=== PATIENT | female | born 1955 | race Caucasian/White ===

== ENCOUNTER → 2017-10-31 09:55 | Outpatient (CLI) | payer OTHER, SELFPAY ==
--- NOTE | 2017-10-31 09:57 | DI.MRI.S_ITS ---
PROCEDURE: MR LOWER LEG RT WO CON INDICATIONS: PAIN IN RIGHT ARCE TECHNIQUE: Noncontrast coronal and sagittal T1 spin echo and STIR; axial T1 spin echo and T2 fast spin echo with fat saturation through the right tibia/fibula. COMPARISON: [facility], CR, TIB/FIB 2V RIGHT, 06/10/2017, 12:33. FINDINGS: Image quality: Excellent. Bones: The visualized bone marrow demonstrates normal signal on all sequences. There is mild T2 hyperintensity involving the anteromedial tibial periosteum, for example image 18 series 6 . The cortex appears intact. No fractures lines or intra-osseous lesions. Soft tissues: The scanned muscles demonstrate normal overall bulk and internal signal. Subcutaneous tissues appear normal as well. No soft tissue masses are present. IMPRESSION: Mild anteromedial tibial periosteal edema/T2 hyperintensity suggesting anteromedial stress syndrome (arce splints). Please correlate clinically. No abnormal marrow signal change. Mild distal insertional Achilles tendinopathy Dictated by: Isaac Philip M.D. on 10/31/2017 at 12:45 Approved by: Isaac Philip M.D. on 10/31/2017 at 12:59
== END ==
PROVIDERS: Family Provider Family Medicine; PCP Family Medicine; Visit Provider Family Medicine
DX: M79.661 Pain in right lower leg (principal)
CPT/HCPCS: 73718

== ENCOUNTER → 2017-11-08 10:30 | Outpatient (CLI) | payer OTHER, SELFPAY ==
[2017-11-08 11:30] LABS: Add Manual Diff / Slide Review NO; Basophils Percent Auto 0.5 % (0-2); Eosinophils Percent Auto 1.3 % (2-4); Hematocrit 44.6 % (36-46); Hemoglobin 15.2 g/dL (12.0-16.0); Lymphocytes Percent Auto 28.1 % (25-40); Mean Corpuscular HGB Conc 34.1 % (30-36); Mean Corpuscular Hemoglobin 31.6 PG (26-34); Mean Corpuscular Volume 92.6 fL (80-100); Monocytes Percent Auto 6.4 % (3-14); Neutrophils Absolute Auto 4300 /uL (3000-5900); Neutrophils Percent Auto 63.7 % (50-75); Platelet Count 284 X10^3/uL (150-400); Red Blood Cell Count 4.82 X10^6/uL (4.0-5.2); Red Cell Distribution Width 13.2 % (11.6-14.8); White Blood Cell Count 6.8 X10^3/uL (4.5-11.0)
[2017-11-08 11:50] LABS: BUN Creatinine Ratio 22.5 (6-22); Blood Urea Nitrogen 18 mg/dL (7-17); Calcium 9.8 mg/dL (8.4-10.2); Carbon Dioxide 39 mmol/L (22-32); Chloride 102 mmol/L (98-107); Cholesterol 167 mg/dL (140-199); Estimated Glomerular Filt Rate > 60.0 mL/min (>60); Glucose 114 mg/dL (80-110); HDL Cholesterol 50 mg/dL (40-60); HEMOLYSIS < 15 (0-50); LDL Cholesterol Calculated 104 mg/dL (<100); Potassium 4.8 mmol/L (3.4-5.1); Sodium 147 mmol/L (137-145); Triglycerides 65 mg/dL (35-150)
[2017-11-08 12:32] LABS: Thyroid Stimulating Hormone 2.19 uIU/mL (0.47-4.68)
== END ==
PROVIDERS: PCP Family Medicine; Visit Provider Family Medicine
DX: Z00.00 Encounter for general adult medical examination without abnormal findings (principal); Z78.0 Asymptomatic menopausal state
CPT/HCPCS: 36415; 80048; 80061; 84443; 85025

== ENCOUNTER 2017-12-08 11:41 | Day surgery (SDC) | payer OTHER, SELFPAY ==
[2017-12-08 12:09] VITALS: BP 131/68; PULSE 67; RESP 16; TEMP 36.1; O2SAT 96; BMI 25.6
[2017-12-08] MEDS: SODIUM CHLORIDE 0.9% 1,000 ML 200 ML IV (12:16)
--- NOTE | 2017-12-08 12:45 | PM.HP.1 ---
History of Present Illness Date Patient Seen: 12/08/17 Time Patient Seen: 12:45 Chief complaint: [id number] Narrative: 61-year-old female who last underwent colonoscopy 5 years ago. She presents now for a follow-up surveillance with a personal history of colon polyps in the past. She has no new gastrointestinal symptoms on further history today. Denies any nausea, vomiting, loss of appetite, abdominal pain, unexplained weight loss, change in bowel habits, diarrhea, constipation, melena, hematochezia, or bright red blood per rectum. Patient History Medical History Personal history of colonic polyps (Acute) Asthma (Chronic 1994) Cataract (Chronic 2012) Chronic back pain (Chronic 1984) Hayfever (Chronic 1964) Hearing loss (Chronic) Herpes (Chronic 1981) Hypertension (Chronic 1999) Liver disease (Chronic 2013) Shoulder pain (Chronic 2013) BCC (basal cell carcinoma of skin) (Resolved 1994) Chicken pox (Resolved) Pneumonia (Resolved) Skin cancer (Resolved 1995) Surgical History History of colonoscopy (Acute) Status post laparoscopic appendectomy (Acute) Anesthesia (Resolved) Status post delivery (Resolved 11/29/91) Status post rotator cuff repair (Resolved 05/29/12) Family & Social History Family History: Reviewed 12/08/17 by Lex Maria MD Social History: household members spouse Tobacco & Substance use: Smoking Status Never smoker Meds Home Medications Medication Instructions Recorded Confirmed Type [BIOTIN] #0 02/02/17 11/15/17 History [CHOLINE] #0 02/02/17 11/15/17 History [VITAMIN C] #0 02/02/17 11/15/17 History albuterol sulfate [Ventolin HFA] 2 puff INH SEE INSTRUCTIONS PRN #1 02/02/17 11/15/17 Rx inh cholecalciferol (vitamin D3) 1,000 unit PO QDAY #0 02/02/17 11/15/17 History [Vitamin D3] hydrochlorothiazide 25 mg PO QDAY #90 tab 03/08/17 11/15/17 Rx estradiol 0.5 mg tablet 0.5 mg PO DAILY #90 tab 11/01/17 11/15/17 Rx medroxyprogesterone 2.5 mg tablet 2.5 mg PO DAILY #90 tab 11/01/17 11/15/17 Rx acyclovir 400 mg tablet 400 mg PO 5XD #30 tab 11/15/17 Rx clonazepam 1 mg tablet 1 mg PO HS #60 tab 11/15/17 Rx hydrocodone 5 mg-acetaminophen 325 1 tab PO Q6H PRN #20 tab 11/15/17 Rx mg tablet Allergies Allergy/AdvReac Type Severity Reaction Status Date / Time ciprofloxacin [CIPROFLOXACIN] Allergy Unknown RASH Unverified 11/15/17 10:26 oxycodone [OXYCODONE] Allergy Unknown RASH Unverified 11/15/17 10:26 sulfamethazine Allergy Unknown STOMACH Unverified 11/15/17 10:26 [SULFAMETHAZINE] ACHE; ITCHY MUCOUS MEMBRANES Review of Systems Review of Systems All systems reviewed & are unremarkable except as noted in HPI and below Exam Vital Signs (past 8 hours): - 12/08/17 12:09 Temperature 96.9 F L Pulse Rate 67 Respiratory Rate 16 Blood Pressure 131/68 Pulse Oximetry 96 Oxygen Delivery Method Room Air Narrative Exam Narrative: Thin female lying comfortably on the gurney in no acute distress. Alert oriented x3 Sclera nonicteric Chest clear to auscultation bilaterally with regular rate rhythm. No murmurs, gallops, rubs. No crackles or wheezes Abdomen soft, nondistended, nontender, no masses Extremities show no clubbing, cyanosis, or edema Objective Labs Labs: No recent laboratory or radiographic studies for review Assessment & Plan Plan: Assessment/Plan Narrative: 61-year-old female with personal history of colon polyps. Her last colonoscopy was 5 years ago. She now requires colorectal surveillance. Colonoscopy is once again recommended. Technical details of the procedure were discussed. Risks, benefits, and alternatives were explained. Risks including but not limited to sedation, aspiration, bleeding, pain, missed lesion, incomplete examination, need for further radiographic studies, colonic perforation, need for major abdominal surgery, and all attendant risks of major surgery were discussed in detail. All questions were answered to her satisfaction, and she voiced understanding. Consent was placed on the chart. We will proceed as above.
--- NOTE | 2017-12-08 12:49 | P.HP_ITS ---
History of Present Illness Date Patient Seen: 12/08/17 Time Patient Seen: 12:45 Chief complaint: [id number] Narrative: 61-year-old female who last underwent colonoscopy 5 years ago. She presents now for a follow-up surveillance with a personal history of colon polyps in the past. She has no new gastrointestinal symptoms on further history today. Denies any nausea, vomiting, loss of appetite, abdominal pain, unexplained weight loss, change in bowel habits, diarrhea, constipation, melena , hematochezia, or bright red blood per rectum. Patient History Medical History Personal history of colonic polyps (Acute) Asthma (Chronic 1994) Cataract (Chronic 2012) Chronic back pain (Chronic 1984) Hayfever (Chronic 1964) Hearing loss (Chronic) Herpes (Chronic 1981) Hypertension (Chronic 1999) Liver disease (Chronic 2013) Shoulder pain (Chronic 2013) BCC (basal cell carcinoma of skin) (Resolved 1994) Chicken pox (Resolved) Pneumonia (Resolved) Skin cancer (Resolved 1995) Surgical History History of colonoscopy (Acute) Status post laparoscopic appendectomy (Acute) Anesthesia (Resolved) Status post delivery (Resolved 11/29/91) Status post rotator cuff repair (Resolved 05/29/12) Family & Social History Family History: Reviewed 12/08/17 by Lex Maria MD Social History: household members spouse Tobacco & Substance use: Smoking Status Never smoker Meds Home Medications Medication Instructions Recorded Confirmed Type [BIOTIN] #0 02/02/17 11/15/17 History [CHOLINE] #0 02/02/17 11/15/17 History [VITAMIN C] #0 02/02/17 11/15/17 History albuterol sulfate [Ventolin HFA] 2 puff INH SEE INSTRUCTIONS PRN #1 02/02/1701/22 Rx inh cholecalciferol (vitamin D3) 1,000 unit PO QDAY #0 02/02/17 11/15/17 History [Vitamin D3] hydrochlorothiazide 25 mg PO QDAY #90 tab 03/08/17 11/15/17 Rx estradiol 0.5 mg tablet 0.5 mg PO DAILY #90 tab 11/01/17 11/15/17 Rx medroxyprogesterone 2.5 mg tablet 2.5 mg PO DAILY #90 tab 11/01/17 11/15/17 Rx acyclovir 400 mg tablet 400 mg PO 5XD #30 tab 11/15/17 Rx clonazepam 1 mg tablet 1 mg PO HS #60 tab 11/15/17 Rx hydrocodone 5 mg-acetaminophen 325 1 tab PO Q6H PRN #20 tab 11/15/17 Rx mg tablet Allergies Allergy/AdvReac Type Severity Reaction Status Date / Time ciprofloxacin [CIPROFLOXACIN] Allergy Unknown RASH Unverified 11/15/17 10:26 oxycodone [OXYCODONE] Allergy Unknown RASH Unverified 11/15/17 10:26 sulfamethazine Allergy Unknown STOMACH Unverified 11/15/17 10:26 [SULFAMETHAZINE] ACHE; ITCHY MUCOUS MEMBRANES Review of Systems Review of Systems All systems reviewed & are unremarkable except as noted in HPI and below Exam Vital Signs (past 8 hours): - 12/08/17 12:09 Temperature 96.9 F L Pulse Rate 67 Respiratory Rate 16 Blood Pressure 131/68 Pulse Oximetry 96 Oxygen Delivery Method Room Air Narrative Exam Narrative: Thin female lying comfortably on the gurney in no acute distress. Alert oriented x3 Sclera nonicteric Chest clear to auscultation bilaterally with regular rate rhythm. No murmurs, gallops, rubs. No crackles or wheezes Abdomen soft, nondistended, nontender, no masses Extremities show no clubbing, cyanosis, or edema Objective Labs Labs: No recent laboratory or radiographic studies for review Assessment & Plan Plan: Assessment/Plan Narrative: 61-year-old female with personal history of colon polyps. Her last colonoscopy was 5 years ago. She now requires colorectal surveillance. Colonoscopy is once again recommended. Technical details of the procedure were discussed. Risks, benefits, and alternatives were explained. Risks including but not limited to sedation, aspiration, bleeding, pain, missed lesion, incomplete examination, need for further radiographic studies, colonic perforation, need for major abdominal surgery, and all attendant risks of major surgery were discussed in detail. All questions were answered to her satisfaction, and she voiced understanding. Consent was placed on the chart. We will proceed as above.
--- NOTE | 2017-12-08 12:49 | PM.PREOP ---
Pre-operative Note Interval Note Pre-op Check: Yes History & Physical Reviewed by Physician, Yes Exam Performed and Yes History & Physical exam performed today by Physician Changes: No H&P completed within 30 days and has changed as indicated here:: Patient seen and examined today. History and physical examination documented and placed on the chart today. Proceed with colonoscopy as planned. ASA Class (for procedural sedation): II
[2017-12-08] MEDS: MIDAZOLAM 5 MG/5 ML VIAL IV (13:13)
[2017-12-08] MEDS: fentaNYL 250 MCG/5 ML INJ IV (13:14)
--- NOTE | 2017-12-08 13:19 | PM.OP.ENDO ---
Operative Date/Time/Diagnoses Date of procedure: 12/08/17 Time of procedure: 13:19 Pre-op diagnosis: Personal history of colon polyps Post-op diagnosis: other (Diverticulosis but otherwise normal colon and rectum) Procedure & Clinicians Study performed: 1. Sedation per surgeon 2. Colonoscopy Same procedure as scheduled: Yes Indications: 61-year-old female with personal history of colon polyps. Last colonoscopy was 5 years ago. She was recommended to undergo repeat colonoscopy for surveillance currently. Surgeon: Lex Maria Procedure Notes SCOAP/Timeout: Yes Procedure in detail: After obtaining informed consent, the patient was brought to the GI suite and placed in the left lateral decubitus position on the examination table. After placement of appropriate monitors, the patient was given incremental doses of Versed and Fentanyl until an appropriate level of sedation was achieved. A time out was held per SCOAP protocol. A digital rectal examination was performed and did not reveal any masses or obstructing lesions. The colonoscope was gently passed into the patient's anus and the entire colon navigated to the level of the cecum with minimal difficulty. Once in the cecum, the scope was withdrawn being sure to go before and beyond all mucosal folds and prominences and get an excellent examination. The findings are noted above. At the level of the rectal vault, the scope was retroflexed and the internal anal canal was examined. The scope was straightened and air aspirated from the colon. The instrument was removed from the patient's body and the procedure was concluded. The patient was allowed to awaken from sedation without difficulty and taken to the post-anesthesia care unit in good condition. Scope withdrawal time: 8:26 min Sedation minutes: 24 Findings: diverticulosis and other findings (Otherwise normal colon and rectum) Specimen(s): none sent Complications: none Recommendations: Colonscopy in 5 years and High fiber diet Plan for aftercare: 1. Discharged home Follow up: as needed Disposition: PACU
[2017-12-08 13:23] VITALS: BP 138/73; PULSE 58; RESP 13; TEMP 36.8; O2SAT 100
[2017-12-08 13:27] VITALS: BP 149/74; PULSE 57; RESP 14; O2SAT 99
[2017-12-08 13:33] VITALS: BP 159/71; PULSE 58; RESP 15; O2SAT 98
[2017-12-08 13:45] VITALS: BP 150/71; PULSE 61; RESP 15; TEMP 36.3; O2SAT 98
[2017-12-08 14:40] VITALS: BP 147/74; PULSE 67; RESP 16; TEMP 36.3; O2SAT 97
--- NOTE | 2017-12-08 14:52 | SUR.PHASEII ---
printed and discussed pt's discharge information with the patient and the spouse. spouse signed discharge information sheet but then I promptly misplaced it. pt was given the opportunity to ask questions, she denied having any. pt discharge home with spouse via wheelchair. vss, pt still slightly drowsy but steady on her feet.
== END 2017-12-08 14:42 | disposition home or self-care (01) ==
PROVIDERS: PCP Family Medicine; Visit Provider Surgery
PROC: 0DJD8ZZ Inspection of Lower Intestinal Tract, Via Natural or Artificial Opening Endoscopic (ICD-10-PCS; CPT 45378; principal; 2017-12-08 13:00)
DX: Z86.010 Personal history of colon polyps (principal); K57.30 Diverticulosis of large intestine without perforation or abscess without bleeding; I10 Essential (primary) hypertension
CPT/HCPCS: 45378; 99152; 99153; J2250; J3010

== ENCOUNTER 2017-12-27 09:09 | Outpatient (CLI) | payer OTHER, SELFPAY ==
[2017-12-27] VITALS (8 sets, daily range): BP systolic 108–136; BP diastolic 62–80; PULSE 68–72; RESP 16–18; TEMP 36.1; O2SAT 97–99
--- NOTE | 2017-12-27 09:10 | DI.RAD.S_ITS ---
PROCEDURE: PAIN L/S TRANSFORAMINAL INJECT INDICATIONS: Spinal stenosis, lumbar region without neurogenic FINDINGS: Fluoroscopic spot filming was performed to verify placement of spinal needles at the right L4-5 level(s), as labeled on the films. Appropriate location(s) of the needle tip(s) was confirmed by injection of iodinated contrast. IMPRESSION: Successful needle tip localization for right L4-5 neural foraminal region epidural steroid injection. Dictated by: Kerwin Astorga M.D. on 12/27/2017 at 12:55 Approved by: Kerwin Astorga M.D. on 12/27/2017 at 12:55
[2017-12-27] MEDS: BUPIVACAINE 0.25% (PF) VIAL 2 ML INJ (09:45)
[2017-12-27] MEDS: methylPREDNISolone acetate 80 MG/ML VIAL INJ ×2 (09:45→09:46)
[2017-12-27] MEDS: IOPAMIDOL 15 ML VIAL 3 ML INJ (09:45)
[2017-12-27] MEDS: DEXAMETHASONE 10 MG/ML VIAL 20 MG INJ (09:46)
--- NOTE | 2017-12-27 09:57 | PC.NURSE ---
pt tolerated without sedation. will transport pt in wheelchair to pre procedure room. pt stable. no apparent distress.
--- NOTE | 2017-12-27 10:06 | P.PCN_ITS ---
Procedures Date/Time Date of procedure: 12/27/17 Time of procedure: 10:05 General Procedure description: PREOP DIAGNOSIS 1. FORMAINAL STENOSIS WITH LE SYMPTOMS POST OP DIAGNOSIS 1. FORMAINAL STENOSIS WITH LE SYMPTOMS PROCEDURES 1. FLUOROSCOPICALLY GUIDED CONTRAST CONTROLLED TRANSFORAMINAL EPIDURAL STEROID INJECTION - RIGHT L4/5 TFESI PHYSICIAN: Rufino Padilla DO INDICATIONS: Amaya is referred by for treatment of Foraminal Stenosis with Right LE Symptoms FINDINGS Foraminal Nerve Root Compression secondary to disc disease and facet hypertrophy DESCRIPTION OF PROCEDURE: Following denial of allergy and review of potential side effects and complications, including, but not necessarily limited to, infection, allergic reaction, local tissue breakdown, stroke, temporary or permanent nerve injury, paralysis, and possible , the patient indicated that the patient understood and agreed to proceed. An informed consent document was signed by the patient, witnessed by a nurse, and placed in the patient's chart. Additionally, other treatment options including medications, modalities, and physical therapy were reviewed with the patient. After review of previous anaesthesic history and IV conscious sedation the patient was deemed safe to proceed with todays procedure with IV conscious sedation as ASA class II designation. Safety time-out was performed to confirm patient ID, procedure to be performed and site of procedure. IV sedation was deemed not necessary was administered by the RN after DO order, titrated to patient comfort during the course of the procedure while the patient remained responsive to all verbal commands In the prone position following sterile prep and drape of the lumbar region, the right L4/5 posterior neuroforamen was identified fluoroscopically. The skin was anesthetized via a 25-gauge 1.5-inch needle with 1% lidocaine solution. At this point, a 25-gauge 3.5-inch spinal needle was atraumatically introduced and advanced under fluoroscopic guidance through the posterior Right L4/5 neuroforamen to approximately the anterior aspect of the canal. Depth was confirmed on lateral view. Following negative aspiration, injection of approximately 1.5 cc of Isovue 200 under live fluoroscopy in the AP view confirmed excellent flow along the nerve root, into the epidural space without vascular or intrathecal uptake observed Radiological data, including multiple fluoroscopic views of the lumbosacral spine, reveal a spinal needle at the right L4/5 posterior neuroforamen. Subsequent views show flow of contrast material flowing superiorly and inferiorly along the nerve root confirming epidural flow. Subsequently, a test dose of 1.5 cc of 1% lidocaine solution was administered and patient was observed for two minutes for signs or symptoms of complications , including abdominal pain, shortness of breath, bilateral upper or lower extremity weakness, nausea and vomiting, prior to steroid injection. At this point, a total of 3 cc or 20 mg of dexamethasone and 80mg Depo Medrol was injected without incident. The procedure tolerated the procedure well without signs or symptoms of complications prior to transfer to the recovery area continued monitoring without incident.The patient was then transferred to the recovery area where they were observed for an appropriate time after the injection. The patient reported a VAS score of 7 prior to the procedure and a post- procedure VAS of 0. Total Fluoroscopy Time: 20.9 seconds Total Conscious Sedation Time: 24min POST OP INSTRUCTIONS The patient was provided a Pain Log to continue to record their response to the target-specific procedure prior to follow-up visit with their referring physician. Additionally, specific post-injection care instructions and a contact number to our office were provided if concerns arise regarding possible complications associated with the procedure are suspected. Rufino Padilla DO Complications: none
== END 2017-12-27 10:16 | disposition home or self-care (01) ==
LOC: RAD 09:09
PROVIDERS: PCP Family Medicine; Visit Provider Physical Medicine & Rehabilitation
DX: M48.061 Spinal stenosis, lumbar region without neurogenic claudication (principal); M51.16 Intervertebral disc disorders with radiculopathy, lumbar region
CPT/HCPCS: 64483; J1040; J1100; J2250

== ENCOUNTER → 2018-05-12 12:43 | Outpatient (CLI) | payer OTHER, SELFPAY ==
--- NOTE | 2018-05-12 12:45 | DI.RAD.S_ITS ---
PROCEDURE: XR HIP W PEL IF DONE RT 2V INDICATIONS: right hip pain, s/p fall TECHNIQUE: AP pelvis with lateral view(s) of the right hip(s). COMPARISON: None. FINDINGS: Bones: No fractures or dislocations. Pelvic ring appears intact. No suspicious bony lesions. Soft tissues: The visualized bowel gas pattern is normal. No suspicious soft tissue calcifications. IMPRESSION: No trauma found, symmetric minimal hip joint osteoarthritis incidentally noted. Dictated by: Kerwin Astorga M.D. on 05/12/2018 at 13:20 Approved by: Kerwin Astorga M.D. on 05/12/2018 at 13:20
--- NOTE | 2018-05-12 12:45 | DI.RAD.S_ITS ---
PROCEDURE: XR LUMBAR SPINE MIN 4V INDICATIONS: right hip pain, s/p fall TECHNIQUE: 5 views of the lumbar spine were acquired. COMPARISON: [facility], , L-SPINE 2-3 VIEWS, 10/11/2013, 10:18. [facility], , L-SPINE 2-3 VIEWS, 06/16/2010, 8:32. FINDINGS: Bones: Is nonrib-bearing vertebrae are present. There is normal bony alignment. No vertebral body compression fractures. No suspicious bony lesions. Degenerative disc height reduction and facet osteoarthritis is present to a slightly greater degree than was previously the case on the comparison study from 06/16/10 at L3-4, L4-5, and L5-S1. Subluxation is not associated. Soft tissues: Overlying bowel gas pattern is normal. No suspicious soft tissue calcifications. Oblique images: No pars defects. IMPRESSION: Mild interval worsening of degenerative disc disease and facet osteoarthritis over the lower half of the LS-spine, but without definite spinal and foraminal stenosis seen. No intervening compression fracture has developed. No acute or chronic trauma found. Dictated by: Kerwin Astorga M.D. on 05/12/2018 at 13:21 Approved by: Kerwin Astorga M.D. on 05/12/2018 at 13:23
== END ==
PROVIDERS: PCP Family Medicine; Visit Provider Nurse Practitioner
DX: M25.551 Pain in right hip (principal); M54.5 Low back pain; M51.36 Other intervertebral disc degeneration, lumbar region; M51.37 Other intervertebral disc degeneration, lumbosacral region; M47.816 Spondylosis without myelopathy or radiculopathy, lumbar region; M47.817 Spondylosis without myelopathy or radiculopathy, lumbosacral region
CPT/HCPCS: 72110; 73502

== ENCOUNTER 2018-05-23 13:31 | Emergency (ER) | payer OTHER, SELFPAY ==
--- NOTE | 2018-05-23 13:33 | DI.CT.S_ITS ---
PROCEDURE: CT HEAD/BRAIN WO CON INDICATIONS: stroke syptoms, TPA candidate TECHNIQUE: Noncontrast 4.5 mm thick angled axial sections acquired from the foramen magnum to the vertex, with coronal and sagittal reformats. For radiation dose reduction, the following was used: automated exposure control, adjustment of mA and/or kV according to patient size. COMPARISON: [facility], CT, HEAD WITHOUT CONTRAST, 11/08/2014, 10:02. FINDINGS: Image quality: Excellent. CSF spaces: Basal cisterns are patent. No extra-axial fluid collections. Ventricles are normal in size and shape. Brain: No midline shift. No intracranial masses or hemorrhage. Jay-white matter interface is normal. Skull and face: Calvarium and visualized facial bones are intact, without suspicious lesions. Sinuses: Visualized sinuses and mastoids are clear. IMPRESSION: No contraindication to TPA identified. Normal for age. Note: This information was immediately called to the emergency room physician caring for the patient at 13:48 [place] time. The report was called from [place], and [place] time is referenced in the dictated by section below. Dictated by: Kerwin Astorga M.D. on 05/23/2018 at 12:46 Approved by: Kerwin Astorga M.D. on 05/23/2018 at 12:50
--- NOTE | 2018-05-23 13:42 | ED.NEUROSD ---
HPI - Neuro Symptoms/Deficit General Chief Complaint: Neuro Symptoms/Deficit Stated Complaint: Confusion Time Seen by Provider: 05/23/18 13:33 Source: patient and EMS Mode of arrival: EMS Limitations: no limitations History of Present Illness HPI Narrative: 62-year-old female nonsmoker with history of asthma and hypertension presents by EMS for evaluation of stroke-like symptoms that started at noon today, perhaps earlier according to the patient. Her symptoms include some trouble with speech and perhaps left-sided facial weakness that has resolved. Additionally she was walking with an unsteady gait. She has never had any these symptoms before. She feels much better now. EMS noted a blood sugar of 109. Time: 12:00 Location: speech, left face and ataxia History of same: No Severity: mild Quality: weak, tingling and improving Relieving factors: none Exacerbating factors: none Context: sudden onset On Anticoagulants: No Associated symptoms: denies other symptoms Treatments Prior to Arrival: none Related Data Home Medications Medication Instructions Recorded Confirmed vitamin G-jlipufzjzcms-hojawhg 1 tab PO PRN PRN #0 02/02/17 05/23/18 [Emergen-C] acyclovir 400 mg tablet See Rx Instructions PO 5XD PRN 02/23/18 05/23/18 B Vitamins 1 dose PO DAILY 05/23/18 05/23/18 Vitamin D3 1 cap PO DAILY 05/23/18 05/23/18 albuterol sulfate [Ventolin HFA] 2 puff INH PRN PRN 05/23/18 05/23/18 citalopram 10 mg PO DAILY 05/23/18 05/23/18 clonazepam [Klonopin] 1 mg PO BEDTIME 05/23/18 05/23/18 estradiol 0.5 mg PO Q OTHER DAY 05/23/18 05/23/18 gabapentin 100 mg PO BEDTIME 05/23/18 05/23/18 hydrochlorothiazide 25 mg PO DAILY 05/23/18 05/23/18 medroxyprogesterone 2.5 mg PO Q OTHER DAY 05/23/18 05/23/18 Previous Rx's Medication Instructions Recorded hydrocodone 5 mg-acetaminophen 325 1 tab PO Q6H PRN #20 tab 05/01/18 mg tablet lidocaine 5 % topical patch 1 patch TOP DAILY #30 each 05/11/18 Allergies Allergy/AdvReac Type Severity Reaction Status Date / Time ciprofloxacin [CIPROFLOXACIN] Allergy Unknown RASH Verified 05/23/18 13:47 oxycodone [OXYCODONE] Allergy Unknown RASH Verified 05/23/18 13:47 sulfamethazine Allergy Unknown STOMACH Verified 05/23/18 13:47 [SULFAMETHAZINE] ACHE; ITCHY MUCOUS MEMBRANES Review of Systems Constitutional Denies chills, Denies fever(s), Denies lethargy and Reports weakness Eyes Denies change in vision, Denies eye discharge, Denies irritation and Denies loss of vision ENT Ears, Nose, Mouth, and Throat: Denies change in voice, Denies neck pain and Denies sore throat Cardiovascular Denies chest pain, Denies irregular heart rhythm, Denies lightheadedness, Denies palpitations, Denies dyspnea, Denies dyspnea on exertion and Denies orthopnea Respiratory Denies cough, Denies dyspnea, Denies dyspnea on exertion and Denies wheezing Gastrointestinal Gastrointestinal: Denies abdominal pain, Denies change in bowel habits, Denies diarrhea, Denies nausea and Denies vomiting Genitourinary Denies hematuria, Denies flank pain, Denies urinary incontinence and Denies urinary urgency Musculoskeletal Denies neck pain Integumentary/Breasts Denies pruritus, Denies erythema, Denies rash and Denies wounds Neurologic Reports abnormal speech, Denies confusion, Denies loss of vision, Reports sensory deficit and Reports weakness Psychiatric Denies anxiety, Denies confusion, Denies depression, Denies homicidal ideation and Denies suicidal ideation Endocrine Denies palpitations Hematologic/Lymphatic Denies easy bruising Allergic/Immunologic Denies wheezing [facility] Medical History Personal history of colonic polyps (Acute) Asthma (Chronic 1994) Cataract (Chronic 2012) Chronic back pain (Chronic 1984) Hayfever (Chronic 1964) Hearing loss (Chronic) Herpes (Chronic 1981) Hypertension (Chronic 1999) Liver disease (Chronic 2013) Shoulder pain (Chronic 2013) BCC (basal cell carcinoma of skin) (Resolved 1994) Chicken pox (Resolved) Pneumonia (Resolved) Skin cancer (Resolved 1995) Surgical History History of colonoscopy (Acute) Status post laparoscopic appendectomy (Acute) Anesthesia (Resolved) Status post delivery (Resolved 11/29/91) Status post rotator cuff repair (Resolved 05/29/12) Family History Child Age: 28 Club foot Child Age: 26 Hearing loss in right ear Father Heart disease Hypertension Parkinson's disease Skin cancer Mother Heart disease Hypertension Dementia Stroke Skin cancer Social History household members: spouse Smoking Status: Never smoker Family History Child Age: 28 Club foot Child Age: 26 Hearing loss in right ear Father Heart disease Hypertension Parkinson's disease Skin cancer Mother Heart disease Hypertension Dementia Stroke Skin cancer Social History household members: spouse Smoking Status: Never smoker Exam Narrative Exam Narrative: GENERAL: 62-year-old female appears younger than stated age This is a well-nourished, well-developed patient, in mild distress. HEAD: Atraumatic. Normocephalic. No temporal or scalp tenderness. EYES: Pupils equal round and reactive. Extraocular motions intact. No scleral icterus. No injection or drainage. ENT: Nose without bleeding, purulent drainage or septal hematoma. Throat without erythema, tonsillar hypertrophy or exudate. Uvula midline. Airway patent. NECK: Trachea midline. No JVD or lymphadenopathy. Supple, nontender, no meningeal signs. CARDIOVASCULAR: Regular rate and rhythm without murmurs, gallops, or rubs. RESPIRATORY: Clear to auscultation. Breath sounds equal bilaterally. No wheezes, rales, or rhonchi. GASTROINTESTINAL: Abdomen soft, non-tender, nondistended. No hepato-splenomegaly, or palpable masses. No guarding. EXTREMITIES: No clubbing, cyanosis, or edema. No joint tenderness, effusion, or edema noted. BACK: Nontender without deformity or crepitance. No flank tenderness. NEURO: AOx3. SKIN: No rash or erythema. Initial Vital Signs Initial Vital Signs: Vital Signs Pulse Rate 84 05/23/18 13:47 Respiratory Rate 16 05/23/18 13:47 Blood Pressure 153/83 H 05/23/18 13:47 Pulse Oximetry 100 05/23/18 13:47 Course Orders Ordered: ED Orders 05/23/18 13:33 CT head/brain wo con Stat EKG-12 Lead Stat 05/23/18 13:43 Basic Metabolic Panel Stat Complete Blood Count AUTO DIFF Stat Partial Thromboplastin Time Stat Prothrombin Time INR Stat 05/23/18 14:00 Urine Drug Screen, Rapid Stat 05/23/18 15:10 MR head/brain wo con Stat Discontinued Medications Sodium Chloride (Normal Saline 0.9%) 1,000 mls @ 150 mls/hr IV CONT YURY Last Infusion: 05/23/18 17:01 Dose: 900 mls/hr Admin: 05/23/18 14:37 Dose: 150 mls/hr Reevaluation(s) Reevaluation #1: patient continues to improve in the emergency department. has now arrived and suggest a slightly different timeline the patient. He states that she has had slowly developing and worsening symptoms over the past weeks to months that have made him wonder if she isn't developing early onset dementia like other family members of hers Consultations Consultation #1: Upon completion of this patient's evaluation I reached out to the primary care provider, Dr. Voss. We discussed the patient's history, physical, labs and imaging. We sure the opinion that given the above-stated evaluation that the likelihood of stroke or other diagnosis requiring immediate intervention is exceedingly unlikely. He will see the patient in close follow-up Vital Signs - 8 hr 05/23/18 13:47 Pulse Rate 84 Respiratory Rate 16 Blood Pressure 153/83 H Pulse Oximetry 100 MDM - Neuro Symptoms/Deficit Medical Records Attestation: I reviewed the patient's medical records. Lab Data Attestation: I reviewed the patient's lab results. Result diagrams: 05/23/18 13:43 05/23/18 13:43 Lab Results 05/23/18 05/23/18 05/23/18 Range/Units 13:43 13:43 13:43 WBC 6.9 (4.5-11.0) X10^3/uL RBC 4.73 (4.0-5.2) X10^6/uL Hgb 14.8 (12.0-16.0) g/dL Hct 44.1 (36-46) % MCV 93.3 (80-100) fL MCH 31.3 (26-34) PG MCHC 33.6 (30-36) % RDW 12.5 (11.6-14.8) % Plt Count 275 (150-400) X10^3/uL Neut % (Auto) 57.5 (50-75) % Lymph % (Auto) 33.6 (25-40) % Andrew % (Auto) 6.6 (3-14) % Eos % (Auto) 1.4 L (2-4) % Baso % (Auto) 0.9 (0-2) % Neut # (Auto) 4000 (9382-3355) /uL Lymph # (Auto) 2300 (7376-6599) /uL Andrew # (Auto) 500 (0-900) /uL Eos # (Auto) 100 (0-450) /uL Baso # (Auto) 100 (0-100) /uL PT 10.3 (10.1-12.7) SECONDS INR 0.9 (0.9-1.3) APTT 32 (26.4-36.2) SECONDS Sodium 139 (137-145) mmol/L Potassium 3.6 (3.4-5.1) mmol/L Chloride 101 (98-107) mmol/L Carbon Dioxide 30 (22-32) mmol/L BUN 18 H (7-17) mg/dL Creatinine 0.70 (0.52-1.04) mg/dL Estimated GFR > 60.0 (>60) mL/min BUN/Creatinine Ratio 25.7 H (6-22) Glucose 108 (80-110) mg/dL Calcium 9.1 (8.4-10.2) mg/dL Urine Opiates Screen (Negative) Ur Oxycodone Screen (Negative) Urine Methadone Screen (Negative) Ur Barbiturates Screen (Negative) U Tricyclic Antidepress (Negative) Ur Phencyclidine Scrn (Negative) Ur Amphetamines Screen (Negative) U Methamphetamines Scrn (Negative) Ur MDMA Scrn (Ecstasy) (Negative) U Benzodiazepines Scrn (Negative) Urine Cocaine Screen (Negative) U Marijuana (THC) Screen (Negative) 05/23/18 Range/Units 14:00 WBC (4.5-11.0) X10^3/uL RBC (4.0-5.2) X10^6/uL Hgb (12.0-16.0) g/dL Hct (36-46) % MCV (80-100) fL MCH (26-34) PG MCHC (30-36) % RDW (11.6-14.8) % Plt Count (150-400) X10^3/uL Neut % (Auto) (50-75) % Lymph % (Auto) (25-40) % Andrew % (Auto) (3-14) % Eos % (Auto) (2-4) % Baso % (Auto) (0-2) % Neut # (Auto) (0089-1892) /uL Lymph # (Auto) (1003-7021) /uL Andrew # (Auto) (0-900) /uL Eos # (Auto) (0-450) /uL Baso # (Auto) (0-100) /uL PT (10.1-12.7) SECONDS INR (0.9-1.3) APTT (26.4-36.2) SECONDS Sodium (137-145) mmol/L Potassium (3.4-5.1) mmol/L Chloride (98-107) mmol/L Carbon Dioxide (22-32) mmol/L BUN (7-17) mg/dL Creatinine (0.52-1.04) mg/dL Estimated GFR (>60) mL/min BUN/Creatinine Ratio (6-22) Glucose (80-110) mg/dL Calcium (8.4-10.2) mg/dL Urine Opiates Screen Positive H (Negative) Ur Oxycodone Screen Negative (Negative) Urine Methadone Screen Negative (Negative) Ur Barbiturates Screen Negative (Negative) U Tricyclic Antidepress Negative (Negative) Ur Phencyclidine Scrn Negative (Negative) Ur Amphetamines Screen Negative (Negative) U Methamphetamines Scrn Negative (Negative) Ur MDMA Scrn (Ecstasy) Negative (Negative) U Benzodiazepines Scrn Negative (Negative) Urine Cocaine Screen Negative (Negative) U Marijuana (THC) Screen Positive H (Negative) Point of Care Testing Glucose POC 109 Urine Dip Bedside Urine Glucose Negative Bedside Urine Bilirubin - Negative Bedside Urine Ketone - Negative Urine Specific [place] 1.015 Bedside Urine Occult Blood - Negative Bedside Urine pH 7.5 Bedside Urine Protein - Negative Bedside Urine Urobilinogen - Negative Bedside Urine Nitrite - Negative Bedside Urine Leukocytes - Negative Esterase Imaging Data CT scan - head: Radiologist's impression: Amaya Chambers J 62 F 1955 [address] [address] [address] Scan Report Signed Patient: Amaya Chambers JMR#: [id number] : [id number]:[id number] Age/Sex: 62 / FDate of Service: 05/23/18 Loc: ED Accession Number: [id number] Procedure: CT head/brain wo con Ordering Provider: Huber Rios D.O. PROCEDURE: CT HEAD/BRAIN WO CON INDICATIONS: stroke syptoms, TPA candidate TECHNIQUE: Noncontrast 4.5 mm thick angled axial sections acquired from the foramen magnum to the vertex, with coronal and sagittal reformats. For radiation dose reduction, the following was used: automated exposure control, adjustment of mA and/or kV according to patient size. COMPARISON: [facility], CT, HEAD WITHOUT CONTRAST, 11/08/2014, 10:02. FINDINGS: Image quality: Excellent. CSF spaces: Basal cisterns are patent. No extra-axial fluid collections. Ventricles are normal in size and shape. Brain: No midline shift. No intracranial masses or hemorrhage. Jay-white matter interface is normal. Skull and face: Calvarium and visualized facial bones are intact, without suspicious lesions. Sinuses: Visualized sinuses and mastoids are clear. IMPRESSION: No contraindication to TPA identified. Normal for age. Note: This information was immediately called to the emergency room physician caring for the patient at 13:48 [place] time. The report was called from [place], and [place] time is referenced in the dictated by section below. Dictated by: Kerwin Astorga M.D. on 05/23/2018 at 12:46 Approved by: Kerwin Astorga M.D. on 05/23/2018 at 12:50 MRI - head: Radiologist's impression: Amaya Chambers 62 F 1955 [place] [address] Magnetic Resonance Report Signed Patient: Reyes,Amaya R#: [id number] : [id number] Age/Sex: 62 / FDate of Service: 05/23/18 Loc: ED Accession Number: [id number] Procedure: MR head/brain wo con Ordering Provider: Huber Rios D.O. PROCEDURE: MR HEAD/BRAIN WO CON INDICATIONS: mental status change, head ache, speech trouble TECHNIQUE: Non-contrast axial T1 spin echo, axial T2 fast spin echo, sagittal and axial FLAIR, coronal T2 fast spin echo, axial gradient echo, axial diffusion and ADC through the brain. COMPARISON: [facility], MR, BRAIN WITHOUT CONTRAST, 02/06/2015, 10:04. FINDINGS: Image quality: Excellent. CSF spaces: Ventricles appear symmetric in size and shape. Basal cisterns are patent. No extra-axial fluid collections. Brain: No intracranial bleeds or mass effects. There is cerebral volume loss for age. There are periventricular and deep white matter chronic small vessel ischemic changes. Brainstem appears normal. Diffusion-weighted images show no acute ischemic insults. No chronic ischemic insults. Normal intravascular flow voids are present. Skull and face: Calvarial bone marrow is normal in signal. Orbits are normal. Sinuses: Mild right maxillary sinus disease. Mild right mastoid air cell fluid, unknown age. IMPRESSION: Mild right maxillary sinus disease. Mild right mastoid air cell fluid, technically age-indeterminate. No evidence of acute ischemia. No acute signal abnormality. Diffuse small white matter signal changes, probably represent chronic microvascular ischemic disease, versus statistically less likely demyelination or other infectious, inflammatory, neurodegenerative etiology, technically nonspecific. Dictated by: Isaac Philip M.D. on 05/23/2018 at 15:52 Approved by: Isaac Philip M.D. on 05/23/2018 at 15:59 [facility] Narrative Medical decision making narrative: patient presents with vague encephalopathic symptoms presenting over days to weeks. She has no focal neurologic findings, stroke scale is 0, head CT is unremarkable and MRI demonstrates no acute stroke. She demonstrates no significant lab abnormalities that would suggest a reversible etiology. For the entirety of her stay, her description of symptoms as well as exam are much more consistent with a global abnormality as opposed to a focal neurologic finding consistent with stroke. Patient and have been given extensive return precautions and can demonstrate their understanding of these precautions as evidence by their ability to recite them back to pr. Her primary care provider will closely follow her as an outpatient. Discharge Plan Departure Patient Disposition: Home Clinical Impression: Weakness Fatigue Qualifiers: Fatigue type: unspecified Qualified Code(s): R53.83 - Other fatigue Discharge Date/Time: 05/23/18 17:03 Interventions: ED Discharge Assessment Last Done: 05/23/18 17:02 Instructions: DI for Fatigue Activity Restrictions/Additional Instructions: *You have been diagnosed with [ acute weakness and fatigue. Stroke, dehydration, and electrolyte abnormalities all considered. ] *What to do: *Take medications as directed *Follow up with your primary care provider in 2-3 days, call for an appointment. Let them know you were seen in the Emergency Department and that we ask that you be seen in follow up *Return to ER if you should have any new, worsening or concerning symptoms Prescriptions: No Action Emergen-C 500 mg Tablet,Chewable 1 tab PO PRN PRN (Reason: onset of cold symptoms) Qty: 0 RF: 0 hydrocodone-acetaminophen 5-325 mg tablet 1 tab PO Q6H PRN (Reason: pain) Qty: 20 RF: 0 lidocaine 5 % adhesive patch,medicated 1 patch TOP DAILY Qty: 30 RF: 2 citalopram 10 mg Tablet 10 mg PO DAILY RF: 0 clonazepam [Klonopin] 1 mg tablet 1 mg PO BEDTIME RF: 0 hydrochlorothiazide 25 mg tablet 25 mg PO DAILY RF: 0 B Vitamins 1 dose PO DAILY RF: 0 Vitamin D3 1 cap PO DAILY RF: 0 medroxyprogesterone 2.5 mg tablet 2.5 mg PO Q OTHER DAY RF: 0 gabapentin 100 mg capsule 100 mg PO BEDTIME RF: 0 estradiol 0.5 mg tablet 0.5 mg PO Q OTHER DAY RF: 0 albuterol sulfate [Ventolin HFA] 90 MCG/PUFF HFA aerosol inhaler 2 puff INH PRN PRN (Reason: Shortness Of Breath) RF: 0 acyclovir 400 mg tablet See Patient Comments PO 5XD PRN (Reason: as directed) RF: 0 Referrals: Darryl Voss MD [Primary Care Provider] -
[2018-05-23 13:47] VITALS: BP 153/83; PULSE 84; RESP 16; O2SAT 100
--- NOTE | 2018-05-23 13:47 | ED_ITS ---
HPI - Neuro Symptoms/Deficit General Chief Complaint: Neuro Symptoms/Deficit Stated Complaint: Confusion Time Seen by Provider: 05/23/18 13:33 Source: patient and EMS Mode of arrival: EMS Limitations: no limitations History of Present Illness HPI Narrative: 62-year-old female nonsmoker with history of asthma and hyp ertension presents by EMS for evaluation of stroke-like symptoms that started at noon today, perhaps earlier according to the patient. Her symptoms include some trouble with speech and perhaps left-sided facial weakness that has resolved. Additionally she was walking with an unsteady gait. She has never had any these symptoms before. She feels much better now. EMS noted a blood sugar of 109. Time: 12:00 Location: speech, left face and ataxia History of same: No Severity: mild Quality: weak, tingling and improving Relieving factors: none Exacerbating factors: none Context: sudden onset On Anticoagulants: No Associated symptoms: denies other symptoms Treatments Prior to Arrival: none Related Data Home Medications Medication Instructions Recorded Confirmed vitamin P-[id number] 1 tab PO PRN PRN #0 02/02/17 05/23/18 [Emergen-C] acyclovir 400 mg tablet See Rx Instructions PO 5XD PRN 02/23/18 05/23/18 B Vitamins 1 dose PO DAILY 05/23/18 05/23/18 Vitamin D3 1 cap PO DAILY 05/23/18 05/23/18 albuterol sulfate [Ventolin HFA] 2 puff INH PRN PRN 05/23/18 05/23/18 citalopram 10 mg PO DAILY 05/23/18 05/23/18 clonazepam [Klonopin] 1 mg PO BEDTIME 05/23/18 05/23/18 estradiol 0.5 mg PO Q OTHER DAY 05/23/18 05/23/18 gabapentin 100 mg PO BEDTIME 05/23/18 05/23/18 hydrochlorothiazide 25 mg PO DAILY 05/23/18 05/23/18 medroxyprogesterone 2.5 mg PO Q OTHER DAY 05/23/18 05/23/18 Previous Rx's Medication Instructions Recorded hydrocodone 5 mg-acetaminophen 325 1 tab PO Q6H PRN #20 tab 05/01/18 mg tablet lidocaine 5 % topical patch 1 patch TOP DAILY #30 each 05/11/18 Allergies Allergy/AdvReac Type Severity Reaction Status Date / Time ciprofloxacin [CIPROFLOXACIN] Allergy Unknown RASH Verified 05/23/18 13:47 oxycodone [OXYCODONE] Allergy Unknown RASH Verified 05/23/18 13:47 sulfamethazine Allergy Unknown STOMACH Verified 05/23/18 13:47 [SULFAMETHAZINE] ACHE; ITCHY MUCOUS MEMBRANES Review of Systems Constitutional Denies chills, Denies fever(s), Denies lethargy and Reports weakness Eyes Denies change in vision, Denies eye discharge, Denies irritation and Denies loss of vision ENT Ears, Nose, Mouth, and Throat: Denies change in voice, Denies neck pain and Denies sore throat Cardiovascular Denies chest pain, Denies irregular heart rhythm, Denies lightheadedness, Denies palpitations, Denies dyspnea, Denies dyspnea on exertion and Denies orthopnea Respiratory Denies cough, Denies dyspnea, Denies dyspnea on exertion and Denies wheezing Gastrointestinal Gastrointestinal: Denies abdominal pain, Denies change in bowel habits, Denies diarrhea, Denies nausea and Denies vomiting Genitourinary Denies hematuria, Denies flank pain, Denies urinary incontinence and Denies urinary urgency Musculoskeletal Denies neck pain Integumentary/Breasts Denies pruritus, Denies erythema, Denies rash and Denies wounds Neurologic Reports abnormal speech, Denies confusion, Denies loss of vision, Reports sensory deficit and Reports weakness Psychiatric Denies anxiety, Denies confusion, Denies depression, Denies homicidal ideation and Denies suicidal ideation Endocrine Denies palpitations Hematologic/Lymphatic Denies easy bruising Allergic/Immunologic Denies wheezing [facility], [facility] Medical History Personal history of colonic polyps (Acute) Asthma (Chronic 1994) Cataract (Chronic 2012) Chronic back pain (Chronic 1984) Hayfever (Chronic 1964) Hearing loss (Chronic) Herpes (Chronic 1981) Hypertension (Chronic 1999) Liver disease (Chronic 2013) Shoulder pain (Chronic 2013) BCC (basal cell carcinoma of skin) (Resolved 1994) Chicken pox (Resolved) Pneumonia (Resolved) Skin cancer (Resolved 1995) Surgical History History of colonoscopy (Acute) Status post laparoscopic appendectomy (Acute) Anesthesia (Resolved) Status post delivery (Resolved 11/29/91) Status post rotator cuff repair (Resolved 05/29/12) Family History Child Age: 28 Club foot Child Age: 26 Hearing loss in right ear Father Heart disease Hypertension Parkinson's disease Skin cancer Mother Heart disease Hypertension Dementia Stroke Skin cancer Social History household members: spouse Smoking Status: Never smoker Family History Child Age: 28 Club foot Child Age: 26 Hearing loss in right ear Father Heart disease Hypertension Parkinson's disease Skin cancer Mother Heart disease Hypertension Dementia Stroke Skin cancer Social History household members: spouse Smoking Status: Never smoker Exam Narrative Exam Narrative: GENERAL: 62-year-old female appears younger than stated age This is a well-nourished, well-developed patient, in mild distress. HEAD: Atraumatic. Normocephalic. No temporal or scalp tenderness. EYES: Pupils equal round and reactive. Extraocular motions intact. No scleral icterus. No injection or drainage. ENT: Nose without bleeding, purulent drainage or septal hematoma. Throat without erythema, tonsillar hypertrophy or exudate. Uvula midline. Airway patent. NECK: Trachea midline. No JVD or lymphadenopathy. Supple, nontender, no meningeal signs. CARDIOVASCULAR: Regular rate and rhythm without murmurs, gallops, or rubs. RESPIRATORY: Clear to auscultation. Breath sounds equal bilaterally. No wheezes, rales, or rhonchi. GASTROINTESTINAL: Abdomen soft, non-tender, nondistended. No hepato- splenomegaly, or palpable masses. No guarding. EXTREMITIES: No clubbing, cyanosis, or edema. No joint tenderness, effusion, or edema noted. BACK: Nontender without deformity or crepitance. No flank tenderness. NEURO: AOx3. SKIN: No rash or erythema. Initial Vital Signs Initial Vital Signs: Vital Signs Pulse Rate 84 05/23/18 13:47 Respiratory Rate 16 05/23/18 13:47 Blood Pressure 153/83 H 05/23/18 13:47 Pulse Oximetry 100 05/23/18 13:47 Course Orders Ordered: ED Orders 05/23/18 13:33 CT head/brain wo con Stat EKG-12 Lead Stat 05/23/18 13:43 Basic Metabolic Panel Stat Complete Blood Count AUTO DIFF Stat Partial Thromboplastin Time Stat Prothrombin Time INR Stat 05/23/18 14:00 Urine Drug Screen, Rapid Stat 05/23/18 15:10 MR head/brain wo con Stat Discontinued Medications Sodium Chloride (Normal Saline 0.9%) 1,000 mls @ 150 mls/hr IV CONT YURY Last Infusion: 05/23/18 17:01 Dose: 900 mls/hr Admin: 05/23/18 14:37 Dose: 150 mls/hr Reevaluation(s) Reevaluation #1: patient continues to improve in the emergency department. has now arrived and suggest a slightly different timeline the patient. He states that she has had slowly developing and worsening symptoms over the past weeks to months that have made him wonder if she isn't developing early onset dementia like other family members of hers Consultations Consultation #1: Upon completion of this patient's evaluation I reached out to the primary care provider, Dr. Voss. We discussed the patient's history, physical, labs and imaging. We sure the opinion that given the above-stated evaluation that the likelihood of stroke or other diagnosis requiring immediate intervention is exceedingly unlikely. He will see the patient in close follow- up Vital Signs - 8 hr 05/23/18 13:47 Pulse Rate 84 Respiratory Rate 16 Blood Pressure 153/83 H Pulse Oximetry 100 MDM - Neuro Symptoms/Deficit Medical Records Attestation: I reviewed the patient's medical records. Lab Data Attestation: I reviewed the patient's lab results. Result diagrams: 05/23/18 13:43 05/23/18 13:43 Lab Results 05/23/18 05/23/18 05/23/18 Range/Units 13:43 13:43 13:43 WBC 6.9 (4.5-11.0) X10^3/uL RBC 4.73 (4.0-5.2) X10^6/uL Hgb 14.8 (12.0-16.0) g/dL Hct 44.1 (36-46) % MCV 93.3 (80-100) fL MCH 31.3 (26-34) PG MCHC 33.6 (30-36) % RDW 12.5 (11.6-14.8) % Plt Count 275 (150-400) X10^3/uL Neut % (Auto) 57.5 (50-75) % Lymph % (Auto) 33.6 (25-40) % [place] % (Auto) 6.6 (3-14) % Eos % (Auto) 1.4 L (2-4) % Baso % (Auto) 0.9 (0-2) % Neut # (Auto) 4000 (0865-6119) /uL Lymph # (Auto) 2300 (6392-1557) /uL [place] # (Auto) 500 (0-900) /uL Eos # (Auto) 100 (0-450) /uL Baso # (Auto) 100 (0-100) /uL PT 10.3 (10.1-12.7) SECONDS INR 0.9 (0.9-1.3) APTT 32 (26.4-36.2) SECONDS Sodium 139 (137-145) mmol/L Potassium 3.6 (3.4-5.1) mmol/L Chloride 101 (98-107) mmol/L Carbon Dioxide 30 (22-32) mmol/L BUN 18 H (7-17) mg/dL Creatinine 0.70 (0.52-1.04) mg/dL Estimated GFR > 60.0 (>60) mL/min BUN/Creatinine Ratio 25.7 H (6-22) Glucose 108 (80-110) mg/dL Calcium 9.1 (8.4-10.2) mg/dL Urine Opiates Screen (Negative) Ur Oxycodone Screen (Negative) Urine Methadone Screen (Negative) Ur Barbiturates Screen (Negative) U Tricyclic Antidepress (Negative) Ur Phencyclidine Scrn (Negative) Ur Amphetamines Screen (Negative) U Methamphetamines Scrn (Negative) Ur MDMA Scrn (Ecstasy) (Negative) U Benzodiazepines Scrn (Negative) Urine Cocaine Screen (Negative) U Marijuana (THC) Screen (Negative) 05/23/18 Range/Units 14:00 WBC (4.5-11.0) X10^3/uL RBC (4.0-5.2) X10^6/uL Hgb (12.0-16.0) g/dL Hct (36-46) % MCV (80-100) fL MCH (26-34) PG MCHC (30-36) % RDW (11.6-14.8) % Plt Count (150-400) X10^3/uL Neut % (Auto) (50-75) % Lymph % (Auto) (25-40) % [place] % (Auto) (3-14) % Eos % (Auto) (2-4) % Baso % (Auto) (0-2) % Neut # (Auto) (3554-4903) /uL Lymph # (Auto) (3748-0475) /uL [place] # (Auto) (0-900) /uL Eos # (Auto) (0-450) /uL Baso # (Auto) (0-100) /uL PT (10.1-12.7) SECONDS INR (0.9-1.3) APTT (26.4-36.2) SECONDS Sodium (137-145) mmol/L Potassium (3.4-5.1) mmol/L Chloride (98-107) mmol/L Carbon Dioxide (22-32) mmol/L BUN (7-17) mg/dL Creatinine (0.52-1.04) mg/dL Estimated GFR (>60) mL/min BUN/Creatinine Ratio (6-22) Glucose (80-110) mg/dL Calcium (8.4-10.2) mg/dL Urine Opiates Screen Positive H (Negative) Ur Oxycodone Screen Negative (Negative) Urine Methadone Screen Negative (Negative) Ur Barbiturates Screen Negative (Negative) U Tricyclic Antidepress Negative (Negative) Ur Phencyclidine Scrn Negative (Negative) Ur Amphetamines Screen Negative (Negative) U Methamphetamines Scrn Negative (Negative) Ur MDMA Scrn (Ecstasy) Negative (Negative) U Benzodiazepines Scrn Negative (Negative) Urine Cocaine Screen Negative (Negative) U Marijuana (THC) Screen Positive H (Negative) Point of Care Testing Glucose POC 109 Urine Dip Bedside Urine Glucose Negative Bedside Urine Bilirubin - Negative Bedside Urine Ketone - Negative Urine Specific [place] 1.015 Bedside Urine Occult Blood - Negative Bedside Urine pH 7.5 Bedside Urine Protein - Negative Bedside Urine Urobilinogen - Negative Bedside Urine Nitrite - Negative Bedside Urine Leukocytes - Negative Esterase Imaging Data CT scan - head: Radiologist's impression: Amaya Chambers J 62 F [address] [address] [address] Scan Report Signed Patient: Amaya Chambers JMR#: [id number] : 1955ct:[id number] Age/Sex: 62 / FDate of Service: 05/23/18 Loc: ED Accession Number: [id number] Procedure: CT head/brain wo con Ordering Provider: Huber Rios D.O. PROCEDURE: CT HEAD/BRAIN WO CON INDICATIONS: stroke syptoms, TPA candidate TECHNIQUE: Noncontrast 4.5 mm thick angled axial sections acquired from the foramen magnum to the vertex, with coronal and sagittal reformats. For radiation dose reduction, the following was used: automated exposure control, adjustment of mA and/or kV according to patient size. COMPARISON: [facility], CT, HEAD WITHOUT CONTRAST, 11/08/2014, 10:02. FINDINGS: Image quality: Excellent. CSF spaces: Basal cisterns are patent. No extra-axial fluid collections. Ventricles are normal in size and shape. Brain: No midline shift. No intracranial masses or hemorrhage. Jay-white matter interface is normal. Skull and face: Calvarium and visualized facial bones are intact, without suspicious lesions. Sinuses: Visualized sinuses and mastoids are clear. IMPRESSION: No contraindication to TPA identified. Normal for age. Note: This information was immediately called to the emergency room physician caring for the patient at 13:48 [place] time. The report was called from [place], and [place] time is referenced in the dictated by section below. Dictated by: Kerwin Astorga M.D. on 05/23/2018 at 12:46 Approved by: Kerwin Astorga M.D. on 05/23/2018 at 12:50 MRI - head: Radiologist's impression: Amaya Chambers 62 F 1955 [place] [address] Magnetic Resonance Report Signed Patient: Reyes,Amaya JMR#: [id number] : 1955ct:[id number] Age/Sex: 62 / FDate of Service: 05/23/18 Loc: ED Accession Number: [id number] Procedure: MR head/brain wo con Ordering Provider: Huber Rios D.O. PROCEDURE: MR HEAD/BRAIN WO CON INDICATIONS: mental status change, head ache, speech trouble TECHNIQUE: Non-contrast axial T1 spin echo, axial T2 fast spin echo, sagittal and axial F LAIR, coronal T2 fast spin echo, axial gradient echo, axial diffusion and ADC through the brain. COMPARISON: [facility], MR, BRAIN WITHOUT CONTRAST, 02/06/2015, 10:04. FINDINGS: Image quality: Excellent. CSF spaces: Ventricles appear symmetric in size and shape. Basal cisterns are patent. No extra-axial fluid collections. Brain: No intracranial bleeds or mass effects. There is cerebral volume loss for age. There are periventricular and deep white matter chronic small vessel ischemic changes. Brainstem appears normal. Diffusion-weighted images show no acute ischemic insults. No chronic ischemic insults. Normal intravascular flow voids are present. Skull and face: Calvarial bone marrow is normal in signal. Orbits are normal. Sinuses: Mild right maxillary sinus disease. Mild right mastoid air cell fluid, unknown age. IMPRESSION: Mild right maxillary sinus disease. Mild right mastoid air cell fluid, technically age-indeterminate. No evidence of acute ischemia. No acute signal abnormality. Diffuse small white matter signal changes, probably represent chronic microvascular ischemic disease, versus statistically less likely demyelination or other infectious, inflammatory, neurodegenerative etiology, technically nonspecific. Dictated by: Isaac Philip M.D. on 05/23/2018 at 15:52 Approved by: Isaac Philip M.D. on 05/23/2018 at 15:59 [facility] Narrative Medical decision making narrative: patient presents with vague encephalopathic symptoms presenting over days to weeks. She has no focal neurologic findings, stroke scale is 0, head CT is unremarkable and MRI demonstrates no acute stroke. She demonstrates no significant lab abnormalities that would suggest a reversible etiology. For the entirety of her stay, her description of symptoms as well as exam are much more consistent with a global abnormality as opposed to a focal neurologic finding consistent with stroke. Patient and have been given extensive return precautions and can demonstrate their understanding of these precautions as evidence by their ability to recite them back to la. Her primary care provider will closely follow her as an outpatient. Discharge Plan Departure Patient Disposition: Home Clinical Impression: Weakness Fatigue Qualifiers: Fatigue type: unspecified Qualified Code(s): R53.83 - Other fatigue Discharge Date/Time: 05/23/18 17:03 Interventions: ED Discharge Assessment Last Done: 05/23/18 17:02 Instructions: DI for Fatigue Activity Restrictions/Additional Instructions: *You have been diagnosed with [ acute weakness and fatigue. Stroke, dehydration, and electrolyte abnormalities all considered. ] *What to do: *Take medications as directed *Follow up with your primary care provider in 2-3 days, call for an appointment. Let them know you were seen in the Emergency Department and that we ask that you be seen in follow up *Return to ER if you should have any new, worsening or concerning symptoms Prescriptions: No Action Emergen-C 500 mg Tablet,Chewable 1 tab PO PRN PRN (Reason: onset of cold symptoms) Qty: 0 RF: 0 hydrocodone-acetaminophen 5-325 mg tablet 1 tab PO Q6H PRN (Reason: pain) Qty: 20 RF: 0 lidocaine 5 % adhesive patch,medicated 1 patch TOP DAILY Qty: 30 RF: 2 citalopram 10 mg Tablet 10 mg PO DAILY RF: 0 clonazepam [Klonopin] 1 mg tablet 1 mg PO BEDTIME RF: 0 hydrochlorothiazide 25 mg tablet 25 mg PO DAILY RF: 0 B Vitamins 1 dose PO DAILY RF: 0 Vitamin D3 1 cap PO DAILY RF: 0 medroxyprogesterone 2.5 mg tablet 2.5 mg PO Q OTHER DAY RF: 0 gabapentin 100 mg capsule 100 mg PO BEDTIME RF: 0 estradiol 0.5 mg tablet 0.5 mg PO Q OTHER DAY RF: 0 albuterol sulfate [Ventolin HFA] 90 MCG/PUFF HFA aerosol inhaler 2 puff INH PRN PRN (Reason: Shortness Of Breath) RF: 0 acyclovir 400 mg tablet See Patient Comments PO 5XD PRN (Reason: as directed) RF: 0 Referrals: Darryl Voss MD [Primary Care Provider] -
[2018-05-23 13:52] LABS: Add Manual Diff / Slide Review NO; Basophils Absolute Auto 100 /uL (0-100); Basophils Percent Auto 0.9 % (0-2); Eosinophils Absolute Auto 100 /uL (0-450); Eosinophils Percent Auto 1.4 % (2-4); Hematocrit 44.1 % (36-46); Hemoglobin 14.8 g/dL (12.0-16.0); Lymphocytes Absolute Auto 2300 /uL (1100-4500); Lymphocytes Percent Auto 33.6 % (25-40); Mean Corpuscular HGB Conc 33.6 % (30-36); Mean Corpuscular Hemoglobin 31.3 PG (26-34); Mean Corpuscular Volume 93.3 fL (80-100); Monocytes Absolute Auto 500 /uL (0-900); Monocytes Percent Auto 6.6 % (3-14); Neutrophils Absolute Auto 4000 /uL (1500-7000); Neutrophils Percent Auto 57.5 % (50-75); Platelet Count 275 X10^3/uL (150-400); Red Blood Cell Count 4.73 X10^6/uL (4.0-5.2); Red Cell Distribution Width 12.5 % (11.6-14.8); White Blood Cell Count 6.9 X10^3/uL (4.5-11.0)
[2018-05-23 13:59] LABS: INR 0.9 (0.9-1.3); Prothrombin Time 10.3 SECONDS (10.1-12.7)
[2018-05-23 14:01] LABS: PTT Partial Thromboplastin Tim 32 SECONDS (26.4-36.2)
[2018-05-23 14:03] LABS: BUN Creatinine Ratio 25.7 (6-22); Blood Urea Nitrogen 18 mg/dL (7-17); Calcium 9.1 mg/dL (8.4-10.2); Carbon Dioxide 30 mmol/L (22-32); Chloride 101 mmol/L (98-107); Estimated Glomerular Filt Rate > 60.0 mL/min (>60); Glucose 108 mg/dL (80-110); HEMOLYSIS 22 (0-50); Potassium 3.6 mmol/L (3.4-5.1); Sodium 139 mmol/L (137-145)
[2018-05-23 14:21] LABS: Urine Cocaine Negative (Negative); Urine THC Positive (Negative)
[2018-05-23 14:22] LABS: Urine Amphetamines Negative (Negative); Urine Barbiturates Negative (Negative); Urine Benzodiazepines Negative (Negative); Urine MDMA Negative (Negative); Urine Methadone Negative (Negative); Urine Methamphetamines Negative (Negative); Urine Morphine/Opi cutoff 2000 Positive (Negative); Urine Oxycodone Negative (Negative); Urine Phencyclidine Negative (Negative); Urine Tricyclic Antidepressant Negative (Negative)
[2018-05-23] MEDS: SODIUM CHLORIDE 0.9% 1,000 ML 150 ML IV (14:37)
--- NOTE | 2018-05-23 15:10 | DI.MRI.S_ITS ---
PROCEDURE: MR HEAD/BRAIN WO CON INDICATIONS: mental status change, head ache, speech trouble TECHNIQUE: Non-contrast axial T1 spin echo, axial T2 fast spin echo, sagittal and axial FLAIR, coronal T2 fast spin echo, axial gradient echo, axial diffusion and ADC through the brain. COMPARISON: [facility], MR, BRAIN WITHOUT CONTRAST, 02/06/2015, 10:04. FINDINGS: Image quality: Excellent. CSF spaces: Ventricles appear symmetric in size and shape. Basal cisterns are patent. No extra-axial fluid collections. Brain: No intracranial bleeds or mass effects. There is cerebral volume loss for age. There are periventricular and deep white matter chronic small vessel ischemic changes. Brainstem appears normal. Diffusion-weighted images show no acute ischemic insults. No chronic ischemic insults. Normal intravascular flow voids are present. Skull and face: Calvarial bone marrow is normal in signal. Orbits are normal. Sinuses: Mild right maxillary sinus disease. Mild right mastoid air cell fluid, unknown age. IMPRESSION: Mild right maxillary sinus disease. Mild right mastoid air cell fluid, technically age-indeterminate. No evidence of acute ischemia. No acute signal abnormality. Diffuse small white matter signal changes, probably represent chronic microvascular ischemic disease, versus statistically less likely demyelination or other infectious, inflammatory, neurodegenerative etiology, technically nonspecific. Dictated by: Isaac Philip M.D. on 05/23/2018 at 15:52 Approved by: Isaac Philip M.D. on 05/23/2018 at 15:59
== END 2018-05-23 17:03 | disposition home or self-care (01) ==
PROVIDERS: Emergency Provider Emergency Medicine; PCP Family Medicine
DX: R53.1 Weakness (principal); R53.83 Other fatigue; R27.0 Ataxia, unspecified
CPT/HCPCS: 36591; 70450; 70551; 80048; 80305; 81003; 82962; 85025; 85610; 85730; 93005; 99283; 99285

== ENCOUNTER → 2018-06-10 12:17 | Outpatient (CLI) | payer OTHER, SELFPAY ==
--- NOTE | 2018-06-10 12:21 | DI.RAD.S_ITS ---
PROCEDURE: XR THORACIC SPINE 3V INDICATIONS: pain TECHNIQUE: 3 views of the thoracic spine were acquired. COMPARISON: None. FINDINGS: Bones: No fractures or dislocations. No suspicious bony lesions. Cervical spondylosis noted. Multilevel degenerative endplate spurring and sclerosis. Diffuse facet arthropathy. Soft tissues: No paravertebral stripe thickening. IMPRESSION: No fracture. Dictated by: Isaac Philip M.D. on 06/10/2018 at 13:04 Approved by: Isaac Philip M.D. on 06/10/2018 at 13:05
--- NOTE | 2018-06-10 12:21 | DI.RAD.S_ITS ---
PROCEDURE: XR KNEE LT 3V INDICATIONS: pain TECHNIQUE: 3 views of the knee were acquired. COMPARISON: None. FINDINGS: Bones: No fractures or dislocations. No suspicious bony lesions. Subchondral sclerosis and degenerative spurring. Soft tissues: No joint effusion. No suspicious soft tissue calcifications. IMPRESSION: No fracture. Degenerative changes as above Dictated by: Isaac Philip M.D. on 06/10/2018 at 13:01 Approved by: Isaac Philip M.D. on 06/10/2018 at 13:04
== END ==
PROVIDERS: PCP Family Medicine; Visit Provider Family Medicine
DX: M25.562 Pain in left knee (principal); M54.6 Pain in thoracic spine; M47.812 Spondylosis without myelopathy or radiculopathy, cervical region; M47.814 Spondylosis without myelopathy or radiculopathy, thoracic region
CPT/HCPCS: 72072; 73562

== ENCOUNTER → 2018-06-22 07:01 | Outpatient (CLI) | payer OTHER, SELFPAY ==
--- NOTE | 2018-06-22 07:02 | DI.US.S_ITS ---
PROCEDURE: US CAROTID DOPPLER BI INDICATIONS: tia TECHNIQUE: Color and pulse Doppler interrogation was performed of both carotid systems, with image documentation and velocity measurements. COMPARISON: [facility], CT, CT HEAD/BRAIN WO CON, 05/23/2018, 13:35. FINDINGS: Stenosis calculations are based on SRU (Society of Radiologists in Ultrasound) criteria. Right side: Brachial blood pressure: 133/59 mm Hg. Common carotid artery peak systolic velocity: 61 cm/sec. Internal carotid artery peak systolic velocity: 101 cm/sec. Internal carotid artery end diastolic velocity: 28 cm/sec. External carotid artery peak systolic velocity: 59 cm/sec. ICA/CCA peak systolic ratio: 1.61 Jay scale imaging description: Unremarkable. Percent internal carotid artery stenosis: Less than 50% by velocity criteria Vertebral artery: Flow direction is antegrade. Left side: Brachial blood pressure: 139/73 mm Hg. Common carotid artery peak systolic velocity: 69 cm/sec. Internal carotid artery peak systolic velocity: 129 cm/sec. Internal carotid artery end diastolic velocity: 27 cm/sec. External carotid artery peak systolic velocity: 60 cm/sec. ICA/CCA peak systolic ratio: 1.7 Jay scale imaging description: Unremarkable. Percent internal carotid artery stenosis: 50-69% by velocity criteria. Vertebral artery: Flow direction is antegrade. IMPRESSION: By strict velocity criteria, there is a moderate stenosis (between 50 and 69% stenosis) within the left proximal internal carotid artery. The true degree of stenosis is felt most likely to be at the lower end of this range. Dictated by: Sebas Galan M.D. on 06/22/2018 at 7:47 Approved by: Sebas Galan M.D. on 06/22/2018 at 7:49
--- NOTE | 2018-06-22 07:02 | DI.ECHO.S_ITS ---
[facility] +---------+ : : [address] : : : : [id number] : : : : Phone: [phone]+ Echocardiogram Report + + :Name: LAURA MIRAMONTES Study Date: 06/22/2018 Height: 62 in : :[facility] Exam Location: [facility] Weight: 145 lb : : Gender: Female BSA: 1.7 m2 : :: 1955 Age: 62 yrs BP: 112/80 mmHg: :Reason For Study: TIA : : Performed By: Ivan Ochoa : :Referring: AIYANA GALLO : + + Interpretation Summary 1) Normal left ventricular thickness, size, wall motion, and systolic function (EF 60-65%). 2) Normal right ventricular size and function. 3) No significant valvular abnormalities. 4) No prior Echo available for comparison. Procedure: A two-dimensional transthoracic echocardiogram with color flow and Doppler was performed. The study quality was technically adequate. There is no prior echocardiogram noted for this patient. The patient was in normal sinus rhythm during the exam. Left Ventricle: The left ventricle is normal in size. There is normal left ventricular wall thickness. The ejection fraction is estimated to be 60-65%. There are no focal wall motion abnormalities. Right Ventricle: The right ventricle is normal in size and function. Atria: Both atria are normal in size. The interatrial septum is intact with no evidence for an atrial septal defect. Mitral Valve: The mitral valve is normal in structure and function. There is trace mitral regurgitation. Aortic Valve: The aortic valve is trileaflet. The aortic valve opens well. There is no aortic valve stenosis. No aortic regurgitation is present. Tricuspid Valve: The tricuspid valve is normal in structure and function. There is mild tricuspid regurgitation. The right ventricular systolic pressure is estimated to be at least 18 mmHg based on an estimated right atrial pressure of 3 mm Hg. Pulmonic Valve: The pulmonic valve is normal in structure and function. There is no pulmonic valvular regurgitation. Great Vessels: The aortic root is normal size. The dimensions of the ascending aorta are normal. The pulmonary artery is normal size. Pericardium/ Pleura There is no pericardial effusion. There is no pleural effusion. MMode/2D Measurements & Calculations LVIDd: 3.9 cm LVOT diam: 1.9 cm LVIDs: 2.5 cm Ao root diam: 2.5 cm FS: 35.8 % Aortic Jxn: 2.0 cm EPSS: 0.33 cm asc Aorta Diam: 2.9 cm IVSd: 0.77 cm Ao Arch Diam (Prox Trans): 2.2 cm LVPWd: 0.70 cm LV celeste. diameter/BSA (cm/m^2): 2.3 LV sys. diameter/BSA (cm/m^2): 1.5 LA dimension: 3.3 cm RA long axis: 4.5 cm LA A2 area: 15.6 cm2 RA area: 14.3 cm2 LA A4 area: 18.4 cm2 RA vol: 38.6 ml LA length (vol): 4.9 cm RA : 23.2 ml/m2 LA vol: 49.6 ml IVC diam: 1.5 cm LA vol index: 29.7 ml/m2 Doppler Measurements & Calculations Ao V2 max: 121.5 cm/sec LVOT Max Dipesh: 93.1 cm/sec Ao V2 mean: 88.7 cm/sec LV V1 max P.5 mmHg Ao max P.9 mmHg LV V1 VTI: 21.9 cm Ao mean P.4 mmHg LIZETH(I,D): 2.3 cm2 Ao V2 VTI: 28.0 cm LIZETH(V,D): 2.2 cm2 sev ratio: 0.78 LIZETH indexed to BSA (cm^2/m^2): 1.4 MV E max dipesh: 83.5 cm/sec TR max dipesh: 193.5 cm/sec MV A max dipesh: 47.8 cm/sec TR max P.0 mmHg MV E/A: 1.7 PA V2 max: 98.2 cm/sec Med Peak E' Dipesh: 7.2 cm/sec PA V2 mean: 71.5 cm/sec E/E' med: 11.6 PA mean P.2 mmHg Lat Peak E' Dipesh: 9.6 cm/sec PA pr(Accel): 9.1 mmHg E/E' lat: 8.7 PA Accel Time: 0.15 sec E/e' average: 10.1 MV dec time: 0.13 sec SV(LVOT): 63.3 ml Reading Physician:06:06 PM
== END ==
PROVIDERS: PCP Family Medicine; Visit Provider Family Medicine
DX: I07.1 Rheumatic tricuspid insufficiency (principal); I65.23 Occlusion and stenosis of bilateral carotid arteries
CPT/HCPCS: 93306; 93880

== ENCOUNTER → 2018-06-23 16:41 | Outpatient (CLI) | payer OTHER, SELFPAY ==
--- NOTE | 2018-06-23 16:43 | DI.MRI.S_ITS ---
PROCEDURE: MR LUMBAR SPINE WO CON INDICATIONS: Back pain, foraminal stenosis of lumbosacral region TECHNIQUE: Noncontrast sagittal T1 spin echo and T2 fast echo, sagittal STIR, axial T1 and T2 fast spin echo through the lumbar spine. In cases with scoliosis, additional coronal T2 fast spin echo may be performed. COMPARISON: [facility], MR, MR LUMBAR SPINE WO CON, 05/06/2015, 11:06. [facility], CR, XR LUMBAR SPINE MIN 4V, 05/12/2018, 12:52. FINDINGS: Image quality: Excellent. Alignment and Curvature: 5 lumbar type vertebral arteries are present by plain film. There is mild, grade 1 retrolisthesis of L3 on L5. Bone Marrow: Marrow is of normal overall signal. No acute vertebral body compression fractures. There is increased, moderate reactive signal within the endplates adjacent to the T11-T12 intervertebral disc. There is no change in mild reactive signal within the endplates adjacent to the L3-L4 and L5-S1 intervertebral discs. No change in moderate reactive signal within the endplates adjacent to the L4-L5 intervertebral disc. Spinal Cord: Conus medullaris terminates at the upper L2 level. Visualized cord demonstrates normal signal and size. Paraspinous Soft Tissues: No paravertebral masses. L1-L2: Normal appearance. L2-L3: Mild disc desiccation. Mild diffuse disc bulge. No significant canal, nor foraminal stenosis. No significant change. L3-L4: Mild disc height loss. Moderate disc desiccation. Mild diffuse disc bulge. Mild facet and ligamentum flavum hypertrophy. Epidural lipomatosis. Mild canal stenosis is unchanged. There is no change in mild to moderate right and mild left foraminal stenosis. L4-L5: Moderate disc height loss and desiccation. Moderate diffuse disc bulge with superimposed broad-based right far lateral protrusion. Mild facet and ligamentum flavum hypertrophy. Mild epidural lipomatosis. There is increased, mild canal stenosis. There is no change in moderate right and mild left subarticular foraminal stenosis. L5-S1: Mild disc height loss and desiccation. Mild diffuse disc bulge with small superimposed broad-based left posterolateral and far lateral protrusion. Mild facet and ligamentum hypertrophy. Mild canal stenosis. Increased, moderate left and no change in mild right subarticular foraminal stenosis. IMPRESSION: 1.Multilevel degenerative disc and facet disease, as well as ligamentum flavum hypertrophy and epidural lipomatosis. 2. Mild multilevel canal stenoses. 3. Multilevel foraminal stenoses, worst at L4-L5 on the right, and L5-S1 on the left, where there are moderate foraminal stenoses present. Dictated by: Michoacano Ruiz M.D. on 06/26/2018 at 9:57 Approved by: Michoacano Ruiz M.D. on 06/26/2018 at 10:04
== END ==
PROVIDERS: PCP Family Medicine; Visit Provider Physical Medicine & Rehabilitation
DX: M54.9 Dorsalgia, unspecified (principal); M51.36 Other intervertebral disc degeneration, lumbar region; M51.37 Other intervertebral disc degeneration, lumbosacral region; M48.061 Spinal stenosis, lumbar region without neurogenic claudication; M48.07 Spinal stenosis, lumbosacral region; M99.83 Other biomechanical lesions of lumbar region; E88.2 Lipomatosis, not elsewhere classified
CPT/HCPCS: 72148

== ENCOUNTER → 2018-07-05 18:42 | Outpatient (CLI) | payer OTHER, SELFPAY ==
--- NOTE | 2018-07-05 18:45 | DI.MRI.S_ITS ---
PROCEDURE: MR KNEE LT WO CON INDICATIONS: LEFT KNEE PAIN TECHNIQUE: Noncontrast sagittal PD fast spin echo and T2 fast spin echo with fat saturation, sagittal 3-D FLASH with fat saturation; coronal T1 spin echo and PD fast spin echo with fat saturation, and axial PD fast spin echo with fat saturation through the knee. COMPARISON: [facility], CR, XR KNEE LT 3V, 06/10/2018, 12:24. FINDINGS: Image quality: Excellent. Menisci: The medial and lateral menisci demonstrate normal morphology and internal signal. The meniscal root ligaments appear intact. Cruciate ligaments: Thickening and internal signal changes involving the proximal anterior cruciate ligament suggests mucoid degeneration for example image 17 series 8. Periodically, low-grade sprain of indeterminate age in the differential. The PCL appears intact. Medial structures: The medial collateral ligament appears intact. The posterior oblique ligament, semimembranosus tendon insertions, oblique popliteal ligament, and meniscocapsular junction appear intact. Visualized portions of the pes anserinus tendons appear normal. No abnormal bursal fluid. Lateral structures: The lateral collateral ligament, long and short heads of the biceps femoris tendon appear intact. The popliteus tendon appears normal; the popliteofibular ligament appears intact. The posterosuperior and anteroinferior popliteomeniscal fascicles appear intact. The arcuate and fabellofibular ligaments appear intact, on either side of the lateral inferior geniculate artery. Iliotibial band appears normal. Anterior structures: Prepatellar and superficial infrapatellar subcutaneous edema/fluid. The quadriceps and patellar tendons appear intact. Patellar alignment is normal. No femoral trochlear dysplasia or ventral trochlear prominence. No edema in the infrapatellar fat pad. Bones and cartilage: No focal marrow contusion or discrete low signal fracture line. Within the medial compartment, femoral and tibial articular cartilage preserved. Within the lateral compartment mild central signal change within the weightbearing tibial cartilage. Femoral cartilage appears grossly intact. Within the patellofemoral compartment: Mild surface fraying of the cartilage overlying the median patellar ridge and central femoral trochlea Joint space: Heard's cyst measuring 3 cm. No pathologic joint effusion. No MR evidence of loose body identified. IMPRESSION: Thickening and internal signal changes of the ACL suggestive of mucoid degeneration versus age-indeterminate partial rupture. Prepatellar and superficial infrapatellar subcutaneous edema/fluid. Small Heard's cyst Mild degenerative joint disease as above. Dictated by: Isaac Philip M.D. on 07/06/2018 at 8:46 Approved by: Isaac Philip M.D. on 07/06/2018 at 8:55
== END ==
PROVIDERS: Family Provider Family Medicine; PCP Family Medicine; Visit Provider Family Medicine
DX: M25.562 Pain in left knee (principal); M17.12 Unilateral primary osteoarthritis, left knee; M25.462 Effusion, left knee; M71.22 Synovial cyst of popliteal space [Baker], left knee
CPT/HCPCS: 73721

== ENCOUNTER 2018-08-08 11:21 | Outpatient (CLI) | payer OTHER, SELFPAY ==
[2018-08-08] VITALS (8 sets, daily range): BP systolic 123–150; BP diastolic 53–95; PULSE 59–73; RESP 16; TEMP 36.1; O2SAT 96–99
--- NOTE | 2018-08-08 11:23 | DI.RAD.S_ITS ---
PROCEDURE: PAIN L/S FACET INJ/BLK 1ST QUETA COMPARISON: None. INDICATIONS: SPONDYLOSIS FINDINGS: 6 intraoperative fluoroscopy images demonstrate injection of L4-L5 and L5-S1 facet joints bilaterally. IMPRESSION: Fluoroscopy for pain management. Dictated by: Jeannine Flaherty M.D. on 08/08/2018 at 13:32 Approved by: Jeannine Flaherty M.D. on 08/08/2018 at 13:33
[2018-08-08] MEDS: fentaNYL 100 MCG/2 ML INJ 50 MCG IV (11:45)
[2018-08-08] MEDS: MIDAZOLAM 5 MG/5 ML VIAL IV (11:45)
--- NOTE | 2018-08-08 12:07 | PC.NURSE ---
Pt tolerated procedure well. Able to get off table with 2 person standby assist. Transferred pt via wheelchair awake and alert to pre procedure room for continued monitoring with Kelsie VELAZCO.
--- NOTE | 2018-08-08 12:16 | P.PCN_ITS ---
Procedures Date/Time Date of procedure: 08/08/18 Time of procedure: 12:15 General Procedure description: PREOP DIAGNOSIS 1. FACET ARTHROPATHY 2. AXIAL LBP 3. MULTILEVEL DDD POST OP DIAGNOSIS 1. FACET ARTHROPATHY 2. AXIAL LBP 3. MULTILEVEL DDD PROCEDURES 1. FLUORSCOPICALLY GUIDED CONTRAST CONTROLLED FACET JOINT INJECTIONS BILATERAL L4/5, L5/S1 PHYSICIAN: Rufino Padilla, DO INDICATIONS Amaya is referred by Dr. Voss for treatment of Axial LBP FINDINGS Multilevel Facet Arthropathy with Clinically significant axial LBP DESCRIPTION OF PROCEDURE Fluoroscopically guided, contrast-controlled bilateral L4/5, L5/S1 facet joint injections. Following denial of allergy and review of potential side effects and complications, including, but not necessarily limited to, infection, allergic reaction, local tissue breakdown, stroke, temporary or permanent nerve injury, paralysis, and possible , the patient indicated that the patient understood and agreed to proceed. An informed consent document was signed by the patient, witnessed by a nurse, and placed in the patient's chart. Additionally, other treatment options including medications, modalities, and physical therapy were reviewed with the patient. After review of previous anaesthesic history and IV conscious sedation the patient was deemed safe to proceed with todays procedure with IV conscious sedation as ASA class II designation. Safety time-out was performed to confirm patient ID, procedure to be performed and site of procedure. IV sedation was accomplished with a combination of 1mg of Versed and 50mcg of Fentanyl was administered by the RN after DO order, titrated to patient comfort during the course of the procedure while the patient remained responsive to all verbal commands In the prone position, following sterile prep and drape of the lumbar region, the posterior aspect of the L4/5, L5/S1 facet joints were identified fluoroscopically. The skin was anesthetized via a 25-gauge 1.5-inch needle with 1% lidocaine solution into the corresponding facet joints. At this point, a 22- gauge 3.5-inch spinal needle was atraumatically introduced and advanced under fluoroscopic guidance into the corresponding facet joints. Following negative aspiration, injections of approximately 0.2-cc of Isovue 200 confirmed interarticular placement without vascular uptake. The identical procedure was then performed at the L4/5, L5/S1 facet joints on the left. Radiological data, including multiple fluoroscopic views of the lumbosacral spine, reveal a spinal needle at the L4/5, L5/S1 facet joints bilaterally. Subsequent views show flow of contrast material both superiorly and inferiorly within the joint space without vascular or intrathecal uptake. At this point, a total of 0.5 cc including a mixture of 0.25cc Marcaine and 0.25cc betamethasone was injected without complication into each of the corresponding facet joints. The patient tolerated the procedure well without signs or symptoms of complications prior to transfer to the recovery area continued monitoring without incident. The patient was then transferred to the recovery area where they were observed for an appropriate period of time after the injection. The patient reported a VAS score of 7 prior to the procedure and a post- procedure VAS of 0. Total Fluoroscopy Time: 20.3 seconds Total Conscious Sedation Time: 24min POST OP INSTRUCTIONS The patient was provided a Pain Log to continue to record their response to the target-specific procedure prior to follow-up visit with their referring physician. Additionally, specific post-injection care instructions and a contact number to our office were provided if concerns arise regarding possible complications associated with the procedure are suspected. Rufino Padilla DO Complications: none
--- NOTE | 2018-08-08 12:16 | PC.NURSE ---
ACCEPTED CARE OF PT IN POST PROC AREA IN STABLE CONDITION
[2018-08-08] MEDS: IOPAMIDOL 15 ML VIAL 3 ML INJ (12:17)
[2018-08-08] MEDS: BUPIVACAINE 0.5% (PF) VIAL 2 ML INJ (12:17)
[2018-08-08] MEDS: LIDOCAINE 1% 20 ML INJ 10 ML INJ (12:18)
[2018-08-08] MEDS: BETAMETHASONE 30 MG/5 ML MDV 12 MG INJ (12:19)
== END 2018-08-08 12:58 | disposition home or self-care (01) ==
LOC: RAD 11:22
PROVIDERS: Family Provider Family Medicine; PCP Family Medicine; Visit Provider Physical Medicine & Rehabilitation
DX: M47.816 Spondylosis without myelopathy or radiculopathy, lumbar region (principal); M47.817 Spondylosis without myelopathy or radiculopathy, lumbosacral region; M51.36 Other intervertebral disc degeneration, lumbar region; M51.37 Other intervertebral disc degeneration, lumbosacral region; M54.5 Low back pain
CPT/HCPCS: 64493; 64494; 99152; J0702; J2250; J3010

== ENCOUNTER → 2018-12-19 14:45 | Outpatient (CLI) | payer OTHER, SELFPAY ==
--- NOTE | 2018-12-19 14:47 | DI.US.S_ITS ---
PROCEDURE: US PELVIC COMPLETE INDICATIONS: PAIN; GRADE UTERINE AND BLADDER PROLAPSE TECHNIQUE: Real-time scanning was performed of the pelvic organs, with image documentation. Additional endovaginal scanning was necessary due to incomplete visualization of the adnexal and endometrial structures by transabdominal scanning. COMPARISON: None. FINDINGS: Transabdominal scanning: Limited scanning through the kidneys shows no hydronephrosis. No pathologic free abdominal or pelvic fluid. Endovaginal scanning: Uterus: Uterus is normal in size at 6.5 x 2.6 x 4.1 cm. The endometrium measures 2.6 mm in combined thickness. Non-shadowing echogenic punctate foci associated with the endometrial complex. Ovaries: Ovaries not identified. No adnexal masses. IMPRESSION: Punctate echogenic non-shadowing foci associated with the endometrial complex of unclear etiology. Recommend short-term followup pelvic ultrasound to assess for interval changes. Dictated by: Werner AUSTIN Interpreted: Debra Martinez MD on 12/19/2018 at 15:31 Approved by: Debra Martinez M.D. on 12/19/2018 at 18:20
== END ==
PROVIDERS: Family Provider Family Medicine; PCP Family Medicine; Visit Provider Nurse Practitioner
DX: R10.2 Pelvic and perineal pain (principal); N81.4 Uterovaginal prolapse, unspecified
CPT/HCPCS: 76830; 76856

== ENCOUNTER 2019-01-23 09:41 | Outpatient (CLI) | payer OTHER, SELFPAY ==
[2019-01-23] VITALS (9 sets, daily range): BP systolic 113–143; BP diastolic 61–95; PULSE 60–70; RESP 16; TEMP 36.2; O2SAT 95–99
--- NOTE | 2019-01-23 09:43 | DI.RAD.S_ITS ---
PROCEDURE: PAIN L/S FACET INJ/BLK 1ST QUETA COMPARISON: [facility], XA, PAIN L/S FACET INJ/BLK 1ST QUETA, 08/08/2018, 12:00. INDICATIONS: SPONDYLOSIS FINDINGS: Needle tip localization bilaterally for L4, L5, S1 medial branch block procedures IMPRESSION: Successful bilateral needle tip localization as discussed. Dictated by: Kerwin Astorga M.D. on 01/23/2019 at 12:19 Approved by: Kerwin Astorga M.D. on 01/23/2019 at 12:20
[2019-01-23] MEDS: MIDAZOLAM 5 MG/5 ML VIAL IV (10:44)
[2019-01-23] MEDS: fentaNYL 100 MCG/2 ML INJ 50 MCG IV (10:45)
[2019-01-23] MEDS: IOPAMIDOL 15 ML VIAL 3 ML INJ (10:52)
[2019-01-23] MEDS: BUPIVACAINE 0.5% (PF) VIAL 2 ML INJ (10:52)
[2019-01-23] MEDS: BETAMETHASONE 30 MG/5 ML MDV 12 MG INJ (10:53)
[2019-01-23] MEDS: LIDOCAINE 1% 20 ML 10 ML INJ (10:53)
--- NOTE | 2019-01-23 10:58 | PC.NURSE ---
ASSISTING PT OFF TABLE AND TRANSPORTING TO POST PROC AREA IN STABLE CONDITION.
--- NOTE | 2019-01-23 10:59 | P.PCN_ITS ---
Procedures Date/Time Date of procedure: 01/23/19 Time of procedure: 10:59 General Procedure description: Procedure description: 1. FACET ARTHROPATHY PROCEDURES: 1. BILATERAL- L4, L5 and S1 MB BLOCKS PHYSICIAN: DO ADELITA Cavazos Amaya is referred by Dr. Voss for treatment of Bilateral Axial LBP. DESCRIPTION OF PROCEDURE Fluoroscopically guided, contrast-controlled bilateral L4, L5 and S1 medial branch blocks with 0.5cc of 0.5% Marcaine. Following review of allergy and review of potential side effects and complications, including, but not necessarily limited to, infection, allergic reaction, local tissue breakdown, nerve injury, paralysis, stroke and possible , the patient indicated that the patient understood and agreed to proceed. An informed consent document was signed by the patient, witnessed by a nurse, and placed in the patient's chart. After review of previous anaesthesic history and IV conscious sedation the patient was deemed safe to proceed with todays procedure with IV conscious sed ation as ASA class II designation. Safety time-out was performed to confirm patient ID, procedure to be performed and site of procedure. IV sedation was accomplished with a combination of 2mg of Versed and 50mcg of Fentanyl was administered by the RN after DO order, titrated to patient comfort during the course of the procedure while the patient remained responsive to all verbal commands In the prone position, following sterile prep and drape of the lumbar region, the right L4, L5 and S1 anatomical location of the medial branch of the dorsal ramus was identified fluoroscopically. Subsequently an anesthetic skin wheal using 1% lidocaine solution was initiated at each of the anatomical spots. Subsequently then a 22-gauge 3.5-inch spinal needle was atraumatically introduced and advanced under fluoroscopic guidance at each of the corresponding sites at the right L4, L5 and S1 MB. After negative aspiration, 0.2 cc of Isovue 200 was injected, confirming placement without vascular or intrathecal uptake. Subsequently then 0.5 cc of 0.5% Marcaine solution was injected at each of the corresponding sites at the right L4, L5 and S1 medial branch locations. The identical procedure was replicated on the left. The patient tolerated the procedure well without signs or symptoms of complications prior to transfer to the recovery area continued monitoring without incident. Post-procedure, the patient was monitored initiating provocative activities to measure the amount of relief from block of the facetogenic pain. The patient reported a VAS of 7 prior to the procedure and a post-procedure VAS of 1. It has been a pleasure to assist in the diagnostic and therapeutic care of your patient. Total Fluoroscopy Time: 24.8 seconds Total Conscious Sedation Time: 24min POST OP INSTRUCTIONS The patient was provided with a Pain Log to complete over the next several hours and subsequent days prior to the patient's follow up with the ordering physician. 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 The patient is aware, was provided, once again, with a Pain Log and will follow up with the referring physician for review and clinical correlation Rufino Padilla DO Complications: none
--- NOTE | 2019-01-23 17:08 | PC.NURSE ---
Late entry--post procedure: arrived for post procedure monitoring at 1106. Hand off report received from Jose Angel Guerrier. VSS, O2 sat WNL. Pain level 0/10. No numbness or tingling to lower extremities. Stable for discharge to home w/c o car at 1135.
== END 2019-01-23 11:35 | disposition home or self-care (01) ==
LOC: RAD 09:42
PROVIDERS: PCP Family Medicine; Visit Provider Physical Medicine & Rehabilitation
DX: M47.817 Spondylosis without myelopathy or radiculopathy, lumbosacral region (principal); M47.816 Spondylosis without myelopathy or radiculopathy, lumbar region
CPT/HCPCS: 64493; 64494; 99152; J0702; J2250; J3010

== ENCOUNTER → 2019-02-04 11:07 | Outpatient (CLI) | payer OTHER, SELFPAY ==
[2019-02-04 11:30] LABS: Add Manual Diff / Slide Review NO; Basophils Absolute Auto 0 /uL (0-100); Basophils Percent Auto 0.4 % (0-2); Eosinophils Absolute Auto 200 /uL (0-450); Eosinophils Percent Auto 1.5 % (2-4); Hematocrit 43.3 % (36-46); Hemoglobin 14.6 g/dL (12.0-16.0); Lymphocytes Absolute Auto 1800 /uL (1100-4500); Lymphocytes Percent Auto 13.6 % (25-40); Mean Corpuscular HGB Conc 33.7 % (30-36); Mean Corpuscular Hemoglobin 31.5 PG (26-34); Mean Corpuscular Volume 93.5 fL (80-100); Monocytes Absolute Auto 700 /uL (0-900); Monocytes Percent Auto 5.5 % (3-14); Neutrophils Absolute Auto 10500 /uL (1500-7000); Platelet Count 274 X10^3/uL (150-400); Red Blood Cell Count 4.64 X10^6/uL (4.0-5.2); Red Cell Distribution Width 13.1 % (11.6-14.8); White Blood Cell Count 13.3 X10^3/uL (4.5-11.0)
[2019-02-04 11:45] LABS: Alanine Aminotransferase 17 IU/L (<35); Albumin 4.4 g/dL (3.5-5.0); Albumin Globulin Ratio 1.3 (1.0-2.8); Alkaline Phosphatase 92 U/L (38-126); Aspartate Aminotransferase 22 IU/L (14-36); BUN Creatinine Ratio 21.3 (6-22); Bilirubin Total 0.6 mg/dL (0.2-1.3); Blood Urea Nitrogen 17 mg/dL (7-17); Calcium 9.8 mg/dL (8.4-10.2); Carbon Dioxide 35 mmol/L (22-32); Chloride 102 mmol/L (98-107); Cholesterol 185 mg/dL (140-199); Estimated Glomerular Filt Rate > 60.0 mL/min (>60); Globulin 3.4 g/dL (1.7-4.1); Glucose 115 mg/dL (80-110); HDL Cholesterol 48 mg/dL (40-60); HEMOLYSIS < 15 (0-50); LDL Cholesterol Calculated 122 mg/dL (<100); Potassium 4.6 mmol/L (3.4-5.1); Sodium 145 mmol/L (137-145); Total Protein 7.8 g/dL (6.3-8.2); Triglycerides 75 mg/dL (35-150)
== END ==
PROVIDERS: PCP Family Medicine; Visit Provider Family Medicine
DX: Z00.00 Encounter for general adult medical examination without abnormal findings (principal); Z78.0 Asymptomatic menopausal state
CPT/HCPCS: 36415; 80053; 80061; 84443; 85025

== ENCOUNTER → 2019-02-05 16:24 | Outpatient (CLI) | payer OTHER, SELFPAY ==
--- NOTE | 2019-02-05 16:26 | DI.RAD.S_ITS ---
PROCEDURE: XR CHEST 2V INDICATIONS: r/o Pneumonia TECHNIQUE: 2 views of the chest were acquired. COMPARISON: [facility], , CHEST 2 VIEW, 05/08/2015, 16:18. FINDINGS: Surgical changes and devices: None. Lungs and pleura: Lungs are clear, aside from increase opacification within the left lung base adjacent to the left cardiac margin.. No pleural effusions or pneumothorax. Mediastinum: Mediastinal contours are normal. Heart size is normal. Bones and chest wall: No suspicious bony abnormalities. Soft tissues appear unremarkable. IMPRESSION: Increased opacification adjacent to the left cardiac margin suggestive of atelectasis or possibly developing pneumonia. Recommend clinical correlation and followup chest radiograph in 30 days is recommended to assure complete resolution. The density persists, recommend CT scan. Dictated by: Werner ONEILL Interpreted: Daniella Garcia MD on 02/05/2019 at 16:41 Approved by: Daniella Garcia MD, PhD on 02/05/2019 at 17:07
== END ==
PROVIDERS: PCP Family Medicine; Visit Provider Nurse Practitioner
DX: R05 Cough (principal)
CPT/HCPCS: 71046

== ENCOUNTER → 2019-02-10 12:03 | Outpatient (CLI) | payer OTHER, SELFPAY ==
[2019-02-10 12:52] LABS: Add Manual Diff / Slide Review NO; Basophils Absolute Auto 100 /uL (0-100); Basophils Percent Auto 0.9 % (0-2); Eosinophils Absolute Auto 200 /uL (0-450); Eosinophils Percent Auto 2.2 % (2-4); Hematocrit 43.4 % (36-46); Hemoglobin 14.7 g/dL (12.0-16.0); Lymphocytes Absolute Auto 2000 /uL (1100-4500); Lymphocytes Percent Auto 28.2 % (25-40); Mean Corpuscular HGB Conc 33.9 % (30-36); Mean Corpuscular Hemoglobin 31.5 PG (26-34); Monocytes Absolute Auto 400 /uL (0-900); Monocytes Percent Auto 5.4 % (3-14); Neutrophils Absolute Auto 4500 /uL (1500-7000); Neutrophils Percent Auto 63.3 % (50-75); Platelet Count 364 X10^3/uL (150-400); Red Blood Cell Count 4.67 X10^6/uL (4.0-5.2); Red Cell Distribution Width 13.1 % (11.6-14.8); White Blood Cell Count 7.1 X10^3/uL (4.5-11.0)
== END ==
PROVIDERS: PCP Family Medicine; Visit Provider Family Medicine
DX: J18.9 Pneumonia, unspecified organism (principal)
CPT/HCPCS: 36415; 85025

== ENCOUNTER 2019-02-16 10:30 | Outpatient (RCR) | payer OTHER, SELFPAY ==
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
--- NOTE | 2019-01-19 15:27 | PT.OPPOC ---
Current Diagnoses Other female genital prolapse (01/19/19) Pelvic and perineal pain (01/19/19) Right lower quadrant pain (01/19/19) Unspecified urinary incontinence (01/19/19) Visit Care Team Role Provider Type Darryl Voss MD Primary Care Provider Physician Specialty: Family Practice Address: [address] [place] [address], [id number] Email: [email or web address] Attending Provider Advanced Lugger Specialty: [facility] Practice Address: [address] [place] [address], [id number] Email: [email or web address] Plan Of Care PT-OP-T Assessment and Plan Start: 01/19/19 07:22 Freq: Status: Active Protocol: Document 01/19/19 11:15 AMB (Rec: 01/19/19 15:26 AMB [email or web address]) Physical Therapy Assessment Rehab Potential Rehabilitation Potential Excellent Evaluation Complexity Number of Personal Factors/Comorbidities 1-2 Number of Body Systems Impaired 1-2 Clinical Presentation at Evaluation Stable Impairments Impairments Functional Activities,Strength Goals Two Impairment pelvic floor Short Term Goal (STG) Amaya will improve her pelvic floor strength to 4/5. STG Duration 4 weeks Weigher Bulker Goal (LTG) Amaya will contract her pelvic floor while performing a full squat. LTG Duration 8 weeks One Impairment HEP Short Term Goal (STG) Amaya will be independent and consistent with a program to strengthen her pelvic floor. STG Duration 4 weeks [facility] Goal (LTG) Amaya will be able to incorporate pelvic floor exercises into her core exercise program. LTG Duration 8 weeks Assessment Summary Assessment Amaya attends PT with prolapse , chronic back pain and chronic lower abdominal pain. She will benefit from pelvic floor physical therapy for pelvic floor strengthening and encouragement in strengthening along with functional activities and her current exercises. She will benefit from PT to address her abdominal pain. She has previously had PT for her back pain, so that will not be a main focus of this bout of PT. Physical Therapy Plan Frequency and Duration Frequency of Treatment 1x/Week Duration of Treatment 8 weeks Plan of Care Start Date 01/19/19 Plan of Care End Date 03/16/19 Therapeutic Interventions Therapeutic Interventions Home Exercise Program,Manual Therapy,Neuromuscular Re- education,Self-Care/Home Management,Therapeutic Activities,Therapeutic Exercises Modalities Biofeedback,Electric Stimulation Next Visit Focus/Plan Next Note Type Treatment Note Next Visit Plan start with sEMG and progress to functional strengthening, strengthening with movement. Plan of Care Dates Plan of Care Start Date 01/19/19 Plan of Care End Date 03/16/19
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
== END 2019-05-11 08:23 ==
LOC: PHYS 10:30
PROVIDERS: PCP Family Medicine; Visit Provider Nurse Practitioner
DX: N81.89 Other female genital prolapse (principal); R32 Unspecified urinary incontinence; R10.2 Pelvic and perineal pain; R10.31 Right lower quadrant pain
CPT/HCPCS: 97110; 97112; 97161

== ENCOUNTER 2019-04-03 11:11 | Outpatient (CLI) | payer OTHER, SELFPAY ==
[2019-04-03] VITALS (10 sets, daily range): BP systolic 115–137; BP diastolic 52–63; PULSE 61–72; RESP 14–16; TEMP 36.4; O2SAT 97–100
--- NOTE | 2019-04-03 11:12 | DI.RAD.S_ITS ---
PROCEDURE: PAIN L/S MED/LAT N RFA BILAT INDICATIONS: SPONDYLOSIS FINDINGS: Fluoroscopic spot filming was performed to verify placement of spinal needles at the L3, L4, L5 level(s), as labeled on the films. Appropriate location(s) of the needle tip(s) was confirmed by injection of iodinated contrast. Dictated by: Isaac Philip M.D. on 04/03/2019 at 13:41 Approved by: Isaac Philip M.D. on 04/03/2019 at 13:41
[2019-04-03] MEDS: fentaNYL 100 MCG/2 ML INJ 50 MCG IV (12:12)
[2019-04-03] MEDS: MIDAZOLAM 5 MG/5 ML VIAL IV (12:12)
[2019-04-03] MEDS: LIDOCAINE 1% 20 ML 10 ML INJ (12:24)
[2019-04-03] MEDS: BUPIVACAINE 0.5% (PF) VIAL 5 ML INJ (12:25)
--- NOTE | 2019-04-03 12:48 | PC.NURSE ---
ASSISTING PT OFF TABLE AND TRANSPORTING TO POST PROC AREA IN STABLE CONDITION. PASSING RN CARE OF PT TO ZURI Oshea RN.
--- NOTE | 2019-04-03 13:19 | P.PCN_ITS ---
Procedures Date/Time Date of procedure: 04/03/19 Time of procedure: 13:19 General Procedure description: PREOP DIAGNOSIS 1. RECALCITRANT FACET ARTHROPATHY, POST OP DIAGNOSIS 1. RECALCITRANT FACET ARTHROPATHY PROCEDURES 1. BILATERAL L4 AND L5 MEDIAL BRANCH RADIOFREQUENCY NEUROTOMY AND S1 DORSAL RAMUS BRANCH RADIOFREQUENCY NEUROTOMY, PHYSICIAN: Rufino Padilla DO INDICATIONS: Amaya is referred by Dr. Voss for treatment of facet arthropathy. DESCRIPTION OF PROCEDURE Bilateral L4 and L5 medial branch radiofrequency neurotomy and right S1 dorsal ramus radiofrequency neurotomy under fluoroscopy with conscious sedation. The patient is well known to this clinic having undergone previous facet injections with good but temporary relief. The patient has experienced appropriate, concordant relief with previous facet and median branch blocks but the patient's pain has been recalcitrant to further conservative measures. Therefore, based upon the patient's relief and persistent symptoms, the patient is considered an appropriate candidate for facet rhizotomy. All of the patient's questions regarding the risks versus benefits of the procedure, including, but not limited to, bleeding, infection, temporary as well as lasting nerve injury, paralysis, stroke, and , as well treatment alternatives were answered to satisfaction. After obtaining informed consent, denial of pertinent drug allergies, as well as being made aware of the potential risks of bleeding, infection, spinal cord trauma, paralysis, temporary and permanent nerve damage, seizure, stroke, and possible , the patient was brought to the fluoroscopy suite and positioned prone on the fluoroscopy table. The lumbar region was prepped with Betadine and covered with a fenestrated drape in the usual sterile fashion. Appropriate monitors applied including pulse oximeter, pulse, and blood pressure for regular monitoring throughout the procedure. After review of previous anaesthesic history and IV conscious sedation the patient was deemed safe to proceed with todays procedure with IV conscious sedation as ASA class II designation. Safety time-out was performed to confirm patient ID, procedure to be performed and site of procedure. IV sedation was accomplished with a combination of 3mg of Versed and 50mcg of Fentanyl administered by the RN after DO order, titrated to patient comfort during the course of the procedure while the patient remained responsive to all verbal commands. After local infiltration using 1% lidocaine, under fluoroscopic guidance, a 10- cm RF insulated needle with a 10-mm active tip was positioned parallel to the junction of the right sacral ala and the superior articulating process where the S1 dorsal ramus resides. Needle placement was confirmed with motor stimulation of .5v on the right which produced local stimulation without radicular component. The stimulation was then increased to 1.5v with, once again, only local multifidus stimulation without radicular component. The needle was then removed and the identical procedure was performed along the length of the right L5 medial branch with motor stimulation at .7v on the right. The identical procedure was once again performed along the length of the right L4 medial branch with motor stimulation of .5v on the right. The medial branches were then anesthetised with 0.5% Marcaine. This was then followed by two discreet lesions performed at 80 degrees Celsius for 90 seconds each. The identical procedure was repeated on the left. The patient tolerated the procedure well without signs or symptoms of complications prior to transfer to the recovery area continued monitoring without incident. The patient was then transferred to the recovery area where they were observed for an appropriate period of time after the injection. The patient reported a VAS score of 9 prior to the procedure and a post-procedure VAS of 0. Total Fluoroscopy Time: 15 seconds Total Conscious Sedation Time: 34min POST OP INSTRUCTIONS The patient was provided a Pain Log to continue to record the patient's response to the target-specific procedure prior to the patient's follow-up visit with the referring physician. Additionally, specific post-injection care instructions and a contact number to our office were provided if concerns arise regarding possible complications associated with the procedure are suspected. Rufino Padilla DO Complications: none
== END 2019-04-03 13:10 | disposition home or self-care (01) ==
LOC: RAD 11:12
PROVIDERS: PCP Family Medicine; Visit Provider Physical Medicine & Rehabilitation
DX: M47.817 Spondylosis without myelopathy or radiculopathy, lumbosacral region (principal); M47.816 Spondylosis without myelopathy or radiculopathy, lumbar region
CPT/HCPCS: 64635; 64636; 99152; J2250; J3010

== ENCOUNTER → 2019-04-06 09:18 | Outpatient (CLI) | payer OTHER, SELFPAY ==
--- NOTE | 2019-04-06 09:20 | DI.RAD.S_ITS ---
PROCEDURE: XR CHEST 2V INDICATIONS: cough, unable to breathe deeply, recurrent pneumonia TECHNIQUE: 2 views of the chest were acquired. COMPARISON: [facility], CR, XR CHEST 2V, 02/05/2019, 16:29. FINDINGS: Surgical changes and devices: Postoperative changes of the right shoulder are incidentally noted suggesting prior rotator cuff repair. Lungs and pleura: Patchy left basilar airspace disease has increased in the interim. No large effusion or pneumothorax is evident. Mediastinum: Mediastinal contours are normal. Heart size is normal. Bones and chest wall: No suspicious bony abnormalities. Degenerative changes of the spine and shoulders are not well characterized. Soft tissues appear unremarkable. IMPRESSION: Increasing left basilar consolidation is suggestive of pneumonia. A CT of the chest with contrast is recommended to exclude an underlying lesion. Dictated by: Brandan Guajardo M.D. on 04/06/2019 at 8:54 Approved by: Brandan Guajardo M.D. on 04/06/2019 at 8:55
== END ==
PROVIDERS: PCP Family Medicine; Visit Provider Family Medicine
DX: J18.9 Pneumonia, unspecified organism (principal); R05 Cough; R50.9 Fever, unspecified; R06.89 Other abnormalities of breathing
CPT/HCPCS: 71046

== ENCOUNTER → 2019-04-30 11:10 | Outpatient (CLI) | payer OTHER, SELFPAY ==
--- NOTE | 2019-04-30 11:14 | DI.CT.S_ITS ---
PROCEDURE: CT CHEST W CON INDICATIONS: recurrent pnuemonia r/o post obstructive TECHNIQUE: After the administration of intravenous contrast, 5 mm thick sections acquired from the pulmonary apices to the posterior costophrenic angles. 1 mm axial lung, 5 mm thick coronal and sagittal reformats and 7 mm axial MIP were acquired. For radiation dose reduction, the following was used: automated exposure control, adjustment of mA and/or kV according to patient size. COMPARISON: [facility], CR, XR CHEST 2V, 02/05/2019, 16:29. [facility], CR, XR CHEST 2V, 04/06/2019, 9:23. FINDINGS: Image quality: Excellent. Lungs and pleura: No definite acute air space opacities but there is some mild patchy lung base distribution of alveolar airspace opacification, best seen at the lateral left lower lobe and lingular segment left upper lobe inferiorly, in this patient with prior chest plain film documentation of pneumonia in those areas. This is present to a mild degree on the right at the lung base also.. No pleural effusions or pneumothorax. Central and peripheral airways are patent and normal in caliber. Mediastinum: Heart size is normal. No pericardial effusion. No mediastinal or hilar adenopathy by size criteria. Thoracic aorta and central pulmonary arteries are normal in size. Esophagus is normal in caliber. No hiatal hernia. Bones and chest wall: No suspicious bony lesions. No vertebral body compression fractures. No axillary or supraclavicular adenopathy by size criteria. Thyroid gland appears normal where well seen. Abdomen: Visualized upper abdominal solid organs appear normal. Upper abdominal bowel loops are normal in caliber. IMPRESSION: Patchy airspace disease in each lung base, but chronic in appearance with reference to prior chest plain film imaging 04/06/19. Residual resolving pneumonia as the likely cause. No central mass lesion or bronchial obstruction is present. No bronchiectasis or evidence of definite chronic bronchitis is seen. No mediastinal or hilar adenopathy. Dictated by: Kerwin Astorga M.D. on 04/30/2019 at 13:15 Approved by: Kerwin Astorga M.D. on 04/30/2019 at 13:18
[2019-04-30 11:43] LABS: Blood Urea Nitrogen 18 mg/dL (7-17); Estimated Glomerular Filt Rate > 60.0 mL/min (>60)
== END ==
PROVIDERS: PCP Family Medicine; Referring Provider Nurse Practitioner; Visit Provider Nurse Practitioner
DX: J18.9 Pneumonia, unspecified organism (principal); R05 Cough; Z78.9 Other specified health status
CPT/HCPCS: 36415; 71260; 82565; 84520; Q9967

== ENCOUNTER → 2019-07-24 10:13 | Outpatient (CLI) | payer OTHER, SELFPAY ==
--- NOTE | 2019-07-24 10:14 | DI.US.S_ITS ---
PROCEDURE: US CAROTID DOPPLER BI INDICATIONS: F/U LEFT CARTID NARROWING TECHNIQUE: Color and pulse Doppler interrogation was performed of both carotid systems, with image documentation and velocity measurements. COMPARISON: [facility], , US PELVIC COMPLETE, 07/24/2019, 10:49. [facility], , US CAROTID DOPPLER BI, 06/22/2018, 8:12. FINDINGS: Stenosis calculations are based on SRU (Society of Radiologists in Ultrasound) criteria. The flow velocities and the arterial waveforms are normal within both carotid arterial systems. The estimated degree of internal carotid artery stenosis is less than 50%. Antegrade flow is confirmed within both vertebral arteries. IMPRESSION: No hemodynamically significant stenosis is seen. The previously seen mild left-sided carotid stenosis is no longer seen by velocity criteria. Dictated by: Sebas Galan M.D. on 07/24/2019 at 11:45 Approved by: Sebas Galan M.D. on 07/24/2019 at 11:46
--- NOTE | 2019-07-24 10:14 | DI.US.S_ITS ---
PROCEDURE: US PELVIC COMPLETE INDICATIONS: ASSESS FOR CHANGES FROM US DONE ON 12/19/18 TECHNIQUE: Real-time scanning was performed of the pelvic organs, with image documentation. Additional endovaginal scanning was necessary due to incomplete visualization of the adnexal and endometrial structures by transabdominal scanning. COMPARISON: [facility], [place], PELVIC COMPLETE, 12/12/2012, 11:19. [facility], [place], US CAROTID DOPPLER BI, 07/24/2019, 10:25. [facility], [place], US PELVIC COMPLETE, 12/19/2018, 14:54. FINDINGS: Transabdominal scanning: Limited scanning through the kidneys shows no hydronephrosis. No pathologic free abdominal or pelvic fluid. Endovaginal scanning: Uterus: Uterus is normal in size at 6.8 x 2.4 x 3 cm. The endometrium measures 3 mm in combined thickness. There are again seen echogenic foci along the endometrial stripe. Ovaries: Neither ovary can be seen. No adnexal masses are seen. IMPRESSION: Stable examination demonstrating mild echogenic foci along the endometrial stripe, without significant change compared to 12/19/18. The endometrial stripe is not thickened in this postmenopausal patient. Dictated by: Sebas Galan M.D. on 07/24/2019 at 11:46 Approved by: Sebas Galan M.D. on 07/24/2019 at 11:48
[2019-07-25 11:21] LABS: SARS CoV19 IgG Negative (Negative)
== END ==
PROVIDERS: PCP Family Medicine; Referring Provider Nurse Practitioner; Visit Provider Nurse Practitioner
DX: I65.22 Occlusion and stenosis of left carotid artery (principal); R10.2 Pelvic and perineal pain; N81.10 Cystocele, unspecified; E78.2 Mixed hyperlipidemia; Z87.01 Personal history of pneumonia (recurrent); Z87.898 Personal history of other specified conditions
CPT/HCPCS: 36415; 76830; 76856; 86769; 93880

== ENCOUNTER → 2019-08-13 10:53 | Outpatient (CLI) | payer OTHER, SELFPAY ==
[2019-08-14 16:00] LABS: COVID19 Sendout NOT DETECTED (Not Detect)
== END ==
PROVIDERS: PCP Family Medicine; Visit Provider Registered Nurse
DX: Z01.812 Encounter for preprocedural laboratory examination (principal)
CPT/HCPCS: 87635

== ENCOUNTER → 2019-08-16 16:33 | Outpatient (CLI) | payer OTHER, SELFPAY ==
--- NOTE | 2019-08-22 10:20 | PM.PFT.1 ---
Pulmonary Function Test Referral & Results Date Patient Seen: 08/16/19 Requesting provider: Pedro Tripp Indication: Shortness of breath Results: The spirometry demonstrates an FVC of 1.88 L which is 63% of predicted. The FEV1 was measured at 1.39 L which is 61% of predicted. The FEV1/FVC ratio was 74 which is 95% of predicted. Following the administration of bronchodilator there was a 21% improvement in FEF 25-75%. Lung volumes show an SVC of 1.98 L which is 71% of predicted. The diffusing capacity was measured at 16.84 which is 70% of predicted. No hemoglobin value was provided, so no correction for potential anemia could be made, if appropriate. The maximum voluntary ventilation was reduced Interpretation: This study demonstrates mild to moderate obstructive lung disease based on reduction FEV1. There is limited evidence of benefit following bronchodilator within only 21% improvement in FEF 25-75% which suggest some small airway flow was improved There is a mild reduction in lung volumes suggesting mild restrictive lung disease There is a minimal reduction in diffusing capacity
== END ==
PROVIDERS: PCP Family Medicine; Referring Provider Internal Medicine; Visit Provider Internal Medicine
DX: R06.02 Shortness of breath (principal); J40 Bronchitis, not specified as acute or chronic; J98.8 Other specified respiratory disorders
CPT/HCPCS: 94060; 94726; 94729

== ENCOUNTER 2019-08-21 15:30 | Outpatient (RCR) | payer OTHER, SELFPAY ==
--- NOTE | 2019-05-25 13:50 | ST.OPIE ---
Visit Care Team Role Provider Type Darryl Voss MD Primary Care Provider Physician Specialty: Family Practice Address: [address] [place] [address], [id number] Email: [email or web address] Pedro Tripp Attending Provider Non-Staff Referring Provider Specialty: Internal Medicine Address: [address] [place] [address], [id number] Email: Speech-Language Pathology Initial Evaluation DIGITAL ASSET SPECIALIST Clinical Swallow Evaluation Start: 05/24/19 18:22 Freq: Status: Active Protocol: Document 05/23/19 14:30 LNK (Rec: 05/24/19 18:39 LNK [email or web address]) Clinical Swallow Evaluation Session Time Visit Start Time 14:30 Visit Stop Time 15:30 Total Visit Minutes 60 Visit Information Visit Number 1 Plan of Care Dates 05/23/19 Insurance Information 08/23/19 Referral Referring Physician Pedro Bishop MD Reason for Referral dysphagia Setting Assessment Location Outpatient Care Visit Type Note Type Initial Evaluation Next Note Type Next Note Type Re-Evaluation Patient Information Identification Type Name,Picture History Amaya reports she has had pneumonia 4 times over the past 5-6 months. She also reported that she has had pneumonia 9x over the past 7-8 years. She also reported that she is choking and coughing on liquids more than solids on a daily basis. Amaya also reported that her physician has referred to the [facility] for assessment re: possible Parkinson's disease. Evaluation Liquids Trialed Thin Solids Trialed Regular Administration Type Tea Spoon,Cup Single Sip,Cup Consecutive Sips,Self-Feeding Oral Impairment WFL Oral Phase Comments Natural dentition in good hygiene. OM observed to be WNL Pharyngeal Phase Comments Hyolaryngeal elevation appeared to be adequate upon palpation. Her swallow is audible indicating a potentially inadequate seal of the laryngeal vestibule. Given her report of frequent choking as well as a long history recurrent pneumonia, further assessment of Amaya's pharyngeal swallow via Modified Barium Swallow Study (MBSS) is indicated to determine her risk of aspiration. Additionally if Amaya is diagnosed with Parkinsons disease, a current MBSS would serve as a baseline of her swallowing function. Diet Recommendations Liquids Order Thin Diet Order Regular Medication Recommendations As Tolerated Aspiration Precautions Recommended Precautions Upright at 90 Degrees,Small Bites/Sips,Effortful Swallow Treatment Plan Appropriate for Therapy Yes Therapy Recommendations Modified Barium Swallow Study with ST Dysphagia therapy Dysphagia Goals Goals to be determined based on the findings of the MBSS DIGITAL ASSET SPECIALIST Follow Up 1x/week Referrals/Other Recommended Referrals Primary Care Physician, Neurology
--- NOTE | 2019-08-21 17:01 | ST.OPTN ---
Visit Care Team Role Provider Type Darryl Voss MD Primary Care Provider Physician Address: [address] [place] [address], [id number] Pedro Tripp Attending Provider Non-Staff Referring Provider Address: [address] [place] [address], [id number] SUPERVISOR HEAT TREATING Treatment Note SUPERVISOR HEAT TREATING Treatment Note Start: 05/24/19 18:22 Freq: Status: Active Protocol: Document 08/21/19 16:44 LNK (Rec: 08/21/19 17:00 LNK [email or web address]) Speech Pathology Treatment Note Session Time Visit Start Time 15:30 Visit Stop Time 16:15 Total Visit Minutes 45 Visit Information Visit Number 2 Plan of Care Dates 08/21/19-12/21/19 Insurance Information [facility] Treatment Setting Outpatient Care Visit Type Note Type Treatment Note Next Note Type Next Note Type Re-Evaluation General Information General Information Amaya reports she has had pneumonia 4 times over the past 5-6 months. She also reported that she has had pneumonia 9x over the past 7-8 years. She also reported that she is choking and coughing on liquids more than solids on a daily basis. Amaya also reported that she has been diagnoses with Parkinson's disease and is under the care of her physician. Evelina reports that she still chokes on liquids and solids. Recently her used the Heimlich manuver to dislodge a piece of meat. Subjective Identification Type Name Identification Reconciled With Intake Sheet Chief Complaint(s) Swallowing Rehab Expectation/Goals: Patient Goals Reduce the frequency of choking via exercise, strengthening and awareness Patient Knowledge/Awareness of SUPERVISOR HEAT TREATING Role Excellent in Treatment Objective Short Term Goals Obtain a referral for Modified Barium Swallow to determine oropharyngeal safety for swallowing Review MBS results with patient and determine an appropriate intervention program Life Skills Worker Goals Safely tolerate the least restrictive diet without aspiration. Reduce/eliminate the pt's frequency of pneumonia diagnoses. Treatment Activities Because of the COVID-19 crisis , Evelina has not been seen for follow-up to her initial evaluation until now. Reviewed the findings of her neurologist with Evelina. She reported that she is still choking frequently. Discussed the procedure and recommendation for an MBS with Evelina. She agreed and will get a referral from her MD at next visit. Also discussed Evelina's participation in the [facility] programs provided at the clinic. Assessment Patient Response to Treatment Excellent Impairments Identified Dysphagia,Parkinson's Disease Reviewed with Patient Goals Patient/Caregiver Understanding Excellent Plan Amount of Therapy Recommended 2-3 Months Frequency of Treatment Once a Week Length of Session 45 Minutes Therapeutic Contents Swallowing/Feeding Suggested Referral Primary Care Physician
== END 2020-03-26 08:43 ==
LOC: SP 15:30
PROVIDERS: PCP Family Medicine; Referring Provider Internal Medicine; Visit Provider Internal Medicine
DX: R13.10 Dysphagia, unspecified (principal)
CPT/HCPCS: 92526; 92610

== ENCOUNTER → 2019-08-25 10:34 | Outpatient (CLI) | payer OTHER, SELFPAY ==
[2019-08-26 01:22] LABS: COVID19 Sendout Not Detected (Not Detect)
== END ==
PROVIDERS: PCP Family Medicine; Visit Provider Physician Assistant
DX: Z01.812 Encounter for preprocedural laboratory examination (principal)
CPT/HCPCS: 87635

== ENCOUNTER 2019-08-28 10:28 | Outpatient (CLI) | payer OTHER, SELFPAY ==
[2019-08-28] VITALS (8 sets, daily range): BP systolic 114–141; BP diastolic 55–75; PULSE 59–68; RESP 16; TEMP 36.7; O2SAT 95–100
--- NOTE | 2019-08-28 10:29 | DI.RAD.S_ITS ---
PROCEDURE: PAIN L INTERLAMINAR/CAUDAL INJ INDICATIONS: SPONDYLOSIS FINDINGS: Fluoroscopic spot filming was performed to verify placement of spinal needles at the L4-L5 level(s), as labeled on the films. Appropriate location(s) of the needle tip(s) was confirmed by injection of iodinated contrast. Dictated by: Isaac Philip M.D. on 08/28/2019 at 13:46 Approved by: Isaac Philip M.D. on 08/28/2019 at 13:46
[2019-08-28] MEDS: IOPAMIDOL 15 ML VIAL 3 ML INJ (11:29)
[2019-08-28] MEDS: BUPIVACAINE 0.25% (PF) VIAL 2 ML INJ (11:29)
[2019-08-28] MEDS: DEXAMETHASONE 10 MG/ML VIAL 20 MG INJ (11:30)
[2019-08-28] MEDS: BETAMETHASONE 30 MG/5 ML MDV 6 MG INJ (11:30)
--- NOTE | 2019-08-28 11:50 | PC.NURSE ---
NO SEDATION MEDS GIVEN DURING PROCEDURE. ASSISITNG PT OFF TABLE AND TRANSPORTING TO POST PROC AREA IN STABLE CONDITION.
--- NOTE | 2019-09-03 13:35 | P.PCN_ITS ---
Procedures Date/Time Date of procedure: 08/28/19 Time of procedure: 10:36 General Procedure description: PROVIDER: Rufino Padilla DO Operative Note PREOP DIAGNOSIS 1. HNP WITH RADICULAR FEATURES, 2. MULTILEVEL CENTRAL STENOSIS, POST OP DIAGNOSIS 1. HNP WITH RADICULAR FEATURES, 2. MULTILEVEL CENTRAL STENOSIS PROCEDURES 1. FLUORSCOPICALLY GUIDED CONTRAST CONTROLLED INTERLAMINAR EPIDURAL STEROID INJECTION -L4/5 PHYSICIAN: Rufino Padilla DO INDICATIONs: Amaya is referred by Dr. Voss for treatment of Bilateral Foraminal Stenosis R>L LE symptoms. FINDINGS Multilevel Central Spinal Stenosis with Nerve Root Compression DESCRIPTION OF PROCEDURE Fluoroscopically guided, contrast-controlled L4/5 translaminar epidural steroid injection. Following review of allergy and review of potential side effects and complications, including, but not necessarily limited to, infection, allergic reaction, local tissue breakdown, temporary as well as permanent nerve injury, paralysis, stroke and possible , the patient indicated that the patient understood and agreed to proceed. An informed consent document was signed by the patient, witnessed by a nurse, and placed in the patient's chart. Additionally, other treatment options including modalities, medications, and physical therapy were reviewed with the patient. After review of previous anaesthesic history and IV conscious sedation the patient was deemed safe to proceed with todays procedure with IV conscious sedation as ASA class II designation. Safety time-out was performed to confirm patient ID, procedure to be performed and site of procedure. IV sedation was accomplished with a combination of 2mg of Versed and 50mcg of Fentanyl was administered by the RN after DO order, titrated to patient comfort during the course of the procedure while the patient remained responsive to all verbal commands In the prone position, following sterile prep and drape of the lumbar region, the L4/5 translaminar space was identified fluoroscopically. The skin was anesthetized via a 25-gauge, 1.5-inch needle with 1% lidocaine solution. At this point, a 22-gauge short bevel spinal needle was atraumatically introduced and advanced under fluoroscopic guidance into the region of the L4/5 translaminar space. Depth was confirmed on lateral view. Radiological data, including multiple fluoroscopic views of the lumbar spine, reveal a spinal needle at the L4/5 translaminar space. Lateral views then show placement of the needle in the epidural space. Subsequent views show contrast material flowing superiorly and inferiorly in the epidural space. No vascular or intrathecal uptake is observed. At this point, using loss of resistance technique with saline and air, the epidural space was entered. This was confirmed following negative aspiration with injection of approximately 1.5 cc of Isovue 200, showing excellent epidural flow without vascular or intrathecal uptake. At this point, 1 cc of 1% lidocaine solution combined with 3cc or 20mg of dexamethasone and 6mg betamethasone was injected without incident. The patient tolerated the procedure well without signs or symptoms of complications prior to transfer to the recovery area continued monitoring without incident. The patient was then transferred to the recovery area where they were observed for an appropriate period of time after the injection. The patient reported a VAS score of 6 prior to the procedure and a post- procedure VAS of 0. Total Fluoroscopy Time: 11.8 seconds, 8.99 mGy Total Conscious Sedation Time: 24min POST OP INSTRUCTIONS The patient was provided a Pain Log to continue to record their response to the target-specific procedure prior to follow-up visit with their referring physician. Additionally, specific post-injection care instructions and a contact number to our office were provided if concerns arise regarding possible complications associated with the procedure are suspected. Rufino Padilla, Complications: none
== END 2019-08-28 12:14 | disposition home or self-care (01) ==
LOC: RAD 10:29
PROVIDERS: PCP Family Medicine; Referring Provider Physical Medicine & Rehabilitation; Visit Provider Physical Medicine & Rehabilitation
DX: M51.16 Intervertebral disc disorders with radiculopathy, lumbar region (principal); M48.061 Spinal stenosis, lumbar region without neurogenic claudication
CPT/HCPCS: 62323; J0702; J1100; J2250; J3010

== ENCOUNTER → 2019-12-27 10:36 | Outpatient (CLI) | payer MEDICARE, OTHER, SELFPAY ==
[2019-12-27 12:15] LABS: Add Manual Diff / Slide Review NO; Basophils Absolute Auto 0 /uL (0-100); Basophils Percent Auto 0.7 % (0-2); Eosinophils Absolute Auto 100 /uL (0-450); Eosinophils Percent Auto 1.7 % (2-4); Hematocrit 43.3 % (36-46); Hemoglobin 14.8 g/dL (12.0-16.0); Lymphocytes Absolute Auto 1600 /uL (1100-4500); Lymphocytes Percent Auto 33.8 % (25-40); Mean Corpuscular HGB Conc 34.3 % (30-36); Mean Corpuscular Hemoglobin 32.1 PG (26-34); Mean Corpuscular Volume 93.8 fL (80-100); Monocytes Absolute Auto 400 /uL (0-900); Monocytes Percent Auto 8.4 % (3-14); Neutrophils Absolute Auto 2700 /uL (1500-7000); Neutrophils Percent Auto 55.4 % (50-75); Platelet Count 238 X10^3/uL (150-400); Red Blood Cell Count 4.62 X10^6/uL (4.0-5.2); Red Cell Distribution Width 12.4 % (11.6-14.8); White Blood Cell Count 4.8 X10^3/uL (4.5-11.0)
[2019-12-27 12:31] LABS: Alanine Aminotransferase 4 IU/L (<35); Albumin 4.3 g/dL (3.5-5.0); Albumin Globulin Ratio 1.4 (1.0-2.8); Alkaline Phosphatase 76 U/L (38-126); Aspartate Aminotransferase 30 IU/L (14-36); Bilirubin Total 0.5 mg/dL (0.2-1.3); Blood Urea Nitrogen 20 mg/dL (7-17); Calcium 9.3 mg/dL (8.4-10.2); Carbon Dioxide 37 mmol/L (22-32); Chloride 100 mmol/L (98-107); Cholesterol 160 mg/dL (140-199); Estimated Glomerular Filt Rate > 60.0 mL/min (>60); Glucose 104 mg/dL (80-110); HDL Cholesterol 44 mg/dL (40-60); HEMOLYSIS < 15 (0-50); LDL Cholesterol Calculated 97 mg/dL (<100); Potassium 3.6 mmol/L (3.4-5.1); Sodium 140 mmol/L (137-145); Total Protein 7.3 g/dL (6.3-8.2); Triglycerides 96 mg/dL (35-150)
== END ==
PROVIDERS: PCP Family Medicine; Referring Provider Family Medicine; Visit Provider Family Medicine
DX: G20 Parkinson's disease (principal)
CPT/HCPCS: 36415; 80053; 80061; 85025

== ENCOUNTER → 2020-01-12 09:43 | Outpatient (CLI) | payer MEDICARE, OTHER, SELFPAY ==
[2020-01-14 07:57] LABS: COVID19 Sendout Not Detected (Not Detect)
== END ==
PROVIDERS: PCP Family Medicine; Visit Provider Physician Assistant
DX: Z11.59 Encounter for screening for other viral diseases (principal)
CPT/HCPCS: 87635

== ENCOUNTER → 2020-01-14 09:22 | Outpatient (CLI) | payer MEDICARE, OTHER, SELFPAY ==
--- NOTE | 2020-01-14 | DI.RAD.S_ITS ---
PROCEDURE: FL BARIUM SWALLOW W SPEECH INDICATIONS: Dysphagia, unspecified Additional history: Parkinson's disease. COMPARISON: TECHNIQUE: Examination was conducted in conjunction with speech pathology per standard protocol. In the lateral projection, filming was performed of the patient swallowing. AP projection filming may also be performed with patient swallowing. COMPARISON: [facility], CT, CT CHEST W CON, 04/30/2019, 11:49. FINDINGS: Function: The oral preparatory phase appears normal, with proper containment. The subsequent oral propulsive phase, pharyngeal phase, and esophageal phase of swallowing also appear normal with all proffered substances. No laryngotracheal penetration or aspiration. No pathologic vallecular pooling. Morphology: No cricopharyngeal bar is identified. No cervical esophageal webs. No Zenker's diverticulum. No strictures. IMPRESSION: No laryngeal penetration or aspiration. Please see separately dictated speech pathology report. Dictated by: Rancho Braxton M.D. on 01/14/2020 at 10:09 Approved by: Rancho Braxton M.D. on 01/14/2020 at 10:11
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
== END ==
PROVIDERS: PCP Family Medicine; Referring Provider Family Medicine; Visit Provider Internal Medicine
DX: R13.10 Dysphagia, unspecified (principal); G20 Parkinson's disease
CPT/HCPCS: 74230; 92611

== ENCOUNTER → 2020-02-02 10:02 | Outpatient (CLI) | payer MEDICARE, OTHER, SELFPAY ==
--- NOTE | 2020-02-02 | DI.MG.S_ITS ---
BILATERAL DIGITAL SCREENING MAMMOGRAM 3D/2D WITH CAD: 02/02/2020 CLINICAL: Routine screening. Comparison is made to exams dated: 07/20/2017 mammogram, 06/11/2016 mammogram, and 03/05/2015 mammogram - [facility]. There are scattered fibroglandular elements in both breasts. Current study was also evaluated with a Computer Aided Detection (CAD) system. No significant masses, calcifications, or other findings are seen in either breast. There has been no significant interval change. IMPRESSION: NEGATIVE There is no mammographic evidence of malignancy. A 1 year screening mammogram is recommended. This exam was interpreted at Station ID: [id number]. NOTE: For mammograms, a report in lay terms will be sent to the patient. Approximately 15% of breast malignancies will not be visualized mammographically. In the management of a palpable breast mass, a negative mammogram must not discourage biopsy of a clinically suspicious lesion. Electronically Signed By: Alberta doll/junior:02/04/2020 16:25:39 copy to: OTTO VALENZUELA letter sent: Normal Exam ACR BI-RADS Category 1: Negative [id number]
== END ==
PROVIDERS: PCP Family Medicine; Referring Provider Family Medicine; Visit Provider Family Medicine
DX: Z12.31 Encounter for screening mammogram for malignant neoplasm of breast (principal)
CPT/HCPCS: 77063; 77067

== ENCOUNTER 2020-02-06 09:00 | Outpatient (RCR) | payer MEDICARE, OTHER, SELFPAY ==
--- NOTE | 2019-12-13 15:11 | PT.OIE ---
Current Diagnoses Parkinson's disease (12/13/19) History of falling (12/13/19) Past Medical History (Last Updated 10/31/19 @ 16:22 by Rufino Padilla DO) Asthma (Chronic 1994) BCC (basal cell carcinoma of skin) (Resolved 1994) Cataract (Chronic 2012) Chicken pox (Resolved) Chronic back pain (Chronic 1984) Facet arthropathy, lumbosacral (Chronic) Hayfever (Chronic 1964) Hearing loss (Chronic) Herpes (Chronic 1981) Hypertension (Chronic 1999) Liver disease (Chronic 2013) Personal history of colonic polyps (Acute) Pleuritic pain (Acute) Pneumonia (Resolved) Sacral back pain (Acute) Shoulder pain (Chronic 2013) Skin cancer (Resolved 1995) Past Surgical History (Last Reviewed 10/31/19 @ 16:19 by Rufino Padilla DO) Anesthesia (Resolved) History of colonoscopy (Acute) Status post delivery (Resolved 11/29/91) Status post laparoscopic appendectomy (Acute) Status post rotator cuff repair (Resolved 05/29/12) Visit Care Team Role Provider Type Darryl Voss MD Primary Care Provider Physician Specialty: Family Practice Address: [address] [place] [address], [id number] Email: [email or web address] Radha Franklin MD Attending Provider Non-Staff Referring Provider Specialty: Neurology Address: [address] [place] [address], [id number] Email: Physical Therapy Initial Evaluation PT-OP-A Visit Information Start: 12/13/19 11:18 Freq: Status: Active Protocol: Document 12/13/19 13:30 AMB (Rec: 12/14/19 15:45 AMB [email or web address]) Out-Patient Physical Therapy Visit Information Visit Information Visit Type Initial Evaluation Visit Start Time 13:30 Visit Stop Time 14:20 Total Visit Minutes 50 Visit Number 1 PT-OP-B Current Condition Start: 12/13/19 11:18 Freq: Status: Active Protocol: Document 12/13/19 13:30 AMB (Rec: 12/13/19 13:51 AMB [id number]) Current Condition History of Current Condition Onset Date May 2019 Current Complaints Parkinsons History of Current Condition A couple years ago Amaya started noticing symptoms of Parkinson's but just got the diagnosis in May. She has noticed that the levodopa/ carbidopa is helping her movement. She does have a chronic pain history, especially SI joint. Denies tremor, positive for stiffness . Has noticed fine motor changes especially with writing and typing. Significant fall history with 2 in the last month, both when she wasn't really attending to what she was doing: she was leaning over some flower pots and couldn't stand back up and then fell on her deck when getting into a deck chair . Lives in a two story home with her with 3 stairs to enter without a railing. Treatment Goals Patient/Caregiver Goals Typing is challenging, walking on uneven terrain. Prior Functional Status Baseline Function- ADL's Independent Baseline Function- Mobility Independent Baseline Function- Recreation/Hobbies Previously ran and skiied Current Functional Impairments (Reported) Functional Limitations- ADL's Stiffness with overall movement including bed mobility and floor transfers, Personal Factors Other Personal Factors That May Effect Hx rotator cuff surgery in Therapy/Recovery 2014 PT-OP-C Subjective Start: 12/13/19 11:18 Freq: Status: Active Protocol: Document 12/13/19 13:30 AMB (Rec: 12/14/19 15:45 AMB [email or web address]) OP-PT Pain Assessment Location Back Intensity 8 Scale Used Numeric (0 - 10) Radiating Location legs and back PT-OP-D Balance Start: 12/13/19 11:18 Freq: Status: Active Protocol: Document 12/13/19 13:30 AMB (Rec: 12/14/19 15:58 AMB [email or web address]) Balance Tests mCTSIB mCTSIB Position 1 30 seconds mCTSIB Position 2 30 seconds with increased ankle sway PT-OP-E Functional Tests Start: 12/13/19 11:18 Freq: Status: Active Protocol: Document 12/13/19 13:30 AMB (Rec: 12/14/19 15:45 AMB [email or web address]) Functional Tests 6 Minute Walk Test Distance 1350 Device Used none Comments 4 missteps, one almost required physical assitance Five Times Sit to Stand Test Score 9 PT-OP-G Mobility & Gait Start: 12/13/19 11:18 Freq: Status: Active Protocol: Document 12/13/19 13:30 AMB (Rec: 12/14/19 15:45 AMB [email or web address]) OP Mobility Evaluation Bed Mobility Rolling I Supine to and from Sit Independent with increased time OP Gait Assessment Comments Gait Comments decreased arm swing, especially on the right after a while of walking, 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 strip 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, and catches midfoot during swing through, reduced trunk rotation PT-OP-J Posture/Palpation/Skin Start: 12/13/19 11:18 Freq: Status: Active Protocol: Document 12/13/19 13:30 AMB (Rec: 12/14/19 15:45 AMB [email or web address]) Posture Evaluation Comments Posture Comments Increased lumbar lordosis PT-OP-K Range of Motion Start: 12/13/19 11:18 Freq: Status: Active Protocol: Document 12/13/19 13:30 AMB (Rec: 12/14/19 15:45 AMB [email or web address]) Shoulder Goniometric Range of Motion Shoulder Right Active Flexion 165 Left Active Flexion 165 PT-OP-M Strength Start: 12/13/19 11:18 Freq: Status: Active Protocol: Document 12/13/19 13:30 AMB (Rec: 12/14/19 15:58 AMB [email or web address]) Hip Strength Hip Manual Muscle Testing Right Flexion (L2) 4+ Good+ Extension (S1) 4+ Good+ Abduction 4+ Good+ Adduction 4+ Good+ Left Flexion (L2) 4+ Good+ Extension (S1) 4+ Good+ Abduction 4+ Good+ Adduction 4+ Good+ Knee Strength Knee Manual Muscle Testing Right Flexion (S2) 5 Normal Extension (L3) 5 Normal Left Flexion (S2) 5 Normal Extension (L3) 5 Normal PT-OP-T Assessment and Plan Start: 12/13/19 11:18 Freq: Status: Active Protocol: Document 12/13/19 13:30 AMB (Rec: 12/14/19 15:45 AMB [email or web address]) Physical Therapy Assessment Rehab Potential Rehabilitation Potential Good Evaluation Complexity Number of Personal Factors/Comorbidities 3 or More Number of Body Systems Impaired 4 or More Clinical Presentation at Evaluation Evolving Impairments Impairments Functional Activities, Functional Mobility,Gait,Pain, Posture Other Concerns Fall Risk yes Goals Four Impairment Fine motor activity [employer]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 LTG Duration 4 weeks Three Impairment Fall risk Short Term Goal (STG) Amaya will show improved balance by balancing in NBOS with eyes closed without excessive body sway. STG Duration 2 weeks [employer] Equipment Operator Goal (LTG) Amaya will show reduced risk of falling, but avoiding falls over the month that she is in therapy. LTG Duration 4 weeks Two Impairment lacks HEP Short Term Goal (STG) Amaya will be consistent with her LSVT BIG HEP and able to perform it without increasing her baseline pain. STG Duration 4 weeks One Impairment Gait Short Term Goal (STG) Amaya will improve her 6MWT to gender/age norm of 1,765 feet . STG Duration 2 weeks Intermediate Goal (LTG) Amaya will ambulate in the community with distractions without catching her feet and with good trunk rotation and arm swing. LTG Duration 4 weeks Assessment Summary Assessment mAaya attends PT for LSVT BIG therapy with a recent Parkinson's diagnosis. While she has maintained her independence with community mobility, she does report increasing falls and stiffness . Her course of PT may be slowed by her chronic back pain. She will benefit from the LSVT BIG program to improve her overall mobility, balance, gait, and fine motor abilities. Physical Therapy Plan Frequency and Duration Frequency of Treatment 4x/Week Duration of Treatment 17 visits Plan of Care Start Date 12/13/19 Plan of Care End Date 01/17/20 Therapeutic Interventions Therapeutic Interventions Balance Training,Gait Training ,Home Exercise Program, Neuromuscular Re-education, Therapeutic Activities, Therapeutic Exercises Next Visit Focus/Plan Next Note Type Treatment Note Next Visit Plan Begin BIG program, discuss functional tasks
--- NOTE | 2019-12-13 15:12 | PT.OPPOC ---
Physical, Occupational & Speech Therapy At [facility] Current Diagnoses Parkinson's disease (12/13/19) History of falling (12/13/19) Visit Care Team Role Provider Type Darryl Voss MD Primary Care Provider Physician Specialty: Family Practice Address: [address] [place] [address], [id number] Email: [email or web address] Radha Franklin MD Attending Provider Non-Staff Referring Provider Specialty: Neurology Address: [address] [place] [address], [phone] Email: Plan Of Care PT-OP-T Assessment and Plan Start: 12/13/19 11:18 Freq: Status: Active Protocol: Document 12/13/19 13:30 AMB (Rec: 12/14/19 15:45 AMB [email or web address]) Physical Therapy Assessment Rehab Potential Rehabilitation Potential Good Evaluation Complexity Number of Personal Factors/Comorbidities 3 or More Number of Body Systems Impaired 4 or More Clinical Presentation at Evaluation Evolving Impairments Impairments Functional Activities, Functional Mobility,Gait,Pain, Posture Other Concerns Fall Risk yes Goals Four Impairment Fine motor activity [facility] Goal (LTG) Amaya will show improved legibility and speed with handwriting. LTG Duration 4 weeks Three Impairment Fall risk Short Term Goal (STG) Amaya will show improved balance by balancing in NBOS with eyes closed without excessive body sway. STG Duration 2 weeks [facility] Goal (LTG) Amaya will show reduced risk of falling, but avoiding falls over the month that she is in therapy. LTG Duration 4 weeks Two Impairment lacks HEP Short Term Goal (STG) Amaya will be consistent with her LSVT BIG HEP and able to perform it without increasing her baseline pain. STG Duration 4 weeks One Impairment Gait Short Term Goal (STG) Amaya will improve her 6MWT to gender/age norm of 1,765 feet . STG Duration 2 weeks [facility] Goal (LTG) Amaya will ambulate in the community with distractions without catching her feet and with good trunk rotation and arm swing. LTG Duration 4 weeks Assessment Summary Assessment Amaya attends PT for LSVT BIG therapy with a recent Parkinson's diagnosis. While she has maintained her independence with community mobility, she does report increasing falls and stiffness . Her course of PT may be slowed by her chronic back pain. She will benefit from the LSVT BIG program to improve her overall mobility, balance, gait, and fine motor abilities. Physical Therapy Plan Frequency and Duration Frequency of Treatment 4x/Week Duration of Treatment 17 visits Plan of Care Start Date 12/13/19 Plan of Care End Date 01/17/20 Therapeutic Interventions Therapeutic Interventions Balance Training,Gait Training ,Home Exercise Program, Neuromuscular Re-education, Therapeutic Activities, Therapeutic Exercises Next Visit Focus/Plan Next Note Type Treatment Note Next Visit Plan Begin BIG program, discuss functional tasks Plan of Care Dates Plan of Care Start Date 12/13/19 Plan of Care End Date 01/17/20 Electronically Signed by: Kely Coughlin, PT 12/15/19 [id number] Please Sign and Return: I have reviewed this Plan of Care and certify that the skilled therapy services above are required to meet the patient?s needs. Physician Signature Date Printed Name and Credentials Clinical Instructor Signature Printed Name and Credentials
--- NOTE | 2019-12-17 12:47 | PT.OTN ---
Current Diagnoses Parkinson's disease (12/17/19) History of falling (12/17/19) Physical Therapy Treatment Note PT-OP-A Visit Information Start: 12/13/19 11:18 Freq: Status: Active Protocol: Document 12/17/19 11:00 AMB (Rec: 12/17/19 11:50 AMB [id number]) Out-Patient Physical Therapy Visit Information Visit Information Visit Type Treatment Note Visit Start Time 11:00 Visit Stop Time 11:55 Total Visit Minutes 55 Visit Number 2 PT-OP-B Current Condition Start: 12/13/19 11:18 Freq: Status: Active Protocol: Document 12/13/19 13:30 AMB (Rec: 12/13/19 13:51 AMB [id number]) Current Condition History of Current Condition Onset Date May 2019 Current Complaints Parkinsons History of Current Condition A couple years ago Amaya started noticing symptoms of Parkinson's but just got the diagnosis in May. She has noticed that the levodopa/ carbidopa is helping her movement. She does have a chronic pain history, especially SI joint. Denies tremor, positive for stiffness . Has noticed fine motor changes especially with writing and typing. Significant fall history with 2 in the last month, both when she wasn't really attending to what she was doing: she was leaning over some flower pots and couldn't stand back up and then fell on her deck when getting into a deck chair . Lives in a two story home with her with 3 stairs to enter without a railing. Treatment Goals Patient/Caregiver Goals Typing is challenging, walking on uneven terrain. Prior Functional Status Baseline Function- ADL's Independent Baseline Function- Mobility Independent Baseline Function- Recreation/Hobbies Previously ran and skiied Current Functional Impairments (Reported) Functional Limitations- ADL's Stiffness with overall movement including bed mobility and floor transfers, Personal Factors Other Personal Factors That May Effect Hx rotator cuff surgery in Therapy/Recovery 2014 PT-OP-C Subjective Start: 12/13/19 11:18 Freq: Status: Active Protocol: Document 12/17/19 11:00 AMB (Rec: 12/17/19 11:50 AMB [id number]) OP-PT Subjective Patient Comments Patient Comments Amaya notes increased sacral pain yesterday. PT-OP-D Balance Start: 12/13/19 11:18 Freq: Status: Active Protocol: Document 12/13/19 13:30 AMB (Rec: 12/14/19 15:58 AMB [email or web address]) Balance Tests mCTSIB mCTSIB Position 1 30 seconds mCTSIB Position 2 30 seconds with increased ankle sway PT-OP-E Functional Tests Start: 12/13/19 11:18 Freq: Status: Active Protocol: Document 12/13/19 13:30 AMB (Rec: 12/14/19 15:45 AMB [email or web address]) Functional Tests 6 Minute Walk Test Distance 1350 Device Used none Comments 4 missteps, one almost required physical assitance Five Times Sit to Stand Test Score 9 PT-OP-G Mobility & Gait Start: 12/13/19 11:18 Freq: Status: Active Protocol: Document 12/13/19 13:30 AMB (Rec: 12/14/19 15:45 AMB [email or web address]) OP Mobility Evaluation Bed Mobility Rolling I Supine to and from Sit Independent with increased time OP Gait Assessment Comments Gait Comments decreased arm swing, especially on the right after a while of walking, 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 lease 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, and catches midfoot during swing through, reduced trunk rotation PT-OP-J Posture/Palpation/Skin Start: 12/13/19 11:18 Freq: Status: Active Protocol: Document 12/13/19 13:30 AMB (Rec: 12/14/19 15:45 AMB [email or web address]) Posture Evaluation Comments Posture Comments Increased lumbar lordosis PT-OP-K Range of Motion Start: 12/13/19 11:18 Freq: Status: Active Protocol: Document 12/13/19 13:30 AMB (Rec: 12/14/19 15:45 AMB [email or web address]) Shoulder Goniometric Range of Motion Shoulder Right Active Flexion 165 Left Active Flexion 165 PT-OP-M Strength Start: 12/13/19 11:18 Freq: Status: Active Protocol: Document 12/13/19 13:30 AMB (Rec: 12/14/19 15:58 AMB [email or web address]) Hip Strength Hip Manual Muscle Testing Right Flexion (L2) 4+ Good+ Extension (S1) 4+ Good+ Abduction 4+ Good+ Adduction 4+ Good+ Left Flexion (L2) 4+ Good+ Extension (S1) 4+ Good+ Abduction 4+ Good+ Adduction 4+ Good+ Knee Strength Knee Manual Muscle Testing Right Flexion (S2) 5 Normal Extension (L3) 5 Normal Left Flexion (S2) 5 Normal Extension (L3) 5 Normal PT-OP-Q Treatments Start: 12/13/19 11:18 Freq: Status: Active Protocol: Document 12/17/19 11:00 AMB (Rec: 12/17/19 11:50 AMB [id number]) Neuro Re-Education Treatment Other Activities 7 Details sideways rock and reach Reps/Duration 7 Comments 1 loss of balance able to self correct 6 Details forward rock and reach Reps/Duration 7 5 Details Backward stepping Reps/Duration 7 4 Details Lateral stepping Reps/Duration 7 3 Details Forward stepping Reps/Duration 7 Comments Pain on the right with forward and backward stepping 2 Details side to side Reps/Duration 7 1 Details Floor to ceiling Reps/Duration 7 PT-OP-T Assessment and Plan Start: 12/13/19 11:18 Freq: Status: Active Protocol: Document 12/17/19 11:00 AMB (Rec: 12/17/19 12:47 AMB [email or web address]) Physical Therapy Assessment Assessment Summary Assessment Amaya did well with her exercises considering it was her first day. Coordination of UE and LE movement is challenging, and she does need to work towards better posture with exercises to reduce her back pain. Physical Therapy Plan Next Visit Focus/Plan Next Note Type Treatment Note Next Visit Plan Review daily functional activities.
--- NOTE | 2019-12-18 15:19 | PT.OTN ---
Current Diagnoses Parkinson's disease (12/18/19) History of falling (12/18/19) Physical Therapy Treatment Note PT-OP-A Visit Information Start: 12/13/19 11:18 Freq: Status: Active Protocol: Document 12/18/19 11:00 AMB (Rec: 12/18/19 12:00 AMB [id number]) Out-Patient Physical Therapy Visit Information Visit Information Visit Type Treatment Note Visit Start Time 11:00 Visit Stop Time 11:55 Total Visit Minutes 55 Visit Number 3 PT-OP-B Current Condition Start: 12/13/19 11:18 Freq: Status: Active Protocol: Document 12/13/19 13:30 AMB (Rec: 12/13/19 13:51 AMB [id number]) Current Condition History of Current Condition Onset Date May 2019 Current Complaints Parkinsons History of Current Condition A couple years ago Amaya started noticing symptoms of Parkinson's but just got the diagnosis in May. She has noticed that the levodopa/ carbidopa is helping her movement. She does have a chronic pain history, especially SI joint. Denies tremor, positive for stiffness . Has noticed fine motor changes especially with writing and typing. Significant fall history with 2 in the last month, both when she wasn't really attending to what she was doing: she was leaning over some flower pots and couldn't stand back up and then fell on her deck when getting into a deck chair . Lives in a two story home with her with 3 stairs to enter without a railing. Treatment Goals Patient/Caregiver Goals Typing is challenging, walking on uneven terrain. Prior Functional Status Baseline Function- ADL's Independent Baseline Function- Mobility Independent Baseline Function- Recreation/Hobbies Previously ran and skiied Current Functional Impairments (Reported) Functional Limitations- ADL's Stiffness with overall movement including bed mobility and floor transfers, Personal Factors Other Personal Factors That May Effect Hx rotator cuff surgery in Therapy/Recovery 2014 PT-OP-C Subjective Start: 12/13/19 11:18 Freq: Status: Active Protocol: Document 12/18/19 11:00 AMB (Rec: 12/18/19 12:00 AMB [id number]) OP-PT Subjective Patient Comments Patient Comments Amaya is interested in working on typing, writing, picking things up from the floor, uneven terrain (steep to get to the chicken coop), getting up from the floor. PT-OP-D Balance Start: 12/13/19 11:18 Freq: Status: Active Protocol: Document 12/13/19 13:30 AMB (Rec: 12/14/19 15:58 AMB [email or web address]) Balance Tests mCTSIB mCTSIB Position 1 30 seconds mCTSIB Position 2 30 seconds with increased ankle sway PT-OP-E Functional Tests Start: 12/13/19 11:18 Freq: Status: Active Protocol: Document 12/13/19 13:30 AMB (Rec: 12/14/19 15:45 AMB [email or web address]) Functional Tests 6 Minute Walk Test Distance 1350 Device Used none Comments 4 missteps, one almost required physical assitance Five Times Sit to Stand Test Score 9 PT-OP-G Mobility & Gait Start: 12/13/19 11:18 Freq: Status: Active Protocol: Document 12/13/19 13:30 AMB (Rec: 12/14/19 15:45 AMB [email or web address]) OP Mobility Evaluation Bed Mobility Rolling I Supine to and from Sit Independent with increased time OP Gait Assessment Comments Gait Comments decreased arm swing, especially on the right after a while of walking, 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 pickling solution maker her feet, and catches midfoot during swing through, reduced trunk rotation PT-OP-J Posture/Palpation/Skin Start: 12/13/19 11:18 Freq: Status: Active Protocol: Document 12/13/19 13:30 AMB (Rec: 12/14/19 15:45 AMB [email or web address]) Posture Evaluation Comments Posture Comments Increased lumbar lordosis PT-OP-K Range of Motion Start: 12/13/19 11:18 Freq: Status: Active Protocol: Document 12/13/19 13:30 AMB (Rec: 12/14/19 15:45 AMB [email or web address]) Shoulder Goniometric Range of Motion Shoulder Right Active Flexion 165 Left Active Flexion 165 PT-OP-M Strength Start: 12/13/19 11:18 Freq: Status: Active Protocol: Document 12/13/19 13:30 AMB (Rec: 12/14/19 15:58 AMB [email or web address]) Hip Strength Hip Manual Muscle Testing Right Flexion (L2) 4+ Good+ Extension (S1) 4+ Good+ Abduction 4+ Good+ Adduction 4+ Good+ Left Flexion (L2) 4+ Good+ Extension (S1) 4+ Good+ Abduction 4+ Good+ Adduction 4+ Good+ Knee Strength Knee Manual Muscle Testing Right Flexion (S2) 5 Normal Extension (L3) 5 Normal Left Flexion (S2) 5 Normal Extension (L3) 5 Normal PT-OP-Q Treatments Start: 12/13/19 11:18 Freq: Status: Active Protocol: Document 12/18/19 11:00 AMB (Rec: 12/18/19 12:00 AMB [id number]) Therapeutic Activity Therapeutic Activity 2 Name floor transfers Reps/Minutes 5 Comments I without environmental assist - pt tends to walk up her legs , but can move up from lunge position but is a bit wobbly 1 Name writing Reps/Minutes 10 Comments discussed using a pen with a larger diameter, keeping forearm supported, taking breaks to do the finger flicks Neuro Re-Education Treatment Other Activities 8 Details sit to stand Reps/Duration 5 Comments firm surface 7 Details sideways rock and reach Reps/Duration 7 Comments 1 loss of balance able to self correct 6 Details forward rock and reach Reps/Duration 7 Comments more difficulty with right arm extension 5 Details Backward stepping Reps/Duration 10 4 Details Lateral stepping Reps/Duration 10 Comments pt tends to have knee flexion during stance when it should be straight. 3 Details Forward stepping Reps/Duration 10 Comments Pain on the right with forward and backward stepping 2 Details side to side Reps/Duration 7 Comments vc reach forward instead of up to reduce lumbar lordosis 1 Details Floor to ceiling Reps/Duration 7 Comments cues to avoid excessive anterior pelvic tilt, added finger flicks PT-OP-T Assessment and Plan Start: 12/13/19 11:18 Freq: Status: Active Protocol: Document 12/18/19 11:00 AMB (Rec: 12/18/19 14:59 AMB [email or web address]) Physical Therapy Assessment Assessment Summary Assessment Amaya did well with her exercises today. She continues to need cueing and modification to reduce pain. She did have a small loss of balance with rocking side to side, but was able to Physical Therapy Plan Frequency and Duration Frequency of Treatment 4x/Week Duration of Treatment 17 visits Plan of Care Start Date 12/13/19 Plan of Care End Date 01/17/20 Next Visit Focus/Plan Next Note Type Treatment Note Next Visit Plan Progress exercises working towards independence, continue work on writing floor transfers.
--- NOTE | 2019-12-19 12:00 | PT.OTN ---
Current Diagnoses Parkinson's disease (12/19/19) History of falling (12/19/19) Physical Therapy Treatment Note PT-OP-A Visit Information Start: 12/13/19 11:18 Freq: Status: Active Protocol: Document 12/19/19 13:04 MA (Rec: 12/19/19 13:25 MA [email or web address]) Out-Patient Physical Therapy Visit Information Visit Information Visit Type Treatment Note Visit Start Time 11:00 Visit Stop Time 11:50 Total Visit Minutes 50 Visit Number 4 Number of JUNIOR SYSTEMS ADMINISTRATOR Visits 1 PT-OP-B Current Condition Start: 12/13/19 11:18 Freq: Status: Active Protocol: Document 12/13/19 13:30 AMB (Rec: 12/13/19 13:51 AMB [id number]) Current Condition History of Current Condition Onset Date May 2019 Current Complaints Parkinsons History of Current Condition A couple years ago Amaya started noticing symptoms of Parkinson's but just got the diagnosis in May. She has noticed that the levodopa/ carbidopa is helping her movement. She does have a chronic pain history, especially SI joint. Denies tremor, positive for stiffness . Has noticed fine motor changes especially with writing and typing. Significant fall history with 2 in the last month, both when she wasn't really attending to what she was doing: she was leaning over some flower pots and couldn't stand back up and then fell on her deck when getting into a deck chair . Lives in a two story home with her with 3 stairs to enter without a railing. Treatment Goals Patient/Caregiver Goals Typing is challenging, walking on uneven terrain. Prior Functional Status Baseline Function- ADL's Independent Baseline Function- Mobility Independent Baseline Function- Recreation/Hobbies Previously ran and skiied Current Functional Impairments (Reported) Functional Limitations- ADL's Stiffness with overall movement including bed mobility and floor transfers, Personal Factors Other Personal Factors That May Effect Hx rotator cuff surgery in Therapy/Recovery 2014 PT-OP-C Subjective Start: 12/13/19 11:18 Freq: Status: Active Protocol: Document 12/19/19 13:04 MA (Rec: 12/19/19 13:25 MA [email or web address]) OP-PT Subjective Patient Comments Patient Comments Pt states she has to leave 10 mins early for another appt. She remembered other daily functional activities she would like to work on stating she has trouble stepping reciprocally on stairs (tends to lead with LLE) and trouble getting up from the floor PT-OP-D Balance Start: 12/13/19 11:18 Freq: Status: Active Protocol: Document 12/13/19 13:30 AMB (Rec: 12/14/19 15:58 AMB [email or web address]) Balance Tests mCTSIB mCTSIB Position 1 30 seconds mCTSIB Position 2 30 seconds with increased ankle sway PT-OP-E Functional Tests Start: 12/13/19 11:18 Freq: Status: Active Protocol: Document 12/13/19 13:30 AMB (Rec: 12/14/19 15:45 AMB [email or web address]) Functional Tests 6 Minute Walk Test Distance 1350 Device Used none Comments 4 missteps, one almost required physical assitance Five Times Sit to Stand Test Score 9 PT-OP-G Mobility & Gait Start: 12/13/19 11:18 Freq: Status: Active Protocol: Document 12/13/19 13:30 AMB (Rec: 12/14/19 15:45 AMB [email or web address]) OP Mobility Evaluation Bed Mobility Rolling I Supine to and from Sit Independent with increased time OP Gait Assessment Comments Gait Comments decreased arm swing, especially on the right after a while of walking, 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, and catches midfoot during swing through, reduced trunk rotation PT-OP-J Posture/Palpation/Skin Start: 12/13/19 11:18 Freq: Status: Active Protocol: Document 12/13/19 13:30 AMB (Rec: 12/14/19 15:45 AMB [email or web address]) Posture Evaluation Comments Posture Comments Increased lumbar lordosis PT-OP-K Range of Motion Start: 12/13/19 11:18 Freq: Status: Active Protocol: Document 12/13/19 13:30 AMB (Rec: 12/14/19 15:45 AMB [email or web address]) Shoulder Goniometric Range of Motion Shoulder Right Active Flexion 165 Left Active Flexion 165 PT-OP-M Strength Start: 12/13/19 11:18 Freq: Status: Active Protocol: Document 12/13/19 13:30 AMB (Rec: 12/14/19 15:58 AMB [email or web address]) Hip Strength Hip Manual Muscle Testing Right Flexion (L2) 4+ Good+ Extension (S1) 4+ Good+ Abduction 4+ Good+ Adduction 4+ Good+ Left Flexion (L2) 4+ Good+ Extension (S1) 4+ Good+ Abduction 4+ Good+ Adduction 4+ Good+ Knee Strength Knee Manual Muscle Testing Right Flexion (S2) 5 Normal Extension (L3) 5 Normal Left Flexion (S2) 5 Normal Extension (L3) 5 Normal PT-OP-Q Treatments Start: 12/13/19 11:18 Freq: Status: Active Protocol: Document 12/19/19 13:04 MA (Rec: 12/19/19 13:25 MA [email or web address]) Neuro Re-Education Treatment Balance Activities Obstacle Course Equipment dynodiscs, low solis, foam Reps/Duration 4x Comments VCs for lifting legs and stepping big. Stimulating uneven terrain Dynodiscs Details dyno disc under each LE Equipment dyno disc Reps/Duration 3x60 Comments woking on lateral weight shifting to stimulate walking on uneven surfaces. verbal cues to avoid excessive trunk lean R Coordination Activities Getting up from Floor Reps/Duration 5x Comments pt moves from seated to four- pt kneeling into down dog and walks her hands back to stand up. Pt tends to use small movements when walking hands back, verbal cues for big pushes Other Activities Stairs Details Reciprocal Stepping Reps/Duration 6x Comments No handrail 8 Details sit to stand Reps/Duration 10 Comments firm surface 7 Details sideways rock and reach Reps/Duration 10 Comments 1 loss of balance able to self correct 6 Details forward rock and reach Reps/Duration 10 Comments more difficulty with right arm extension 5 Details Backward stepping Reps/Duration 10 4 Details Lateral stepping Reps/Duration 10 Comments pt tends to have knee flexion during stance when it should be straight. 3 Details Forward stepping Reps/Duration 10 Comments Pain on the right with forward and backward stepping 2 Details side to side Reps/Duration 7 Comments vc reach forward instead of up to reduce lumbar lordosis 1 Details Floor to ceiling Reps/Duration 7 Comments cues to avoid excessive anterior pelvic tilt and bringing R arm back as far as L PT-OP-T Assessment and Plan Start: 12/13/19 11:18 Freq: Status: Active Protocol: Document 12/19/19 13:04 MA (Rec: 12/19/19 13:25 MA [email or web address]) Physical Therapy Assessment Assessment Summary Assessment Amaya did well with the daily exercises but needs cues to avoid feeling LBP during any twisting movements. She required minimum assistance when balancing on dynodiscs and verbal cues to step big to avoid tripping during obstacle course Physical Therapy Plan Frequency and Duration Frequency of Treatment 4x/Week Duration of Treatment 17 visits Plan of Care Start Date 12/13/19 Plan of Care End Date 01/17/20 Next Visit Focus/Plan Next Note Type Treatment Note Next Visit Plan Check carryover of pts ability to get off floor using big hand movements to push herself back. Continue working on daily functional activities.
--- NOTE | 2019-12-20 12:19 | PT.OTN ---
Current Diagnoses Parkinson's disease (12/20/19) History of falling (12/20/19) Physical Therapy Treatment Note PT-OP-A Visit Information Start: 12/13/19 11:18 Freq: Status: Active Protocol: Document 12/20/19 11:00 AMB (Rec: 12/20/19 11:47 AMB [id number]) Out-Patient Physical Therapy Visit Information Visit Information Visit Type Treatment Note Visit Start Time 11:00 Visit Stop Time 11:55 Total Visit Minutes 55 Visit Number 5 PT-OP-B Current Condition Start: 12/13/19 11:18 Freq: Status: Active Protocol: Document 12/13/19 13:30 AMB (Rec: 12/13/19 13:51 AMB [id number]) Current Condition History of Current Condition Onset Date May 2019 Current Complaints Parkinsons History of Current Condition A couple years ago Amaya started noticing symptoms of Parkinson's but just got the diagnosis in May. She has noticed that the levodopa/ carbidopa is helping her movement. She does have a chronic pain history, especially SI joint. Denies tremor, positive for stiffness . Has noticed fine motor changes especially with writing and typing. Significant fall history with 2 in the last month, both when she wasn't really attending to what she was doing: she was leaning over some flower pots and couldn't stand back up and then fell on her deck when getting into a deck chair . Lives in a two story home with her with 3 stairs to enter without a railing. Treatment Goals Patient/Caregiver Goals Typing is challenging, walking on uneven terrain. Prior Functional Status Baseline Function- ADL's Independent Baseline Function- Mobility Independent Baseline Function- Recreation/Hobbies Previously ran and skiied Current Functional Impairments (Reported) Functional Limitations- ADL's Stiffness with overall movement including bed mobility and floor transfers, Personal Factors Other Personal Factors That May Effect Hx rotator cuff surgery in Therapy/Recovery 2014 PT-OP-C Subjective Start: 12/13/19 11:18 Freq: Status: Active Protocol: Document 12/20/19 11:00 AMB (Rec: 12/20/19 11:47 AMB [id number]) OP-PT Subjective Patient Comments Patient Comments Amaya feels energized when she leaves. [place] like exercises were pretty fast last time and hard to keep back in alignment with that speed. PT-OP-D Balance Start: 12/13/19 11:18 Freq: Status: Active Protocol: Document 12/13/19 13:30 AMB (Rec: 12/14/19 15:58 AMB [email or web address]) Balance Tests mCTSIB mCTSIB Position 1 30 seconds mCTSIB Position 2 30 seconds with increased ankle sway PT-OP-E Functional Tests Start: 12/13/19 11:18 Freq: Status: Active Protocol: Document 12/13/19 13:30 AMB (Rec: 12/14/19 15:45 AMB [email or web address]) Functional Tests 6 Minute Walk Test Distance 1350 Device Used none Comments 4 missteps, one almost required physical assitance Five Times Sit to Stand Test Score 9 PT-OP-G Mobility & Gait Start: 12/13/19 11:18 Freq: Status: Active Protocol: Document 12/13/19 13:30 AMB (Rec: 12/14/19 15:45 AMB [email or web address]) OP Mobility Evaluation Bed Mobility Rolling I Supine to and from Sit Independent with increased time OP Gait Assessment Comments Gait Comments decreased arm swing, especially on the right after a while of walking, 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, and catches midfoot during swing through, reduced trunk rotation PT-OP-J Posture/Palpation/Skin Start: 12/13/19 11:18 Freq: Status: Active Protocol: Document 12/13/19 13:30 AMB (Rec: 12/14/19 15:45 AMB [email or web address]) Posture Evaluation Comments Posture Comments Increased lumbar lordosis PT-OP-K Range of Motion Start: 12/13/19 11:18 Freq: Status: Active Protocol: Document 12/13/19 13:30 AMB (Rec: 12/14/19 15:45 AMB [email or web address]) Shoulder Goniometric Range of Motion Shoulder Right Active Flexion 165 Left Active Flexion 165 PT-OP-M Strength Start: 12/13/19 11:18 Freq: Status: Active Protocol: Document 12/13/19 13:30 AMB (Rec: 12/14/19 15:58 AMB [email or web address]) Hip Strength Hip Manual Muscle Testing Right Flexion (L2) 4+ Good+ Extension (S1) 4+ Good+ Abduction 4+ Good+ Adduction 4+ Good+ Left Flexion (L2) 4+ Good+ Extension (S1) 4+ Good+ Abduction 4+ Good+ Adduction 4+ Good+ Knee Strength Knee Manual Muscle Testing Right Flexion (S2) 5 Normal Extension (L3) 5 Normal Left Flexion (S2) 5 Normal Extension (L3) 5 Normal PT-OP-Q Treatments Start: 12/13/19 11:18 Freq: Status: Active Protocol: Document 12/20/19 11:00 AMB (Rec: 12/20/19 12:19 AMB [id number]) Therapeutic Activity Therapeutic Activity 1 Name writing Reps/Minutes 10 Comments Practiced writing name- priting vs cursive discussed using a pen with a larger diameter, keeping forearm supported, taking breaks to do the finger flicks Gait Training Gait Activity 1 Description ambulation with trekking poles Distance/Duration 10 min Comments BIG walking over smooth surfaces Neuro Re-Education Treatment Other Activities Stairs Details Reciprocal Stepping Reps/Duration 6x Comments No handrail 8 Details sit to stand Reps/Duration 10 Comments firm surface 7 Details sideways rock and reach Reps/Duration 10 6 Details forward rock and reach Reps/Duration 10 Comments more difficulty with right arm extension 5 Details Backward stepping Reps/Duration 10 Comments Difficulty with coordination today 4 Details Lateral stepping Reps/Duration 10 3 Details Forward stepping Reps/Duration 10 2 Details side to side Reps/Duration 7 1 Details Floor to ceiling Reps/Duration 7 Comments cues to avoid excessive anterior pelvic tilt and bringing R arm back as far as L PT-OP-T Assessment and Plan Start: 12/13/19 11:18 Freq: Status: Active Protocol: Document 12/20/19 11:00 AMB (Rec: 12/20/19 12:19 AMB [id number]) Physical Therapy Assessment Assessment Summary Assessment Amaya needs a bit of time to double check her posture to make sure she isn't flaring her SI joint during exercises. Worked on writing today and Amaya responded well to the cue to use her whole hand to write rather than just her fingers. Physical Therapy Plan Frequency and Duration Frequency of Treatment 4x/Week Duration of Treatment 17 visits Plan of Care Start Date 12/13/19 Plan of Care End Date 01/17/20 Therapeutic Interventions Therapeutic Interventions Balance Training,Gait Training ,Home Exercise Program, Neuromuscular Re-education, Therapeutic Activities, Therapeutic Exercises Next Visit Focus/Plan Next Note Type Treatment Note Next Visit Plan Continue to work on carryover of floor transfer and writing functional tasks.
--- NOTE | 2019-12-24 12:00 | PT.OTN ---
Current Diagnoses Parkinson's disease (12/24/19) History of falling (12/24/19) Physical Therapy Treatment Note PT-OP-A Visit Information Start: 12/13/19 11:18 Freq: Status: Active Protocol: Document 12/24/19 13:12 MA (Rec: 12/24/19 13:23 MA [email or web address]) Out-Patient Physical Therapy Visit Information Visit Information Visit Type Treatment Note Visit Start Time 11:05 Visit Stop Time 12:00 Total Visit Minutes 55 Visit Number 6 Number of WATER SUPERVISOR Visits 1 PT-OP-B Current Condition Start: 12/13/19 11:18 Freq: Status: Active Protocol: Document 12/13/19 13:30 AMB (Rec: 12/13/19 13:51 AMB [id number]) Current Condition History of Current Condition Onset Date May 2019 Current Complaints Parkinsons History of Current Condition A couple years ago Amaya started noticing symptoms of Parkinson's but just got the diagnosis in May. She has noticed that the levodopa/ carbidopa is helping her movement. She does have a chronic pain history, especially SI joint. Denies tremor, positive for stiffness . Has noticed fine motor changes especially with writing and typing. Significant fall history with 2 in the last month, both when she wasn't really attending to what she was doing: she was leaning over some flower pots and couldn't stand back up and then fell on her deck when getting into a deck chair . Lives in a two story home with her with 3 stairs to enter without a railing. Treatment Goals Patient/Caregiver Goals Typing is challenging, walking on uneven terrain. Prior Functional Status Baseline Function- ADL's Independent Baseline Function- Mobility Independent Baseline Function- Recreation/Hobbies Previously ran and skiied Current Functional Impairments (Reported) Functional Limitations- ADL's Stiffness with overall movement including bed mobility and floor transfers, Personal Factors Other Personal Factors That May Effect Hx rotator cuff surgery in Therapy/Recovery 2014 PT-OP-C Subjective Start: 12/13/19 11:18 Freq: Status: Active Protocol: Document 12/24/19 13:12 MA (Rec: 12/24/19 13:23 MA [email or web address]) OP-PT Subjective Patient Comments Patient Comments Amaya was running late today and says she forgot her PT folder. Says she is having trouble with one of the exercises and would like to spend some time reviewing it. PT-OP-D Balance Start: 12/13/19 11:18 Freq: Status: Active Protocol: Document 12/13/19 13:30 AMB (Rec: 12/14/19 15:58 AMB [email or web address]) Balance Tests mCTSIB mCTSIB Position 1 30 seconds mCTSIB Position 2 30 seconds with increased ankle sway PT-OP-E Functional Tests Start: 12/13/19 11:18 Freq: Status: Active Protocol: Document 12/13/19 13:30 AMB (Rec: 12/14/19 15:45 AMB [email or web address]) Functional Tests 6 Minute Walk Test Distance 1350 Device Used none Comments 4 missteps, one almost required physical assitance Five Times Sit to Stand Test Score 9 PT-OP-G Mobility & Gait Start: 12/13/19 11:18 Freq: Status: Active Protocol: Document 12/13/19 13:30 AMB (Rec: 12/14/19 15:45 AMB [email or web address]) OP Mobility Evaluation Bed Mobility Rolling I Supine to and from Sit Independent with increased time OP Gait Assessment Comments Gait Comments decreased arm swing, especially on the right after a while of walking, 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 chart 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, and catches midfoot during swing through, reduced trunk rotation PT-OP-J Posture/Palpation/Skin Start: 12/13/19 11:18 Freq: Status: Active Protocol: Document 12/13/19 13:30 AMB (Rec: 12/14/19 15:45 AMB [email or web address]) Posture Evaluation Comments Posture Comments Increased lumbar lordosis PT-OP-K Range of Motion Start: 12/13/19 11:18 Freq: Status: Active Protocol: Document 12/13/19 13:30 AMB (Rec: 12/14/19 15:45 AMB [email or web address]) Shoulder Goniometric Range of Motion Shoulder Right Active Flexion 165 Left Active Flexion 165 PT-OP-M Strength Start: 12/13/19 11:18 Freq: Status: Active Protocol: Document 12/13/19 13:30 AMB (Rec: 12/14/19 15:58 AMB [email or web address]) Hip Strength Hip Manual Muscle Testing Right Flexion (L2) 4+ Good+ Extension (S1) 4+ Good+ Abduction 4+ Good+ Adduction 4+ Good+ Left Flexion (L2) 4+ Good+ Extension (S1) 4+ Good+ Abduction 4+ Good+ Adduction 4+ Good+ Knee Strength Knee Manual Muscle Testing Right Flexion (S2) 5 Normal Extension (L3) 5 Normal Left Flexion (S2) 5 Normal Extension (L3) 5 Normal PT-OP-Q Treatments Start: 12/13/19 11:18 Freq: Status: Active Protocol: Document 12/24/19 13:12 MA (Rec: 12/24/19 13:23 MA [email or web address]) Therapeutic Activity Therapeutic Activity 1 Name writing Reps/Minutes 10 Comments Practiced writing name- priting vs cursive discussed using a pen with a larger diameter, keeping forearm supported, taking breaks to do the finger flicks Gait Training Gait Activity 1 Description ambulation with trekking poles Distance/Duration 10 min Comments BIG walking outside on gravel and grass. Cues for increasing RUE extension Neuro Re-Education Treatment Other Activities 8 Details sit to stand Reps/Duration 10 Comments firm surface 7 Details sideways rock and reach Reps/Duration 10 6 Details forward rock and reach Reps/Duration 10 Comments more difficulty with right arm extension 5 Details Backward stepping Reps/Duration 10 Comments Difficulty with coordination today 4 Details Lateral stepping Reps/Duration 10 3 Details Forward stepping Reps/Duration 10 2 Details side to side Reps/Duration 7 1 Details Floor to ceiling Reps/Duration 10 Comments cues to avoid excessive anterior pelvic tilt and bringing R arm back as far as L PT-OP-T Assessment and Plan Start: 12/13/19 11:18 Freq: Status: Active Protocol: Document 12/24/19 13:12 MA (Rec: 12/24/19 13:23 MA [email or web address]) Physical Therapy Assessment Assessment Summary Assessment Taking breaks for finger flicks during writing today helped keep font size consistently large. Needed multiple verbal cues for RUE extension while ambulating during session. Pt tends to have decreased step on RLE and needs verbal cues to step bigger. Physical Therapy Plan Frequency and Duration Frequency of Treatment 4x/Week Duration of Treatment 17 visits Plan of Care Start Date 12/13/19 Plan of Care End Date 01/17/20 Next Visit Focus/Plan Next Note Type Treatment Note Next Visit Plan Continue working on RUE extension when ambulating and R foot clearance. Check if opening arms wide and flicking fingers helped at home with her not feel like her forearm is stuck while writing.
--- NOTE | 2019-12-25 11:13 | PT-OP ANOTE ---
Amaya arambula showed her appointment today. Called her and she stated she completely spaced it and was very apologetic. It takes her about 20 minutes to get into town from her house, so we decided we would just see her tomorrow.
--- NOTE | 2019-12-26 11:59 | PT.OTN ---
Current Diagnoses Parkinson's disease (12/26/19) History of falling (12/26/19) Physical Therapy Treatment Note PT-OP-A Visit Information Start: 12/13/19 11:18 Freq: Status: Active Protocol: Document 12/26/19 12:59 MA (Rec: 12/26/19 13:08 MA [email or web address]) Out-Patient Physical Therapy Visit Information Visit Information Visit Type Treatment Note Visit Start Time 11:00 Visit Stop Time 12:58 Total Visit Minutes 58 Visit Number 7 Number of TOUCH UP EDGER Visits 2 PT-OP-B Current Condition Start: 12/13/19 11:18 Freq: Status: Active Protocol: Document 12/13/19 13:30 AMB (Rec: 12/13/19 13:51 AMB [id number]) Current Condition History of Current Condition Onset Date May 2019 Current Complaints Parkinsons History of Current Condition A couple years ago Amaya started noticing symptoms of Parkinson's but just got the diagnosis in May. She has noticed that the levodopa/ carbidopa is helping her movement. She does have a chronic pain history, especially SI joint. Denies tremor, positive for stiffness . Has noticed fine motor changes especially with writing and typing. Significant fall history with 2 in the last month, both when she wasn't really attending to what she was doing: she was leaning over some flower pots and couldn't stand back up and then fell on her deck when getting into a deck chair . Lives in a two story home with her with 3 stairs to enter without a railing. Treatment Goals Patient/Caregiver Goals Typing is challenging, walking on uneven terrain. Prior Functional Status Baseline Function- ADL's Independent Baseline Function- Mobility Independent Baseline Function- Recreation/Hobbies Previously ran and skiied Current Functional Impairments (Reported) Functional Limitations- ADL's Stiffness with overall movement including bed mobility and floor transfers, Personal Factors Other Personal Factors That May Effect Hx rotator cuff surgery in Therapy/Recovery 2014 PT-OP-C Subjective Start: 12/13/19 11:18 Freq: Status: Active Protocol: Document 12/26/19 12:59 MA (Rec: 12/26/19 13:08 MA [email or web address]) OP-PT Subjective Patient Comments Patient Comments Pt apologized for missing appt yesterday stating she got distracted. Pt reports that she did not like walking sticks and decided not to purchase them. Pt took meds today at 8 instead of 9 am due to drs appts PT-OP-D Balance Start: 12/13/19 11:18 Freq: Status: Active Protocol: Document 12/13/19 13:30 AMB (Rec: 12/14/19 15:58 AMB [email or web address]) Balance Tests mCTSIB mCTSIB Position 1 30 seconds mCTSIB Position 2 30 seconds with increased ankle sway PT-OP-E Functional Tests Start: 12/13/19 11:18 Freq: Status: Active Protocol: Document 12/13/19 13:30 AMB (Rec: 12/14/19 15:45 AMB [email or web address]) Functional Tests 6 Minute Walk Test Distance 1350 Device Used none Comments 4 missteps, one almost required physical assitance Five Times Sit to Stand Test Score 9 PT-OP-G Mobility & Gait Start: 12/13/19 11:18 Freq: Status: Active Protocol: Document 12/13/19 13:30 AMB (Rec: 12/14/19 15:45 AMB [email or web address]) OP Mobility Evaluation Bed Mobility Rolling I Supine to and from Sit Independent with increased time OP Gait Assessment Comments Gait Comments decreased arm swing, especially on the right after a while of walking, 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 hand 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, and catches midfoot during swing through, reduced trunk rotation PT-OP-J Posture/Palpation/Skin Start: 12/13/19 11:18 Freq: Status: Active Protocol: Document 12/13/19 13:30 AMB (Rec: 12/14/19 15:45 AMB [email or web address]) Posture Evaluation Comments Posture Comments Increased lumbar lordosis PT-OP-K Range of Motion Start: 12/13/19 11:18 Freq: Status: Active Protocol: Document 12/13/19 13:30 AMB (Rec: 12/14/19 15:45 AMB [email or web address]) Shoulder Goniometric Range of Motion Shoulder Right Active Flexion 165 Left Active Flexion 165 PT-OP-M Strength Start: 12/13/19 11:18 Freq: Status: Active Protocol: Document 12/13/19 13:30 AMB (Rec: 12/14/19 15:58 AMB [email or web address]) Hip Strength Hip Manual Muscle Testing Right Flexion (L2) 4+ Good+ Extension (S1) 4+ Good+ Abduction 4+ Good+ Adduction 4+ Good+ Left Flexion (L2) 4+ Good+ Extension (S1) 4+ Good+ Abduction 4+ Good+ Adduction 4+ Good+ Knee Strength Knee Manual Muscle Testing Right Flexion (S2) 5 Normal Extension (L3) 5 Normal Left Flexion (S2) 5 Normal Extension (L3) 5 Normal PT-OP-Q Treatments Start: 12/13/19 11:18 Freq: Status: Active Protocol: Document 12/26/19 12:59 MA (Rec: 12/26/19 13:08 MA [email or web address]) Gait Training Gait Activity 1 Description ambulation no poles Distance/Duration 10 min Comments BIG walking outside on grass. pt shuffles when coming upon an obstacle and when going downhill. Cues needed to step big and increase right arm extension when walking. Neuro Re-Education Treatment Coordination Activities Getting up from Floor Reps/Duration 5x Comments pt moves from seated to four- pt kneeling into down dog and walks her hands back to stand up. Pt tends to use small movements when walking hands back, verbal cues for big pushes Other Activities 8 Details sit to stand Reps/Duration 10 Comments firm surface 7 Details sideways rock and reach Reps/Duration 10 6 Details forward rock and reach Reps/Duration 10 Comments more difficulty with right arm extension 5 Details Backward stepping Reps/Duration 10 Comments Difficulty with coordination today 4 Details Lateral stepping Reps/Duration 10 3 Details Forward stepping Reps/Duration 10 2 Details side to side Reps/Duration 7 1 Details Floor to ceiling Reps/Duration 10 Comments cues to avoid excessive anterior pelvic tilt and bringing R arm back as far as L PT-OP-T Assessment and Plan Start: 12/13/19 11:18 Freq: Status: Active Protocol: Document 12/26/19 12:59 MA (Rec: 12/26/19 13:08 MA [email or web address]) Physical Therapy Assessment Assessment Summary Assessment Pt strugged more with left hand movements, especially extending the thumb. Pt was off balance today during some exercises- might be due to medication time change this AM . Pt is improving in self correcting movements when they feel too small Physical Therapy Plan Frequency and Duration Frequency of Treatment 4x/Week Duration of Treatment 17 visits Plan of Care Start Date 12/13/19 Plan of Care End Date 01/17/20 Next Visit Focus/Plan Next Note Type Treatment Note Next Visit Plan Check that left fingers are extended during finger flicking exercises. Work on gait training on [place] if possible or set up obstacle course in gym to work on freezing/festinating issues when coming upon obstacle.
--- NOTE | 2019-12-27 14:01 | PT.OTN ---
Current Diagnoses Parkinson's disease (12/27/19) History of falling (12/27/19) Physical Therapy Treatment Note PT-OP-A Visit Information Start: 12/13/19 11:18 Freq: Status: Active Protocol: Document 12/27/19 11:00 AMB (Rec: 12/27/19 11:57 AMB [id number]) Out-Patient Physical Therapy Visit Information Visit Information Visit Type Treatment Note Visit Start Time 11:15 Visit Stop Time 12:58 Total Visit Minutes 43 Visit Number 8 Number of CUSTOMER SUPPORT ENGINEER Visits 0 PT-OP-B Current Condition Start: 12/13/19 11:18 Freq: Status: Active Protocol: Document 12/13/19 13:30 AMB (Rec: 12/13/19 13:51 AMB [id number]) Current Condition History of Current Condition Onset Date May 2019 Current Complaints Parkinsons History of Current Condition A couple years ago Amaya started noticing symptoms of Parkinson's but just got the diagnosis in May. She has noticed that the levodopa/ carbidopa is helping her movement. She does have a chronic pain history, especially SI joint. Denies tremor, positive for stiffness . Has noticed fine motor changes especially with writing and typing. Significant fall history with 2 in the last month, both when she wasn't really attending to what she was doing: she was leaning over some flower pots and couldn't stand back up and then fell on her deck when getting into a deck chair . Lives in a two story home with her with 3 stairs to enter without a railing. Treatment Goals Patient/Caregiver Goals Typing is challenging, walking on uneven terrain. Prior Functional Status Baseline Function- ADL's Independent Baseline Function- Mobility Independent Baseline Function- Recreation/Hobbies Previously ran and skiied Current Functional Impairments (Reported) Functional Limitations- ADL's Stiffness with overall movement including bed mobility and floor transfers, Personal Factors Other Personal Factors That May Effect Hx rotator cuff surgery in Therapy/Recovery 2014 PT-OP-C Subjective Start: 12/13/19 11:18 Freq: Status: Active Protocol: Document 12/27/19 11:00 AMB (Rec: 12/27/19 11:57 AMB [id number]) OP-PT Subjective Patient Comments Patient Comments Pt apologized for being late PT-OP-D Balance Start: 12/13/19 11:18 Freq: Status: Active Protocol: Document 12/13/19 13:30 AMB (Rec: 12/14/19 15:58 AMB [email or web address]) Balance Tests mCTSIB mCTSIB Position 1 30 seconds mCTSIB Position 2 30 seconds with increased ankle sway PT-OP-E Functional Tests Start: 12/13/19 11:18 Freq: Status: Active Protocol: Document 12/13/19 13:30 AMB (Rec: 12/14/19 15:45 AMB [email or web address]) Functional Tests 6 Minute Walk Test Distance 1350 Device Used none Comments 4 missteps, one almost required physical assitance Five Times Sit to Stand Test Score 9 PT-OP-G Mobility & Gait Start: 12/13/19 11:18 Freq: Status: Active Protocol: Document 12/13/19 13:30 AMB (Rec: 12/14/19 15:45 AMB [email or web address]) OP Mobility Evaluation Bed Mobility Rolling I Supine to and from Sit Independent with increased time OP Gait Assessment Comments Gait Comments decreased arm swing, especially on the right after a while of walking, 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, and catches midfoot during swing through, reduced trunk rotation PT-OP-J Posture/Palpation/Skin Start: 12/13/19 11:18 Freq: Status: Active Protocol: Document 12/13/19 13:30 AMB (Rec: 12/14/19 15:45 AMB [email or web address]) Posture Evaluation Comments Posture Comments Increased lumbar lordosis PT-OP-K Range of Motion Start: 12/13/19 11:18 Freq: Status: Active Protocol: Document 12/13/19 13:30 AMB (Rec: 12/14/19 15:45 AMB [email or web address]) Shoulder Goniometric Range of Motion Shoulder Right Active Flexion 165 Left Active Flexion 165 PT-OP-M Strength Start: 12/13/19 11:18 Freq: Status: Active Protocol: Document 12/13/19 13:30 AMB (Rec: 12/14/19 15:58 AMB [email or web address]) Hip Strength Hip Manual Muscle Testing Right Flexion (L2) 4+ Good+ Extension (S1) 4+ Good+ Abduction 4+ Good+ Adduction 4+ Good+ Left Flexion (L2) 4+ Good+ Extension (S1) 4+ Good+ Abduction 4+ Good+ Adduction 4+ Good+ Knee Strength Knee Manual Muscle Testing Right Flexion (S2) 5 Normal Extension (L3) 5 Normal Left Flexion (S2) 5 Normal Extension (L3) 5 Normal PT-OP-Q Treatments Start: 12/13/19 11:18 Freq: Status: Active Protocol: Document 12/27/19 11:00 AMB (Rec: 12/27/19 14:01 AMB [email or web address]) Therapeutic Activity Therapeutic Activity 2 Name floor transfers Reps/Minutes 5 Comments I without environmental assist - practiced walking up legs with bigger arm movements and coming up from a lunge position Gait Training Gait Activity 2 Description stairs Level of Assistance Independent Comments ascend and descend 2 flights of stairs alternating gait pattern no railings 1 Description ambulation no poles Distance/Duration 10 min Comments BIG walking outside on grass. Very stiff gait when concentrating, Neuro Re-Education Treatment Other Activities 7 Details sideways rock and reach Reps/Duration 10 6 Details forward rock and reach Reps/Duration 10 5 Details Backward stepping Reps/Duration 10 4 Details Lateral stepping Reps/Duration 10 Comments vc stepping back big 3 Details Forward stepping Reps/Duration 10 2 Details side to side Reps/Duration 7 1 Details Floor to ceiling Reps/Duration 7 PT-OP-T Assessment and Plan Start: 12/13/19 11:18 Freq: Status: Active Protocol: Document 12/27/19 11:00 AMB (Rec: 12/27/19 13:57 AMB [email or web address]) Physical Therapy Assessment Assessment Summary Assessment Amaya appears quite stiff when walking downhill, but did do better with larger armswing and longer step length. Better with floor transfer today. Given carryover exercise big movement with yardwork. Physical Therapy Plan Next Visit Focus/Plan Next Note Type Treatment Note Next Visit Plan Progress note on 12/31
--- NOTE | 2019-12-31 12:00 | PT.OTN ---
Current Diagnoses Parkinson's disease (12/31/19) History of falling (12/31/19) Physical Therapy Treatment Note PT-OP-A Visit Information Start: 12/13/19 11:18 Freq: Status: Active Protocol: Document 12/31/19 12:49 MA (Rec: 12/31/19 12:59 MA [email or web address]) Out-Patient Physical Therapy Visit Information Visit Information Visit Type Treatment Note Visit Start Time 11:00 Visit Stop Time 12:55 Total Visit Minutes 55 Visit Number 9 Number of OFFICE MACHINE REPAIR SHOP SUPERVISOR Visits 1 PT-OP-B Current Condition Start: 12/13/19 11:18 Freq: Status: Active Protocol: Document 12/13/19 13:30 AMB (Rec: 12/13/19 13:51 AMB [id number]) Current Condition History of Current Condition Onset Date May 2019 Current Complaints Parkinsons History of Current Condition A couple years ago Amaya started noticing symptoms of Parkinson's but just got the diagnosis in May. She has noticed that the levodopa/ carbidopa is helping her movement. She does have a chronic pain history, especially SI joint. Denies tremor, positive for stiffness . Has noticed fine motor changes especially with writing and typing. Significant fall history with 2 in the last month, both when she wasn't really attending to what she was doing: she was leaning over some flower pots and couldn't stand back up and then fell on her deck when getting into a deck chair . Lives in a two story home with her with 3 stairs to enter without a railing. Treatment Goals Patient/Caregiver Goals Typing is challenging, walking on uneven terrain. Prior Functional Status Baseline Function- ADL's Independent Baseline Function- Mobility Independent Baseline Function- Recreation/Hobbies Previously ran and skiied Current Functional Impairments (Reported) Functional Limitations- ADL's Stiffness with overall movement including bed mobility and floor transfers, Personal Factors Other Personal Factors That May Effect Hx rotator cuff surgery in Therapy/Recovery 2014 PT-OP-C Subjective Start: 12/13/19 11:18 Freq: Status: Active Protocol: Document 12/31/19 12:49 MA (Rec: 12/31/19 12:59 MA [email or web address]) OP-PT Subjective Patient Comments Patient Comments Pt said she fell over when goat head butted her this weekend and now her right hip is bothering her this morning. She has also noticed that she shuffles when in tight spaces PT-OP-D Balance Start: 12/13/19 11:18 Freq: Status: Active Protocol: Document 12/13/19 13:30 AMB (Rec: 12/14/19 15:58 AMB [email or web address]) Balance Tests mCTSIB mCTSIB Position 1 30 seconds mCTSIB Position 2 30 seconds with increased ankle sway PT-OP-E Functional Tests Start: 12/13/19 11:18 Freq: Status: Active Protocol: Document 12/13/19 13:30 AMB (Rec: 12/14/19 15:45 AMB [email or web address]) Functional Tests 6 Minute Walk Test Distance 1350 Device Used none Comments 4 missteps, one almost required physical assitance Five Times Sit to Stand Test Score 9 PT-OP-G Mobility & Gait Start: 12/13/19 11:18 Freq: Status: Active Protocol: Document 12/13/19 13:30 AMB (Rec: 12/14/19 15:45 AMB [email or web address]) OP Mobility Evaluation Bed Mobility Rolling I Supine to and from Sit Independent with increased time OP Gait Assessment Comments Gait Comments decreased arm swing, especially on the right after a while of walking, 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, and catches midfoot during swing through, reduced trunk rotation PT-OP-J Posture/Palpation/Skin Start: 12/13/19 11:18 Freq: Status: Active Protocol: Document 12/13/19 13:30 AMB (Rec: 12/14/19 15:45 AMB [email or web address]) Posture Evaluation Comments Posture Comments Increased lumbar lordosis PT-OP-K Range of Motion Start: 12/13/19 11:18 Freq: Status: Active Protocol: Document 12/13/19 13:30 AMB (Rec: 12/14/19 15:45 AMB [email or web address]) Shoulder Goniometric Range of Motion Shoulder Right Active Flexion 165 Left Active Flexion 165 PT-OP-M Strength Start: 12/13/19 11:18 Freq: Status: Active Protocol: Document 12/13/19 13:30 AMB (Rec: 12/14/19 15:58 AMB [email or web address]) Hip Strength Hip Manual Muscle Testing Right Flexion (L2) 4+ Good+ Extension (S1) 4+ Good+ Abduction 4+ Good+ Adduction 4+ Good+ Left Flexion (L2) 4+ Good+ Extension (S1) 4+ Good+ Abduction 4+ Good+ Adduction 4+ Good+ Knee Strength Knee Manual Muscle Testing Right Flexion (S2) 5 Normal Extension (L3) 5 Normal Left Flexion (S2) 5 Normal Extension (L3) 5 Normal PT-OP-Q Treatments Start: 12/13/19 11:18 Freq: Status: Active Protocol: Document 12/31/19 12:49 MA (Rec: 12/31/19 12:59 MA [email or web address]) Neuro Re-Education Treatment Balance Activities Obstacle Course Details 6 gaits, noah discs, and foam Reps/Duration 15 minutes Comments walking throughout hallway, over obstacle course today instead of outside due to weather Coordination Activities Handwriting Reps/Duration 10 min Comments pt's personal handwriting book used Other Activities 8 Details sit to stand Reps/Duration 10 Comments firm surface 7 Details sideways rock and reach Reps/Duration 10 6 Details forward rock and reach Reps/Duration 10 5 Details Backward stepping Reps/Duration 10 4 Details Lateral stepping Reps/Duration 10 Comments vc stepping back big 3 Details Forward stepping Reps/Duration 10 2 Details side to side Reps/Duration 10 1 Details Floor to ceiling Reps/Duration 10 PT-OP-T Assessment and Plan Start: 12/13/19 11:18 Freq: Status: Active Protocol: Document 12/31/19 12:49 MA (Rec: 12/31/19 12:59 MA [email or web address]) Physical Therapy Assessment Assessment Summary Assessment Pt had more difficulty with finger flicks on both hands today and had minor pain in lower right lumbar region due to fall over the weekend. Pt festinated when changing from tile to carpet and when coming upon black stripe in hallway. Pt requested to bike for twenty minutes after session. Physical Therapy Plan Frequency and Duration Frequency of Treatment 4x/Week Duration of Treatment 17 visits Plan of Care Start Date 12/13/19 Plan of Care End Date 01/17/20 Next Visit Focus/Plan Next Note Type Treatment Note Next Visit Plan Continue working on uneven surfaces and in small spaces when gait training or balancing.
--- NOTE | 2020-01-01 15:31 | PT.OTN ---
Current Diagnoses Parkinson's disease (01/01/20) History of falling (01/01/20) Physical Therapy Treatment Note PT-OP-A Visit Information Start: 12/13/19 11:18 Freq: Status: Active Protocol: Document 01/01/20 11:00 AMB (Rec: 01/01/20 15:31 AMB [email or web address]) Out-Patient Physical Therapy Visit Information Visit Information Visit Type Progress Note Visit Start Time 11:00 Visit Stop Time 12:00 Total Visit Minutes 60 Visit Number 10 Number of LABORER COOK HOUSE Visits 0 PT-OP-B Current Condition Start: 12/13/19 11:18 Freq: Status: Active Protocol: Document 12/13/19 13:30 AMB (Rec: 12/13/19 13:51 AMB [id number]) Current Condition History of Current Condition Onset Date May 2019 Current Complaints Parkinsons History of Current Condition A couple years ago Amaya started noticing symptoms of Parkinson's but just got the diagnosis in May. She has noticed that the levodopa/ carbidopa is helping her movement. She does have a chronic pain history, especially SI joint. Denies tremor, positive for stiffness . Has noticed fine motor changes especially with writing and typing. Significant fall history with 2 in the last month, both when she wasn't really attending to what she was doing: she was leaning over some flower pots and couldn't stand back up and then fell on her deck when getting into a deck chair . Lives in a two story home with her with 3 stairs to enter without a railing. Treatment Goals Patient/Caregiver Goals Typing is challenging, walking on uneven terrain. Prior Functional Status Baseline Function- ADL's Independent Baseline Function- Mobility Independent Baseline Function- Recreation/Hobbies Previously ran and skiied Current Functional Impairments (Reported) Functional Limitations- ADL's Stiffness with overall movement including bed mobility and floor transfers, Personal Factors Other Personal Factors That May Effect Hx rotator cuff surgery in Therapy/Recovery 2014 PT-OP-C Subjective Start: 12/13/19 11:18 Freq: Status: Active Protocol: Document 01/01/20 11:00 AMB (Rec: 01/01/20 15:31 AMB [email or web address]) OP-PT Subjective Patient Comments Patient Comments Pt continues to be sore from previously documented fall PT-OP-D Balance Start: 12/13/19 11:18 Freq: Status: Active Protocol: Document 12/13/19 13:30 AMB (Rec: 12/14/19 15:58 AMB [email or web address]) Balance Tests mCTSIB mCTSIB Position 1 30 seconds mCTSIB Position 2 30 seconds with increased ankle sway PT-OP-E Functional Tests Start: 12/13/19 11:18 Freq: Status: Active Protocol: Document 01/01/20 11:00 AMB (Rec: 01/01/20 11:52 AMB [id number]) Functional Tests 6 Minute Walk Test Distance 1475 Comments no missteps PT-OP-G Mobility & Gait Start: 12/13/19 11:18 Freq: Status: Active Protocol: Document 12/13/19 13:30 AMB (Rec: 12/14/19 15:45 AMB [email or web address]) OP Mobility Evaluation Bed Mobility Rolling I Supine to and from Sit Independent with increased time OP Gait Assessment Comments Gait Comments decreased arm swing, especially on the right after a while of walking, 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 picking belt operator her feet, and catches midfoot during swing through, reduced trunk rotation PT-OP-J Posture/Palpation/Skin Start: 12/13/19 11:18 Freq: Status: Active Protocol: Document 12/13/19 13:30 AMB (Rec: 12/14/19 15:45 AMB [email or web address]) Posture Evaluation Comments Posture Comments Increased lumbar lordosis PT-OP-K Range of Motion Start: 12/13/19 11:18 Freq: Status: Active Protocol: Document 12/13/19 13:30 AMB (Rec: 12/14/19 15:45 AMB [email or web address]) Shoulder Goniometric Range of Motion Shoulder Right Active Flexion 165 Left Active Flexion 165 PT-OP-M Strength Start: 12/13/19 11:18 Freq: Status: Active Protocol: Document 12/13/19 13:30 AMB (Rec: 12/14/19 15:58 AMB [email or web address]) Hip Strength Hip Manual Muscle Testing Right Flexion (L2) 4+ Good+ Extension (S1) 4+ Good+ Abduction 4+ Good+ Adduction 4+ Good+ Left Flexion (L2) 4+ Good+ Extension (S1) 4+ Good+ Abduction 4+ Good+ Adduction 4+ Good+ Knee Strength Knee Manual Muscle Testing Right Flexion (S2) 5 Normal Extension (L3) 5 Normal Left Flexion (S2) 5 Normal Extension (L3) 5 Normal PT-OP-Q Treatments Start: 12/13/19 11:18 Freq: Status: Active Protocol: Document 01/01/20 11:00 AMB (Rec: 01/01/20 15:31 AMB [email or web address]) Gait Training Gait Activity 3 Description walking through small areas Comments avoiding festination with audible cues or thinking about big stepping through small areas, practiced with moveable tables 1 Description ambulation no poles Distance/Duration 10 min Comments BIG walking outside on grass. Very stiff gait when concentrating, Neuro Re-Education Treatment Other Activities 8 Details sit to stand Reps/Duration 10 Comments firm surface 7 Details sideways rock and reach Reps/Duration 10 6 Details forward rock and reach Reps/Duration 10 5 Details Backward stepping Reps/Duration 10 Comments alternating stepping 4 Details Lateral stepping Reps/Duration 10 Comments alternating 3 Details Forward stepping Reps/Duration 10 Comments alternating 2 Details side to side Reps/Duration 10 Comments alternating 1 Details Floor to ceiling Reps/Duration 10 PT-OP-T Assessment and Plan Start: 12/13/19 11:18 Freq: Status: Active Protocol: Document 01/01/20 11:52 AMB (Rec: 01/01/20 11:54 AMB [id number]) Physical Therapy Assessment Goals Four Impairment Fine motor activity Mail Handlers Supervisor Goal (LTG) Amaya will show improved legibility and speed with handwriting. LTG Duration 4 weeks Three Impairment Fall risk Short Term Goal (STG) Amaya will show improved balance by balancing in NBOS with eyes closed without excessive body sway. STG Duration MET [facility] Goal (LTG) Amaya will show reduced risk of falling, but avoiding falls over the month that she is in therapy. LTG Duration 4 weeks Two Impairment lacks HEP Short Term Goal (STG) Amaya will be consistent with her LSVT BIG HEP and able to perform it without increasing her baseline pain. 12/31- progress made STG Duration 4 weeks One Impairment Gait Short Term Goal (STG) Amaya will improve her 6MWT to gender/age norm of 1,765 feet . 12/31: progress made STG Duration 2 weeks Mail Handlers Supervisor Goal (LTG) Amaya will ambulate in the community with distractions without catching her feet and with good trunk rotation and arm swing. LTG Duration 4 weeks Assessment Summary Assessment Amaya showed good improvement in her balance and gait today, despite increased leg/back pain s/p fall. Encouraged her to avoid future falls with her goats as this tends to increase her pain, and her goats have caused multiple falls. Physical Therapy Plan Next Visit Focus/Plan Next Note Type Treatment Note Next Visit Plan Continue LSVT BIG program with focus on fine motor: handwriting, and gross motor: floor transfer, gait with modifications for back pain as necessary
--- NOTE | 2020-01-02 12:00 | PT.OTN ---
Current Diagnoses Parkinson's disease (01/02/20) History of falling (01/02/20) Physical Therapy Treatment Note PT-OP-A Visit Information Start: 12/13/19 11:18 Freq: Status: Active Protocol: Document 01/02/20 11:35 MA (Rec: 01/02/20 11:46 MA [id number]) Out-Patient Physical Therapy Visit Information Visit Information Visit Type Treatment Note Visit Start Time 11:02 Visit Stop Time 11:57 Total Visit Minutes 55 Visit Number 11 Number of CRUSHING FOREMAN Visits 1 PT-OP-B Current Condition Start: 12/13/19 11:18 Freq: Status: Active Protocol: Document 12/13/19 13:30 AMB (Rec: 12/13/19 13:51 AMB [id number]) Current Condition History of Current Condition Onset Date May 2019 Current Complaints Parkinsons History of Current Condition A couple years ago Amaya started noticing symptoms of Parkinson's but just got the diagnosis in May. She has noticed that the levodopa/ carbidopa is helping her movement. She does have a chronic pain history, especially SI joint. Denies tremor, positive for stiffness . Has noticed fine motor changes especially with writing and typing. Significant fall history with 2 in the last month, both when she wasn't really attending to what she was doing: she was leaning over some flower pots and couldn't stand back up and then fell on her deck when getting into a deck chair . Lives in a two story home with her with 3 stairs to enter without a railing. Treatment Goals Patient/Caregiver Goals Typing is challenging, walking on uneven terrain. Prior Functional Status Baseline Function- ADL's Independent Baseline Function- Mobility Independent Baseline Function- Recreation/Hobbies Previously ran and skiied Current Functional Impairments (Reported) Functional Limitations- ADL's Stiffness with overall movement including bed mobility and floor transfers, Personal Factors Other Personal Factors That May Effect Hx rotator cuff surgery in Therapy/Recovery 2014 PT-OP-C Subjective Start: 12/13/19 11:18 Freq: Status: Active Protocol: Document 01/02/20 11:35 MA (Rec: 01/02/20 11:46 MA [id number]) OP-PT Subjective Patient Comments Patient Comments Pt right hip is hurting with shooting pain down the right leg PT-OP-D Balance Start: 10/08/20 11:18 Freq: Status: Active Protocol: Document 12/13/19 13:30 AMB (Rec: 12/14/19 15:58 AMB [email or web address]) Balance Tests mCTSIB mCTSIB Position 1 30 seconds mCTSIB Position 2 30 seconds with increased ankle sway PT-OP-E Functional Tests Start: 12/13/19 11:18 Freq: Status: Active Protocol: Document 01/01/20 11:00 AMB (Rec: 01/01/20 11:52 AMB [id number]) Functional Tests 6 Minute Walk Test Distance 1475 Comments no missteps PT-OP-G Mobility & Gait Start: 12/13/19 11:18 Freq: Status: Active Protocol: Document 12/13/19 13:30 AMB (Rec: 12/14/19 15:45 AMB [email or web address]) OP Mobility Evaluation Bed Mobility Rolling I Supine to and from Sit Independent with increased time OP Gait Assessment Comments Gait Comments decreased arm swing, especially on the right after a while of walking, 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 pharmacy picking technician 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, and catches midfoot during swing through, reduced trunk rotation PT-OP-J Posture/Palpation/Skin Start: 12/13/19 11:18 Freq: Status: Active Protocol: Document 12/13/19 13:30 AMB (Rec: 12/14/19 15:45 AMB [email or web address]) Posture Evaluation Comments Posture Comments Increased lumbar lordosis PT-OP-K Range of Motion Start: 12/13/19 11:18 Freq: Status: Active Protocol: Document 12/13/19 13:30 AMB (Rec: 12/14/19 15:45 AMB [email or web address]) Shoulder Goniometric Range of Motion Shoulder Right Active Flexion 165 Left Active Flexion 165 PT-OP-M Strength Start: 12/13/19 11:18 Freq: Status: Active Protocol: Document 12/13/19 13:30 AMB (Rec: 12/14/19 15:58 AMB [email or web address]) Hip Strength Hip Manual Muscle Testing Right Flexion (L2) 4+ Good+ Extension (S1) 4+ Good+ Abduction 4+ Good+ Adduction 4+ Good+ Left Flexion (L2) 4+ Good+ Extension (S1) 4+ Good+ Abduction 4+ Good+ Adduction 4+ Good+ Knee Strength Knee Manual Muscle Testing Right Flexion (S2) 5 Normal Extension (L3) 5 Normal Left Flexion (S2) 5 Normal Extension (L3) 5 Normal PT-OP-Q Treatments Start: 12/13/19 11:18 Freq: Status: Active Protocol: Document 01/02/20 11:35 MA (Rec: 01/02/20 11:46 MA [id number]) Gait Training Gait Activity 1 Description ambulation no poles Distance/Duration 10 min Comments BIG walking outside on grass. Cues for increasing RUE extension Neuro Re-Education Treatment Coordination Activities Handwriting Details handwriting book Reps/Duration 10 minutes Comments Breaks for finger flicks and elbow extension Getting up from Floor Reps/Duration 8x Other Activities 8 Details sit to stand Reps/Duration 10 Comments firm surface 7 Details sideways rock and reach Reps/Duration 10 6 Details forward rock and reach Reps/Duration 10 5 Details Backward stepping Reps/Duration 10 Comments alternating stepping 4 Details Lateral stepping Reps/Duration 10 Comments alternating 3 Details Forward stepping Reps/Duration 10 Comments alternating 2 Details side to side Reps/Duration 10 Comments alternating 1 Details Floor to ceiling Reps/Duration 10 Self-Care/Home Management Treatment Education Other Education Sciatic nerve glide exercise added to HEP PT-OP-T Assessment and Plan Start: 12/13/19 11:18 Freq: Status: Active Protocol: Document 01/02/20 11:35 MA (Rec: 01/02/20 11:46 MA [id number]) Physical Therapy Assessment Goals Four Impairment Fine motor activity M[facility] Goal (LTG) Amaya will show improved legibility and speed with handwriting. LTG Duration 4 weeks Three Impairment Fall risk Short Term Goal (STG) Amaya will show improved balance by balancing in NBOS with eyes closed without excessive body sway. STG Duration MET M[facility] Goal (LTG) Amaya will show reduced risk of falling, but avoiding falls over the month that she is in therapy. LTG Duration 4 weeks Two Impairment lacks HEP Short Term Goal (STG) Amaya will be consistent with her LSVT BIG HEP and able to perform it without increasing her baseline pain. 12/31- progress made STG Duration 4 weeks One Impairment Gait Short Term Goal (STG) Amaya will improve her 6MWT to gender/age norm of 1,765 feet . 12/31: progress made STG Duration 2 weeks Mcc Goal (LTG) Amaya will ambulate in the community with distractions without catching her feet and with good trunk rotation and arm swing. LTG Duration 4 weeks Assessment Summary Assessment Pt arrived with nerve pain down RLE, after perfomring seated sciatic nerve glide, pt said pain decreased significantly. Pt is still having more trouble with her left hand than right hand during finger flicking exercises. Physical Therapy Plan Frequency and Duration Frequency of Treatment 4x/Week Duration of Treatment 17 visits Plan of Care Start Date 12/13/19 Plan of Care End Date 01/17/20 Next Visit Focus/Plan Next Note Type Treatment Note Next Visit Plan Continue LSVT BIG program with focus on fine motor: handwriting, and gross motor: floor transfer, gait with modifications for back pain as necessary
--- NOTE | 2020-01-03 13:52 | PT.OTN ---
Current Diagnoses Parkinson's disease (01/03/20) History of falling (01/03/20) Physical Therapy Treatment Note PT-OP-A Visit Information Start: 12/13/19 11:18 Freq: Status: Active Protocol: Document 01/03/20 11:02 AMB (Rec: 01/03/20 11:58 AMB [id number]) Out-Patient Physical Therapy Visit Information Visit Information Visit Type Treatment Note Visit Start Time 11:02 Visit Stop Time 12:00 Total Visit Minutes 58 Visit Number 12 Number of ROTARY MACHINE OPERATOR Visits 0 PT-OP-B Current Condition Start: 12/13/19 11:18 Freq: Status: Active Protocol: Document 12/13/19 13:30 AMB (Rec: 12/13/19 13:51 AMB [id number]) Current Condition History of Current Condition Onset Date May 2019 Current Complaints Parkinsons History of Current Condition A couple years ago Amaya started noticing symptoms of Parkinson's but just got the diagnosis in May. She has noticed that the levodopa/ carbidopa is helping her movement. She does have a chronic pain history, especially SI joint. Denies tremor, positive for stiffness . Has noticed fine motor changes especially with writing and typing. Significant fall history with 2 in the last month, both when she wasn't really attending to what she was doing: she was leaning over some flower pots and couldn't stand back up and then fell on her deck when getting into a deck chair . Lives in a two story home with her with 3 stairs to enter without a railing. Treatment Goals Patient/Caregiver Goals Typing is challenging, walking on uneven terrain. Prior Functional Status Baseline Function- ADL's Independent Baseline Function- Mobility Independent Baseline Function- Recreation/Hobbies Previously ran and skiied Current Functional Impairments (Reported) Functional Limitations- ADL's Stiffness with overall movement including bed mobility and floor transfers, Personal Factors Other Personal Factors That May Effect Hx rotator cuff surgery in Therapy/Recovery 2014 PT-OP-C Subjective Start: 12/13/19 11:18 Freq: Status: Active Protocol: Document 01/03/20 11:02 AMB (Rec: 01/03/20 11:58 AMB [id number]) OP-PT Subjective Patient Comments Patient Comments Pt's back and right leg continue to be p PT-OP-D Balance Start: 12/13/19 11:18 Freq: Status: Active Protocol: Document 12/13/19 13:30 AMB (Rec: 12/14/19 15:58 AMB [email or web address]) Balance Tests mCTSIB mCTSIB Position 1 30 seconds mCTSIB Position 2 30 seconds with increased ankle sway PT-OP-E Functional Tests Start: 12/13/19 11:18 Freq: Status: Active Protocol: Document 01/01/20 11:00 AMB (Rec: 01/01/20 11:52 AMB [id number]) Functional Tests 6 Minute Walk Test Distance 1475 Comments no missteps PT-OP-G Mobility & Gait Start: 12/13/19 11:18 Freq: Status: Active Protocol: Document 12/13/19 13:30 AMB (Rec: 12/14/19 15:45 AMB [email or web address]) OP Mobility Evaluation Bed Mobility Rolling I Supine to and from Sit Independent with increased time OP Gait Assessment Comments Gait Comments decreased arm swing, especially on the right after a while of walking, 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 pick pack worker her feet, and catches midfoot during swing through, reduced trunk rotation PT-OP-J Posture/Palpation/Skin Start: 12/13/19 11:18 Freq: Status: Active Protocol: Document 12/13/19 13:30 AMB (Rec: 12/14/19 15:45 AMB [email or web address]) Posture Evaluation Comments Posture Comments Increased lumbar lordosis PT-OP-K Range of Motion Start: 12/13/19 11:18 Freq: Status: Active Protocol: Document 12/13/19 13:30 AMB (Rec: 12/14/19 15:45 AMB [email or web address]) Shoulder Goniometric Range of Motion Shoulder Right Active Flexion 165 Left Active Flexion 165 PT-OP-M Strength Start: 12/13/19 11:18 Freq: Status: Active Protocol: Document 12/13/19 13:30 AMB (Rec: 12/14/19 15:58 AMB [email or web address]) Hip Strength Hip Manual Muscle Testing Right Flexion (L2) 4+ Good+ Extension (S1) 4+ Good+ Abduction 4+ Good+ Adduction 4+ Good+ Left Flexion (L2) 4+ Good+ Extension (S1) 4+ Good+ Abduction 4+ Good+ Adduction 4+ Good+ Knee Strength Knee Manual Muscle Testing Right Flexion (S2) 5 Normal Extension (L3) 5 Normal Left Flexion (S2) 5 Normal Extension (L3) 5 Normal PT-OP-Q Treatments Start: 12/13/19 11:18 Freq: Status: Active Protocol: Document 01/03/20 11:00 AMB (Rec: 01/03/20 13:51 AMB [email or web address]) Gait Training Gait Activity 4 Description gait with dual task Surface hurdles, foam Comments couting backwards and naming foods by alphabet Neuro Re-Education Treatment Other Activities 8 Details sit to stand Reps/Duration 10 Comments 55cm therapy ball 7 Details sideways rock and reach Reps/Duration 10 6 Details forward rock and reach Reps/Duration 15 5 Details Backward stepping Reps/Duration 10 Comments alternating stepping 4 Details Lateral stepping Reps/Duration 10 Comments alternating 3 Details Forward stepping Reps/Duration 10 Comments alternating 2 Details side to side Reps/Duration 10 Comments alternating 1 Details Floor to ceiling Reps/Duration 10 PT-OP-T Assessment and Plan Start: 12/13/19 11:18 Freq: Status: Active Protocol: Document 01/03/20 11:00 AMB (Rec: 01/03/20 13:51 AMB [email or web address]) Physical Therapy Assessment Assessment Summary Assessment Amaya continues to have a pain flare in R LE, reviewed HEP options. Dual tasking makes gait more challenging, but did not increase LOB or festination. Physical Therapy Plan Next Visit Focus/Plan Next Note Type Treatment Note Next Visit Plan Progress gait/balance challenges with dual tasking, continue working on gait through narrow spaces
--- NOTE | 2020-01-07 13:05 | PT.OTN ---
Current Diagnoses Parkinson's disease (01/07/20) History of falling (01/07/20) Physical Therapy Treatment Note PT-OP-A Visit Information Start: 12/13/19 11:18 Freq: Status: Active Protocol: Document 01/07/20 11:00 MA (Rec: 01/07/20 11:24 MA [id number]) Out-Patient Physical Therapy Visit Information Visit Information Visit Type Treatment Note Visit Start Time 11:02 Visit Stop Time 11:55 Total Visit Minutes 53 Visit Number 13 Number of PHOTOGRAPHIC AIDE Visits 1 PT-OP-B Current Condition Start: 12/13/19 11:18 Freq: Status: Active Protocol: Document 12/13/19 13:30 AMB (Rec: 12/13/19 13:51 AMB [id number]) Current Condition History of Current Condition Onset Date May 2019 Current Complaints Parkinsons History of Current Condition A couple years ago Amaya started noticing symptoms of Parkinson's but just got the diagnosis in May. She has noticed that the levodopa/ carbidopa is helping her movement. She does have a chronic pain history, especially SI joint. Denies tremor, positive for stiffness . Has noticed fine motor changes especially with writing and typing. Significant fall history with 2 in the last month, both when she wasn't really attending to what she was doing: she was leaning over some flower pots and couldn't stand back up and then fell on her deck when getting into a deck chair . Lives in a two story home with her with 3 stairs to enter without a railing. Treatment Goals Patient/Caregiver Goals Typing is challenging, walking on uneven terrain. Prior Functional Status Baseline Function- ADL's Independent Baseline Function- Mobility Independent Baseline Function- Recreation/Hobbies Previously ran and skiied Current Functional Impairments (Reported) Functional Limitations- ADL's Stiffness with overall movement including bed mobility and floor transfers, Personal Factors Other Personal Factors That May Effect Hx rotator cuff surgery in Therapy/Recovery 2014 PT-OP-C Subjective Start: 12/13/19 11:18 Freq: Status: Active Protocol: Document 01/07/20 12:56 MA (Rec: 01/07/20 12:57 MA [id number]) OP-PT Subjective Patient Comments Patient Comments Pt states she started a core exercise program with her usual therapy clinic which she will be continuing after d/c from [facility] to help decrease her LBP PT-OP-D Balance Start: 12/13/19 11:18 Freq: Status: Active Protocol: Document 12/13/19 13:30 AMB (Rec: 12/14/19 15:58 AMB [email or web address]) Balance Tests mCTSIB mCTSIB Position 1 30 seconds mCTSIB Position 2 30 seconds with increased ankle sway PT-OP-E Functional Tests Start: 12/13/19 11:18 Freq: Status: Active Protocol: Document 01/01/20 11:00 AMB (Rec: 01/01/20 11:52 AMB [id number]) Functional Tests 6 Minute Walk Test Distance 1475 Comments no missteps PT-OP-G Mobility & Gait Start: 12/13/19 11:18 Freq: Status: Active Protocol: Document 12/13/19 13:30 AMB (Rec: 12/14/19 15:45 AMB [email or web address]) OP Mobility Evaluation Bed Mobility Rolling I Supine to and from Sit Independent with increased time OP Gait Assessment Comments Gait Comments decreased arm swing, especially on the right after a while of walking, 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 nut 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, and catches midfoot during swing through, reduced trunk rotation PT-OP-J Posture/Palpation/Skin Start: 12/13/19 11:18 Freq: Status: Active Protocol: Document 12/13/19 13:30 AMB (Rec: 12/14/19 15:45 AMB [email or web address]) Posture Evaluation Comments Posture Comments Increased lumbar lordosis PT-OP-K Range of Motion Start: 12/13/19 11:18 Freq: Status: Active Protocol: Document 12/13/19 13:30 AMB (Rec: 12/14/19 15:45 AMB [email or web address]) Shoulder Goniometric Range of Motion Shoulder Right Active Flexion 165 Left Active Flexion 165 PT-OP-M Strength Start: 12/13/19 11:18 Freq: Status: Active Protocol: Document 12/13/19 13:30 AMB (Rec: 12/14/19 15:58 AMB [email or web address]) Hip Strength Hip Manual Muscle Testing Right Flexion (L2) 4+ Good+ Extension (S1) 4+ Good+ Abduction 4+ Good+ Adduction 4+ Good+ Left Flexion (L2) 4+ Good+ Extension (S1) 4+ Good+ Abduction 4+ Good+ Adduction 4+ Good+ Knee Strength Knee Manual Muscle Testing Right Flexion (S2) 5 Normal Extension (L3) 5 Normal Left Flexion (S2) 5 Normal Extension (L3) 5 Normal PT-OP-Q Treatments Start: 12/13/19 11:18 Freq: Status: Active Protocol: Document 01/07/20 11:00 MA (Rec: 01/07/20 11:24 MA [id number]) Gait Training Gait Activity 4 Description gait with dual task Comments Outdoor walking/talking over grass, curbs, and other obstacles Neuro Re-Education Treatment Coordination Activities Handwriting Details handwriting Reps/Duration 5 minutes Comments Breaks for finger flicks and elbow extension Getting up from Floor Details Getting up from floor and picking things up from standing Equipment 5# ball Reps/Duration 8x Comments Pt requested practicing reaching for objects off floor to make sure she is using her core and legs, not her back to stand/lift Other Activities 8 Details sit to stand Reps/Duration 10 Comments 55cm therapy ball 7 Details sideways rock and reach Reps/Duration 10 6 Details forward rock and reach Reps/Duration 15 5 Details Backward stepping Reps/Duration 10 Comments alternating stepping 4 Details Lateral stepping Reps/Duration 10 Comments alternating 3 Details Forward stepping Reps/Duration 10 Comments alternating 2 Details side to side Reps/Duration 10 Comments alternating 1 Details Floor to ceiling Reps/Duration 10 PT-OP-T Assessment and Plan Start: 12/13/19 11:18 Freq: Status: Active Protocol: Document 01/07/20 11:00 MA (Rec: 01/07/20 11:24 MA [id number]) Physical Therapy Assessment Goals Four Impairment Fine motor activity Mcfp Goal (LTG) Amaya will show improved legibility and speed with handwriting. LTG Duration 4 weeks Three Impairment Fall risk Short Term Goal (STG) Amaya will show improved balance by balancing in NBOS with eyes closed without excessive body sway. STG Duration MET Mcfp Goal (LTG) Amaya will show reduced risk of falling, but avoiding falls over the month that she is in therapy. LTG Duration 4 weeks Two Impairment lacks HEP Short Term Goal (STG) Amaya will be consistent with her LSVT BIG HEP and able to perform it without increasing her baseline pain. 12/31- progress made STG Duration 4 weeks One Impairment Gait Short Term Goal (STG) Amaya will improve her 6MWT to gender/age norm of 1,765 feet . 12/31: progress made STG Duration 2 weeks Mcfp Goal (LTG) Amaya will ambulate in the community with distractions without catching her feet and with good trunk rotation and arm swing. LTG Duration 4 weeks Assessment Summary Assessment Amaya's R LBP was minimal during today's session with pt stating she is thinking more about her core which has been helping. Pt continues needing cues for incresaed extension of RUE during dual task gait training Physical Therapy Plan Frequency and Duration Frequency of Treatment 4x/Week Duration of Treatment 17 visits Plan of Care Start Date 12/13/19 Plan of Care End Date 01/17/20 Next Visit Focus/Plan Next Note Type Treatment Note Next Visit Plan Continue LSVT BIG program with focus on fine motor: handwriting, and gross motor: floor transfer, gait with modifications for back pain as necessary.
--- NOTE | 2020-01-08 15:50 | PT.OTN ---
Current Diagnoses Parkinson's disease (01/08/20) History of falling (01/08/20) Physical Therapy Treatment Note PT-OP-A Visit Information Start: 12/13/19 11:18 Freq: Status: Active Protocol: Document 01/08/20 11:00 AMB (Rec: 01/08/20 12:02 AMB [id number]) Out-Patient Physical Therapy Visit Information Visit Information Visit Type Treatment Note Visit Start Time 11:05 Visit Stop Time 12:00 Total Visit Minutes 55 Visit Number 14 Number of AML ANALYST Visits 0 PT-OP-B Current Condition Start: 12/13/19 11:18 Freq: Status: Active Protocol: Document 12/13/19 13:30 AMB (Rec: 12/13/19 13:51 AMB [id number]) Current Condition History of Current Condition Onset Date May 2019 Current Complaints Parkinsons History of Current Condition A couple years ago Amaya started noticing symptoms of Parkinson's but just got the diagnosis in May. She has noticed that the levodopa/ carbidopa is helping her movement. She does have a chronic pain history, especially SI joint. Denies tremor, positive for stiffness . Has noticed fine motor changes especially with writing and typing. Significant fall history with 2 in the last month, both when she wasn't really attending to what she was doing: she was leaning over some flower pots and couldn't stand back up and then fell on her deck when getting into a deck chair . Lives in a two story home with her with 3 stairs to enter without a railing. Treatment Goals Patient/Caregiver Goals Typing is challenging, walking on uneven terrain. Prior Functional Status Baseline Function- ADL's Independent Baseline Function- Mobility Independent Baseline Function- Recreation/Hobbies Previously ran and skiied Current Functional Impairments (Reported) Functional Limitations- ADL's Stiffness with overall movement including bed mobility and floor transfers, Personal Factors Other Personal Factors That May Effect Hx rotator cuff surgery in Therapy/Recovery 2014 PT-OP-C Subjective Start: 12/13/19 11:18 Freq: Status: Active Protocol: Document 01/08/20 11:00 AMB (Rec: 01/08/20 15:50 AMB [email or web address]) OP-PT Subjective Patient Comments Patient Comments Amaya is planning on having prolapse surgery in February. PT-OP-D Balance Start: 12/13/19 11:18 Freq: Status: Active Protocol: Document 12/13/19 13:30 AMB (Rec: 12/14/19 15:58 AMB [email or web address]) Balance Tests mCTSIB mCTSIB Position 1 30 seconds mCTSIB Position 2 30 seconds with increased ankle sway PT-OP-E Functional Tests Start: 12/13/19 11:18 Freq: Status: Active Protocol: Document 01/01/20 11:00 AMB (Rec: 01/01/20 11:52 AMB [id number]) Functional Tests 6 Minute Walk Test Distance 1475 Comments no missteps PT-OP-G Mobility & Gait Start: 12/13/19 11:18 Freq: Status: Active Protocol: Document 12/13/19 13:30 AMB (Rec: 12/14/19 15:45 AMB [email or web address]) OP Mobility Evaluation Bed Mobility Rolling I Supine to and from Sit Independent with increased time OP Gait Assessment Comments Gait Comments decreased arm swing, especially on the right after a while of walking, 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 knot picker cloth her feet, and catches midfoot during swing through, reduced trunk rotation PT-OP-J Posture/Palpation/Skin Start: 12/13/19 11:18 Freq: Status: Active Protocol: Document 12/13/19 13:30 AMB (Rec: 12/14/19 15:45 AMB [email or web address]) Posture Evaluation Comments Posture Comments Increased lumbar lordosis PT-OP-K Range of Motion Start: 12/13/19 11:18 Freq: Status: Active Protocol: Document 12/13/19 13:30 AMB (Rec: 12/14/19 15:45 AMB [email or web address]) Shoulder Goniometric Range of Motion Shoulder Right Active Flexion 165 Left Active Flexion 165 PT-OP-M Strength Start: 12/13/19 11:18 Freq: Status: Active Protocol: Document 12/13/19 13:30 AMB (Rec: 12/14/19 15:58 AMB [email or web address]) Hip Strength Hip Manual Muscle Testing Right Flexion (L2) 4+ Good+ Extension (S1) 4+ Good+ Abduction 4+ Good+ Adduction 4+ Good+ Left Flexion (L2) 4+ Good+ Extension (S1) 4+ Good+ Abduction 4+ Good+ Adduction 4+ Good+ Knee Strength Knee Manual Muscle Testing Right Flexion (S2) 5 Normal Extension (L3) 5 Normal Left Flexion (S2) 5 Normal Extension (L3) 5 Normal PT-OP-Q Treatments Start: 12/13/19 11:18 Freq: Status: Active Protocol: Document 01/08/20 11:00 AMB (Rec: 01/08/20 15:50 AMB [email or web address]) Gait Training Gait Activity 4 Description gait with dual task Comments Indoor walking/talking over hurdles, soft foam, focus on trunk rotation and natural arm swing Neuro Re-Education Treatment Other Activities 8 Details sit to stand Reps/Duration 10 Comments low wooden block 7 Details sideways rock and reach Reps/Duration 10 6 Details forward rock and reach Reps/Duration 15 5 Details Backward stepping Reps/Duration 10 Comments alternating stepping 4 Details Lateral stepping Reps/Duration 10 Comments alternating 3 Details Forward stepping Reps/Duration 10 Comments alternating 2 Details side to side Reps/Duration 10 Comments alternating 1 Details Floor to ceiling Reps/Duration 10 PT-OP-T Assessment and Plan Start: 12/13/19 11:18 Freq: Status: Active Protocol: Document 01/08/20 11:00 AMB (Rec: 01/08/20 15:50 AMB [email or web address]) Physical Therapy Assessment Assessment Summary Assessment Worked on arm swing coming from trunk rotation today, and gait with cognitive distraction. Physical Therapy Plan Next Visit Focus/Plan Next Note Type Treatment Note Next Visit Plan Finalize BIG program, will start d/c planning 6MWT, etc.
--- NOTE | 2020-02-07 15:12 | PT.OTN ---
Current Diagnoses Parkinson's disease (02/06/20) History of falling (02/06/20) Physical Therapy Treatment Note PT-OP-A Visit Information Start: 12/13/19 11:18 Freq: Status: Active Protocol: Document 02/06/20 09:06 AMB (Rec: 02/06/20 09:43 AMB [id number]) Out-Patient Physical Therapy Visit Information Visit Information Visit Type Discharge Summary Visit Start Time 09:05 Visit Stop Time 09:45 Total Visit Minutes 40 Visit Number 15 PT-OP-B Current Condition Start: 12/13/19 11:18 Freq: Status: Active Protocol: Document 12/13/19 13:30 AMB (Rec: 12/13/19 13:51 AMB [id number]) Current Condition History of Current Condition Onset Date May 2019 Current Complaints Parkinsons History of Current Condition A couple years ago Amaya started noticing symptoms of Parkinson's but just got the diagnosis in May. She has noticed that the levodopa/ carbidopa is helping her movement. She does have a chronic pain history, especially SI joint. Denies tremor, positive for stiffness . Has noticed fine motor changes especially with writing and typing. Significant fall history with 2 in the last month, both when she wasn't really attending to what she was doing: she was leaning over some flower pots and couldn't stand back up and then fell on her deck when getting into a deck chair . Lives in a two story home with her with 3 stairs to enter without a railing. Treatment Goals Patient/Caregiver Goals Typing is challenging, walking on uneven terrain. Prior Functional Status Baseline Function- ADL's Independent Baseline Function- Mobility Independent Baseline Function- Recreation/Hobbies Previously ran and skiied Current Functional Impairments (Reported) Functional Limitations- ADL's Stiffness with overall movement including bed mobility and floor transfers, Personal Factors Other Personal Factors That May Effect Hx rotator cuff surgery in Therapy/Recovery 2014 PT-OP-C Subjective Start: 12/13/19 11:18 Freq: Status: Active Protocol: Document 02/06/20 09:06 AMB (Rec: 02/06/20 09:43 AMB [id number]) OP-PT Subjective Patient Comments Patient Comments Pt states she has not had any falls in the last month. Back pain is still an issue. PT-OP-D Balance Start: 12/13/19 11:18 Freq: Status: Active Protocol: Document 12/13/19 13:30 AMB (Rec: 12/14/19 15:58 AMB [email or web address]) Balance Tests mCTSIB mCTSIB Position 1 30 seconds mCTSIB Position 2 30 seconds with increased ankle sway PT-OP-E Functional Tests Start: 12/13/19 11:18 Freq: Status: Active Protocol: Document 01/01/20 11:00 AMB (Rec: 01/01/20 11:52 AMB [id number]) Functional Tests 6 Minute Walk Test Distance 1475 Comments no missteps PT-OP-G Mobility & Gait Start: 12/13/19 11:18 Freq: Status: Active Protocol: Document 12/13/19 13:30 AMB (Rec: 12/14/19 15:45 AMB [email or web address]) OP Mobility Evaluation Bed Mobility Rolling I Supine to and from Sit Independent with increased time OP Gait Assessment Comments Gait Comments decreased arm swing, especially on the right after a while of walking, 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 pickup driver her feet, and catches midfoot during swing through, reduced trunk rotation PT-OP-J Posture/Palpation/Skin Start: 12/13/19 11:18 Freq: Status: Active Protocol: Document 12/13/19 13:30 AMB (Rec: 12/14/19 15:45 AMB [email or web address]) Posture Evaluation Comments Posture Comments Increased lumbar lordosis PT-OP-K Range of Motion Start: 12/13/19 11:18 Freq: Status: Active Protocol: Document 12/13/19 13:30 AMB (Rec: 12/14/19 15:45 AMB [email or web address]) Shoulder Goniometric Range of Motion Shoulder Right Active Flexion 165 Left Active Flexion 165 PT-OP-M Strength Start: 12/13/19 11:18 Freq: Status: Active Protocol: Document 12/13/19 13:30 AMB (Rec: 12/14/19 15:58 AMB [email or web address]) Hip Strength Hip Manual Muscle Testing Right Flexion (L2) 4+ Good+ Extension (S1) 4+ Good+ Abduction 4+ Good+ Adduction 4+ Good+ Left Flexion (L2) 4+ Good+ Extension (S1) 4+ Good+ Abduction 4+ Good+ Adduction 4+ Good+ Knee Strength Knee Manual Muscle Testing Right Flexion (S2) 5 Normal Extension (L3) 5 Normal Left Flexion (S2) 5 Normal Extension (L3) 5 Normal PT-OP-Q Treatments Start: 12/13/19 11:18 Freq: Status: Active Protocol: Document 01/08/20 11:00 AMB (Rec: 01/08/20 15:50 AMB [email or web address]) Gait Training Gait Activity 4 Description gait with dual task Comments Indoor walking/talking over hurdles, soft foam, focus on trunk rotation and natural arm swing Neuro Re-Education Treatment Other Activities 8 Details sit to stand Reps/Duration 10 Comments low wooden block 7 Details sideways rock and reach Reps/Duration 10 6 Details forward rock and reach Reps/Duration 15 5 Details Backward stepping Reps/Duration 10 Comments alternating stepping 4 Details Lateral stepping Reps/Duration 10 Comments alternating 3 Details Forward stepping Reps/Duration 10 Comments alternating 2 Details side to side Reps/Duration 10 Comments alternating 1 Details Floor to ceiling Reps/Duration 10 PT-OP-T Assessment and Plan Start: 12/13/19 11:18 Freq: Status: Active Protocol: Document 02/06/20 09:06 AMB (Rec: 02/06/20 09:43 AMB [id number]) Physical Therapy Assessment Goals Four Impairment Fine motor activity Custodial Goal (LTG) Amaya will show improved legibility and speed with handwriting. LTG Duration 4 weeks Three Impairment Fall risk Short Term Goal (STG) Amaya will show improved balance by balancing in NBOS with eyes closed without excessive body sway. STG Duration MET Proj Engineer Goal (LTG) Amaya will show reduced risk of falling, but avoiding falls over the month that she is in therapy. LTG Duration PARTIALLY MET Two Impairment lacks HEP Short Term Goal (STG) Amaya will be consistent with her LSVT BIG HEP and able to perform it without increasing her baseline pain. STG Duration MET One Impairment Gait Short Term Goal (STG) Amaya will improve her 6MWT to gender/age norm of 1,765 feet . 12/31: progress made STG Duration NOT MET Custodial Goal (LTG) Amaya will ambulate in the community with distractions without catching her feet and with good trunk rotation and arm swing. LTG Duration MET Assessment Summary Assessment 1,380 feet 6MWT, slight improvement. Amaya has overall improved the quality of her gait, but not especially the speed. She has improved her fall risk, by not having any recent falls. She does note continued pain, but has improved her posture and that is helping. Overall she feels the BIG therapy was helpful and will continue the exercises independently. Physical Therapy Plan Discharge Physical Therapy Discharge Reasons Goals Met
== END 2020-02-15 10:07 | disposition home or self-care (01) ==
LOC: PHYS 09:00
PROVIDERS: PCP Family Medicine; Referring Provider Psychiatry & Neurology Neurology; Visit Provider Psychiatry & Neurology Neurology
DX: G20 Parkinson's disease (principal); Z91.81 History of falling
CPT/HCPCS: 97110; 97112; 97116; 97162; 97530

== ENCOUNTER → 2020-02-07 11:17 | Outpatient (CLI) | payer MEDICARE, OTHER, SELFPAY ==
[2020-02-07 11:51] LABS: COVID19 -Nasal RAPID Negative (Negative)
== END ==
PROVIDERS: PCP Family Medicine; Visit Provider Family Medicine
DX: Z03.818 Encounter for observation for suspected exposure to other biological agents ruled out (principal)
CPT/HCPCS: 87635

== ENCOUNTER 2020-02-08 06:20 | Day surgery (SDC) | payer MEDICARE, OTHER, SELFPAY ==
[2020-02-07 15:18] VITALS: BMI 27.6
[2020-02-08] VITALS (16 sets, daily range): BP systolic 132–173; BP diastolic 64–82; PULSE 65–86; RESP 12–19; TEMP 35.9–37.2; O2SAT 93–99; BMI 27.1
--- NOTE | 2020-02-08 07:09 | PM.PREOP ---
Pre-operative Note COVID-19 COVID-19 status: Negative Result date/Date tested (Pos, Neg/Pending): 02/07/20 Interval Note History & Physical reviewed/Exam performed by Physician: Yes Changes to H&P: No
[2020-02-08] MEDS: LACTATED RINGERS 1,000 ML 100 ML IV ×4 (07:12→22:04)
[2020-02-08] MEDS: CEFAZOLIN 2 GM/100 ML FROZ.PIGGY IV (07:45)
[2020-02-08] MEDS: ACETAMINOPHEN IV 1,000 MG/100 ML VIAL 400 MG IV (08:00)
--- NOTE | 2020-02-08 08:00 | SUR.OPER ---
Lithotomy on padded OR bed, head on pillow, arms secured on padded arm boards at <90 degrees abduction. Legs secured in padded yellow fins stirrups.
[2020-02-08] MEDS: BUPIVACAINE 0.5% W/ EPI (PF) 30 ML VIAL 10 ML INJ (08:06)
[2020-02-08] MEDS: SODIUM CHLORIDE 0.9% FLUSH 10 ML IV (08:07)
--- NOTE | 2020-02-08 09:02 | PM.OP.1 ---
Operative Date/Time/Diagnoses Date of procedure: 02/08/20 Time of procedure: 09:02 Pre-op diagnosis: Symptomatic uterovaginal prolapse Post-op diagnosis: same Procedure & Clinicians Procedure: Anterior and posterior repair with bilateral sacrospinous ligament fixation Same procedure as scheduled: Yes Indications: Symptomatic prolapse with cystocele and rectocele that prolapse out of the hymen. Surgeon: Maria Guadalupe Caceres Click Yes if Unassisted: Yes Anesthesia Type: General Operative Notes Findings: Cystocele and rectocele with minimal uterine prolapse Closure Type: primary Specimen(s): none sent Applied: catheter (Rader) and other (Vaginal packing) Estimated Blood Loss (mL): 20 Blood products transfused: none Procedure in detail: Patient was brought to the operating room where she underwent general anesthesia. She was placed in low Yellofin stirrups and prepped and draped in the usual sterile fashion. Warming was in place. 2 g of Ancef were in prior to beginning of the case. Pulsatile stockings were in place and functional. A check system was reviewed with the staff in the room prior to beginning the case. A Rader catheter was placed. The area of the cystocele and the rectocele was injected with a dilute solution of Marcaine with epinephrine. Incision was made over the cystocele with a scalpel. Dissection was undertaken laterally with sharp and blunt dissection. Plicating sutures of 0 Vicryl suture were placed. The vaginal incision was repaired with running 2 0 Vicryl suture. An incision was made over the rectocele with a scalpel. Dissection was undertaken laterally. 0 Prolene suture with the Capio passer was placed through the uterosacral ligament on the right side and sutured to the underside of the vaginal wall. Same procedure was performed on the opposite side. A finger was placed in the rectum to be sure there were no sutures placed through the rectal mucosa. The uterosacral sutures were tightened down. Plication sutures of 0 Vicryl suture were placed over the rectocele and the vaginal incision was closed with 2-0 Vicryl suture. Vaginal packing was placed in the vagina and the Rader left in place. The patient went to recovery room in stable condition. Counts of instruments and sponges were correct. Complications: none
--- NOTE | 2020-02-08 10:41 | PC.NURSE ---
Day shift note: Received patient from PACU, awake, alert, and cooperative. VSS and afebrile. O2 sat 96-99% on RA. SCDs placed upon arrival. Oriented to room, environment, and plan of care. Call light within reach.
[2020-02-08] MEDS: CARBIDOPA-LEVODOPA 25/100 TABLET 1 EACH PO ×2 (12:56→21:04)
[2020-02-08] MEDS: HYDROCODONE/ACET 5/325 TABLET 1 TAB PO ×2 (14:51→20:30)
[2020-02-08] MEDS: DOCUSATE 250 MG CAPSULE PO (21:03)
[2020-02-08] MEDS: clonazePAM 0.5 MG TABLET PO (21:03)
[2020-02-09] MEDS: HYDROMORPHONE 0.5 MG INJ IV (00:31)
[2020-02-09] MEDS: KETOROLAC 30 MG/ML VIAL IV ×2 (00:32→09:21)
[2020-02-09] MEDS: ZOLPIDEM 5 MG TABLET PO (01:11)
[2020-02-09 05:24] VITALS: BP 138/56; PULSE 64; RESP 16; TEMP 36.4; O2SAT 95
[2020-02-09 05:41] LABS: Add Manual Diff / Slide Review NO; Basophils Absolute Auto 0 /uL (0-100); Basophils Percent Auto 0.2 % (0-2); Eosinophils Absolute Auto 0 /uL (0-450); Hematocrit 38.8 % (36-46); Lymphocytes Absolute Auto 1700 /uL (1100-4500); Lymphocytes Percent Auto 11.3 % (25-40); Mean Corpuscular HGB Conc 33.6 % (30-36); Mean Corpuscular Hemoglobin 31.3 PG (26-34); Monocytes Absolute Auto 800 /uL (0-900); Monocytes Percent Auto 5.7 % (3-14); Neutrophils Absolute Auto 12100 /uL (1500-7000); Neutrophils Percent Auto 82.8 % (50-75); Platelet Count 218 X10^3/uL (150-400); Red Blood Cell Count 4.17 X10^6/uL (4.0-5.2); White Blood Cell Count 14.6 X10^3/uL (4.5-11.0)
[2020-02-09 07:35] VITALS: BP 140/58; PULSE 62; RESP 16; TEMP 36.4; O2SAT 96
[2020-02-09] MEDS: LACTATED RINGERS 1,000 ML 100 ML IV (07:49)
[2020-02-09] MEDS: hydroCHLOROthiazide 25 MG TABLET PO (08:15)
[2020-02-09] MEDS: DOCUSATE 250 MG CAPSULE PO (08:15)
[2020-02-09] MEDS: CARBIDOPA-LEVODOPA 25/100 TABLET 1 EACH PO (08:15)
[2020-02-09] MEDS: SODIUM CHLORIDE 0.9% FLUSH 10 ML IV (08:16)
[2020-02-09] MEDS: CITALOPRAM 10 MG TABLET PO (08:16)
--- NOTE | 2020-02-09 08:24 | P.DS_ITS ---
History of Present Illness History of Present Illness Date Patient Seen: 02/09/20 Time Patient Seen: 08:24 Chief complaint: *OPB* Narrative: Patient underwent a anterior and posterior repair with sacrospinous ligament fixation on 02/08/2020. Discharge Providers Provider Discharge Date: 02/09/20 Primary care physician: Darryl Voss MD Discharge provider: Maria Guadalupe Caceres MD Summary Hospital Course Discharge Diagnosis: Symptomatic uterovaginal prolapse with cystocele and rectocele Hospital Course: Patient underwent an anterior and posterior repair with sacrospinous ligament fixation on 02/08/2020. She is not having nausea. Pain is under control. She passed her bladder trial. Status at Discharge Cognitive/behavioral status at discharge: oriented Functional status at discharge: independent ambulation Overall status at discharge: patient is progressing back to baseline Exam Vital Signs (past 8 hours): - 02/09/20 05:24 Temperature 97.5 F L Pulse Rate 64 Respiratory Rate 16 Blood Pressure 138/56 L Pulse Oximetry 95 Oxygen Delivery Method Room Air Oxygen Flow Rate 0 Narrative Exam Narrative: Patient's abdomen is soft, nontender. Vaginal packing was remov ed and she has minimal bleeding. Extremities without edema and nontender. Objective Labs Result Diagrams: 02/09/20 05:25 Labs: Laboratory Results - last 24 hr 02/09/20 05:25 WBC 14.6 H RBC 4.17 Hgb 13.0 Hct 38.8 MCV 93.0 MCH 31.3 MCHC 33.6 RDW 13.0 Plt Count 218 Neut % (Auto) 82.8 H Lymph % (Auto) 11.3 L [place] % (Auto) 5.7 Eos % (Auto) 0.0 L Baso % (Auto) 0.2 Neut # (Auto) 27170 H Lymph # (Auto) 1700 [place] # (Auto) 800 Eos # (Auto) 0 Baso # (Auto) 0 PFSH Medical History (Updated 02/07/20 @ 15:25 by Payton Tay RN) Asthma (1994) BCC (basal cell carcinoma of skin) (1994) Cataract (2012) Chicken pox Chronic back pain (1984) Facet arthropathy, lumbosacral Hayfever (1964) Hearing loss Herpes (1981) Hypertension (1999) Liver disease (2013) Parkinsonism Personal history of colonic polyps Pleuritic pain Pneumonia Sacral back pain Shoulder pain (2013) Skin cancer (1995) Surgical History Anesthesia History of colonoscopy Status post delivery (11/29/91) Status post laparoscopic appendectomy Status post rotator cuff repair (05/29/12) Family History Child Age: 30 Club foot Child Age: 28 Hearing loss in right ear Father Heart disease Hypertension Parkinson's disease Skin cancer Mother Heart disease Hypertension Dementia Stroke Skin cancer Social History household members: spouse Smoking Status: Never smoker alcohol intake: never substance use type: does not use Discharge Assessment & Plan Assessment and Plan Assessment: Symptomatic uterovaginal prolapse with cystocele and rectocele status post repair Plan of Treatment: Patient will be discharged home to be followed up in 2 weeks. Routine precautions reviewed with the patient. Discharge Plan Discharge Plan Patient Disposition: Home Provider Discharge Comment: After bladder trial Discharge orders & Medications Discharge Orders: Discharge (Order); Ordered 02/09/20 Ordered By: Maria Guadalupe Caceres Prescriptions: Continued Emergen-C 500 mg Tablet,Chewable 1 tab PO PRN PRN (Reason: onset of cold symptoms) Qty: 0 RF: 0 albuterol sulfate [Ventolin HFA] 90 mcg/actuation HFA aerosol inhaler 2 puff inhalation Q4-6H PRN (Reason: Shortness Of Breath, cough) Qty: 108 RF: 3 hydrochlorothiazide 25 mg tablet 25 mg PO DAILY Qty: 90 RF: 3 clonazepam 0.5 mg tablet See Rx Instructions .ROUTE .COMPLEX Qty: 30 RF: 0 omega-3 fatty acids [Fish Oil Concentrate] 1,000 mg capsule 1,000 mg PO DAILY RF: 0 acyclovir 400 mg tablet See Rx Instructions PO 5XD PRN (Reason: as directed) Qty: 30 RF: 0 citalopram 10 mg tablet See Rx Instructions .ROUTE .COMPLEX Qty: 90 RF: 3 estradiol 0.5 mg tablet 0.5 mg PO .qod Qty: 90 RF: 1 medroxyprogesterone 2.5 mg tablet See Rx Instructions .ROUTE .qod Qty: 90 RF: 1 B Vitamins 1 dose PO DAILY RF: 0 Vitamin D3 1 cap PO DAILY RF: 0 hydrocodone-acetaminophen 5-325 mg tablet 1 tab PO Q6H PRN (Reason: pain) Qty: 20 RF: 0 carbidopa-levodopa 25-100 mg tablet 1 tab PO TID RF: 0 Follow up/Referrals: Darryl Voss MD [Primary Care Provider] - Maria Guadalupe Caceres MD [Physician] - Diet/Activity/Treatments Diet: Regular Activity: Nothing in vagina or lifting over 20 lb for 6 weeks Skin/Wound/Dressing Care Report to your healthcare provider any signs of infection, such as:: chills, fever and night sweats Visit Report/Discharge Packet Instructions: DI for Prescription Opioid Use Stand Alone Forms: Surgery Discharge Discharge Data Primary Care Provider: Darryl Voss Attending Provider: Maria Guadalupe Caceres
[2020-02-09] MEDS: HYDROCODONE/ACET 5/325 TABLET 1 TAB PO (09:21)
--- NOTE | 2020-02-09 10:18 | CM.DANOTE ---
DCP: Case received, EMR reviewed and met with patient. Introduced self and role. Was able to obtain information from patient regarding her baseline activity status and living situation prior to hospitalization. DCP assessment completed with information currently available. Patient is a 64 year old female who admitted yesterday morning to the care of the surgical/OBGYN team. PCP: Dr. Voss. Payer: confirmed: Medicare/[facility]. Patient came to the hospital for a surgical procedure. She had cystocele/rectocele. This had been a planned surgery. Met with patient in her room. She is alert and oriented, independent at baseline. She resides here in [place] with her spouse, Yaniv. P: Patient is to be discharged home today, with no needs. Taina Zhang RN/Administration Specialist
== END 2020-02-09 10:50 | disposition home or self-care (01) ==
LOC: OR 06:22 → AC 06:24
PROVIDERS: PCP Family Medicine; Referring Provider Family Medicine; Visit Provider Specialist
PROC: (CPT 57282; principal; 2020-02-08 07:45)
DX: N81.3 Complete uterovaginal prolapse (principal); G20 Parkinson's disease; I10 Essential (primary) hypertension; J45.909 Unspecified asthma, uncomplicated
CPT/HCPCS: 57282; 57260; 36415; 85025; J0131; J0690; J1100; J1170; J1885; J2405; J2704; J3010

== ENCOUNTER → 2020-03-03 15:14 | Outpatient (CLI) | payer MEDICARE, OTHER, SELFPAY ==
[2020-02-08 10:04] VITALS: BMI 27.1
[2020-03-05 07:12] LABS: Candida species Negative (Negative); Gardnerella vaginalis Positive (Negative); Trichomoas vaginalis Negative (Negative)
== END ==
PROVIDERS: PCP Nurse Practitioner; Visit Provider Obstetrics & Gynecology
DX: R39.89 Other symptoms and signs involving the genitourinary system (principal)
CPT/HCPCS: 87070; 87205; 87480; 87510; 87660

== ENCOUNTER → 2020-03-27 14:19 | Outpatient (CLI) | payer MEDICARE, OTHER, SELFPAY ==
[2020-03-26 11:03] VITALS: BMI 27.1
--- NOTE | 2020-03-27 14:22 | DI.MRI.S_ITS ---
PROCEDURE: MR LUMBAR SPINE WO/W CON INDICATIONS: Back pain TECHNIQUE: Noncontrast sagittal T1 spin echo and T2 fast spin echo, sagittal STIR, axial T1 and T2 fast spin echo through the lumbar spine. In cases with scoliosis, additional coronal T2 fast spin echo may be performed. After the administration of contrast, sagittal and axial T1 spin echo with fat saturation through the lumbar spine. COMPARISON: [facility], MR, MR LUMBAR SPINE WO CON, 06/23/2018, 17:14. FINDINGS: Image quality: Excellent. Alignment and curvature: There is trace retrolisthesis of L2 on L3, L3 on L4, unchanged. Marrow: Marrow is of normal overall signal. No acute vertebral body compression fractures. No suspicious marrow enhancement. Spinal cord: Conus medullaris terminates at the L1-L2 level. Visualized spinal cord demonstrates normal signal, without suspicious enhancement. Paraspinous soft tissues: No paravertebral masses or abnormal enhancement. Discs: Severe desiccation is present at L4-5, moderate to severe L3-4, moderate throughout the remainder of the lumbar spine. L1-L2: No disc bulge, spinal stenosis or foraminal narrowing. No interval change. L2-L3: Mild disc bulge without spinal stenosis or foraminal narrowing. Mild facet and ligamentum flavum hypertrophy as well as minimal epidural lipomatosis. No interval progression. L3-L4: Mild disc bulge with mild spinal stenosis. [id number] right and mild left foraminal narrowing with facet and ligamentum flavum hypertrophy. Minimal epidural lipomatosis. L4-L5: Mild disc bulge with [id number]-[id number] spinal stenosis. Moderate right and mild left subarticular recess narrowing with facet and ligamentum flavum hypertrophy. No interval change. L5-S1: Mild disc bulge with superimposed left lateral protrusion. There is mild right subarticular recess narrowing as well as moderate to severe left, minimally progressive. IMPRESSION: 1. Multilevel degenerative changes relatively stable compared to prior exam with trace interval progression as noted L5-S1. Dictated by: Debra Martinez M.D. on 03/27/2020 at 16:47 Approved by: Debra Martinez M.D. on 03/27/2020 at 16:53
== END ==
PROVIDERS: PCP Family Medicine; Referring Provider Family Medicine; Visit Provider Family Medicine
DX: M51.26 Other intervertebral disc displacement, lumbar region (principal); G57.32 Lesion of lateral popliteal nerve, left lower limb; M47.897 Other spondylosis, lumbosacral region
CPT/HCPCS: 72158; A9579

== ENCOUNTER → 2020-05-12 15:32 | Outpatient (CLI) | payer MEDICARE, OTHER, SELFPAY ==
[2020-03-26 11:03] VITALS: BMI 27.1
[2020-05-12 16:15] LABS: COVID19 -Nasal RAPID Negative (Negative)
== END ==
PROVIDERS: Family Provider Family Medicine; PCP Family Medicine; Visit Provider Physical Medicine & Rehabilitation
DX: Z20.822 Contact with and (suspected) exposure to COVID-19 (principal)
CPT/HCPCS: 87635; C9803

== ENCOUNTER 2020-05-13 10:49 | Outpatient (CLI) | payer MEDICARE, OTHER, SELFPAY ==
[2020-03-26 11:03] VITALS: BMI 27.1
[2020-05-13] VITALS (7 sets, daily range): BP systolic 115–151; BP diastolic 56–75; PULSE 62–72; RESP 12–16; TEMP 36.1–36.4; O2SAT 87–99
--- NOTE | 2020-05-13 10:55 | DI.RAD.S_ITS ---
PROCEDURE: PAIN L/S TRANSFORAMINAL INJECT INDICATIONS: SPONDYLOSIS COMPARISON: [facility], MR, MR LUMBAR SPINE WO/W CON, 03/27/2020, 14:36. FINDINGS: Fluoroscopic spot filming was performed to verify placement of spinal needles at the L5-S1 level(s), as labeled on the films. Appropriate location(s) of the needle tip(s) was confirmed by injection of iodinated contrast. IMPRESSION: Fluoroscopy for pain management. Dictated by: Jeannine Flaherty M.D. on 05/13/2020 at 12:57 Approved by: Jeannine Flaherty M.D. on 05/13/2020 at 12:58
[2020-05-13] MEDS: fentaNYL 100 MCG/2 ML INJ 50 MCG IV (11:26)
[2020-05-13] MEDS: MIDAZOLAM 5 MG/5 ML VIAL IV (11:26)
[2020-05-13] MEDS: BUPIVACAINE 0.25% (PF) VIAL 2 ML INJ (11:31)
[2020-05-13] MEDS: IOPAMIDOL 15 ML VIAL 3 ML INJ (11:31)
[2020-05-13] MEDS: methylPREDNISolone acetate 80 MG/ML VIAL INJ (11:32)
[2020-05-13] MEDS: DEXAMETHASONE 10 MG/ML VIAL 20 MG INJ (11:33)
--- NOTE | 2020-05-13 11:45 | P.PCN_ITS ---
Date/Time/Diagnoses Date of procedure: 05/13/20 Time of procedure: 11:45 Pre-procedure diagnosis: 1. FORAMINAL STENOSIS WITH LE SYMPTOMS Post-procedure diagnosis: same Procedure Notes Procedure: 1. FLUOROSCOPICALLY GUIDED CONTRAST CONTROLLED TRANSFORAMINAL EPIDURAL STEROID INJECTION - Left L5/S1 Indications: Amaya is referred by Dr. Shaver for treatment of Foraminal Stenosis with Left LE Symptoms Physician: Rufino Padilla Total Fluoroscopy time (seconds): 14 Total sedation minutes: 13 Complications: none Procedure in detail & Post-procedure care: FINDINGS Foraminal Nerve Root Compression secondary to disc disease and facet hypertrophy DESCRIPTION OF PROCEDURE Following review of allergy and review of potential side effects and complications, including, but not necessarily limited to, infection, allergic reaction, local tissue breakdown, stroke, temporary or permanent nerve injury, paralysis, and possible , the patient indicated that the patient understood and agreed to proceed. An informed consent document was signed by the patient, witnessed by a nurse, and placed in the patient's chart. Additionally, other treatment options including medications, modalities, and physical therapy were reviewed with the patient. After review of previous anaesthesic history and IV conscious sedation the patient was deemed safe to proceed with today?s procedure with IV conscious sedation as ASA class II designation. Safety time-out was performed to confirm patient ID, procedure to be performed and site of procedure. IV sedation was accomplished with a combination of 2mg of Versed and 50mcg of Fentanyl was administered by the RN after DO order, titrated to patient comfort during the course of the procedure while the patient remained responsive to all verbal commands In the prone position following sterile prep and drape of the lumbar region, the Left L5/S1 posterior neuroforamen was identified fluoroscopically. The skin was anesthetized via a 25-gauge 1.5-inch needle with 1% lidocaine solution. At this point, a 25-gauge 3.5-inch spinal needle was atraumatically introduced and advanced under fluoroscopic guidance through the posterior Left L5/S1 neurof oramen to approximately the anterior aspect of the canal. Depth was confirmed on lateral view. Following negative aspiration, injection of approximately 1.5 cc of Isovue 200 under live fluoroscopy in the AP view confirmed excellent flow along the nerve root, into the epidural space without vascular or intrathecal uptake observed Radiological data, including multiple fluoroscopic views of the lumbosacral spine, reveal a spinal needle at the Left L5/S1 posterior neuroforamen. Subsequent views show flow of contrast material flowing superiorly and inferiorly along the nerve root confirming epidural flow. Subsequently, a test dose of 1.5 cc of 1% lidocaine solution was administered and patient was observed for two minutes for signs or symptoms of complications, including abdominal pain, shortness of breath, bilateral upper or lower extremity weakness, nausea and vomiting, prior to steroid injection. At this point, a total of 3cc or 20mg of dexamethasone and 80mg depo medrol was injected without incident. The procedure tolerated the procedure well without signs or symptoms of complications prior to transfer to the recovery area continued monitoring without incident. The patient was then transferred to the recovery area where they were observed for an appropriate time after the injection. The patient reported a VAS score of 7 prior to the procedure and a post-procedure VAS of 0. POST OP INSTRUCTIONS The patient was provided a Pain Log to continue to record their response to the target-specific procedure prior to follow-up visit with their referring physician. Additionally, specific post-injection care instructions and a contact number to our office were provided if concerns arise regarding possible complications associated with the procedure are suspected.
== END 2020-05-13 11:57 | disposition home or self-care (01) ==
LOC: RAD 10:54
PROVIDERS: Family Provider Family Medicine; PCP Family Medicine; Referring Provider Physical Medicine & Rehabilitation; Visit Provider Physical Medicine & Rehabilitation
DX: M48.07 Spinal stenosis, lumbosacral region (principal); M51.17 Intervertebral disc disorders with radiculopathy, lumbosacral region
CPT/HCPCS: 64483; 99152; J1040; J1100; J2250; J3010

== ENCOUNTER 2020-05-30 10:15 | Outpatient (RCR) | payer MEDICARE, OTHER, SELFPAY ==
[2020-03-26 11:03] VITALS: BMI 27.1
--- NOTE | 2020-05-19 15:00 | PT.OIE ---
Current Diagnoses Lesion of lateral popliteal nerve, left lower limb (05/19/20) Sciatica, left side (05/19/20) Past Medical History (Last Reviewed 04/28/20 @ 12:18 by Rufino Padilla DO) Asthma (1994) BCC (basal cell carcinoma of skin) (1994) Cataract (2012) Chicken pox Chronic back pain (1984) Contact dermatitis Entrapment of left superficial peroneal nerve Facet arthropathy, lumbosacral Hayfever (1964) Hearing loss Herpes (1981) Hypertension (1999) Liver disease (2013) Lower extremity tendon strain Parkinsonism Personal history of colonic polyps Pleuritic pain Pneumonia Sacral back pain Shoulder pain (2013) Skin cancer (1995) Past Surgical History (Last Reviewed 04/28/20 @ 12:18 by Rufino Padilla DO) Anesthesia History of colonoscopy Status post delivery (11/29/91) Status post laparoscopic appendectomy Status post rotator cuff repair (05/29/12) Visit Care Team Role Provider Type Alfredo Shaver MD Family Provider Physician Primary Care Provider Specialty: Family Practice Address: [address] [place] [address] Email: [email or web address] Maria Guadalupe Caceres MD Attending Provider Physician Referring Provider Specialty: PHARMACOGNOSIST Address: [address] [place] [address], [id number] Email: [email or web address] Physical Therapy Initial Evaluation PT-OP-A Visit Information Start: 05/19/20 07:26 Freq: Status: Active Protocol: Document 05/19/20 14:15 AMB (Rec: 05/20/20 08:10 AMB [email or web address]) Out-Patient Physical Therapy Visit Information Visit Information Visit Type Initial Evaluation Visit Start Time 14:15 Visit Stop Time 15:00 Total Visit Minutes 45 Visit Number 1 PT-OP-B Current Condition Start: 05/19/20 07:26 Freq: Status: Active Protocol: Document 05/19/20 14:15 AMB (Rec: 05/19/20 14:43 AMB [id number]) Current Condition History of Current Condition Onset Date February 08, 2020 Current Complaints dyspareunia, sciatica History of Current Condition Amaya attends physical therapy after prolapse repair in February. Her recovery was complicated by left sided sciatica, shingles, bacterial vaginal infection. She does have a history of chronic R sided sciatica. Recently had a cortisone injection for L sided injection with Dr. Padilla and that significantly helped the left sided pain. Currently reports 1/10 R sided pain. Since the surgery though, she has had painwith intercourse and has noticed a little bleeding, has not tried to have intercourse since the injection. She is hoping to work on the dyspareunia and the sciatica with this round of physical therapy. Treatment Goals Patient/Caregiver Goals Resume painfree intercourse, reduce sciatica pain. Prior Functional Status Baseline Function- ADL's Independent Baseline Function- Mobility Independent Personal Factors Other Personal Factors That May Effect Parkinsons, hasn't been as Therapy/Recovery active due to recovering from surgery/covid. PT-OP-I Pelvic Floor Start: 05/19/20 07:26 Freq: Status: Active Protocol: Document 05/19/20 14:15 AMB (Rec: 05/21/20 11:08 AMB [id number]) Pelvic Floor Assessment Urine Pelvic Floor Surgery Yes: a/p prolapse repair Urinary Symptoms Urge Sensation Leakage Size Small Leakage Cause Urge Other Leakage Causes galo in door Leaks Per Day 1 Nocturia 1 Pelvic Clock Pelvic Clock 12-3 Tenderness,Tightness Pelvic Clock 3-6 Tenderness,Tightness Pelvic Clock 6-9 Guarding Pelvic Clock 9-12 Guarding Contraction Ability Voluntary Contraction Weak Voluntary Relaxation Moderate Manual Muscle Testing Left 1 Manual Muscle Testing Right 1 Manual Muscle Testing Anterior 1 Manual Muscle Testing Posterior 2 Muscle Endurance (Seconds) 4 Number of Quick Contractions In 10 2 Seconds Comments Pelvic Floor Comments Tenderness over L obturator>R PT-OP-T Assessment and Plan Start: 05/19/20 07:26 Freq: Status: Active Protocol: Document 05/19/20 14:15 AMB (Rec: 05/21/20 14:58 AMB [email or web address]) Physical Therapy Assessment Rehab Potential Rehabilitation Potential Good Evaluation Complexity Number of Personal Factors/Comorbidities 3 or More Clinical Presentation at Evaluation Evolving Impairments Impairments Pain,Soft Tissue Mobility, Strength Goals Two Impairment Strength Short Term Goal (STG) Amaya will be independent with pelvic floor and core stability training. STG Duration 4 weeks Jail Goal (LTG) Amaya will lift 10 pounds from the floor to waist height with good pelvic floor and core stability. LTG Duration 8 weeks One Impairment Pain Short Term Goal (STG) Amaya will be independent with using a dilator to reduce her pain with intercourse. STG Duration 4 weeks Acrobatic Rigger Goal (LTG) Amaya will be able to engage the sexual intercourse of her choice without an increase in pain. LTG Duration 8 weeks Assessment Summary Assessment Amaya attends physical therapy with L sided pain s/p prolapse surgery. She recently had an injection which has decreased her L sided sciatica pain, but has not had intercourse since, and considering that her pain upon examination was more on the L obturator, it would be interesting to know if the injection will reduce her pain with intercourse as well. Either way, she will benefit from physical therapy to reduce her nerve pain, improve her pelvic floor and core strength and make sure she can resume intercourse without pain. Physical Therapy Plan Frequency and Duration Frequency of Treatment 2x/Week Duration of Treatment 8 weeks Plan of Care Start Date 05/19/20 Plan of Care End Date 07/14/20 Therapeutic Interventions Therapeutic Interventions Home Exercise Program,Manual Therapy,Neuromuscular Re- education,Self-Care/Home Management,Therapeutic Activities,Therapeutic Exercises Modalities Biofeedback,Cold Pack/Ice Massage,Electric Stimulation, Hot Packs Next Visit Focus/Plan Next Note Type Treatment Note Next Visit Plan Reassess L pelvic floor tightness/pain, begin pelvic floor/core stability training
--- NOTE | 2020-05-19 15:01 | PT.OPPOC ---
Physical, Occupational & Speech Therapy At [facility] Current Diagnoses Lesion of lateral popliteal nerve, left lower limb (05/19/20) Sciatica, left side (05/19/20) Visit Care Team Role Provider Type Alfredo Shaver MD Family Provider Physician Primary Care Provider Specialty: Family Practice Address: [address] [place] [address] Email: [email or web address] Maria Guadalupe Caceres MD Attending Provider Physician Referring Provider Specialty: AUXILIARY ENGINEER Address: [address] [place] [address], [id number] Email: [email or web address] Plan Of Care PT-OP-T Assessment and Plan Start: 05/19/20 07:26 Freq: Status: Active Protocol: Document 05/19/20 14:15 AMB (Rec: 05/21/20 14:58 AMB [email or web address]) Physical Therapy Assessment Rehab Potential Rehabilitation Potential Good Evaluation Complexity Number of Personal Factors/Comorbidities 3 or More Clinical Presentation at Evaluation Evolving Impairments Impairments Pain,Soft Tissue Mobility, Strength Goals Two Impairment Strength Short Term Goal (STG) Amaya will be independent with pelvic floor and core stability training. STG Duration 4 weeks Customer Expert Goal (LTG) Amaya will lift 10 pounds from the floor to waist height with good pelvic floor and core stability. LTG Duration 8 weeks One Impairment Pain Short Term Goal (STG) Amaya will be independent with using a dilator to reduce her pain with intercourse. STG Duration 4 weeks Customer Expert Goal (LTG) Amaya will be able to engage the sexual intercourse of her choice without an increase in pain. LTG Duration 8 weeks Assessment Summary Assessment Amaya attends physical therapy with L sided pain s/p prolapse surgery. She recently had an injection which has decreased her L sided sciatica pain, but has not had intercourse since, and considering that her pain upon examination was more on the L obturator, it would be interesting to know if the injection will reduce her pain with intercourse as well. Either way, she will benefit from physical therapy to reduce her nerve pain, improve her pelvic floor and core strength and make sure she can resume intercourse without pain. Physical Therapy Plan Frequency and Duration Frequency of Treatment 2x/Week Duration of Treatment 8 weeks Plan of Care Start Date 05/19/20 Plan of Care End Date 07/14/20 Therapeutic Interventions Therapeutic Interventions Home Exercise Program,Manual Therapy,Neuromuscular Re- education,Self-Care/Home Management,Therapeutic Activities,Therapeutic Exercises Modalities Biofeedback,Cold Pack/Ice Massage,Electric Stimulation, Hot Packs Next Visit Focus/Plan Next Note Type Treatment Note Next Visit Plan Reassess L pelvic floor tightness/pain, begin pelvic floor/core stability training Plan of Care Dates Plan of Care Start Date 05/19/20 Plan of Care End Date 07/14/20 Electronically Signed by: Kely Coughlin, PT 05/21/20 [id number] Please Sign and Return: I have reviewed this Plan of Care and certify that the skilled therapy services above are required to meet the patient?s needs. Physician Signature Date Printed Name and Credentials Clinical Instructor Signature Printed Name and Credentials
--- NOTE | 2020-05-23 16:08 | PT.OTN ---
Current Diagnoses Lesion of lateral popliteal nerve, left lower limb (05/23/20) Sciatica, left side (05/23/20) Physical Therapy Treatment Note PT-OP-A Visit Information Start: 05/19/20 07:26 Freq: Status: Active Protocol: Document 05/23/20 12:45 AMB (Rec: 05/23/20 13:15 AMB [id number]) Out-Patient Physical Therapy Visit Information Visit Information Visit Type Treatment Note Visit Start Time 12:45 Visit Stop Time 13:30 Total Visit Minutes 45 Visit Number 2 PT-OP-B Current Condition Start: 05/19/20 07:26 Freq: Status: Active Protocol: Document 05/19/20 14:15 AMB (Rec: 05/19/20 14:43 AMB [id number]) Current Condition History of Current Condition Onset Date February 08, 2020 Current Complaints dyspareunia, sciatica History of Current Condition Amaya attends physical therapy after prolapse repair in February. Her recovery was complicated by left sided sciatica, shingles, bacterial vaginal infection. She does have a history of chronic R sided sciatica. Recently had a cortisone injection for L sided injection with Dr. Paidlla and that significantly helped the left sided pain. Currently reports 1/10 R sided pain. Since the surgery though, she has had painwith intercourse and has noticed a little bleeding, has not tried to have intercourse since the injection. She is hoping to work on the dyspareunia and the sciatica with this round of physical therapy. Treatment Goals Patient/Caregiver Goals Resume painfree intercourse, reduce sciatica pain. Prior Functional Status Baseline Function- ADL's Independent Baseline Function- Mobility Independent Personal Factors Other Personal Factors That May Effect Parkinsons, hasn't been as Therapy/Recovery active due to recovering from surgery/covid. PT-OP-C Subjective Start: 05/21/20 15:02 Freq: Status: Active Protocol: Document 05/23/20 12:45 AMB (Rec: 05/23/20 13:15 AMB [id number]) OP-PT Subjective Patient Comments Patient Comments Urgency significantly better with techniques presented last visit. Did use dilator once, but not more. R sided sciatica today. PT-OP-I Pelvic Floor Start: 05/19/20 07:26 Freq: Status: Active Protocol: Document 05/19/20 14:15 AMB (Rec: 05/21/20 11:08 AMB [id number]) Pelvic Floor Assessment Urine Pelvic Floor Surgery Yes: a/p prolapse repair Urinary Symptoms Urge Sensation Leakage Size Small Leakage Cause Urge Other Leakage Causes galo in door Leaks Per Day 1 Nocturia 1 Pelvic Clock Pelvic Clock 12-3 Tenderness,Tightness Pelvic Clock 3-6 Tenderness,Tightness Pelvic Clock 6-9 Guarding Pelvic Clock 9-12 Guarding Contraction Ability Voluntary Contraction Weak Voluntary Relaxation Moderate Manual Muscle Testing Left 1 Manual Muscle Testing Right 1 Manual Muscle Testing Anterior 1 Manual Muscle Testing Posterior 2 Muscle Endurance (Seconds) 4 Number of Quick Contractions In 10 2 Seconds Comments Pelvic Floor Comments Tenderness over L obturator>R PT-OP-Q Treatments Start: 05/19/20 07:26 Freq: Status: Active Protocol: Document 05/23/20 12:45 AMB (Rec: 05/23/20 13:24 AMB [id number]) Therapeutic Exercises Supine Exercises 4 Supine Exercise Name roll in Reps/Minutes 10 Comments overuses glutes 3 Supine Exercise Name piriformis stretch Reps/Minutes 30X3 2 Supine Exercise Name adductor stretch Reps/Minutes 30x3 1 Supine Exercise Name double knee to chest stretch Reps/Minutes 30x3 Other Exercises 1 Other Exercise Name hany pose and cat cow Reps/Minutes 2x10 PT-OP-T Assessment and Plan Start: 05/19/20 07:26 Freq: Status: Active Protocol: Document 05/23/20 12:45 AMB (Rec: 05/23/20 13:15 AMB [id number]) Physical Therapy Assessment Assessment Summary Assessment Amaya did well with stretches, will need to continue with internal work if intercourse continues to be painful, continue with strengthening as well, as tends to over use glutes. Physical Therapy Plan Next Visit Focus/Plan Next Note Type Treatment Note Next Visit Plan Reassess L pelvic floor tightness/pain, begin pelvic floor/core stability training, can try sEMG
--- NOTE | 2020-05-27 10:09 | PT.OTN ---
Current Diagnoses Lesion of lateral popliteal nerve, left lower limb (05/27/20) Sciatica, left side (05/27/20) Physical Therapy Treatment Note PT-OP-A Visit Information Start: 05/19/20 07:26 Freq: Status: Active Protocol: Document 05/27/20 09:00 AMB (Rec: 05/27/20 10:09 AMB [id number]) Out-Patient Physical Therapy Visit Information Visit Information Visit Type Treatment Note Visit Start Time 09:00 Visit Stop Time 09:45 Total Visit Minutes 45 Visit Number 3 PT-OP-B Current Condition Start: 05/19/20 07:26 Freq: Status: Active Protocol: Document 05/19/20 14:15 AMB (Rec: 05/19/20 14:43 AMB [id number]) Current Condition History of Current Condition Onset Date February 08, 2020 Current Complaints dyspareunia, sciatica History of Current Condition Amaya attends physical therapy after prolapse repair in February. Her recovery was complicated by left sided sciatica, shingles, bacterial vaginal infection. She does have a history of chronic R sided sciatica. Recently had a cortisone injection for L sided injection with Dr. Padilla and that significantly helped the left sided pain. Currently reports 1/10 R sided pain. Since the surgery though, she has had painwith intercourse and has noticed a little bleeding, has not tried to have intercourse since the injection. She is hoping to work on the dyspareunia and the sciatica with this round of physical therapy. Treatment Goals Patient/Caregiver Goals Resume painfree intercourse, reduce sciatica pain. Prior Functional Status Baseline Function- ADL's Independent Baseline Function- Mobility Independent Personal Factors Other Personal Factors That May Effect Parkinsons, hasn't been as Therapy/Recovery active due to recovering from surgery/covid. PT-OP-C Subjective Start: 05/21/20 15:02 Freq: Status: Active Protocol: Document 05/27/20 09:00 AMB (Rec: 05/27/20 10:09 AMB [id number]) OP-PT Subjective Patient Comments Patient Comments L sided back pain going down into left leg today. PT-OP-I Pelvic Floor Start: 05/19/20 07:26 Freq: Status: Active Protocol: Document 05/19/20 14:15 AMB (Rec: 05/21/20 11:08 AMB [id number]) Pelvic Floor Assessment Urine Pelvic Floor Surgery Yes: a/p prolapse repair Urinary Symptoms Urge Sensation Leakage Size Small Leakage Cause Urge Other Leakage Causes galo in door Leaks Per Day 1 Nocturia 1 Pelvic Clock Pelvic Clock 12-3 Tenderness,Tightness Pelvic Clock 3-6 Tenderness,Tightness Pelvic Clock 6-9 Guarding Pelvic Clock 9-12 Guarding Contraction Ability Voluntary Contraction Weak Voluntary Relaxation Moderate Manual Muscle Testing Left 1 Manual Muscle Testing Right 1 Manual Muscle Testing Anterior 1 Manual Muscle Testing Posterior 2 Muscle Endurance (Seconds) 4 Number of Quick Contractions In 10 2 Seconds Comments Pelvic Floor Comments Tenderness over L obturator>R PT-OP-Q Treatments Start: 05/19/20 07:26 Freq: Status: Active Protocol: Document 05/27/20 09:00 AMB (Rec: 05/27/20 10:09 AMB [id number]) Therapeutic Exercises Supine Exercises 3 Supine Exercise Name piriformis stretch Reps/Minutes 30X3 Comments bilat 2 Supine Exercise Name adductor stretch Reps/Minutes 30x3 Comments bilat 1 Supine Exercise Name double knee to chest stretch Reps/Minutes 30x3 Other Exercises 2 Other Exercise Name hamstring contract relax Manual Therapy Treatment Soft Tissue Mobilization 2 Body Location L glutes/piriformis Mobilization Type Myofascial Release,Strumming, Sustained Pressure Intensity/Depth Moderate Body Position Sidelying PT-OP-T Assessment and Plan Start: 05/19/20 07:26 Freq: Status: Active Protocol: Document 05/27/20 09:00 AMB (Rec: 05/27/20 10:09 AMB [id number]) Physical Therapy Assessment Goals Two Impairment Strength Short Term Goal (STG) Amaya will be independent with pelvic floor and core stability training. STG Duration 4 weeks Alf Goal (LTG) Amaya will lift 10 pounds from the floor to waist height with good pelvic floor and core stability. LTG Duration 8 weeks One Impairment Pain Short Term Goal (STG) Amaya will be independent with using a dilator to reduce her pain with intercourse. STG Duration 4 weeks Alf Goal (LTG) Amaya will be able to engage the sexual intercourse of her choice without an increase in pain. LTG Duration 8 weeks Assessment Summary Assessment Amaya had bilateral pain that radiates from her back into theback of her legs today. Reassured stretches should not increase pain, as she had been doing hany pose and cat cow previously and other stretches are more for her hips than back. Did feel better after PT session, but pt is concerned that steroid shot is wearing off. Will reassess internally next visit . Physical Therapy Plan Next Visit Focus/Plan Next Visit Plan Assess dilator usage, assess internally now that left sided pain is worse.
--- NOTE | 2020-05-30 16:00 | PT.OPDS ---
Current Diagnoses Lesion of lateral popliteal nerve, left lower limb (05/30/20) Sciatica, left side (05/30/20) Visit Care Team Role Provider Type Alfredo Shaver MD Family Provider Physician Primary Care Provider Specialty: Family Practice Address: [address] [place] [address] Email: [email or web address] Maria Guadalupe Caceres MD Attending Provider Physician Referring Provider Specialty: PULLMAN CLERK Address: [address] [place] [address], [facility] Email: [email or web address] Visit Number Visit Number 4 Discharge Summary PT-OP-B Current Condition Start: 05/19/20 07:26 Freq: Status: Active Protocol: Document 05/19/20 14:15 AMB (Rec: 05/19/20 14:43 AMB [id number]) Current Condition History of Current Condition Onset Date February 08, 2020 Current Complaints dyspareunia, sciatica History of Current Condition Amaya attends physical therapy after prolapse repair in February. Her recovery was complicated by left sided sciatica, shingles, bacterial vaginal infection. She does have a history of chronic R sided sciatica. Recently had a cortisone injection for L sided injection with Dr. Padilla and that significantly helped the left sided pain. Currently reports 1/10 R sided pain. Since the surgery though, she has had painwith intercourse and has noticed a little bleeding, has not tried to have intercourse since the injection. She is hoping to work on the dyspareunia and the sciatica with this round of physical therapy. Treatment Goals Patient/Caregiver Goals Resume painfree intercourse, reduce sciatica pain. Prior Functional Status Baseline Function- ADL's Independent Baseline Function- Mobility Independent Personal Factors Other Personal Factors That May Effect Parkinsons, hasn't been as Therapy/Recovery active due to recovering from surgery/covid. PT-OP-C Subjective Start: 05/21/20 15:02 Freq: Status: Active Protocol: Document 05/30/20 10:15 AMB (Rec: 05/31/20 10:18 AMB [id number]) OP-PT Subjective Patient Comments Patient Comments Pt is going to [place] for a month, so will likely d/c today. Shot has worn off, feeling more sciatica again. PT-OP-I Pelvic Floor Start: 05/19/20 07:26 Freq: Status: Active Protocol: Document 05/19/20 14:15 AMB (Rec: 05/21/20 11:08 AMB [id number]) Pelvic Floor Assessment Urine Pelvic Floor Surgery Yes: a/p prolapse repair Urinary Symptoms Urge Sensation Leakage Size Small Leakage Cause Urge Other Leakage Causes galo in door Leaks Per Day 1 Nocturia 1 Pelvic Clock Pelvic Clock 12-3 Tenderness,Tightness Pelvic Clock 3-6 Tenderness,Tightness Pelvic Clock 6-9 Guarding Pelvic Clock 9-12 Guarding Contraction Ability Voluntary Contraction Weak Voluntary Relaxation Moderate Manual Muscle Testing Left 1 Manual Muscle Testing Right 1 Manual Muscle Testing Anterior 1 Manual Muscle Testing Posterior 2 Muscle Endurance (Seconds) 4 Number of Quick Contractions In 10 2 Seconds Comments Pelvic Floor Comments Tenderness over L obturator>R PT-OP-T Assessment and Plan Start: 05/19/20 07:26 Freq: Status: Active Protocol: Document 05/30/20 10:15 AMB (Rec: 05/31/20 10:18 AMB [id number]) Physical Therapy Assessment Goals Two Impairment Strength Short Term Goal (STG) Amaya will be independent with pelvic floor and core stability training. STG Duration NOT MET Shelter Goal (LTG) Amaya will lift 10 pounds from the floor to waist height with good pelvic floor and core stability. LTG Duration NOT MET One Impairment Pain Short Term Goal (STG) Amaya will be independent with using a dilator to reduce her pain with intercourse. STG Duration MET Licensed Aircraft Maintenance Engineer Goal (LTG) Amaya will be able to engage the sexual intercourse of her choice without an increase in pain. LTG Duration NOT MET Assessment Summary Assessment Amaya is discharging early due to going [place]. Unfortunately her sx have worsened since the steroid injection has worn off. She was instructed in how to work pelvic floor musculature to decrease her dyspareunia and should be able to continue with that independently. Physical Therapy Plan Discharge Physical Therapy Discharge Reasons Patient Request Discharge Comments pt vacationing out of country for extended period of time
== END 2020-06-02 14:42 | disposition home or self-care (01) ==
LOC: PHYS 10:15
PROVIDERS: Family Provider Family Medicine; PCP Family Medicine; Referring Provider Specialist; Visit Provider Specialist
DX: M54.32 Sciatica, left side (principal); G57.32 Lesion of lateral popliteal nerve, left lower limb
CPT/HCPCS: 97110; 97140; 97162

== ENCOUNTER → 2020-07-09 11:46 | Outpatient (CLI) | payer MEDICARE, OTHER, SELFPAY ==
[2020-03-26 11:03] VITALS: BMI 27.1
--- NOTE | 2020-07-09 11:47 | DI.RAD.S_ITS ---
PROCEDURE: XR LUMBAR SPINE MIN 4V INDICATIONS: Low back and hip pain TECHNIQUE: 5 views of the lumbar spine were acquired, including bilateral oblique views. COMPARISON: [facility], , XR LUMBAR SPINE MIN 4V, 05/12/2018, 12:52. FINDINGS: Bones: Vertebral body height and alignment is well maintained. There is normal bone mineral density. Disc space narrowing anterior osteophytes are noted at the thoracolumbar junction. Disc space narrowing and hypertrophic facet joints noted in the lower lumbar spine particularly at L3-4, L4-5 and L5-S1. Soft tissues: Overlying bowel gas pattern is normal. No suspicious soft tissue calcifications. Oblique images: No pars defects. IMPRESSION: 1. Multilevel degenerative disc disease and arthropathy. No fracture or malalignment. Dictated by: Tee Belle M.D. on 07/09/2020 at 11:48 Approved by: Tee Belle M.D. on 07/09/2020 at 11:53
== END ==
PROVIDERS: Family Provider Family Medicine; PCP Family Medicine; Referring Provider Physical Medicine & Rehabilitation; Visit Provider Physical Medicine & Rehabilitation
DX: M54.9 Dorsalgia, unspecified (principal); M51.16 Intervertebral disc disorders with radiculopathy, lumbar region; M51.17 Intervertebral disc disorders with radiculopathy, lumbosacral region; M47.26 Other spondylosis with radiculopathy, lumbar region; M47.27 Other spondylosis with radiculopathy, lumbosacral region; M53.3 Sacrococcygeal disorders, not elsewhere classified
CPT/HCPCS: 72110; 99214

== ENCOUNTER → 2020-07-15 13:11 | Outpatient (CLI) | payer MEDICARE, OTHER, SELFPAY ==
[2020-03-26 11:03] VITALS: BMI 27.1
[2020-07-15 15:09] LABS: COVID19 -Nasal RAPID Negative (Negative)
== END ==
PROVIDERS: Family Provider Family Medicine; PCP Family Medicine; Visit Provider Physical Medicine & Rehabilitation
DX: Z20.822 Contact with and (suspected) exposure to COVID-19 (principal)
CPT/HCPCS: 87635; C9803

== ENCOUNTER 2020-07-17 13:01 | Outpatient (CLI) | payer MEDICARE, OTHER, SELFPAY ==
[2020-03-26 11:03] VITALS: BMI 27.1
[2020-07-17] VITALS (7 sets, daily range): BP systolic 140–183; BP diastolic 56–79; PULSE 66–74; RESP 12–17; TEMP 36.4; O2SAT 96–100
--- NOTE | 2020-07-17 13:53 | DI.RAD.S_ITS ---
PROCEDURE: PAIN L INTERLAMINAR/CAUDAL INJ INDICATIONS: SPONDYLOSIS COMPARISON: [facility], GEENA, PAIN L/S TRANSFORAMINAL INJECT, 05/13/2020, 11:29. [facility], GEENA, PAIN L INTERLAMINAR/CAUDAL INJ, 08/28/2019, 10:23. FINDINGS: Fluoroscopic spot filming was performed to verify placement of a spinal needle at the L5-S1 level, as labeled on the films. Appropriate location of the needle tip was confirmed by injection of iodinated contrast. IMPRESSION: No significant intraprocedural abnormality. Dictated by: Sebas Galan M.D. on 07/17/2020 at 14:02 Approved by: Sebas Galan M.D. on 07/17/2020 at 14:03
[2020-07-17] MEDS: fentaNYL 100 MCG/2 ML INJ 50 MCG IV (13:57)
[2020-07-17] MEDS: MIDAZOLAM 5 MG/5 ML VIAL IV (13:57)
[2020-07-17] MEDS: IOPAMIDOL 15 ML VIAL 3 ML INJ (13:59)
[2020-07-17] MEDS: BUPIVACAINE 0.5% (PF) VIAL 2 ML INJ (14:00)
[2020-07-17] MEDS: methylPREDNISolone acetate 80 MG/ML VIAL IM (14:01)
[2020-07-17] MEDS: DEXAMETHASONE 10 MG/ML VIAL 20 MG INJ (14:04)
--- NOTE | 2020-07-17 14:11 | PM.PROC.IR.1 ---
Date/Time/Diagnoses Date of procedure: 07/17/20 Time of procedure: 14:11 Pre-procedure diagnosis: 1. HNP WITH RADICULAR FEATURES, 2. MULTILEVEL CENTRAL STENOSIS, Post-procedure diagnosis: same Procedure Notes Procedure: 1. FLUOROSCOPICALLY GUIDED CONTRAST CONTROLLED INTERLAMINAR EPIDURAL STEROID INJECTION - PARA LEFT L5/S1 Indications: Amaya is referred by Dr. Shaver for treatment of Bilateral Foraminal Stenosis L>R LE symptoms. Physician: Rufino Padilla Total Fluoroscopy time (seconds): 6 Total sedation minutes: 10 Complications: none Procedure in detail & Post-procedure care: FINDINGS Multilevel Central Spinal Stenosis with Nerve Root Compression DESCRIPTION OF PROCEDURE Fluoroscopically guided, contrast-controlled L5/S1 translaminar epidural steroid injection. Following review of allergy and review of potential side effects and complications, including, but not necessarily limited to, infection, allergic reaction, local tissue breakdown, temporary as well as permanent nerve injury, paralysis, stroke and possible , the patient indicated that the patient understood and agreed to proceed. An informed consent document was signed by the patient, witnessed by a nurse, and placed in the patient's chart. Additionally, other treatment options including modalities, medications, and physical therapy were reviewed with the patient. After review of previous anaesthesic history and IV conscious sedation the patient was deemed safe to proceed with today?s procedure with IV conscious sedation as ASA class II designation. Safety time-out was performed to confirm patient ID, procedure to be performed and site of procedure. IV sedation was accomplished with a combination of 2mg of Versed and 50mcg of Fentanyl administered by the RN after DO order, titrated to patient comfort during the course of the procedure while the patient remained responsive to all verbal commands. In the prone position, following sterile prep and drape of the lumbar region, the L5/S1 translaminar space was identified fluoroscopically. The skin was anesthetized via a 25-gauge, 1.5-inch needle with 1% lidocaine solution. At this point, a 22-gauge short bevel spinal needle was atraumatically introduced and advanced under fluoroscopic guidance into the region of the L5/S1 translaminar space. Depth was confirmed on lateral view. Radiological data, including multiple fluoroscopic views of the lumbar spine, reveal a spinal needle at the L5/S1 translaminar space. Lateral views then show placement of the needle in the epidural space. Subsequent views show contrast material flowing superiorly and inferiorly in the epidural space. No vascular or intrathecal uptake is observed. At this point, using loss of resistance technique with saline and air, the epidural space was entered. This was confirmed following negative aspiration with injection of approximately 1.5cc of Isovue 200, showing excellent epidural flow without vascular or intrathecal uptake. At this point, 1 cc of 1% lidocaine solution combined with 3cc or 20mg of dexamethasone and 80mg of Depo medrol was injected without incident. The patent tolerated the procedure without signs of symptoms of complications prior to transfer to the recovery area for further monitoring. The patient was then transferred to the recovery area where they were observed for an appropriate period of time after the injection. The patient reported a VAS score of 8 prior to the procedure and a post-procedure VAS of 1. POST OP INSTRUCTIONS The patient was provided a Pain Log to continue to record their response to the target-specific procedure prior to follow-up visit with their referring physician. Additionally, specific post-injection care instructions and a contact number to our office were provided if concerns arise regarding possible complications associated with the procedure are suspected.
== END 2020-07-17 14:35 | disposition home or self-care (01) ==
LOC: RAD 13:01
PROVIDERS: Family Provider Family Medicine; PCP Family Medicine; Referring Provider Family Medicine; Visit Provider Physical Medicine & Rehabilitation
DX: M51.17 Intervertebral disc disorders with radiculopathy, lumbosacral region; M48.07 Spinal stenosis, lumbosacral region
CPT/HCPCS: 62323; 99152; J0702; J1040; J1100; J2250; J3010

== ENCOUNTER → 2020-08-13 16:17 | Outpatient (CLI) | payer MEDICARE, OTHER, SELFPAY ==
[2020-03-26 11:03] VITALS: BMI 27.1
[2020-08-13 16:50] LABS: Add Manual Diff / Slide Review NO; Basophils Absolute Auto 0 /uL (0-100); Basophils Percent Auto 0.6 % (0-2); Eosinophils Absolute Auto 100 /uL (0-450); Eosinophils Percent Auto 1.5 % (2-4); Hematocrit 41.5 % (36-46); Hemoglobin 14.3 g/dL (12.0-16.0); Lymphocytes Absolute Auto 2200 /uL (1100-4500); Lymphocytes Percent Auto 31.3 % (25-40); Mean Corpuscular HGB Conc 34.4 % (30-36); Mean Corpuscular Hemoglobin 32.5 PG (26-34); Mean Corpuscular Volume 94.4 fL (80-100); Monocytes Absolute Auto 300 /uL (0-900); Monocytes Percent Auto 4.1 % (3-14); Neutrophils Absolute Auto 4300 /uL (1500-7000); Neutrophils Percent Auto 62.5 % (50-75); Platelet Count 268 X10^3/uL (150-400); Red Cell Distribution Width 13.3 % (11.6-14.8); White Blood Cell Count 6.9 X10^3/uL (4.5-11.0)
[2020-08-13 17:01] LABS: INR 0.9 (0.9-1.3); Prothrombin Time 10.5 SECONDS (10.1-12.7)
[2020-08-13 17:04] LABS: PTT Partial Thromboplastin Tim 35 SECONDS (26.4-36.2)
[2020-08-13 17:10] LABS: Alanine Aminotransferase 5 IU/L (<35); Albumin 4.3 g/dL (3.5-5.0); Albumin Globulin Ratio 1.4 (1.0-2.8); Alkaline Phosphatase 85 U/L (38-126); Aspartate Aminotransferase 25 IU/L (14-36); BUN Creatinine Ratio 31.5 (6-22); Bilirubin Total 0.2 mg/dL (0.2-1.3); Blood Urea Nitrogen 23 mg/dL (7-17); Calcium 9.3 mg/dL (8.4-10.2); Carbon Dioxide 31 mmol/L (22-32); Chloride 103 mmol/L (98-107); Estimated Glomerular Filt Rate > 60.0 mL/min (>60); Glucose 112 mg/dL (80-110); HEMOLYSIS < 15 (0-50); Potassium 3.6 mmol/L (3.4-5.1); Sodium 142 mmol/L (137-145); Total Protein 7.3 g/dL (6.3-8.2)
== END ==
PROVIDERS: Family Provider Family Medicine; PCP Family Medicine; Referring Provider Family Medicine; Visit Provider Family Medicine
DX: M47.817 Spondylosis without myelopathy or radiculopathy, lumbosacral region (principal); M51.26 Other intervertebral disc displacement, lumbar region; M47.897 Other spondylosis, lumbosacral region
CPT/HCPCS: 36415; 80053; 85025; 85610; 85730

== ENCOUNTER 2020-11-01 12:44 | Emergency (ER) | payer MEDICARE, OTHER, SELFPAY ==
[2020-03-26 11:03] VITALS: BMI 27.1
[2020-11-01 12:51] VITALS: O2SAT 97
[2020-11-01 12:52] VITALS: BP 135/60; PULSE 70; O2SAT 97
[2020-11-01 12:56] VITALS: BP 135/60; PULSE 69; RESP 18; TEMP 36.5; O2SAT 98; BMI 27.2
[2020-11-01 13:00] VITALS: PULSE 77; O2SAT 98
--- NOTE | 2020-11-01 13:05 | ED.ABDPAIN ---
HPI - Abdominal Pain <Wernre Naylor PA-C - Last Filed: 11/01/20 15:36> General Chief Complaint: Abdominal Pain Stated Complaint: Possible Diverticulitis-told to come by PCP Time Seen by Provider: 11/01/20 12:50 Source: patient Mode of arrival: Ambulatory Limitations: no limitations History of Present Illness HPI narrative: Amaya presents today with chief complaint of left lower quadrant abdominal pain that started 3 days ago, constipation, abdominal bloating and fever. She has previous history of abdominal surgeries including appendectomy in addition to previous Caesarean section. She had a colonoscopy done a few years ago and was diagnosed with diverticulosis without any previous history of diverticulitis. She denies any significant fever today. She reports that she had little bit of breakfast early this morning but has not any significant food since then. She denies any increased frequency of urination, burning with urination, hematuria, or any other acute concerns or complaints at this time. Related Data Home Medications Medication Instructions Recorded Confirmed vitamin C 500 mg-multivitamin with 1 tab PO PRN PRN #0 02/02/17 07/09/20 minerals chewable tablet (Emergen-C) B Vitamins 1 dose PO DAILY 05/23/18 07/09/20 Vitamin D3 1 cap PO DAILY 05/23/18 07/09/20 carbidopa 25 mg-levodopa 100 mg 1 tab PO TID tab 07/10/19 07/09/20 tablet omega-3 fatty acids 1,000 mg 1,000 mg PO DAILY 01/07/20 07/09/20 capsule (Fish Oil Concentrate) Previous Rx's Medication Instructions Recorded albuterol sulfate 90 mcg/actuation 2 puff INHALATION Q4-6H PRN #108 02/06/19 aerosol inhaler (Ventolin HFA) gram acyclovir 400 mg tablet See Rx Instructions PO 5XD PRN #30 01/07/20 tab valacyclovir 1 gram tablet 1,000 mg PO TID #21 tab 02/22/20 hydrochlorothiazide 25 mg tablet 25 mg PO DAILY #90 tab 03/03/20 citalopram 10 mg tablet See Rx Instructions .ROUTE 03/17/20 .COMPLEX #90 tab estradiol 0.5 mg tablet 0.5 mg PO .qod #90 tab 03/18/20 medroxyprogesterone 2.5 mg tablet See Rx Instructions .ROUTE .qod 03/18/20 #90 tab celecoxib 200 mg capsule (Celebrex) 200 mg PO DAILY #30 cap 07/09/20 hydrocodone 5 mg-acetaminophen 325 1 tab PO Q6H PRN #20 tab 07/30/20 mg tablet gabapentin 300 mg capsule 300 mg PO .COMPLEX #90 cap 08/22/20 clonazepam 0.5 mg tablet See Rx Instructions .ROUTE 10/17/20 .COMPLEX #30 tab amoxicillin 875 mg-potassium 1 tab PO TID 7 Days #21 tab 11/01/20 clavulanate 125 mg tablet (Augmentin) Allergies Allergy/AdvReac Type Severity Reaction Status Date / Time ciprofloxacin [CIPROFLOXACIN] Allergy Unknown RASH Verified 11/01/20 12:56 oxycodone [OXYCODONE] Allergy Unknown RASH Verified 11/01/20 12:56 sulfamethazine Allergy Unknown STOMACH Verified 11/01/20 12:56 [SULFAMETHAZINE] ACHE; ITCHY MUCOUS MEMBRANES Review of Systems <Werner Naylor PA-C - Last Filed: 11/01/20 15:36> Review of Systems Narrative: As per HPI Patient History <Werner Naylor PA-C - Last Filed: 11/01/20 15:36> Medical History Asthma (1994) BCC (basal cell carcinoma of skin) (1994) Cataract (2012) Chicken pox Chronic back pain (1984) Contact dermatitis Entrapment of left superficial peroneal nerve Facet arthropathy, lumbosacral Hayfever (1964) Hearing loss Herpes (1981) Hypertension (1999) Liver disease (2013) Lower extremity tendon strain Parkinsonism Personal history of colonic polyps Pleuritic pain Pneumonia Sacral back pain Shoulder pain (2013) Skin cancer (1995) Surgical History Anesthesia History of colonoscopy Status post delivery (11/29/91) Status post laparoscopic appendectomy Status post rotator cuff repair (05/29/12) Family History Child Age: 30 Club foot Child Age: 28 Hearing loss in right ear Father Heart disease Hypertension Parkinson's disease Skin cancer Mother Heart disease Hypertension Dementia Stroke Skin cancer Social History household members: spouse Smoking Status: Never smoker alcohol intake: never substance use type: does not use Smoking Status: Never smoker Substance Use Type: does not use Exam <Werner Naylor PA-C - Last Filed: 11/01/20 15:36> Narrative Exam Narrative: Exam Narrative: Const General: cooperative, healthy appearing, comfortable, no acute distress, well developed and well groomed Nutritional Appearance: average body habitus Orientation: alert and oriented x3 HENMT Head: normal to inspection and atraumatic Ears: hearing grossly normal bilaterally Nose: external nose normal and nares normal Face and sinus: normal facial exam Neck Neck: normal visual inspection and supple Resp Effort & Inspection: normal respiratory effort, able to speak in complete sentences, no audible wheezes, not labored, no nasal flaring and no respiratory distress, clear to auscultation bilaterally Cardiac Regular rate and rhythm, no discernible murmurs, rubs or gallops GI Normal bowel sounds, nondistended tenderness to palpation in left lower quadrant as well as right lower quadrant. No significant guarding. No CVA tenderness Neuro General: alert, oriented x3, gait normal, tone normal and moves all extremities Cognition: normal cognition Speech: speech normal Gait: normal gait Psych Appearance: grossly normal and well kempt Mental Status: mental status grossly normal Speech and Movement: speech and movement normal Mood: congruent mood Affect: normal affect Initial Vital Signs Initial Vital Signs: Vital Signs Pulse Oximetry 97 11/01/20 12:51 <Risa Martin MD - Last Filed: 11/01/20 16:49> Initial Vital Signs Initial Vital Signs: Vital Signs Pulse Oximetry 97 11/01/20 12:51 Course <Werner Naylor PA-C - Last Filed: 11/01/20 15:36> Orders Ordered: ED Orders 11/01/20 13:06 CT abdomen pelvis w con Stat XR chest 1V Stat 11/01/20 13:10 Complete Blood Count AUTO DIFF Stat Comprehensive Metabolic Panel Stat Lipase Stat 11/01/20 14:21 Urinalysis Screen (Dip Only) Stat Vital Signs Vital signs: Vital Signs - 8 hr 11/01/20 12:51 11/01/20 12:52 11/01/20 12:56 Temperature 97.7 F Pulse Rate 70 69 Respiratory Rate 18 Blood Pressure 135/60 135/60 Pulse Oximetry 97 97 98 11/01/20 13:00 11/01/20 13:30 Temperature Pulse Rate 77 73 Respiratory Rate Blood Pressure Pulse Oximetry 98 97 <Risa Martin MD - Last Filed: 11/01/20 16:49> Orders Ordered: ED Orders 11/01/20 13:06 CT abdomen pelvis w con Stat XR chest 1V Stat 11/01/20 13:10 Complete Blood Count AUTO DIFF Stat Comprehensive Metabolic Panel Stat Lipase Stat 11/01/20 14:21 Urinalysis Screen (Dip Only) Stat Vital Signs Vital signs: Vital Signs - 8 hr 11/01/20 12:51 11/01/20 12:52 11/01/20 12:56 Temperature 97.7 F Pulse Rate 70 69 Respiratory Rate 18 Blood Pressure 135/60 135/60 Pulse Oximetry 97 97 98 11/01/20 13:00 11/01/20 13:30 Temperature Pulse Rate 77 73 Respiratory Rate Blood Pressure Pulse Oximetry 98 97 MDM - Abdominal Pain <Werner Naylor PA-C - Last Filed: 11/01/20 15:36> Lab Data Result diagrams: 11/01/20 13:10 11/01/20 13:10 Labs: Lab Results 11/01/20 11/01/20 Range/Units 13:10 13:10 WBC 10.1 (4.5-11.0) X10^3/uL RBC 4.55 (4.0-5.2) X10^6/uL Hgb 14.2 (12.0-16.0) g/dL Hct 42.3 (36-46) % MCV 92.9 (80-100) fL MCH 31.2 (26-34) PG MCHC 33.6 (30-36) % RDW 12.6 (11.6-14.8) % Plt Count 264 (150-400) X10^3/uL Neut % (Auto) 70.9 (50-75) % Lymph % (Auto) 20.5 L (25-40) % [place] % (Auto) 7.4 (3-14) % Eos % (Auto) 0.8 L (2-4) % Baso % (Auto) 0.4 (0-2) % Neut # (Auto) 7200 H (5382-2062) /uL Lymph # (Auto) 2100 (6993-5556) /uL [place] # (Auto) 700 (0-900) /uL Eos # (Auto) 100 (0-450) /uL Baso # (Auto) 0 (0-100) /uL Sodium 141 (137-145) mmol/L Potassium 3.5 (3.4-5.1) mmol/L Chloride 100 (98-107) mmol/L Carbon Dioxide 36 H (22-32) mmol/L BUN 16 (7-17) mg/dL Creatinine 0.59 (0.52-1.04) mg/dL Estimated GFR > 60.0 (>60) mL/min BUN/Creatinine Ratio 27.1 H (6-22) Glucose 110 (80-110) mg/dL Calcium 9.5 (8.4-10.2) mg/dL Total Bilirubin 0.7 (0.2-1.3) mg/dL AST 26 (14-36) IU/L ALT 7 (<35) IU/L Alkaline Phosphatase 79 (38-126) U/L Total Protein 7.8 (6.3-8.2) g/dL Albumin 4.2 (3.5-5.0) g/dL Globulin 3.6 (1.7-4.1) g/dL Albumin/Globulin Ratio 1.2 (1.0-2.8) Lipase 67 (23-300) U/L Point of care testing: Urine Dip Bedside Urine Glucose Negative Bedside Urine Bilirubin - Negative Bedside Urine Ketone - Negative Urine Specific [place] 1.015 Bedside Urine Occult Blood - Negative Bedside Urine pH 7 Bedside Urine Protein - Negative Bedside Urine Urobilinogen - Negative Bedside Urine Nitrite - Negative Bedside Urine Leukocytes - Negative Esterase MDM Narrative Medical decision making narrative: Patient's history, examination and diagnostics are consistent with acute uncomplicated diverticulitis. There is no significant evidence of bowel obstruction, ruptured diverticula, abscess or other complications at this time. We will treat with Augmentin given her allergy to ciprofloxacin. We will do a trial of outpatient management. Strict ER return precautions were discussed with the patient. Patient verbalizes understanding and agrees to plan and has no further concerns at this time. Thank you A [id number] system was used with the dictation of this note. Please disregard any spelling or grammatical errors. <Risa Martin MD - Last Filed: 11/01/20 16:49> Lab Data Labs: Lab Results 11/01/20 11/01/20 Range/Units 13:10 13:10 WBC 10.1 (4.5-11.0) X10^3/uL RBC 4.55 (4.0-5.2) X10^6/uL Hgb 14.2 (12.0-16.0) g/dL Hct 42.3 (36-46) % MCV 92.9 (80-100) fL MCH 31.2 (26-34) PG MCHC 33.6 (30-36) % RDW 12.6 (11.6-14.8) % Plt Count 264 (150-400) X10^3/uL Neut % (Auto) 70.9 (50-75) % Lymph % (Auto) 20.5 L (25-40) % [place] % (Auto) 7.4 (3-14) % Eos % (Auto) 0.8 L (2-4) % Baso % (Auto) 0.4 (0-2) % Neut # (Auto) 7200 H (5180-0373) /uL Lymph # (Auto) 2100 (4131-3705) /uL [place] # (Auto) 700 (0-900) /uL Eos # (Auto) 100 (0-450) /uL Baso # (Auto) 0 (0-100) /uL Sodium 141 (137-145) mmol/L Potassium 3.5 (3.4-5.1) mmol/L Chloride 100 (98-107) mmol/L Carbon Dioxide 36 H (22-32) mmol/L BUN 16 (7-17) mg/dL Creatinine 0.59 (0.52-1.04) mg/dL Estimated GFR > 60.0 (>60) mL/min BUN/Creatinine Ratio 27.1 H (6-22) Glucose 110 (80-110) mg/dL Calcium 9.5 (8.4-10.2) mg/dL Total Bilirubin 0.7 (0.2-1.3) mg/dL AST 26 (14-36) IU/L ALT 7 (<35) IU/L Alkaline Phosphatase 79 (38-126) U/L Total Protein 7.8 (6.3-8.2) g/dL Albumin 4.2 (3.5-5.0) g/dL Globulin 3.6 (1.7-4.1) g/dL Albumin/Globulin Ratio 1.2 (1.0-2.8) Lipase 67 (23-300) U/L Point of care testing: Urine Dip Bedside Urine Glucose Negative Bedside Urine Bilirubin - Negative Bedside Urine Ketone - Negative Urine Specific [place] 1.015 Bedside Urine Occult Blood - Negative Bedside Urine pH 7 Bedside Urine Protein - Negative Bedside Urine Urobilinogen - Negative Bedside Urine Nitrite - Negative Bedside Urine Leukocytes - Negative Esterase Discharge Plan Departure Patient Disposition: Home Clinical Impression: Acute diverticulitis Instructions: DI for Diverticulitis Activity Restrictions/Additional Instructions: It was very nice to meet you both this afternoon. CT suggest acute diverticulitis. This is consistent with your symptoms. Please take the antibiotics prescribed with the expectation that your symptoms will get better. You experience worsening fever, worsening abdominal pain, continued constipation, or have any additional concerns or complaints do not hesitate to return for re-evaluation. Thank you Werner Naylor PA-C Prescriptions: New amoxicillin-pot clavulanate [Augmentin] 875-125 mg tablet 1 tab PO TID 7 Days Qty: 21 RF: 0 No Action Emergen-C 500 mg Tablet,Chewable 1 tab PO PRN PRN (Reason: onset of cold symptoms) Qty: 0 RF: 0 albuterol sulfate [Ventolin HFA] 90 mcg/actuation HFA aerosol inhaler 2 puff inhalation Q4-6H PRN (Reason: Shortness Of Breath, cough) Qty: 108 RF: 3 hydrochlorothiazide 25 mg tablet 25 mg PO DAILY Qty: 90 RF: 0 citalopram 10 mg tablet See Rx Instructions .ROUTE .COMPLEX Qty: 90 RF: 0 estradiol 0.5 mg tablet 0.5 mg PO .qod Qty: 90 RF: 1 medroxyprogesterone 2.5 mg tablet See Rx Instructions .ROUTE .qod Qty: 90 RF: 1 hydrocodone-acetaminophen 5-325 mg tablet 1 tab PO Q6H PRN (Reason: pain) Qty: 20 RF: 0 gabapentin 300 mg capsule 300 mg PO .COMPLEX Qty: 90 RF: 2 clonazepam 0.5 mg tablet See Rx Instructions .ROUTE .COMPLEX Qty: 30 RF: 0 omega-3 fatty acids [Fish Oil Concentrate] 1,000 mg capsule 1,000 mg PO DAILY RF: 0 acyclovir 400 mg tablet See Rx Instructions PO 5XD PRN (Reason: as directed) Qty: 30 RF: 0 valacyclovir 1 gram tablet 1,000 mg PO TID Qty: 21 RF: 0 B Vitamins 1 dose PO DAILY RF: 0 Vitamin D3 1 cap PO DAILY RF: 0 carbidopa-levodopa 25-100 mg tablet 1 tab PO TID RF: 0 celecoxib [Celebrex] 200 mg capsule 200 mg PO DAILY Qty: 30 RF: 2 Referrals: Alfredo Shaver MD [Primary Care Provider] - <Risa Martin MD - Last Filed: 11/01/20 16:49> Cosign ED Attending Cosignature Attestation: I was immediately available in the department for consultation throughout this patient's visit. I agree with documentation as above. Risa Martin MD
--- NOTE | 2020-11-01 13:06 | DI.CT.S_ITS ---
PROCEDURE: CT ABDOMEN PELVIS W CON INDICATIONS: LLQ pain TECHNIQUE: After the administration of intravenous contrast, axial sections acquired from the lung bases to the pubic symphysis. Coronal and sagittal reformats were performed. For radiation dose reduction, the following was used: automated exposure control, adjustment of mA and/or kV according to patient size. COMPARISON: [facility], CT, ABDOMEN/PELVIS WITH CONTRAST, 07/17/2016, 8:50. FINDINGS: Image quality: Excellent. Lung bases: Unremarkable. Heart: No significant findings. ABDOMEN: Liver: Unremarkable. Gallbladder: Unremarkable. Biliary ducts: Unremarkable. Pancreas: Unremarkable. Spleen: Unremarkable. Adrenal Glands: Unremarkable. Kidneys and Ureters: Unremarkable. Stomach and Bowel: No hiatal hernia. No small bowel obstruction. Scattered colonic diverticula. There is a short segment of bowel wall thickening in the sigmoid colon as well as fatty stranding centered about a thickened diverticula consistent with diverticulitis. Peritoneum: No abnormal intraperitoneal fluid or abscess. No free air. Ventral Wall: No hernias. Abdominal Nodes: No retroperitoneal or mesenteric adenopathy by size criteria. Vessels: Aorta and inferior vena cava are normal in size. PELVIS: Pelvic Organs: Uterus is anteverted. Bladder: Unremarkable. Pelvic Nodes: No enlarged lymph nodes. Miscellaneous: No hernias are seen. Bones: Unremarkable. IMPRESSION: Acute sigmoid diverticulitis without evidence of complication. Dictated by: Rusty Tinoco M.D. on 11/01/2020 at 14:10 Approved by: Rusty Tinoco M.D. on 11/01/2020 at 14:14
--- NOTE | 2020-11-01 13:06 | DI.RAD.S_ITS ---
PROCEDURE: XR CHEST 1V INDICATIONS: SOB TECHNIQUE: One view of the chest was acquired. COMPARISON: [facility], CR, XR CHEST 2V, 04/06/2019, 9:23. FINDINGS: Surgical changes and devices: None. Lungs and pleura: Lungs are clear. No pleural effusions or pneumothorax. Mediastinum: Mediastinal contours appear normal. Heart size is normal. Bones and chest wall: No suspicious bony lesions. Overlying soft tissues appear unremarkable. Degenerative changes of the shoulders. Surgical anchor in the right shoulder. IMPRESSION: No acute cardiopulmonary abnormality. Dictated by: Rsuty Tinoco M.D. on 11/01/2020 at 14:08 Approved by: Rusty Tinoco M.D. on 11/01/2020 at 14:09
[2020-11-01 13:17] LABS: Add Manual Diff / Slide Review NO; Basophils Absolute Auto 0 /uL (0-100); Basophils Percent Auto 0.4 % (0-2); Eosinophils Absolute Auto 100 /uL (0-450); Eosinophils Percent Auto 0.8 % (2-4); Hematocrit 42.3 % (36-46); Hemoglobin 14.2 g/dL (12.0-16.0); Lymphocytes Absolute Auto 2100 /uL (1100-4500); Lymphocytes Percent Auto 20.5 % (25-40); Mean Corpuscular HGB Conc 33.6 % (30-36); Mean Corpuscular Hemoglobin 31.2 PG (26-34); Mean Corpuscular Volume 92.9 fL (80-100); Monocytes Absolute Auto 700 /uL (0-900); Monocytes Percent Auto 7.4 % (3-14); Neutrophils Absolute Auto 7200 /uL (1500-7000); Neutrophils Percent Auto 70.9 % (50-75); Platelet Count 264 X10^3/uL (150-400); Red Blood Cell Count 4.55 X10^6/uL (4.0-5.2); Red Cell Distribution Width 12.6 % (11.6-14.8); White Blood Cell Count 10.1 X10^3/uL (4.5-11.0)
[2020-11-01 13:30] VITALS: PULSE 73; O2SAT 97
[2020-11-01 13:40] LABS: Alanine Aminotransferase 7 IU/L (<35); Albumin 4.2 g/dL (3.5-5.0); Albumin Globulin Ratio 1.2 (1.0-2.8); Alkaline Phosphatase 79 U/L (38-126); Aspartate Aminotransferase 26 IU/L (14-36); BUN Creatinine Ratio 27.1 (6-22); Bilirubin Total 0.7 mg/dL (0.2-1.3); Blood Urea Nitrogen 16 mg/dL (7-17); Calcium 9.5 mg/dL (8.4-10.2); Carbon Dioxide 36 mmol/L (22-32); Chloride 100 mmol/L (98-107); Estimated Glomerular Filt Rate > 60.0 mL/min (>60); Globulin 3.6 g/dL (1.7-4.1); Glucose 110 mg/dL (80-110); HEMOLYSIS < 15 (0-50); Lipase 67 U/L (23-300); Potassium 3.5 mmol/L (3.4-5.1); Sodium 141 mmol/L (137-145); Total Protein 7.8 g/dL (6.3-8.2)
== END 2020-11-01 16:13 | disposition home or self-care (01) ==
PROVIDERS: Emergency Provider Physician Assistant; Family Provider Family Medicine; PCP Family Medicine
DX: K57.92 Diverticulitis of intestine, part unspecified, without perforation or abscess without bleeding (principal); K59.00 Constipation, unspecified; R06.02 Shortness of breath
CPT/HCPCS: 71045; 74177; 80053; 81003; 83690; 85025; 99282; 99284; Q9967

== ENCOUNTER 2021-04-07 17:43 | Emergency (ER) | payer MEDICARE, OTHER, SELFPAY ==
[2020-03-26 11:03] VITALS: BMI 27.1
[2021-04-07 17:45] VITALS: BP 178/78; PULSE 81; RESP 18; TEMP 36.9; O2SAT 98
--- NOTE | 2021-04-07 17:48 | DI.RAD.S_ITS ---
PROCEDURE: XR CHEST 2V INDICATIONS: shortness of breath TECHNIQUE: 2 views of the chest were acquired. COMPARISON: [facility], , XR CHEST 1V, 11/01/2020, 13:41. FINDINGS: Surgical changes and devices: None. Lungs and pleura: Lungs are clear. No pleural effusions or pneumothorax. Mediastinum: Mediastinal contours are normal. Heart size is normal. Bones and chest wall: No suspicious bony abnormalities. Soft tissues appear unremarkable. IMPRESSION: No acute cardiopulmonary abnormality. Dictated by: Richar Valentine M.D. on 04/07/2021 at 18:13 Approved by: Richar Valentine M.D. on 04/07/2021 at 18:14
[2021-04-07 18:06] LABS: Add Manual Diff / Slide Review NO; Basophils Absolute Auto 100 /uL (0-100); Basophils Percent Auto 0.8 % (0-2); Eosinophils Absolute Auto 300 /uL (0-450); Eosinophils Percent Auto 4.4 % (2-4); Hematocrit 40.9 % (36-46); Hemoglobin 14.1 g/dL (12.0-16.0); Lymphocytes Absolute Auto 2600 /uL (1100-4500); Lymphocytes Percent Auto 32.6 % (25-40); Mean Corpuscular HGB Conc 34.3 % (30-36); Mean Corpuscular Hemoglobin 31.2 PG (26-34); Mean Corpuscular Volume 90.9 fL (80-100); Monocytes Absolute Auto 600 /uL (0-900); Monocytes Percent Auto 7.7 % (3-14); Neutrophils Absolute Auto 4400 /uL (1500-7000); Neutrophils Percent Auto 54.5 % (50-75); Platelet Count 314 X10^3/uL (150-400); Red Blood Cell Count 4.51 X10^6/uL (4.0-5.2); Red Cell Distribution Width 13.4 % (11.6-14.8)
[2021-04-07 18:16] LABS: Lactate (Lactic Acid) 1.3 mmol/L (0.7-2.1)
[2021-04-07 18:18] LABS: Alanine Aminotransferase 7 IU/L (<35); Albumin 4.6 g/dL (3.5-5.0); Albumin Globulin Ratio 1.3 (1.0-2.8); Alkaline Phosphatase 90 U/L (38-126); Aspartate Aminotransferase 34 IU/L (14-36); Bilirubin Total 0.5 mg/dL (0.2-1.3); Blood Urea Nitrogen 22 mg/dL (7-17); Calcium 9.3 mg/dL (8.4-10.2); Carbon Dioxide 35 mmol/L (22-32); Chloride 99 mmol/L (98-107); Estimated Glomerular Filt Rate > 60.0 mL/min (>60); Globulin 3.6 g/dL (1.7-4.1); Glucose 115 mg/dL (80-110); Potassium 4.1 mmol/L (3.4-5.1); Sodium 140 mmol/L (137-145); Total Protein 8.2 g/dL (6.3-8.2)
[2021-04-07 18:32] LABS: HEMOLYSIS 90 (0-50)
[2021-04-07 18:34] VITALS: BP 148/70; PULSE 78; RESP 13; O2SAT 97
[2021-04-07 18:34] LABS: COVID19 -Nasal RAPID Negative (Negative)
--- NOTE | 2021-04-07 18:35 | ED_ITS ---
HPI - SOB/Dyspnea General Chief Complaint: Shortness of Breath/Dyspnea Stated Complaint: DIFFICULTY BREATHING Time Seen by Provider: 04/07/21 18:07 Source: patient Mode of arrival: Ambulatory History of Present Illness HPI Narrative: 65-year-old female nonsmoker without any chronic cardiac disease but a known history of asthma presents with the chief complaint of wheezing and the occasional hacking cough over the past few days. She denies any chest pain nor fever but she has had the chills since last night. She states that her wheezing and cough worsened with deep breath. She denies any production of sputum, certainly no hemoptysis. She denies any history of cancer or lower extremity pain, swelling or redness. She did recently return from a trip in [place] and spent a few days in [place] before flying home this afternoon. She called her primary care provider who encouraged her to present here for evaluation. Related Data Home Medications Medication Instructions Recorded Confirmed vitamin C 500 mg-multivitamin with 1 tab PO PRN PRN #0 02/02/17 12/23/20 minerals chewable tablet (Emergen-C) B Vitamins 1 dose PO DAILY 05/23/18 12/23/20 Vitamin D3 1 cap PO DAILY 05/23/18 12/23/20 carbidopa 25 mg-levodopa 100 mg 1 tab PO TID tab 07/10/19 12/23/20 tablet omega-3 fatty acids 1,000 mg 1,000 mg PO DAILY 01/07/20 12/23/20 capsule (Fish Oil Concentrate) Previous Rx's Medication Instructions Recorded albuterol sulfate 90 mcg/actuation 2 puff INHALATION Q4-6H PRN #108 02/06/19 aerosol inhaler (Ventolin HFA) gram acyclovir 400 mg tablet See Rx Instructions PO 5XD PRN #30 01/07/20 tab valacyclovir 1 gram tablet 1,000 mg PO TID #21 tab 02/22/20 estradiol 0.5 mg tablet 0.5 mg PO .qod #90 tab 03/18/20 medroxyprogesterone 2.5 mg tablet See Rx Instructions .ROUTE .qod 03/18/20 #90 tab celecoxib 200 mg capsule (Celebrex) 200 mg PO DAILY #30 cap 07/09/20 hydrocodone 5 mg-acetaminophen 325 1 tab PO Q6H PRN #20 tab 07/30/20 mg tablet gabapentin 300 mg capsule 300 mg PO .COMPLEX #90 cap 08/22/20 hydrocodone 5 mg-acetaminophen 325 1 tab PO Q6H PRN #20 tab 01/26/21 mg tablet prednisone 50 mg tablet 50 mg PO DAILY #5 tab 01/26/21 hydrochlorothiazide 25 mg tablet 25 mg PO DAILY #90 tab 02/05/21 clonazepam 0.5 mg tablet See Rx Instructions .ROUTE 03/05/21 .COMPLEX #30 tab duloxetine 30 mg capsule,delayed See Rx Instructions .ROUTE 03/10/21 release .COMPLEX #90 cap prednisone 20 mg tablet 20 mg PO DAILY #5 tab 04/07/21 Allergies Allergy/AdvReac Type Severity Reaction Status Date / Time ciprofloxacin [CIPROFLOXACIN] Allergy Unknown RASH Verified 12/23/20 09:11 oxycodone [OXYCODONE] Allergy Unknown RASH Verified 12/23/20 09:11 sulfamethazine Allergy Unknown STOMACH Verified 12/23/20 09:11 [SULFAMETHAZINE] ACHE; ITCHY MUCOUS MEMBRANES Review of Systems Review of Systems Narrative: GENERAL: See HPI HEENT: Denies sinus pain, ear pain, sore throat, difficulty swallowing, dizziness. RESPIRATORY: See HPI CARDIOVASCULAR: Denies chest pain, palpitations, orthopnea, edema, GASTROINTESTINAL: Denies nausea, vomiting, abdominal pain, diarrhea, constipation, melena. : Denies dysuria, frequency, incontinence, hematuria, urinary retention. MUSCULOSKELETAL: denies weakness, joint pain, or bony pain SKIN: Denies rash, skin lesions, or other NEUROLOGIC: Denies weakness, headache, numbness, change in speech, confusion, seizures, incoordination. PSYCHIATRIC: No concerning psychosocial issues. 12 point review of systems is negative except for those stated above Patient History Medical History Asthma (1994) BCC (basal cell carcinoma of skin) (1994) Cataract (2012) Chicken pox Chronic back pain (1984) Contact dermatitis Entrapment of left superficial peroneal nerve Facet arthropathy, lumbosacral Hayfever (1964) Hearing loss Herpes (1981) Hypertension (1999) Liver disease (2013) Lower extremity tendon strain Parkinsonism Personal history of colonic polyps Pleuritic pain Pneumonia Sacral back pain Shoulder pain (2013) Skin cancer (1995) Surgical History Anesthesia History of colonoscopy Status post delivery (11/29/91) Status post laparoscopic appendectomy Status post rotator cuff repair (05/29/12) Family History Child Age: 31 Club foot Child Age: 29 Hearing loss in right ear Father Heart disease Hypertension Parkinson's disease Skin cancer Mother Heart disease Hypertension Dementia Stroke Skin cancer Social History household members: spouse Smoking Status: Never smoker alcohol intake: never substance use type: does not use Smoking Status: Never smoker Substance Use Type: does not use Exam Narrative Exam Narrative: GENERAL: [65 year old patient appears stated age. Well-developed patient, in mild distress. No evidence of tachypnea or hypoxemia HEAD: Atraumatic. Normocephalic. EYES: Pupils equal round and reactive. Extraocular motions intact. No scleral ic terus. No injection or drainage. ENT: Nose without bleeding, purulent drainage. Throat without erythema, tonsillar hypertrophy or exudate. Airway patent. NECK: Trachea midline. Non tender CARDIOVASCULAR: Regular rate and rhythm without murmurs, gallops, or rubs. RESPIRATORY: Deep breath illicits cough, inspiratory and expiratory wheeze noted throughout EXTREMITIES: No edema or joint tenderness. BACK: Nontender without deformity or crepitance. No flank tenderness. NEURO: AOx3. SKIN: No rash or erythema of visible areas Initial Vital Signs Initial Vital Signs: Vital Signs Temperature 98.5 F 04/07/21 17:45 Pulse Rate 81 04/07/21 17:45 Respiratory Rate 18 04/07/21 17:45 Blood Pressure 178/78 H 04/07/21 17:45 Pulse Oximetry 98 04/07/21 17:45 Course Orders Ordered: Discontinued Medications Albuterol/Ipratropium (Albuterol/Ipratropium 3 Ml Ampul) 3 ml INH NOW ONE Stop: 04/07/21 18:41 Last Admin: 04/07/21 18:59 Dose: 3 ml Documented by: UMER Methylprednisolone (Methylprednisolone 125 Mg/2 Ml Vial) 125 mg IV NOW ONE Stop: 04/07/21 18:41 Last Admin: 04/07/21 18:51 Dose: 125 mg Documented by: MILDRED Reevaluation(s) Reevaluation #1: Patient has significant if not complete resolution of symptoms with the above- stated therapies Vital Signs Vital signs: Vital Signs - 8 hr 04/07/21 17:45 04/07/21 18:34 Temperature 98.5 F Pulse Rate 81 78 Respiratory Rate 18 13 Blood Pressure 178/78 H 148/70 H Pulse Oximetry 98 97 MDM - SOB/Dyspnea Lab Data Result diagrams: 04/07/21 17:50 04/07/21 17:50 Labs: Lab Results 04/07/21 04/07/21 04/07/21 Range/Units 17:50 17:50 17:50 WBC 8.0 (4.5-11.0) X10^3/uL RBC 4.51 (4.0-5.2) X10^6/uL Hgb 14.1 (12.0-16.0) g/dL Hct 40.9 (36-46) % MCV 90.9 (80-100) fL MCH 31.2 (26-34) PG MCHC 34.3 (30-36) % RDW 13.4 (11.6-14.8) % Plt Count 314 (150-400) X10^3/uL Neut % (Auto) 54.5 (50-75) % Lymph % (Auto) 32.6 (25-40) % [place] % (Auto) 7.7 (3-14) % Eos % (Auto) 4.4 H (2-4) % Baso % (Auto) 0.8 (0-2) % Neut # (Auto) 4400 (8890-2851) /uL Lymph # (Auto) 2600 (0404-7017) /uL [place] # (Auto) 600 (0-900) /uL Eos # (Auto) 300 (0-450) /uL Baso # (Auto) 100 (0-100) /uL Sodium 140 (137-145) mmol/L Potassium 4.1 (3.4-5.1) mmol/L Chloride 99 (98-107) mmol/L Carbon Dioxide 35 H (22-32) mmol/L BUN 22 H (7-17) mg/dL Creatinine 0.71 (0.52-1.04) mg/dL Estimated GFR > 60.0 (>60) mL/min BUN/Creatinine Ratio 31.0 H (6-22) Glucose 115 H (80-110) mg/dL Lactate 1.3 (0.7-2.1) mmol/L Calcium 9.3 (8.4-10.2) mg/dL Total Bilirubin 0.5 (0.2-1.3) mg/dL AST 34 (14-36) IU/L ALT 7 (<35) IU/L Alkaline Phosphatase 90 (38-126) U/L Total Protein 8.2 (6.3-8.2) g/dL Albumin 4.6 (3.5-5.0) g/dL Globulin 3.6 (1.7-4.1) g/dL Albumin/Globulin Ratio 1.3 (1.0-2.8) SARS-CoV-2 (PCR) (Negative) 04/07/21 Range/Units 18:09 WBC (4.5-11.0) X10^3/uL RBC (4.0-5.2) X10^6/uL Hgb (12.0-16.0) g/dL Hct (36-46) % MCV (80-100) fL MCH (26-34) PG MCHC (30-36) % RDW (11.6-14.8) % Plt Count (150-400) X10^3/uL Neut % (Auto) (50-75) % Lymph % (Auto) (25-40) % [place] % (Auto) (3-14) % Eos % (Auto) (2-4) % Baso % (Auto) (0-2) % Neut # (Auto) (3530-4161) /uL Lymph # (Auto) (2931-1634) /uL [place] # (Auto) (0-900) /uL Eos # (Auto) (0-450) /uL Baso # (Auto) (0-100) /uL Sodium (137-145) mmol/L Potassium (3.4-5.1) mmol/L Chloride (98-107) mmol/L Carbon Dioxide (22-32) mmol/L BUN (7-17) mg/dL Creatinine (0.52-1.04) mg/dL Estimated GFR (>60) mL/min BUN/Creatinine Ratio (6-22) Glucose (80-110) mg/dL Lactate (0.7-2.1) mmol/L Calcium (8.4-10.2) mg/dL Total Bilirubin (0.2-1.3) mg/dL AST (14-36) IU/L ALT (<35) IU/L Alkaline Phosphatase (38-126) U/L Total Protein (6.3-8.2) g/dL Albumin (3.5-5.0) g/dL Globulin (1.7-4.1) g/dL Albumin/Globulin Ratio (1.0-2.8) SARS-CoV-2 (PCR) Negative (Negative) Imaging Data Chest x-ray: Radiologist's Impression: [address] [address] XRay Report Signed Patient: Amaya Chambers MR#: [id number] : 1955 Acct:[id number] Age/Sex: 65 / F Date of Service: 04/07/21 Loc: ED Accession Number: [id number] ?? Procedure: XR chest 2V Ordering Provider: Barry Russell D.O. PROCEDURE:? XR CHEST 2V ? INDICATIONS:? shortness of breath ? TECHNIQUE:? 2 views of the chest were acquired.? ? COMPARISON:? [facility], CR, XR CHEST 1V, 11/01/2020, 13:41. ? FINDINGS:? ? Surgical changes and devices:? None.? ? Lungs and pleura:? Lungs are clear.? No pleural effusions or pneumothorax.? ? Mediastinum:? Mediastinal contours are normal.? Heart size is normal.? ? Bones and chest wall:? No suspicious bony abnormalities.? Soft tissues appear unremarkable.? ? IMPRESSION:? No acute cardiopulmonary abnormality. ? ? Dictated by: Richar Valentine M.D. on 04/07/2021 at 18:13 ? ? Approved by: Richar Valentine M.D. on 04/07/2021 at 18:14 ? [facility] Narrative Medical decision making narrative: Patient presents with wheezing, shortness of breath and some cough over the past few days with recent travel. She has had no fever but has had chills. Imaging does not demonstrate any infectious etiology that is obvious. COVID test is negative. Patient considered for pulmonary embolism but her history, physical and profound response to bronchodilators would suggest there is a very low likelihood, and no indication to pursue this is the diagnosis. Given lack of fever, abnormal findings on imaging or elevated white count there is no indication for antibiotics. Patient is given extensive return precautions and her questions have been answered to her apparent satisfaction Discharge Plan Departure Patient Disposition: Home Clinical Impression: Asthma exacerbation Activity Restrictions/Additional Instructions: *You have been diagnosed with [asthma exacerbation] *What to do: *Please continue to take your regular medications as directed. [x] New medication prescriptions sent to your pharmacy: [ [facility]] [ ] New medication written as a paper prescription [ ] No new medications given *Please follow up with your primary care provider in 2-3 days, call for an appointment. Let them know you were seen in the Emergency Department and that we ask that you be seen in follow up. We will electronically transmit a record of today's note if your PCP is in our system *If you do not have a primary care provider please contact the [facility] Resource line at [phone]. They will ask some questions about your medical history and help get you set up with a doctor in the community. *Return to Emergency Department if you should have any new, worsening or concerning symptoms, such as [fever greater than 101 F, shaking chills, wor sening pain, persistent vomiting or other bothersome symptoms] Prescriptions: New prednisone 20 mg tablet 20 mg PO DAILY Qty: 5 0RF Rx Instructions: administer with food or milk No Action Emergen-C 500 mg Tablet,Chewable 1 tab PO PRN PRN (Reason: onset of cold symptoms) Qty: 0 0RF albuterol sulfate [Ventolin HFA] 90 mcg/actuation HFA aerosol inhaler 2 puff inhalation Q4-6H PRN (Reason: Shortness Of Breath, cough) Qty: 108 3RF Rx Instructions: 2 puffs inhaled every 4-6 hours PRN estradiol 0.5 mg tablet 0.5 mg PO .qod Qty: 90 1RF Rx Instructions: tuesday, tuesday, tuesday medroxyprogesterone 2.5 mg tablet See Rx Instructions .ROUTE .qod Qty: 90 1RF Dose Instruction: TAKE 1 TABLET BY MOUTH DAILY Rx Instructions: tuesday, tuesday, tuesday hydrocodone-acetaminophen 5-325 mg tablet 1 tab PO Q6H PRN (Reason: pain) Qty: 20 0RF Rx Instructions: Take one tab by mouth every 6 hours as needed for pain. gabapentin 300 mg capsule 300 mg PO .COMPLEX Qty: 90 2RF Rx Instructions: 1-2 PO Tid to begin at HS and titrate to pain relief prednisone 50 mg tablet 50 mg PO DAILY Qty: 5 0RF hydrocodone-acetaminophen 5-325 mg tablet 1 tab PO Q6H PRN (Reason: pain) Qty: 20 0RF Rx Instructions: Take one tab by mouth every 6 hours as needed for pain. hydrochlorothiazide 25 mg tablet 25 mg PO DAILY Qty: 90 3RF clonazepam 0.5 mg tablet See Rx Instructions .ROUTE .COMPLEX Qty: 30 0RF Dose Instruction: TAKE ONE TABLET BY MOUTH EVERY NIGHT AT BEDTIME Rx Instructions: TAKE ONE TABLET BY MOUTH EVERY NIGHT AT BEDTIME duloxetine 30 mg capsule,delayed release(DR/EC) See Rx Instructions .ROUTE .COMPLEX Qty: 90 3RF Dose Instruction: TAKE ONE CAPSULE BY MOUTH ONE TIME DAILY Rx Instructions: TAKE ONE CAPSULE BY MOUTH ONE TIME DAILY omega-3 fatty acids [Fish Oil Concentrate] 1,000 mg capsule 1,000 mg PO DAILY 0RF acyclovir 400 mg tablet See Rx Instructions PO 5XD PRN (Reason: as directed) Qty: 30 0RF Rx Instructions: PRN PO 5XD PRN; valacyclovir 1 gram tablet 1,000 mg PO TID Qty: 21 0RF B Vitamins 1 dose PO DAILY 0RF Vitamin D3 1 cap PO DAILY 0RF carbidopa-levodopa 25-100 mg tablet 1 tab PO TID 0RF celecoxib [Celebrex] 200 mg capsule 200 mg PO DAILY Qty: 30 2RF Referrals: Alfredo Shaver MD [Primary Care Provider] -
[2021-04-07] MEDS: methylPREDNISolone 125 MG/2 ML VIAL IV (18:51)
[2021-04-07 18:59] VITALS: PULSE 76; RESP 20; O2SAT 98
[2021-04-07] MEDS: ALBUTEROL/IPRATROPIUM 3 ML AMPUL INH (18:59)
[2021-04-07 19:00] VITALS: BP 167/72; PULSE 79; RESP 10; O2SAT 98
[2021-04-07 19:03] VITALS: BP 167/72; PULSE 80; RESP 7; O2SAT 97
== END 2021-04-07 19:41 | disposition home or self-care (01) ==
PROVIDERS: Emergency Medicine; Emergency Provider Emergency Medicine; Family Provider Family Medicine; PCP Family Medicine
DX: J45.901 Unspecified asthma with (acute) exacerbation (principal); Z20.822 Contact with and (suspected) exposure to COVID-19
CPT/HCPCS: 36415; 71046; 80053; 83605; 85025; 87635; 94640; 96374; 99284; C9803; J2930

== ENCOUNTER → 2021-05-19 16:05 | Outpatient (CLI) | payer MEDICARE, OTHER, SELFPAY ==
[2020-03-26 11:03] VITALS: BMI 27.1
[2021-05-19 16:41] LABS: COVID19 -Nasal RAPID Negative (Negative)
== END ==
PROVIDERS: Family Provider Family Medicine; PCP Family Medicine; Visit Provider Family Medicine
DX: Z20.822 Contact with and (suspected) exposure to COVID-19 (principal)
CPT/HCPCS: 87635

== ENCOUNTER → 2021-05-19 16:14 | Outpatient (CLI) | payer MEDICARE, OTHER, SELFPAY ==
[2020-03-26 11:03] VITALS: BMI 27.1
[2021-05-19 17:39] LABS: Add Manual Diff / Slide Review NO; Basophils Absolute Auto 0 /uL (0-100); Basophils Percent Auto 0.7 % (0-2); Eosinophils Absolute Auto 100 /uL (0-450); Eosinophils Percent Auto 0.9 % (2-4); Hematocrit 44.9 % (36-46); Hemoglobin 15.2 g/dL (12.0-16.0); Lymphocytes Absolute Auto 2300 /uL (1100-4500); Lymphocytes Percent Auto 31.3 % (25-40); Mean Corpuscular HGB Conc 33.9 % (30-36); Mean Corpuscular Hemoglobin 31.4 PG (26-34); Mean Corpuscular Volume 92.5 fL (80-100); Monocytes Absolute Auto 500 /uL (0-900); Monocytes Percent Auto 6.3 % (3-14); Neutrophils Absolute Auto 4400 /uL (1500-7000); Neutrophils Percent Auto 60.8 % (50-75); Platelet Count 326 X10^3/uL (150-400); Red Blood Cell Count 4.86 X10^6/uL (4.0-5.2); Red Cell Distribution Width 13.2 % (11.6-14.8); White Blood Cell Count 7.2 X10^3/uL (4.5-11.0)
[2021-05-19 17:47] LABS: Prothrombin Time 10.7 SECONDS (10.1-12.7)
[2021-05-19 17:50] LABS: PTT Partial Thromboplastin Tim 31 SECONDS (26.4-36.2)
[2021-05-19 18:00] LABS: Albumin 4.8 g/dL (3.5-5.0); Albumin Globulin Ratio 1.4 (1.0-2.8); Alkaline Phosphatase 83 U/L (38-126); Aspartate Aminotransferase 31 IU/L (14-36); BUN Creatinine Ratio 27.5 (6-22); Bilirubin Total 0.6 mg/dL (0.2-1.3); Blood Urea Nitrogen 19 mg/dL (7-17); Carbon Dioxide 35 mmol/L (22-32); Chloride 97 mmol/L (98-107); Estimated Glomerular Filt Rate > 60.0 mL/min (>60); Globulin 3.5 g/dL (1.7-4.1); Glucose 110 mg/dL (80-110); HEMOLYSIS < 15 (0-50); Potassium 3.6 mmol/L (3.4-5.1); Sodium 142 mmol/L (137-145); Total Protein 8.3 g/dL (6.3-8.2)
[2021-05-19 18:01] LABS: Alanine Aminotransferase < 4 IU/L (<35)
[2021-05-19 18:06] LABS: Hemoglobin A1C% w Est Avg Glu 5.9 % (4.0-6.0)
== END ==
PROVIDERS: Family Provider Family Medicine; PCP Family Medicine; Referring Provider Family Medicine; Visit Provider Family Medicine
DX: G20 Parkinson's disease (principal); R73.9 Hyperglycemia, unspecified; I10 Essential (primary) hypertension; Z20.822 Contact with and (suspected) exposure to COVID-19; K62.5 Hemorrhage of anus and rectum; R04.0 Epistaxis
CPT/HCPCS: 80053; 83036; 85025; 85610; 85730; 87635

== ENCOUNTER 2021-06-09 21:42 | Emergency (ER) | payer MEDICARE, OTHER, SELFPAY ==
[2020-03-26 11:03] VITALS: BMI 27.1
[2021-06-09 21:54] VITALS: BP 149/69; PULSE 77; RESP 20; TEMP 36.4; O2SAT 99
--- NOTE | 2021-06-09 22:01 | DI.RAD.S_ITS ---
PROCEDURE: XR ELBOW LT MIN 3V INDICATIONS: fall, elbow pain TECHNIQUE: 3 views of the elbow were acquired. COMPARISON: None. FINDINGS: Bones: No fractures or dislocations. No suspicious bony lesions. Soft tissues: No elbow joint effusion. No suspicious soft tissue calcifications. IMPRESSION: 1. No fracture or dislocation. Dictated by: Florentino Motley M.D. on 06/09/2021 at 23:27 Approved by: Florentino Motley M.D. on 06/09/2021 at 23:27
--- NOTE | 2021-06-09 22:27 | DI.CT.S_ITS ---
PROCEDURE: CT HEAD/BRAIN WO CON INDICATIONS: fall, hit head TECHNIQUE: Noncontrast 4.5 mm thick angled axial sections acquired from the foramen magnum to the vertex, with coronal and sagittal reformats. For radiation dose reduction, the following was used: automated exposure control, adjustment of mA and/or kV according to patient size. COMPARISON: [facility], CT, CT HEAD/BRAIN WO CON, 05/23/2018, 13:35. FINDINGS: Image quality: Excellent. CSF spaces: Basal cisterns are patent. No extra-axial fluid collections. Ventricles are normal in size and shape. Brain: No intracranial hemorrhage, mass, or mass effect. Jay-white matter interface appears preserved. Skull and face: Calvarium and visualized facial bones are intact, without suspicious lesions. Sinuses: Visualized sinuses demonstrate an air-fluid level within the right maxillary sinus. The mastoid air cells are clear. IMPRESSION: 1. No acute intracranial abnormality. 2. Small air-fluid level within the partially visualized right maxillary sinus was also previously present on the prior study and likely represents sinusitis. Sequelae of orbital or sinus wall fracture is in the differential but considered less likely. Recommend correlation with clinical history and exam. Dictated by: Florentino Motley M.D. on 06/09/2021 at 22:46 Approved by: Florentino Motley M.D. on 06/09/2021 at 22:48
--- NOTE | 2021-06-09 22:34 | ED.FALL ---
HPI - Fall General Chief Complaint: Fall Stated Complaint: fall in kitchen, upper lt elbow injury Time Seen by Provider: 06/09/21 22:33 Source: patient Mode of arrival: Wheelchair History of Present Illness HPI Narrative: The patient slipped and fell to the floor in her kitchen just prior to arrival here.? She hit the occipital scalp on the floor.? She has occipital headache.? There is no open skin wound.? She has no visual changes, no speech changes, no confusion.? She had no LOC.? She is not anticoagulated.? She has no neck pain.? She does have left elbow pain.? She has no numbness or weakness in left arm.? She is right-hand dominant.? She had L5-S1 fusion 2 weeks ago.? She has no increase in back discomfort.? She has no numbness or weakness to the lower extremities. She also has Parkinson's, with a slow shuffling gait. She does not feel this contributed to the fall. Related Data Home Medications Medication Instructions Recorded Confirmed vitamin C 500 mg-multivitamin with 1 tab PO PRN PRN #0 02/02/17 05/19/21 minerals chewable tablet (Emergen-C) B Vitamins 1 dose PO DAILY 05/23/18 12/23/20 Vitamin D3 1 cap PO DAILY 05/23/18 05/19/21 carbidopa 25 mg-levodopa 100 mg 1 tab PO TID tab 07/10/19 05/19/21 tablet estradiol 0.5 mg tablet See Rx Instructions .ROUTE 05/19/21 05/19/21 .COMPLEX tab Previous Rx's Medication Instructions Recorded albuterol sulfate 90 mcg/actuation 2 puff INHALATION Q4-6H PRN #108 02/06/19 aerosol inhaler (Ventolin HFA) gram hydrochlorothiazide 25 mg tablet 25 mg PO DAILY #90 tab 02/05/21 duloxetine 30 mg capsule,delayed See Rx Instructions .ROUTE 03/10/21 release .COMPLEX #90 cap acyclovir 400 mg tablet See Rx Instructions PO 5XD PRN #30 05/19/21 tab clonazepam 0.5 mg tablet See Rx Instructions .ROUTE 05/19/21 .COMPLEX #30 tab hydrocodone 5 mg-acetaminophen 325 1 tab PO Q6H PRN #20 tab 05/19/21 mg tablet lisinopril 10 mg tablet See Rx Instructions .ROUTE 05/21/21 .COMPLEX #90 tab Allergies Allergy/AdvReac Type Severity Reaction Status Date / Time ciprofloxacin [CIPROFLOXACIN] Allergy Unknown RASH Verified 06/09/21 21:58 oxycodone [OXYCODONE] Allergy Unknown RASH Verified 06/09/21 21:58 sulfamethazine Allergy Unknown STOMACH Verified 06/09/21 21:58 [SULFAMETHAZINE] ACHE; ITCHY MUCOUS MEMBRANES prednisone Allergy Verified 06/09/21 21:58 Review of Systems Constitutional Constitutional: Reports as per HPI, Reports body ache(s), Denies chills, Denies fatigue, Denies fever(s), Denies frequent falls and Reports headache(s) Eyes Eyes: Denies blind spots, Denies blurry vision and Denies change in vision ENT Ears, Nose, Mouth, and Throat: Denies vertigo, Denies dizziness and Reports headache(s) Comments: Occipital head pain. No bleeding from the injury. No nose, mouth or lip injuries. Cardiovascular Cardiovascular: Denies chest pain, Denies syncope, Denies rapid heart rate, Denies edema and Denies dyspnea Respiratory Respiratory: Denies chest congestion, Denies cough and Denies dyspnea Gastrointestinal Gastrointestinal: Denies abdominal pain, Denies heartburn and Denies nausea Genitourinary Genitourinary: Denies urinary incontinence Musculoskeletal Comments: Head and left elbow pain is noted HPI. Chronic low back pain, no change. Integumentary/Breasts Comments: No obvious skin lesions. Neurologic Neurologic: Denies confusion, Denies vertigo, Denies dizziness, Denies syncope, Denies frequent falls and Reports headache(s) Psychiatric Psychiatric: Denies confusion Endocrine Endocrine: Denies fatigue Hematologic/Lymphatic On Anticoagulants: No Patient History Medical History Asthma (1994) BCC (basal cell carcinoma of skin) (1994) Cataract (2012) Chicken pox Chronic back pain (1984) Contact dermatitis Entrapment of left superficial peroneal nerve Facet arthropathy, lumbosacral Hayfever (1964) Hearing loss Herpes (1981) Hyperglycemia Hypertension (1999) Liver disease (2013) Lower extremity tendon strain Parkinsonism Personal history of colonic polyps Pleuritic pain Pneumonia Sacral back pain Shoulder pain (2013) Skin cancer (1995) Surgical History Anesthesia History of colonoscopy Status post delivery (11/29/91) Status post laparoscopic appendectomy Status post rotator cuff repair (05/29/12) Family History Child Age: 31 Club foot Child Age: 29 Hearing loss in right ear Father Heart disease Hypertension Parkinson's disease Skin cancer Mother Heart disease Hypertension Dementia Stroke Skin cancer Social History household members: spouse Smoking Status: Never smoker alcohol intake: never substance use type: does not use Smoking Status: Never smoker Substance Use Type: does not use Exam Initial Vital Signs Initial Vital Signs: Vital Signs Temperature 97.5 F L 06/09/21 21:54 Pulse Rate 77 06/09/21 21:54 Respiratory Rate 20 06/09/21 21:54 Blood Pressure 149/69 H 06/09/21 21:54 Pulse Oximetry 99 06/09/21 21:54 Const General: cooperative, healthy appearing and comfortable [facility] Head: other (Occipital tenderness. No open skin wounds.) Ears: TM's normal bilaterally Nose: external nose normal Face and sinus: normal facial exam Mouth: oral mucosae normal Eyes General: appearance normal, both eyes and all related structures Neck Neck: normal visual inspection, full ROM and No tender Chest Chest: normal inspection of the chest Resp Effort & Inspection: normal respiratory effort Auscultation: clear to auscultation bilaterally Cardio Rate: regular rate Rhythm: regular rhythm Heart Sounds: S1 normal and S2 normal GI Inspection: normal to inspection Palpation: soft and No tender Back/Spine/Pelvis Back: normal to inspection Other: Slight tenderness over the lower lumbar site. No palpable deformity. Skin General: no rashes or lesions noted Neuro General: patient alert, patient awake, patient oriented x3, no meningeal signs and no focal motor deficits Extrem General: normal to inspection and full ROM Other: Upper extremities are significant for tenderness over the left olecranon. There is no obvious abnormality. There is no evidence of ecchymoses or edema. She has normal range of motion in the left elbow. Hips are nontender. Lower extremities are atraumatic. Psych Mental Status: mental status grossly normal Course Course Course Narrative: Head CT is normal. Left elbow x-ray is normal. She has contusions, symptoms should resolve over the next several days. She is taking steroids. Tylenol is advised for pain control. Ice packs are advised for treatment of the injury sites. Orders Ordered: ED Orders 06/09/21 22:01 XR elbow LT min 3V Stat 06/09/21 22:27 CT head/brain wo con Stat 06/09/21 23:30 Urine Culture Stat Urine Microscopic Stat Vital Signs Vital signs: Vital Signs - 8 hr 06/09/21 21:54 Temperature 97.5 F L Pulse Rate 77 Respiratory Rate 20 Blood Pressure 149/69 H Pulse Oximetry 99 MDM - Fall Lab Data Labs: Lab Results 06/09/21 Range/Units 23:30 Urine RBC None seen (0-5/HPF) Urine WBC 0-1/hpf (0-5/HPF) Ur Squamous Epith Cells 0-1 /hpf (0-5/HPF) Urine Bacteria None seen (None) Ur Culture Indicated? Specimen cultured Urine Dip Bedside Urine Glucose Negative Bedside Urine Bilirubin - Negative Bedside Urine Ketone - Negative Urine Specific [place] 1.020 Bedside Urine Occult Blood - Negative Bedside Urine pH 6.0 Bedside Urine Protein - Negative Bedside Urine Urobilinogen - Negative Bedside Urine Nitrite - Negative Bedside Urine Leukocytes +/- [address] scan - head: Radiologist's Impression: 1. No acute intracranial abnormality. ? 2. Small air-fluid level within the partially visualized right maxillary sinus was also previously present on the prior study and likely represents sinusitis.? Sequelae of orbital or sinus wall fracture is in the differential but considered less likely.? Recommend correlation with clinical history and exam. Left elbow x-ray: Radiologist's Impression: No acute findings Discharge Plan Departure Patient Disposition: Home Clinical Impression: Contusion of scalp, Contusion of elbow, left Instructions: Contusion Activity Restrictions/Additional Instructions: The head CT in the left elbow x-ray are normal. Apply ice packs to your scalp in your left elbow frequently for the next 2 days. Tylenol 2 tablets every 4 hours as needed for pain. If not better within a week, follow-up with your doctor. Return here if necessary. Prescriptions: No Action Emergen-C 500 mg Tablet,Chewable 1 tab PO PRN PRN (Reason: onset of cold symptoms) Qty: 0 0RF albuterol sulfate [Ventolin HFA] 90 mcg/actuation HFA aerosol inhaler 2 puff inhalation Q4-6H PRN (Reason: Shortness Of Breath, cough) Qty: 108 3RF Rx Instructions: 2 puffs inhaled every 4-6 hours PRN hydrochlorothiazide 25 mg tablet 25 mg PO DAILY Qty: 90 3RF duloxetine 30 mg capsule,delayed release(DR/EC) See Rx Instructions .ROUTE .COMPLEX Qty: 90 3RF Dose Instruction: TAKE ONE CAPSULE BY MOUTH ONE TIME DAILY Rx Instructions: TAKE ONE CAPSULE BY MOUTH ONE TIME DAILY lisinopril 10 mg tablet See Rx Instructions .ROUTE .COMPLEX Qty: 90 3RF Dose Instruction: TAKE 1 TABLET BY MOUTH EVERY NIGHT AT BEDTIME Rx Instructions: TAKE 1 TABLET BY MOUTH EVERY NIGHT AT BEDTIME estradiol 0.5 mg tablet See Rx Instructions .ROUTE .COMPLEX 0RF Dose Instruction: TAKE ONE TABLET BY MOUTH ON TUESDAY, TUESDAY AND TUESDAY Rx Instructions: TAKE ONE TABLET BY MOUTH ON TUESDAY AND TUESDAY acyclovir 400 mg tablet See Rx Instructions PO 5XD PRN (Reason: as directed) Qty: 30 3RF Rx Instructions: PRN PO 5XD PRN; clonazepam 0.5 mg tablet See Rx Instructions .ROUTE .COMPLEX Qty: 30 3RF Dose Instruction: TAKE ONE TABLET BY MOUTH EVERY NIGHT AT BEDTIME Rx Instructions: TAKE ONE TABLET BY MOUTH EVERY NIGHT AT BEDTIME hydrocodone-acetaminophen 5-325 mg tablet 1 tab PO Q6H PRN (Reason: pain) Qty: 20 0RF Rx Instructions: Take one tab by mouth every 6 hours as needed for pain. B Vitamins 1 dose PO DAILY 0RF Vitamin D3 1 cap PO DAILY 0RF carbidopa-levodopa 25-100 mg tablet 1 tab PO TID 0RF Referrals: Alfredo Shaver MD [Primary Care Provider] -
[2021-06-09 23:47] LABS: Bacteria Urine None Seen; Culture Indicated Urine Specimen Cultured; RBC Urine None Seen (0-5/HPF); Squamous Epithelial Cell Urine 0-1 /HPF (0-5/HPF); WBC Urine 0-1/HPF (0-5/HPF)
== END 2021-06-10 00:43 | disposition home or self-care (01) ==
PROVIDERS: Emergency Provider Emergency Medicine; Family Provider Family Medicine; PCP Family Medicine
DX: S00.03XA Contusion of scalp, initial encounter (principal); S50.02XA Contusion of left elbow, initial encounter; W01.198A Fall on same level from slipping, tripping and stumbling with subsequent striking against other object, initial encounter
CPT/HCPCS: 70450; 73080; 81003; 81015; 87077; 87086; 87186; 99281; 99284

== ENCOUNTER → 2021-08-10 12:51 | Outpatient (CLI) | payer MEDICARE, OTHER, SELFPAY ==
[2020-03-26 11:03] VITALS: BMI 27.1
--- NOTE | 2021-08-10 12:53 | DI.US.S_ITS ---
PROCEDURE: US CAROTID DOPPLER BI INDICATIONS: CAROTID ARTERY STENOSIS TECHNIQUE: Color and pulse Doppler interrogation was performed of both carotid systems, with image documentation and velocity measurements. COMPARISON: Merged With [facility], [place], US CAROTID DOPPLER BI, 07/24/2019, 10:25. FINDINGS: Stenosis calculations are based on SRU (Society of Radiologists in Ultrasound) criteria. Right side: Brachial blood pressure: 134/68 mm Hg. Common carotid artery peak systolic velocity: 114 cm/sec. Internal carotid artery peak systolic velocity: 134 cm/sec. Internal carotid artery end diastolic velocity: 42 cm/sec. External carotid artery peak systolic velocity: 117 cm/sec. ICA/CCA peak systolic ratio: 1.17 . Jay scale imaging description: No significant plaque or subjective stenosis. Normal waveforms. Percent internal carotid artery stenosis: Less than 50% . Vertebral artery: Flow direction is antegrade. Left side: Brachial blood pressure: 140/76 mm Hg. Common carotid artery peak systolic velocity: 89 cm/sec. Internal carotid artery peak systolic velocity: 103 cm/sec. Internal carotid artery end diastolic velocity: 34 cm/sec. External carotid artery peak systolic velocity: 83 cm/sec. ICA/CCA peak systolic ratio: 1.16 . Jay scale imaging description: No plaque or subjective stenosis. Normal waveforms. Percent internal carotid artery stenosis: Less than 50% . Vertebral artery: Flow direction is antegrade. IMPRESSION: 1. No hemodynamically significant stenosis in the carotid or vertebral systems. 2. No significant change since the prior study. Dictated by: Kelley Bloom M.D. on 08/10/2021 at 15:49 Approved by: Kelley Bloom M.D. on 08/10/2021 at 15:52
--- NOTE | 2021-08-10 12:54 | DI.MG.S_ITS ---
BILATERAL DIGITAL SCREENING MAMMOGRAM 3D/2D WITH CAD: 08/10/2021 CLINICAL: Routine screening. Comparison is made to exams dated: 02/02/2020 mammogram, 07/20/2017 mammogram, and 06/11/2016 mammogram - [facility]. There are scattered fibroglandular elements in both breasts. Current study was also evaluated with a Computer Aided Detection (CAD) system. No significant masses, calcifications, or other findings are seen in either breast. There has been no significant interval change. IMPRESSION: NEGATIVE There is no mammographic evidence of malignancy. A 1 year screening mammogram is recommended. This exam was interpreted at Station ID: [id number]. NOTE: For mammograms, a report in lay terms will be sent to the patient. Approximately 15% of breast malignancies will not be visualized mammographically. In the management of a palpable breast mass, a negative mammogram must not discourage biopsy of a clinically suspicious lesion. Electronically Signed By: Richar celeste/junior:08/10/2021 14:49:16 copy to: OTTO VALENZUELA letter sent: Normal Exam ACR BI-RADS Category 1: Negative [id number]
== END ==
PROVIDERS: Family Provider Family Medicine; PCP Family Medicine; Referring Provider Specialist; Visit Provider Specialist
DX: Z12.31 Encounter for screening mammogram for malignant neoplasm of breast (principal); I65.29 Occlusion and stenosis of unspecified carotid artery
CPT/HCPCS: 77063; 77067; 93880

== ENCOUNTER → 2021-11-19 08:38 | Outpatient (CLI) | payer MEDICARE, OTHER, SELFPAY ==
[2020-03-26 11:03] VITALS: BMI 27.1
--- NOTE | 2021-11-19 08:40 | DI.RAD.S_ITS ---
PROCEDURE: XR FOREARM RT 2V INDICATIONS: right forearm bruising/fall TECHNIQUE: 2 views of the forearm were acquired. COMPARISON: None. FINDINGS: Bones: No fractures or dislocations. No suspicious bony lesions. Soft tissues: No suspicious soft tissue calcifications or masses. IMPRESSION: No acute osseous abnormality. Dictated by: Rancho Braxton M.D. on 11/19/2021 at 11:19 Approved by: Rancho Braxton M.D. on 11/19/2021 at 11:21
== END ==
PROVIDERS: Family Provider Family Medicine; PCP Family Medicine; Referring Provider Family Medicine; Visit Provider Family Medicine
DX: M79.631 Pain in right forearm (principal)
CPT/HCPCS: 73090

== ENCOUNTER → 2021-11-23 12:44 | Outpatient (CLI) | payer MEDICARE, OTHER, SELFPAY ==
[2020-03-26 11:03] VITALS: BMI 27.1
[2021-11-23 13:53] LABS: Appearance Urine UA CLEAR; Bilirubin Urine UA NEGATIVE (NEGATIVE); Color Urine UA YELLOW; Glucose Urine UA NEGATIVE (Negative); Ketones Urine UA NEGATIVE (NEGATIVE); Leukocyte Esterase Urine UA TRACE (NEGATIVE); Nitrite Urine UA NEGATIVE (Negative); Occult Blood Urine UA NEGATIVE (Negative); Protein Urine UA NEGATIVE (Negative); Urobilinogen Urine UA 0.2 E.U./dL (0.2)
[2021-11-23 14:20] LABS: Bacteria Urine Occasional (0-1); Culture Indicated Urine Specimen Cultured; RBC Urine None Seen (0-5/HPF); Squamous Epithelial Cell Urine 0-1 /HPF (0-5/HPF); WBC Urine 1-5/HPF (0-5/HPF); pH Urine UA 6.5 (4.5-8.0)
== END ==
PROVIDERS: Family Provider Family Medicine; PCP Family Medicine; Referring Provider Family Medicine; Visit Provider Family Medicine
DX: R30.0 Dysuria (principal)
CPT/HCPCS: 81001; 87086

== ENCOUNTER → 2021-12-23 14:44 | Outpatient (CLI) | payer MEDICARE, OTHER, SELFPAY ==
[2020-03-26 11:03] VITALS: BMI 27.1
[2021-12-23 17:25] LABS: Appearance Urine UA CLEAR; Bilirubin Urine UA NEGATIVE (NEGATIVE); Color Urine UA YELLOW; Glucose Urine UA NEGATIVE (Negative); Ketones Urine UA NEGATIVE (NEGATIVE); Leukocyte Esterase Urine UA NEGATIVE (NEGATIVE); Nitrite Urine UA NEGATIVE (Negative); Occult Blood Urine UA NEGATIVE (Negative); Protein Urine UA NEGATIVE (Negative); Urobilinogen Urine UA 0.2 E.U./dL (0.2)
[2021-12-23 17:27] LABS: pH Urine UA 6.5 (4.5-8.0)
[2021-12-23 17:34] LABS: Bacteria Urine None Seen; Culture Indicated Urine Cult Not Indicated; RBC Urine None Seen (0-5/HPF); Urine Comments Microscopic Normal; WBC Urine None Seen (0-5/HPF)
== END ==
PROVIDERS: Family Provider Family Medicine; PCP Family Medicine; Referring Provider Family Medicine; Visit Provider Family Medicine
DX: R35.0 Frequency of micturition (principal)
CPT/HCPCS: 81001

== ENCOUNTER → 2022-03-02 14:47 | Outpatient (CLI) | payer MEDICARE, OTHER, SELFPAY ==
[2020-03-26 11:03] VITALS: BMI 27.1
--- NOTE | 2022-03-02 14:49 | DI.RAD.S_ITS ---
PROCEDURE: XR WRIST LT MIN 3V INDICATIONS: fall TECHNIQUE: 4 views of the wrist were acquired. COMPARISON: None. FINDINGS: Bones: No fractures or dislocations. No suspicious bony lesions. Scaphoid view: Scaphoid is intact. Soft tissues: No suspicious soft tissue calcifications. IMPRESSION: No fracture. No osseous lesion. If symptoms and/or clinical suspicion for pathology persists, further assessment with repeat radiographs (7-10 days) or advanced imaging (e.g. CT, MRI or bone scan) should be considered. Dictated by: Daniella Garcia MD, PhD on 03/02/2022 at 15:22 Approved by: Daniella Garcia MD, PhD on 03/02/2022 at 15:23
== END ==
PROVIDERS: Family Provider Family Medicine; PCP Family Medicine; Referring Provider Family Medicine; Visit Provider Family Medicine
DX: S62.102A Fracture of unspecified carpal bone, left wrist, initial encounter for closed fracture (principal); W19.XXXA Unspecified fall, initial encounter
CPT/HCPCS: 73110

== ENCOUNTER → 2022-05-10 12:33 | Outpatient (CLI) | payer MEDICARE, OTHER, SELFPAY ==
[2022-05-03 09:36] VITALS: BMI 27.1
--- NOTE | 2022-05-10 12:35 | DI.RAD.S_ITS ---
PROCEDURE: XR LUMBAR SPINE MIN 4V INDICATIONS: low back pain TECHNIQUE: 5 views of the lumbar spine were acquired, including bilateral oblique views. COMPARISON: [facility], CR, XR LUMBAR SPINE MIN 4V, 07/09/2020, 11:49. [facility], CR, XR LUMBAR SPINE MIN 4V, 05/12/2018, 12:52. FINDINGS: Bones: 5 nonrib-bearing vertebrae are present. There is normal bony alignment. No vertebral body compression fractures. No suspicious bony lesions. Posterior surgical fusion at L5-S1 on the left, without hardware complication. Anterior approach cage device at L5-S1, without hardware complication. Mild disc height loss at remaining levels. Soft tissues: Overlying bowel gas pattern is normal. No suspicious soft tissue calcifications. Oblique images: No pars defects. IMPRESSION: Left posterior and anterior interbody fusion at L5-S1, without hardware complication Dictated by: Ramesh Rae M.D. on 05/10/2022 at 15:25 Approved by: Ramesh Rae M.D. on 05/10/2022 at 15:27
--- NOTE | 2022-05-10 12:35 | DI.RAD.S_ITS ---
PROCEDURE: XR CHEST 2V INDICATIONS: Pneumonia follow up TECHNIQUE: 2 views of the chest were acquired. COMPARISON: [facility], CR, XR CHEST 2V, 04/07/2021, 17:41. [facility], CR, XR CHEST 1V, 11/01/2020, 13:41. FINDINGS: Surgical changes and devices: None. Lungs and pleura: Lungs are clear. No pleural effusions or pneumothorax. Mediastinum: Mediastinal contours are normal. Heart size is normal. Bones and chest wall: No suspicious bony abnormalities. Soft tissues appear unremarkable. IMPRESSION: No acute cardiopulmonary process. Dictated by: Ramesh Rae M.D. on 05/10/2022 at 15:18 Approved by: Raemsh Rae M.D. on 05/10/2022 at 15:19
--- NOTE | 2022-05-10 12:35 | DI.RAD.S_ITS ---
PROCEDURE: XR HIP W PEL IF DONE LT 2V INDICATIONS: left hip pain TECHNIQUE: AP pelvis with lateral view(s) of the left hip(s). COMPARISON: [facility], JENNYFER, XR HIP W PEL IF DONE RT 2V, 05/12/2018, 12:52. FINDINGS: Bones: No fractures or dislocations. Pelvic ring appears intact. No suspicious bony lesions. Soft tissues: The visualized bowel gas pattern is normal. No suspicious soft tissue calcifications. IMPRESSION: No acute abnormality or significant degenerative change. Dictated by: Ramesh Rae M.D. on 05/10/2022 at 15:27 Approved by: Ramesh Rae M.D. on 05/10/2022 at 15:28
== END ==
PROVIDERS: Family Provider Family Medicine; PCP Family Medicine; Referring Provider Family Medicine; Visit Provider Family Medicine
DX: J18.9 Pneumonia, unspecified organism (principal); M54.9 Dorsalgia, unspecified; M25.552 Pain in left hip; G20 Parkinson's disease; I10 Essential (primary) hypertension; J40 Bronchitis, not specified as acute or chronic; R73.9 Hyperglycemia, unspecified; M54.32 Sciatica, left side; Z98.1 Arthrodesis status
CPT/HCPCS: 71046; 72110; 73502

== ENCOUNTER → 2022-05-18 13:45 | Outpatient (CLI) | payer MEDICARE, OTHER, SELFPAY ==
[2022-05-03 09:36] VITALS: BMI 27.1
--- NOTE | 2022-05-18 13:46 | DI.US.S_ITS ---
PROCEDURE: US EXTREMITY NONVASC LOWER LT INDICATIONS: Pain and lump in left hip TECHNIQUE: Real-time scanning was performed of the left hip juxta-articular soft tissues, with image documentation. COMPARISON: None. FINDINGS: There is a 1.3 x 0.6 x 1.9 centimeter fluid collection in the soft tissues adjacent to the left hip. IMPRESSION: Small 1.3 x 0.6 x 1.9 centimeter soft tissue fluid collection which could represent hematoma or abscess. Dictated by: Daniella Garcia MD, PhD on 05/18/2022 at 14:15 Approved by: Daniella Garcia MD, PhD on 05/18/2022 at 14:16
== END ==
PROVIDERS: Family Provider Family Medicine; PCP Family Medicine; Referring Provider Physician Assistant; Visit Provider Physician Assistant
DX: M25.552 Pain in left hip (principal)
CPT/HCPCS: 76882

== ENCOUNTER → 2022-05-26 12:34 | Outpatient (CLI) | payer MEDICARE, OTHER, SELFPAY ==
[2022-05-03 09:36] VITALS: BMI 27.1
--- NOTE | 2022-05-26 12:55 | DI.DEXA.S_ITS ---
Indication: postmenopausal; screening for osteoporosis; Referring Provider: EMPERATRIZ ELLIOTT Study: Bone densitometry was performed. Exam Date: May 26, 2022 Accession number: [id number] Bone Density: Region BMD T-score Z-score Classification AP Spine(L1-L4) 1.108 0.6 2.5 Normal Femoral Neck (Left) 0.766 -0.7 0.9 Normal Total Hip (Left) 0.901 -0.3 1.0 Normal Femoral Neck (Right) 0.752 -0.9 0.8 Normal Total Hip (Right) 0.937 0.0 1.3 Normal Total Hip Mean 0.919 -0.2 1.2 Normal World Health Organization criteria for BMD impression classify patients as: Normal (T-score at or above -1.0), Osteopenia (T-score between -1.0 and -2.5), or Osteoporosis (T-score at or below -2.5). 10-year Fracture Risk: FRAX not reported because: All T-scores for Spine Total, Hip Total, Femoral Neck at or above -1.0 Previous Exams: -- Region Exam Age BMD T-score BMD Change BMD Change Date g/cm2 vs Baseline vs Previous -- AP Spine (L1-L4) 05/26/2022 66 1.108 0.6 -0.069 (-5.9%)# -0.069 (-5.9%)# 02/21/2017 61 1.177 1.2 Total Hip(Left) 05/26/2022 66 0.901 -0.3 -0.057 (-5.9%)# -0.057 (-5.9%)# 02/21/2017 61 0.958 0.1 Total Hip(Right) 05/26/2022 66 0.937 0.0 -0.023 (-2.4%)# -0.023 (-2.4%)# 02/21/2017 61 0.960 0.1 -- *Denotes significance at 95% confidence level, LSC for AP Spine = 0.022 g/cm2, LSC for Total Hip = 0.027 g/cm2 # Denotes dissimilar scan types or analysis methods Impression: The patient has normal bone mass. No significant bone loss was observed. Discussion: BONE DENSITY IS ABOVE THE MINIMUM DESIRABLE LEVEL AT ALL SKELETAL SITES TESTED. This patient?s bone mineral density is above the minimum desirable level (T-score -1.0 or better) at all sites measured. The patient should follow a healthful lifestyle (good nutrition with adequate calcium and vitamin D, and appropriate weight-bearing exercise). Follow-Up: Consider repeating this study in 5 years or sooner if there is some new clinical indication. Reported by: DAMIEN MAYO M.D. on 05/26/2022 1:03:00 PM.
== END ==
PROVIDERS: Family Provider Family Medicine; PCP Family Medicine; Referring Provider Family Medicine; Visit Provider Family Medicine
DX: Z78.0 Asymptomatic menopausal state (principal); Z13.820 Encounter for screening for osteoporosis
CPT/HCPCS: 77080

== ENCOUNTER 2022-06-03 11:30 | Outpatient (RCR) | payer MEDICARE, OTHER, SELFPAY ==
[2022-03-29 12:48] VITALS: BMI 27.1
--- NOTE | 2022-04-06 14:40 | ST.OPIE ---
Visit Care Team Role Provider Type Alfredo Shaver MD Family Provider Physician Primary Care Provider Specialty: Family Practice Address: [address] [place] [address], [id number] Email: [email or web address] Austin Miller DO Attending Provider Non-Staff Referring Provider Specialty: Psychiatry Address: 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 Voice Resonance Evaluation Start: 04/06/22 10:46 Freq: Status: Active Protocol: Document 04/06/22 10:46 ZS (Rec: 04/06/22 11:29 ZS [id number]) Voice and Resonance Assessment Session Time Visit Start Time 10:35 Visit Stop Time 11:15 Total Visit Minutes 40 Visit Information Visit Number Initial Evaluation Plan of Care Dates 04/06/2022 - 06/04/2022 Insurance Information Medicare Next Note Type Next Note Type Treatment Note Referral Referring Physician Austin Miller Reason for Referral Parkinson's Disease referred for LOUD Setting Setting Outpatient Care Patient History Patient History Amaya is a 66-year old female who received a diagnosis of Parkinson's Disease in May 2019 and was referred to speech therapy due to reduced volume secondary to Parkinson' s. Pt noted most of her salient Parkinson's symptoms impact her lower body, resulting in impaired balance and halted movement in legs when trying to walk. Pt added she completed BIG program a long time ago. 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 Damage was confirmed by edge polisher in November 2021 and pt stated it is still healing, but was unclear what damage had occurred. Pt had pneumonia in early March 2022 and is still recovering from that, meaning her voice is more hoarse and she has more phlegm than usual. Pt stated her voice fades throught the day and reduced volume has made communicating with her and on the phone challenging. 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 Other hobbies include piano, gardening, sewing, and biking. Hearing Hearing Level Normal Vision Vision Status Not Impaired [place] Langauge Language(s) Spoken in the Home Nigerien Educational Status Education Level college Occupational Status Occupation Status Owns business Previous Therapy History of Previous Therapy Completed BIG program several months ago. Oral Motor Assessment Source: [place] [employer] ([employer]). Oral-Motor Eugenio Completed No Subjective Subjective Amaya arrived late and ambulated independently to therapy room. She agreed to participate in all session activities and expressed concern for missing some of the scheduled appointments due to conflicting doctor appointments and shows she needs to attend for work. - Laryngeal Performance S/Z Ratio S/Z Ratio 0.8 Functional for Speech Yes Voice Handicap Index Function Subtotal 20 Physical Subtotal 23 Emotional Subtotal 12 Total Score 55 Severity Moderate (31-60) Maximum Phonation Time MPT Norms: Women (15-25) Men (25-35) Loudness (50-60 dB); Speaking Rate: Oral Reading of Sentences (190 Words Per Minute); Oral Reading of Paragraphs (160-170 WPM); Speaking Rate in Conversation (150-250 WPM) Maximum Phonation Time 6.5 seconds at 73dB Maximum Phonation Time Reduced Maximum Phonation Time Comments Pt demonstrated raspy vocal quality and intermittent mild diplophonia, likely secondary to right VF damange as a result of May 2021 surgery. Significantly reduced MPT, though loudness was higher than normal range for this task. Pitch [place]ijer[place] Pitch [place]ijer[place] Pitch Breaks,Reduced Range Pitch [place]ijer[place] Comments Pt demonstrated avg. max. pitch of 389.5Hz (Range: 375- 408Hz) and avg. low pitch of 131.5Hz (Range: 83-216Hz). Pitch was unstable and quality was raspy and strained. Again noted intermittent mild diplophonia, likely secondary to right VF damange as a result of May 2021 surgery. Postural Alignment Stance Balanced Neck Free and Loose Shoulders Symmetrical Voice Pitch Range Norms: Women (100-300 Hz) Men (70-250 Hz) Fundamental Frequency Norms: Women (Mean: 225 Hz; Range: 155-334 Hz) Men ( Mean: 128 Hz; Range: 85-196 Hz) Voice Pitch Normal Voice Loudness Mildly Soft/Quiet Voice Phonatory-based Quality Hoarse,Pitch Breaks, Diplophonia Intensity 70 Resonance Nasal Resonance Normal Oral Resonance Normal Other Observations Progressively Weak Voice, Throat Clearing Findings Findings Mild-Moderate Impairment Observations The pt presents with reduced loudness and hoarse vocal quality secondary to Parkinson 's Disease. Additionally, pt had pneumonia in early March and reported she is still recovering and experiencing reduced vocal quality and increased phlegm as result of illness. Recommend speech therapy, specifically LOUD program, to increase vocal loudness for improved communication of wants and needs, especially in emergency situations. - Recommendations Treatment Recommended Yes Treatment Frequency/Duration LOUD program: 60 minute sessions 4x per week for 4 weeks. Short Term Goals 1. Pt will demonstrate increase in MPT to 15-25 seconds from current avg. of 6 .5 seconds. 2. Pt will demonstrate improved vocal quality as measured by clinician perception and pt report. 3. Pt will demonstrate decreased impact of voice on ADLs, as measured by VHI and pt report. 4. Pt will demonstrate improved loudness of 5-7dB with decreased effort reported by pt. Care Home Goals Pt will demonstrate vocal quality, loudness, and MPT WNL . Patient/Caregiver Education Patient/Family Education Described results of evaluation,Patient Understanding,Patient Demonstration,Patient Needs More Info
--- NOTE | 2022-04-06 14:41 | ST.OPPOC ---
Physical, Occupational & Speech Therapy At [facility] Visit Care Team Role Provider Type Alfredo Shaver MD Family Provider Physician Primary Care Provider Address: [address] [place] [address], [id number] Autsin Miller DO Attending Provider Non-Staff Referring Provider Address: [facility] [place], [address] Speech Pathology Plan of Care Plan of Care Dates 04/06/2022 - 06/04/2022 Referring Provider Austin Miller Patient History Amaya is a 66-year old female who received a diagnosis of Parkinson's Disease in May 2019 and was referred to speech therapy due to reduced volume secondary to Parkinson's. Pt noted most of her salient Parkinson's symptoms impact her lower body, resulting in impaired balance and halted movement in legs when trying to walk. Pt added she completed BIG program a long time ago. 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 Damage was confirmed by windows and doors installer in November 2021 and pt stated it is still healing, but was unclear what damage had occurred. Pt had pneumonia in early March 2022 and is still recovering from that, meaning her voice is more hoarse and she has more phlegm than usual. Pt stated her voice fades throughout the day and reduced volume has made communicating with her and on the phone challenging. 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 Other hobbies include piano, gardening, sewing, and biking. Voice/Resonance Findings Mild-Moderate Impairment Voice/Resonance Yes Recommendations Voice/Resonance Treatment LOUD program: 60 minute sessions 4x per week for Frequency 4 weeks. Short Term Goals 1. Pt will demonstrate increase in MPT to 15-25 seconds from current avg. of 6.5 seconds. 2. Pt will demonstrate improved vocal quality as measured by clinician perception and pt report. 3. Pt will demonstrate decreased impact of voice on ADLs, as measured by VHI and pt report. 4. Pt will demonstrate improved loudness of 5- 7dB with decreased effort reported by pt. Patient Financial Advocate Goals Pt will demonstrate vocal quality, loudness, and MPT WNL. Comment: Electronically Signed by: CHAYO Rivera 04/06/22 [id number] If you are in agreement with this Plan of Care, please return a signed and dated copy. I have reviewed this Plan of Care and certify that the skilled therapy services above are required to meet the patient?s needs. Physician Signature Date Printed Name and Credentials Clinical Instructor Signature Printed Name and Credentials
--- NOTE | 2022-04-13 13:08 | ST.OPTN ---
Visit Care Team Role Provider Type Alfredo Shaver MD Family Provider Physician Primary Care Provider Address: [address] [place] [address], [phone] Austin Miller DO Attending Provider Non-Staff Referring Provider Address: [address] [place], [address] TEACHER OF THE SIGHT IMPAIRED Treatment Note TEACHER OF THE SIGHT IMPAIRED Treatment Note Start: 04/13/22 12:57 Freq: Status: Active Protocol: Document 04/13/22 12:57 ZS (Rec: 04/13/22 13:08 ZS [id number]) Speech Pathology Treatment Note Session Time Visit Start Time 11:40 Visit Stop Time 12:30 Total Visit Minutes 50 Visit Information Visit Number 1 Plan of Care Dates 04/06/2022 - 06/04/2022 Insurance Information Medicare Setting Treatment Setting Outpatient Care Visit Type Note Type Treatment Note Next Note Type Next Note Type Treatment Note General Information Patient History Amaya is a 66-year old female who received a diagnosis of Parkinson's Disease in May 2019 and was referred to speech therapy due to reduced volume secondary to Parkinson' s. Pt noted most of her salient Parkinson's symptoms impact her lower body, resulting in impaired balance and halted movement in legs when trying to walk. Pt added she completed BIG program a long time ago. 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 Damage was confirmed by cut off sawyer in November 2021 and pt stated it is still healing, but was unclear what damage had occurred. Pt had pneumonia in early March 2022 and is still recovering from that, meaning her voice is more hoarse and she has more phlegm than usual. Pt stated her voice fades throughout the day and reduced volume has made communicating with her and on the phone challenging. 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 Other hobbies include piano, gardening, sewing, and biking. The pt presents with reduced loudness and hoarse vocal quality secondary to Parkinson 's Disease. Additionally, pt had pneumonia in early March and reported she is still recovering and experiencing reduced vocal quality and increased phlegm as result of illness. Recommend speech therapy, specifically LOUD program, to increase vocal loudness for improved communication of wants and needs, especially in emergency situations. Subjective Identification Type Name Identification Reconciled With Medical Record Observations/Patient Presentation Amaya arrived late and ambulated to therapy room independently. She reported her voice is higher quality than usual today. Pt noticed her vocal quality improves when she is on vacation in [place] or [place]. She added she is sometimes visiting family on these trips . Chief Complaint(s) Voice Objective Short Term Goals 1. Pt will demonstrate increase in MPT to 15-25 seconds from current avg. of 6 .5 seconds. 2. Pt will demonstrate improved vocal quality as measured by clinician perception and pt report. 3. Pt will demonstrate decreased impact of voice on ADLs, as measured by VHI and pt report. 4. Pt will demonstrate improved loudness of 5-7dB with decreased effort reported by pt. Studio Operations Engineer In Charge Goals Pt will demonstrate vocal quality, loudness, and MPT WNL . Treatment Activities Completed LOUD exercises: sustained ah, high and low pitch, functional phrases, and words/phrases. Discussed carryover exercise, pt to greet her hairdresser and notify of scar on the back of her head. Assessment Patient Response to Treatment Excellent Rehab Potential Good Progress Towards Goals Good Progress Assessment of Overall Progress Improving Assessment of Improvement Pt completed MPT exercise with avg. loudness of 72.8dB ( range: 72-74dB) for an avg. of 4.7 seconds (range: 3.5-6.2 seconds). Average maximum pitch was 464.5Hz (range: 450- 488Hz) at an avg. volume of 74dB (range: 72-75dB). Average minimum pitch was 241.5Hz ( range: 145-276Hz) at an average volume of 75.3dB ( range: 73-78dB). She read functional phrases with average loudness of 73.8dB range: 71-75dB) and read words /phrases with average loudness of 75.4dB (range: 74-76dB). Pt benefitted from verbal cues to take breaks. Discussed and practiced yawn-sigh and straw phonation exercises to improve vocal quality. Pt expressed understanding of HEP and vocal relaxation exercises. Reviewed with Patient Goals,Progress Being Made,Home Exercise Program Patient/Caregiver Understanding Good Plan Amount of Therapy Recommended 1 Month Frequency of Treatment Four Times a Week Length of Session 60 Minutes Therapeutic Contents Home Exercise Program,Voice Training Provided Patient/Caregiver Instruction Home Exercise Program,Plan of Care,Questions/Concerns Therapy Recommendations Continue with Current Program
--- NOTE | 2022-04-14 12:24 | ST.OPTN ---
Visit Care Team Role Provider Type Alfredo Shaver MD Family Provider Physician Primary Care Provider Address: [address] [place] [address], [id number] Austin Miller DO Attending Provider Non-Staff Referring Provider Address: [address] [place], [address] ELECTRONIC GLUING MACHINE OPERATOR Treatment Note ELECTRONIC GLUING MACHINE OPERATOR Treatment Note Start: 04/13/22 12:57 Freq: Status: Active Protocol: Document 04/14/22 12:17 ZS (Rec: 04/14/22 12:23 ZS [id number]) Speech Pathology Treatment Note Session Time Visit Start Time 11:40 Visit Stop Time 12:16 Total Visit Minutes 36 Visit Information Visit Number 2 Plan of Care Dates 04/06/2022 - 06/04/2022 Insurance Information Medicare Setting Treatment Setting Outpatient Care Visit Type Note Type Treatment Note Next Note Type Next Note Type Treatment Note General Information Patient History Amaya is a 66-year old female who received a diagnosis of Parkinson's Disease in May 2019 and was referred to speech therapy due to reduced volume secondary to Parkinson' s. Pt noted most of her salient Parkinson's symptoms impact her lower body, resulting in impaired balance and halted movement in legs when trying to walk. Pt added she completed BIG program a long time ago. 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 Damage was confirmed by campus aide in November 2021 and pt stated it is still healing, but was unclear what damage had occurred. Pt had pneumonia in early March 2022 and is still recovering from that, meaning her voice is more hoarse and she has more phlegm than usual. Pt stated her voice fades throughout the day and reduced volume has made communicating with her and on the phone challenging. 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 Other hobbies include piano, gardening, sewing, and biking. The pt presents with reduced loudness and hoarse vocal quality secondary to Parkinson 's Disease. Additionally, pt had pneumonia in early March and reported she is still recovering and experiencing reduced vocal quality and increased phlegm as result of illness. Recommend speech therapy, specifically LOUD program, to increase vocal loudness for improved communication of wants and needs, especially in emergency situations. Subjective Identification Type Name Identification Reconciled With Medical Record Observations/Patient Presentation Amaya arrived late and ambulated to therapy room independently. She reported only completing part of the HEP, stating she forgot the ah exercises. Chief Complaint(s) Voice Objective Short Term Goals 1. Pt will demonstrate increase in MPT to 15-25 seconds from current avg. of 6 .5 seconds. 2. Pt will demonstrate improved vocal quality as measured by clinician perception and pt report. 3. Pt will demonstrate decreased impact of voice on ADLs, as measured by VHI and pt report. 4. Pt will demonstrate improved loudness of 5-7dB with decreased effort reported by pt. Wooden Frame Builder Goals Pt will demonstrate vocal quality, loudness, and MPT WNL . Treatment Activities Completed LOUD exercises: sustained ah, high and low pitch, functional phrases, and words/phrases. Discussed carryover exercise, check in for dermatology appointment. Assessment Patient Response to Treatment Excellent Rehab Potential Good Progress Towards Goals Good Progress Assessment of Overall Progress Improving Assessment of Improvement Pt completed MPT exercise with avg. loudness of 75.4dB ( range: 74-76dB) for an avg. of 8.7 seconds (range: 5.2-10.9 seconds). Average maximum pitch was 425.2Hz (range: 401- 447Hz) at an avg. volume of 75 .4dB (range: 74-77dB). Average minimum pitch was 216.8Hz ( range: 199-243Hz) at an average volume of 74dB (range: 73-76dB). She read functional phrases with average loudness of 74.5dB range: 73-76dB) and read words/phrases with average loudness of 75.5dB ( range: 75-76dB). Pt benefitted from feedback regarding breath support and animation. She presents with flat affect and mild-moderate monotone voice. Modeled and practiced more animated speech. Discussed yawn-sigh and straw phonation exercises, which pt said she had not completed as her vocal quality remained high without them. Reviewed HEP and discussed purpose of ah exercises. Provided handouts with HEP and paperclipped together with ah exercises on top. Pt expressed understanding of HEP and vocal relaxation exercises. Reviewed with Patient Goals,Progress Being Made,Home Exercise Program Patient/Caregiver Understanding Good Plan Amount of Therapy Recommended 1 Month Frequency of Treatment Four Times a Week Length of Session 60 Minutes Therapeutic Contents Home Exercise Program,Voice Training Provided Patient/Caregiver Instruction Home Exercise Program,Plan of Care,Questions/Concerns Therapy Recommendations Continue with Current Program
--- NOTE | 2022-04-15 13:54 | ST.OPTN ---
Visit Care Team Role Provider Type Alfredo Shaver MD Family Provider Physician Primary Care Provider Address: [address] [place] [address], [phone] Austin Miller DO Attending Provider Non-Staff Referring Provider Address: [address] [place], [address] WIRELESS TECHNICIAN Treatment Note WIRELESS TECHNICIAN Clinical Instructor Line Start: 04/15/22 13:44 Freq: Status: Active Protocol: Document 04/15/22 13:44 (Rec: 04/15/22 13:54 [id number]) Clinical Instructor Signature Clinical Instructor Clinical Instructor Yes WIRELESS TECHNICIAN Treatment Note Start: 04/13/22 12:57 Freq: Status: Active Protocol: Document 04/15/22 13:44 (Rec: 04/15/22 13:54 [id number]) Speech Pathology Treatment Note Session Time Visit Start Time 11:40 Visit Stop Time 12:20 Total Visit Minutes 40 Visit Information Visit Number 2 Plan of Care Dates 04/06/2022 - 06/04/2022 Insurance Information Medicare Setting Treatment Setting Outpatient Care Visit Type Note Type Treatment Note Next Note Type Next Note Type Treatment Note General Information Patient History Amaya is a 66-year old female who received a diagnosis of Parkinson's Disease in May 2019 and was referred to speech therapy due to reduced volume secondary to Parkinson' s. Pt noted most of her salient Parkinson's symptoms impact her lower body, resulting in impaired balance and halted movement in legs when trying to walk. Pt added she completed BIG program a long time ago. Amaya reported having surgery in May 2021, during which her right vocal fold was damanged. Damage was confirmed by sql developer dba in November 2021 and pt stated it is still healing, but was unclear what damage had occurred. Pt had pneumonia in early March 2022 and is still recovering from that, meaning her voice is more hoarse and she has more phlegm than usual. Pt stated her voice fades throughout the day and reduced volume has made communicating with her and on the phone challenging. 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 Other hobbies include piano, gardening, sewing, and biking. The pt presents with reduced loudness and hoarse vocal quality secondary to Parkinson 's Disease. Additionally, pt had pneumonia in early March and reported she is still recovering and experiencing reduced vocal quality and increased phlegm as result of illness. Recommend speech therapy, specifically LOUD program, to increase vocal loudness for improved communication of wants and needs, especially in emergency situations. Subjective Identification Type Name Identification Reconciled With Medical Record Observations/Patient Presentation Amaya arrived late and ambulated to therapy room independently. She reported completing HEP and the yawn- sigh vocal warm-up but not the straw-phonation. She reported that her voice at time of today's therapy was worse compared to earlier in the day and said that her voice felt tired. She reported to clinicians that in this short time [she] can talk so much better. Chief Complaint(s) Voice Objective Short Term Goals 1. Pt will demonstrate increase in MPT to 15-25 seconds from current avg. of 6 .5 seconds. 2. Pt will demonstrate improved vocal quality as measured by clinician perception and pt report. 3. Pt will demonstrate decreased impact of voice on ADLs, as measured by VHI and pt report. 4. Pt will demonstrate improved loudness of 5-7dB with decreased effort reported by pt. Entry Specialist Goals Pt will demonstrate vocal quality, loudness, and MPT WNL . Treatment Activities Completed LOUD exercises: sustained ah, high and low pitch, functional phrases, and words/phrases. Discussed carryover exercise: hosting dinner democrat, picking up family member from airport Assessment Patient Response to Treatment Excellent Rehab Potential Good Progress Towards Goals Good Progress Assessment of Overall Progress Improving Assessment of Improvement Pt completed MPT exercise with avg. loudness of 70.6dB ( range: 69-72dB) for an avg. of 4.54 seconds (range: 2.7-5.1 seconds). Average maximum pitch was 392.9Hz (range: 368- 410Hz) at an avg. volume of 72 .1dB (range: 71-74dB). Average minimum pitch was 203Hz ( range: 171-228Hz) at an average volume of 68dB (range: 62-72dB). She read functional phrases with average loudness of 70.6dB range: 69-72dB) and read words/phrases with average loudness of 73.5dB ( range: 72-74dB). Overall, pt did not demonstrate improvement compared to last treatment session. Pt-reported tiredness may have contributed towards her performance during today's treatment session. Pt benefitted from feedback regarding breath support and animation. She presents with flat affect and mild-moderate monotone voice. Modeled and practiced more animated speech. Discussed yawn-sigh and straw phonation exercises. Reviewed HEP. Provided handouts with HEP and paperclipped together. Pt expressed understanding of HEP and vocal relaxation exercises. Reviewed with Patient Goals,Progress Being Made,Home Exercise Program Patient/Caregiver Understanding Good Plan Amount of Therapy Recommended 1 Month Frequency of Treatment Four Times a Week Length of Session 60 Minutes Therapeutic Contents Home Exercise Program,Voice Training Provided Patient/Caregiver Instruction Home Exercise Program,Plan of Care,Questions/Concerns Therapy Recommendations Continue with Current Program
--- NOTE | 2022-04-19 12:29 | ST.OPTN ---
Visit Care Team Role Provider Type Alfredo Shaver MD Family Provider Physician Primary Care Provider Address: [address] [place] [address], [id number] Austin Miller DO Attending Provider Non-Staff Referring Provider Address: [address] [place], [address] OUTSIDE SALESMAN Treatment Note OUTSIDE SALESMAN Clinical Instructor Line Start: 04/15/22 13:44 Freq: Status: Active Protocol: Document 04/15/22 13:44 (Rec: 04/15/22 13:54 [id number]) Clinical Instructor Signature Clinical Instructor Clinical Instructor Yes OUTSIDE SALESMAN Treatment Note Start: 04/13/22 12:57 Freq: Status: Active Protocol: Document 04/19/22 11:37 ZS (Rec: 04/19/22 11:38 ZS [id number]) Speech Pathology Treatment Note Session Time Visit Start Time 11:40 Visit Stop Time 12:22 Total Visit Minutes 42 Visit Information Visit Number 4 Plan of Care Dates 04/06/2022 - 06/04/2022 Insurance Information Medicare Setting Treatment Setting Outpatient Care Visit Type Note Type Treatment Note Next Note Type Next Note Type Treatment Note General Information Patient History Amaya is a 66-year old female who received a diagnosis of Parkinson's Disease in May 2019 and was referred to speech therapy due to reduced volume secondary to Parkinson' s. Pt noted most of her salient Parkinson's symptoms impact her lower body, resulting in impaired balance and halted movement in legs when trying to walk. Pt added she completed BIG program a long time ago. 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 Damage was confirmed by scientific publications editor in November 2021 and pt stated it is still healing, but was unclear what damage had occurred. Pt had pneumonia in early March 2022 and is still recovering from that, meaning her voice is more hoarse and she has more phlegm than usual. Pt stated her voice fades throughout the day and reduced volume has made communicating with her and on the phone challenging. 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 Other hobbies include piano, gardening, sewing, and biking. The pt presents with reduced loudness and hoarse vocal quality secondary to Parkinson 's Disease. Additionally, pt had pneumonia in early March and reported she is still recovering and experiencing reduced vocal quality and increased phlegm as result of illness. Recommend speech therapy, specifically LOUD program, to increase vocal loudness for improved communication of wants and needs, especially in emergency situations. Subjective Identification Type Name Identification Reconciled With Medical Record Observations/Patient Presentation Amaya arrived late and ambulated to therapy room independently. She reported completing HEP and the vocal relaxation exercises. She reported difficulty communicating with her family over the weekend due to increased hoarseness. Chief Complaint(s) Voice Objective Short Term Goals 1. Pt will demonstrate increase in MPT to 15-25 seconds from current avg. of 6 .5 seconds. 2. Pt will demonstrate improved vocal quality as measured by clinician perception and pt report. 3. Pt will demonstrate decreased impact of voice on ADLs, as measured by VHI and pt report. 4. Pt will demonstrate improved loudness of 5-7dB with decreased effort reported by pt. Lawn Service Manager Goals Pt will demonstrate vocal quality, loudness, and MPT WNL . Treatment Activities Completed LOUD exercises: sustained ah, high and low pitch, functional phrases, and words/phrases. Discussed carryover exercise: hosting dinner constitution party, picking up family member from airport Assessment Patient Response to Treatment Excellent Rehab Potential Good Progress Towards Goals Good Progress Assessment of Overall Progress Improving Assessment of Improvement Pt completed MPT exercise with avg. loudness of 75.5dB ( range: 69-78dB) for an avg. of 5.91 seconds (range: 3.1-8.0 seconds). Average maximum pitch was 464.3Hz (range: 425- 502Hz) at an avg. volume of 75 .8dB (range: 73-78dB). Average minimum pitch was 236.6Hz ( range: 231-244Hz) at an average volume of 74.8dB ( range: 74-76dB). She read functional phrases with average loudness of 73.0dB range: 72-74dB) and read words /phrases with average loudness of 74.2dB (range: 73-76dB). Pt benefitted from feedback regarding breath support and animation. She presents with flat affect and mild-moderate monotone voice. Modeled and practiced more animated speech . Discussed yawn-sigh and straw phonation exercises and recommended pt include these in daily HEP between functional phrases, words/ phrases, and between exercises . Provided handouts with HEP and paperclipped together. Pt expressed understanding of HEP and vocal relaxation exercises. Focused on vocal quality today with increased vocal relaxation exercises and education regarding vocal use and quality. Pt expressed understanding and demonstrated increased vocal quality and animation with feedback focused in these areas during today's session. Reviewed with Patient Goals,Progress Being Made,Home Exercise Program Patient/Caregiver Understanding Good Plan Amount of Therapy Recommended 1 Month Frequency of Treatment Four Times a Week Length of Session 60 Minutes Therapeutic Contents Home Exercise Program,Voice Training Provided Patient/Caregiver Instruction Home Exercise Program,Plan of Care,Questions/Concerns Therapy Recommendations Continue with Current Program
--- NOTE | 2022-04-20 14:06 | ST.OPTN ---
Visit Care Team Role Provider Type Alfredo Shaver MD Family Provider Physician Primary Care Provider Address: [address] [place] [address], [id number] Austin Miller DO Attending Provider Non-Staff Referring Provider Address: [address] [place], [address] DANDY OPERATOR Treatment Note DANDY OPERATOR Clinical Instructor Line Start: 04/15/22 13:44 Freq: Status: Active Protocol: Document 04/15/22 13:44 (Rec: 04/15/22 13:54 [id number]) Clinical Instructor Signature Clinical Instructor Clinical Instructor Yes DANDY OPERATOR Treatment Note Start: 04/13/22 12:57 Freq: Status: Active Protocol: Document 04/20/22 14:02 ZS (Rec: 04/20/22 14:06 ZS [id number]) Speech Pathology Treatment Note Session Time Visit Start Time 11:40 Visit Stop Time 12:22 Total Visit Minutes 42 Visit Information Visit Number 5 Plan of Care Dates 04/06/2022 - 06/04/2022 Insurance Information Medicare Setting Treatment Setting Outpatient Care Visit Type Note Type Treatment Note Next Note Type Next Note Type Treatment Note General Information Patient History Amaya is a 66-year old female who received a diagnosis of Parkinson's Disease in May 2019 and was referred to speech therapy due to reduced volume secondary to Parkinson' s. Pt noted most of her salient Parkinson's symptoms impact her lower body, resulting in impaired balance and halted movement in legs when trying to walk. Pt added she completed BIG program a long time ago. 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 Damage was confirmed by vamp creaser in November 2021 and pt stated it is still healing, but was unclear what damage had occurred. Pt had pneumonia in early March 2022 and is still recovering from that, meaning her voice is more hoarse and she has more phlegm than usual. Pt stated her voice fades throughout the day and reduced volume has made communicating with her and on the phone challenging. 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 Other hobbies include piano, gardening, sewing, and biking. The pt presents with reduced loudness and hoarse vocal quality secondary to Parkinson 's Disease. Additionally, pt had pneumonia in early March and reported she is still recovering and experiencing reduced vocal quality and increased phlegm as result of illness. Recommend speech therapy, specifically LOUD program, to increase vocal loudness for improved communication of wants and needs, especially in emergency situations. Subjective Identification Type Name Identification Reconciled With Medical Record Observations/Patient Presentation Amaya arrived late and ambulated to therapy room independently. She reported completing HEP and the vocal relaxation exercises. She reported continued hoarseness at home. Chief Complaint(s) Voice Objective Short Term Goals 1. Pt will demonstrate increase in MPT to 15-25 seconds from current avg. of 6 .5 seconds. 2. Pt will demonstrate improved vocal quality as measured by clinician perception and pt report. 3. Pt will demonstrate decreased impact of voice on ADLs, as measured by VHI and pt report. 4. Pt will demonstrate improved loudness of 5-7dB with decreased effort reported by pt. Assisted Goals Pt will demonstrate vocal quality, loudness, and MPT WNL . Treatment Activities Completed LOUD exercises: sustained ah, high and low pitch, functional phrases, and sentences. Discussed carryover exercise: saying Happy Sivan's Day to her partner. Assessment Patient Response to Treatment Excellent Rehab Potential Good Progress Towards Goals Good Progress Assessment of Overall Progress Improving Assessment of Improvement Pt completed MPT exercise with avg. loudness of 74.2dB ( range: 71-77dB) for an avg. of 4.0 seconds (range: 2.9-7.3 seconds). Average maximum pitch was 416.6Hz (range: 405- 430Hz) at an avg. volume of 73 .2dB (range: 72-74dB). Average minimum pitch was 242.8Hz ( range: 227-273Hz) at an average volume of 74.0dB ( range: 72-75dB). She read functional phrases with average loudness of 73.0dB range: 72-74dB) and read sentences with average loudness of 72.0dB (range: 72- 72dB). Pt benefitted from feedback regarding breath support and animation. She presents with flat affect and mild-moderate monotone voice. Modeled and practiced more animated speech. Discussed yawn-sigh and straw phonation exercises and recommended pt include these in daily HEP between functional phrases, words/phrases, and between exercises. Provided handouts with HEP and paperclipped together. Pt expressed understanding of HEP and vocal relaxation exercises. Focused on vocal quality today with increased vocal relaxation exercises and education regarding vocal use and quality. Pt expressed understanding and demonstrated slightly increased vocal quality with feedback focused in this area during today's session. Reviewed with Patient Goals,Progress Being Made,Home Exercise Program Patient/Caregiver Understanding Good Plan Amount of Therapy Recommended 1 Month Frequency of Treatment Four Times a Week Length of Session 60 Minutes Therapeutic Contents Home Exercise Program,Voice Training Provided Patient/Caregiver Instruction Home Exercise Program,Plan of Care,Questions/Concerns Therapy Recommendations Continue with Current Program
--- NOTE | 2022-04-21 12:29 | ST.OPTN ---
Visit Care Team Role Provider Type Alfredo Shaver MD Family Provider Physician Primary Care Provider Address: [address] [place] [address], [phone] Austin Miller DO Attending Provider Non-Staff Referring Provider Address: [address] [place], [address] MOTOR TUNE UP SPECIALIST Treatment Note MOTOR TUNE UP SPECIALIST Clinical Instructor Line Start: 04/15/22 13:44 Freq: Status: Active Protocol: Document 04/15/22 13:44 (Rec: 04/15/22 13:54 [id number]) Clinical Instructor Signature Clinical Instructor Clinical Instructor Yes MOTOR TUNE UP SPECIALIST Treatment Note Start: 04/13/22 12:57 Freq: Status: Active Protocol: Document 04/21/22 12:22 ZS (Rec: 04/21/22 12:29 ZS [id number]) Speech Pathology Treatment Note Session Time Visit Start Time 11:40 Visit Stop Time 12:20 Total Visit Minutes 40 Visit Information Visit Number 6 Plan of Care Dates 04/06/2022 - 06/04/2022 Insurance Information Medicare Setting Treatment Setting Outpatient Care Visit Type Note Type Treatment Note Next Note Type Next Note Type Treatment Note General Information Patient History Amaya is a 66-year old female who received a diagnosis of Parkinson's Disease in May 2019 and was referred to speech therapy due to reduced volume secondary to Parkinson' s. Pt noted most of her salient Parkinson's symptoms impact her lower body, resulting in impaired balance and halted movement in legs when trying to walk. Pt added she completed BIG program a long time ago. 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 Damage was confirmed by elder assistant in November 2021 and pt stated it is still healing, but was unclear what damage had occurred. Pt had pneumonia in early March 2022 and is still recovering from that, meaning her voice is more hoarse and she has more phlegm than usual. Pt stated her voice fades throughout the day and reduced volume has made communicating with her and on the phone challenging. 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 Other hobbies include piano, gardening, sewing, and biking. The pt presents with reduced loudness and hoarse vocal quality secondary to Parkinson 's Disease. Additionally, pt had pneumonia in early March and reported she is still recovering and experiencing reduced vocal quality and increased phlegm as result of illness. Recommend speech therapy, specifically LOUD program, to increase vocal loudness for improved communication of wants and needs, especially in emergency situations. Subjective Identification Type Name Identification Reconciled With Medical Record Observations/Patient Presentation Amaya arrived late and ambulated to therapy room independently. She reported leaving her HEP here yesterday and followed HEP previously provided, but did not have the sentences for this week's HEP . She added her voice was clearer this morning. Chief Complaint(s) Voice Objective Short Term Goals 1. Pt will demonstrate increase in MPT to 15-25 seconds from current avg. of 6 .5 seconds. 2. Pt will demonstrate improved vocal quality as measured by clinician perception and pt report. 3. Pt will demonstrate decreased impact of voice on ADLs, as measured by VHI and pt report. 4. Pt will demonstrate improved loudness of 5-7dB with decreased effort reported by pt. Longterm Goals Pt will demonstrate vocal quality, loudness, and MPT WNL . Treatment Activities Completed LOUD exercises: sustained ah, high and low pitch, functional phrases, and sentences. Discussed carryover exercise: saying Happy Sivan's Day to her partner. Assessment Patient Response to Treatment Excellent Rehab Potential Good Progress Towards Goals Delayed Progress Assessment of Overall Progress Declining Assessment of Improvement Pt completed MPT exercise with avg. loudness of 72.4dB ( range: 71-74dB) for an avg. of 2.7 seconds (range: 2.1-4.0 seconds). Average maximum pitch was 372Hz (range: 369- 377Hz) at an avg. volume of 72 .6dB (range: 69-74dB). Average minimum pitch was 222.6Hz ( range: 193-246Hz) at an average volume of 75.0dB ( range: 73-76dB). She read functional phrases with average loudness of 73.0dB range: 72-74dB) and read sentences with average loudness of 72.2dB (range: 71- 73dB). Pt benefitted from feedback regarding breath support and animation. She presents with flat affect and mild-moderate monotone voice. Modeled and practiced more animated speech. Focused on breath support, forward resonance, and releasing tension to improve vocal quality. Pt continues to demonstrate hoarseness and breathiness during exercises that impairs performance. Therapy has focused on improving vocal quality lately to improve performance, though shift in focus has resulted in reduced loudness and pitch range since previous session. Provided handouts with HEP and paperclipped together. Pt expressed understanding of HEP and vocal relaxation exercises. Recommend ENT appointment to follow up regarding vocal fold damage, as Amaya reported previous ENT expected damage to resolve after 1 year. Reviewed with Patient Goals,Progress Being Made,Home Exercise Program Patient/Caregiver Understanding Good Plan Amount of Therapy Recommended 1 Month Frequency of Treatment Four Times a Week Length of Session 60 Minutes Therapeutic Contents Home Exercise Program,Voice Training Provided Patient/Caregiver Instruction Home Exercise Program,Plan of Care,Questions/Concerns Therapy Recommendations Continue with Current Program Suggested Referral ENT
--- NOTE | 2022-04-23 13:38 | ST.OPTN ---
Visit Care Team Role Provider Type Alfredo Shaver MD Family Provider Physician Primary Care Provider Address: [address] [place] [address], [id number] Austin Miller DO Attending Provider Non-Staff Referring Provider Address: [address] [place], [address] MAXILLOFACIAL SURGEON Treatment Note MAXILLOFACIAL SURGEON Clinical Instructor Line Start: 04/15/22 13:44 Freq: Status: Active Protocol: Document 04/15/22 13:44 (Rec: 04/15/22 13:54 [id number]) Clinical Instructor Signature Clinical Instructor Clinical Instructor Yes MAXILLOFACIAL SURGEON Treatment Note Start: 04/13/22 12:57 Freq: Status: Active Protocol: Document 04/23/22 13:33 ZS (Rec: 04/23/22 13:38 ZS [id number]) Speech Pathology Treatment Note Session Time Visit Start Time 11:33 Visit Stop Time 12:23 Total Visit Minutes 50 Visit Information Visit Number 7 Plan of Care Dates 04/06/2022 - 06/04/2022 Insurance Information Medicare Setting Treatment Setting Outpatient Care Visit Type Note Type Treatment Note Next Note Type Next Note Type Treatment Note General Information Patient History Amaya is a 66-year old female who received a diagnosis of Parkinson's Disease in May 2019 and was referred to speech therapy due to reduced volume secondary to Parkinson' s. Pt noted most of her salient Parkinson's symptoms impact her lower body, resulting in impaired balance and halted movement in legs when trying to walk. Pt added she completed BIG program a long time ago. 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 Damage was confirmed by software sales manager in November 2021 and pt stated it is still healing, but was unclear what damage had occurred. Pt had pneumonia in early March 2022 and is still recovering from that, meaning her voice is more hoarse and she has more phlegm than usual. Pt stated her voice fades throughout the day and reduced volume has made communicating with her and on the phone challenging. 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 Other hobbies include piano, gardening, sewing, and biking. The pt presents with reduced loudness and hoarse vocal quality secondary to Parkinson 's Disease. Additionally, pt had pneumonia in early March and reported she is still recovering and experiencing reduced vocal quality and increased phlegm as result of illness. Recommend speech therapy, specifically LOUD program, to increase vocal loudness for improved communication of wants and needs, especially in emergency situations. Subjective Identification Type Name Identification Reconciled With Medical Record Observations/Patient Presentation Amaya arrived late and ambulated to therapy room independently. She reported her voice was clearer this morning. Chief Complaint(s) Voice Objective Short Term Goals 1. Pt will demonstrate increase in MPT to 15-25 seconds from current avg. of 6 .5 seconds. 2. Pt will demonstrate improved vocal quality as measured by clinician perception and pt report. 3. Pt will demonstrate decreased impact of voice on ADLs, as measured by VHI and pt report. 4. Pt will demonstrate improved loudness of 5-7dB with decreased effort reported by pt. Dumpster Operator Goals Pt will demonstrate vocal quality, loudness, and MPT WNL . Treatment Activities Completed LOUD exercises: sustained ah, high and low pitch, functional phrases, and sentences. Discussed carryover exercise: saying Happy Sivan's Day to her partner. Assessment Patient Response to Treatment Excellent Rehab Potential Good Progress Towards Goals Delayed Progress Assessment of Overall Progress Declining Assessment of Improvement Pt completed MPT exercise with avg. loudness of 72.5dB ( range: 71-74dB) for an avg. of 3.17 seconds (range: 2.3-5.0 seconds). Average maximum pitch was 407.5Hz (range: 352- 430Hz) at an avg. volume of 72 .6dB (range: 66-75dB). Average minimum pitch was 162.8Hz ( range: 111-223Hz) at an average volume of 70.9dB ( range: 68-72dB). She read functional phrases with average loudness of 73.2dB range: 73-74dB) and read sentences with average loudness of 71.8dB (range: 71- 73dB). Pt benefitted from feedback regarding breath support and animation. She presents with flat affect and mild-moderate monotone voice. Modeled and practiced more animated speech. Focused on breath support, forward resonance, and releasing tension to improve vocal quality. Pt continues to demonstrate hoarseness and breathiness during exercises that impairs performance. Therapy has focused on improving vocal quality lately to improve performance, though shift in focus has resulted in reduced loudness and pitch range. Maintained loudness since previous session. Provided handouts with HEP and paperclipped together. Pt expressed understanding of HEP and vocal relaxation exercises. Recommend ENT appointment to follow up regarding vocal fold damage, as Amaya reported previous ENT expected damage to resolve after 1 year. Reviewed with Patient Goals,Progress Being Made,Home Exercise Program Patient/Caregiver Understanding Good Plan Amount of Therapy Recommended 1 Month Frequency of Treatment Four Times a Week Length of Session 60 Minutes Therapeutic Contents Home Exercise Program,Voice Training Provided Patient/Caregiver Instruction Home Exercise Program,Plan of Care,Questions/Concerns Therapy Recommendations Continue with Current Program Suggested Referral ENT
--- NOTE | 2022-04-27 11:58 | ST-OP ANOTE ---
Physical, Occupational & Speech Therapy At [facility] Speech Therapy Note Patient did not show for scheduled appointment on 04/27/22 at 11:30. Pt cancelled appointment yesterday as she was sick with norovirus and front office representative confirmed today's appointment at that time.
--- NOTE | 2022-04-29 15:17 | ST.OPTN ---
Visit Care Team Role Provider Type Alfredo Shaver MD Family Provider Physician Primary Care Provider Address: [address] [place] [address], [id number] Austin Miller DO Attending Provider Non-Staff Referring Provider Address: [address] [place], [address] MERCERIZING RANGE CONTROLLER Treatment Note MERCERIZING RANGE CONTROLLER Clinical Instructor Line Start: 04/15/22 13:44 Freq: Status: Active Protocol: Document 04/15/22 13:44 (Rec: 04/15/22 13:54 [id number]) Clinical Instructor Signature Clinical Instructor Clinical Instructor Yes MERCERIZING RANGE CONTROLLER Treatment Note Start: 04/13/22 12:57 Freq: Status: Active Protocol: Document 04/29/22 14:21 ZS (Rec: 04/29/22 14:30 ZS [id number]) Speech Pathology Treatment Note Session Time Visit Start Time 11:35 Visit Stop Time 12:16 Total Visit Minutes 41 Visit Information Visit Number 8 Plan of Care Dates 04/06/2022 - 06/04/2022 Insurance Information Medicare Setting Treatment Setting Outpatient Care Visit Type Note Type Treatment Note Next Note Type Next Note Type Progress Note General Information Patient History Amaya is a 66-year old female who received a diagnosis of Parkinson's Disease in May 2019 and was referred to speech therapy due to reduced volume secondary to Parkinson' s. Pt noted most of her salient Parkinson's symptoms impact her lower body, resulting in impaired balance and halted movement in legs when trying to walk. Pt added she completed BIG program a long time ago. Amaya reported having surgery in May 2021, during which her right vocal fold was damanged. Damage was confirmed by staff engineer in November 2021 and pt stated it is still healing, but was unclear what damage had occurred. Pt had pneumonia in early March 2022 and is still recovering from that, meaning her voice is more hoarse and she has more phlegm than usual. Pt stated her voice fades throughout the day and reduced volume has made communicating with her and on the phone challenging. 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 Other hobbies include piano, gardening, sewing, and biking. The pt presents with reduced loudness and hoarse vocal quality secondary to Parkinson 's Disease. Additionally, pt had pneumonia in early March and reported she is still recovering and experiencing reduced vocal quality and increased phlegm as result of illness. Recommend speech therapy, specifically LOUD program, to increase vocal loudness for improved communication of wants and needs, especially in emergency situations. Subjective Identification Type Name Identification Reconciled With Medical Record Observations/Patient Presentation Amaya arrived late and ambulated to therapy room independently. She was sick with Norovirus for the past 5 days and did not complete HEP during this time. Additionally , 3 appointments were cancelled this week due to illness. She reported her voice was clearer this morning . Amaya added she will need to cancel 2 appointments next week on Tuesday and . Chief Complaint(s) Voice Objective Short Term Goals 1. Pt will demonstrate increase in MPT to 15-25 seconds from current avg. of 6 .5 seconds. 2. Pt will demonstrate improved vocal quality as measured by clinician perception and pt report. 3. Pt will demonstrate decreased impact of voice on ADLs, as measured by VHI and pt report. 4. Pt will demonstrate improved loudness of 5-7dB with decreased effort reported by pt. Custodial Goals Pt will demonstrate vocal quality, loudness, and MPT WNL . Treatment Activities Completed LOUD exercises: sustained ah, high and low pitch, functional phrases, and sentences. Discussed cancelling all appointments for next week and re-starting LOUD program on 05/10 due to missed appointments and inconsistency with HEP. Assessment Patient Response to Treatment Excellent Rehab Potential Good Progress Towards Goals Delayed Progress Assessment of Overall Progress Declining Assessment of Improvement Pt completed MPT exercise with avg. loudness of 72.7dB ( range: 68-76dB) for an avg. of 3.45 seconds (range: 2.0-5.2 seconds). Average maximum pitch was 388.3Hz (range: 380- 415Hz) at an avg. volume of 74 .5dB (range: 73-76dB). Average minimum pitch was 178.5Hz ( range: 147-194Hz) at an average volume of 72.0dB ( range: 71-74dB). She read functional phrases with average loudness of 73.0dB range: 71-74dB) and read sentences with average loudness of 71.5dB (range: 71- 73dB). Read words/phrases at an avg. 74dB. Continued training vocal relaxation exercises as Amaya's vocal quality worsened due to lack of compliance with HEP while she was sick. She benefitted from targeted practice switching from voiced to voiceless sounds to aid in maintaining relaxed position of voiceless throat when voicing sounds. Additionally, Amaya benefitted from saying oh instead of ah for sustained vowel and low pitches, as this helped maintain relaxed position. She exhibited significantly reduced vocal quality during functional phrase and sentence reading. Provided words/ phrases for Amaya to practice between now and 05/10 appointment. Discussed re- starting LOUD program on 05/10 given poor attendance and lack of compliance with HEP. Amaya expressed understanding and agreement. Did not provide carryover assignment for this week due to length of time between this session and next session. Reviewed with Patient Goals,Progress Being Made,Home Exercise Program Patient/Caregiver Understanding Good Plan Amount of Therapy Recommended 1 Month Frequency of Treatment Four Times a Week Length of Session 60 Minutes Therapeutic Contents Home Exercise Program,Voice Training Provided Patient/Caregiver Instruction Home Exercise Program,Plan of Care,Questions/Concerns Therapy Recommendations Continue with Current Program Suggested Referral ENT
--- NOTE | 2022-05-10 12:33 | ST.OPTN ---
Visit Care Team Role Provider Type Alfredo Shaver MD Family Provider Physician Primary Care Provider Address: [address] [place] [address], [id number] Austin Miller DO Attending Provider Non-Staff Referring Provider Address: [address] [place], [address] ENTRY LEVEL BUSINESS ANALYST Treatment Note ENTRY LEVEL BUSINESS ANALYST Clinical Instructor Line Start: 04/15/22 13:44 Freq: Status: Active Protocol: Document 04/15/22 13:44 (Rec: 04/15/22 13:54 [id number]) Clinical Instructor Signature Clinical Instructor Clinical Instructor Yes ENTRY LEVEL BUSINESS ANALYST Treatment Note Start: 04/13/22 12:57 Freq: Status: Active Protocol: Document 05/10/22 12:26 ZS (Rec: 05/10/22 12:33 ZS [id number]) Speech Pathology Treatment Note Session Time Visit Start Time 11:35 Visit Stop Time 12:25 Total Visit Minutes 50 Visit Information Visit Number 9 Plan of Care Dates 05/10/2022 - 07/04/2022 Insurance Information Medicare Setting Treatment Setting Outpatient Care Visit Type Note Type Progress Note Next Note Type Next Note Type Treatment Note General Information Patient History Amaya is a 66-year old female who received a diagnosis of Parkinson's Disease in May 2019 and was referred to speech therapy due to reduced volume secondary to Parkinson' s. Pt noted most of her salient Parkinson's symptoms impact her lower body, resulting in impaired balance and halted movement in legs when trying to walk. Pt added she completed BIG program a long time ago. Aamya reported having surgery in May 2021, during which her right vocal fold was damaged. Damage was confirmed by funding coordinator in November 2021 and pt stated it is still healing, but was unclear what damage had occurred. Pt had pneumonia in early March 2022 and is still recovering from that, meaning her voice is more hoarse and she has more phlegm than usual. Pt stated her voice fades throughout the day and reduced volume has made communicating with her and on the phone challenging. 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 Other hobbies include piano, gardening, sewing, and biking. The pt presents with reduced loudness and hoarse vocal quality secondary to Parkinson 's Disease. Additionally, pt had pneumonia in early March and reported she is still recovering and experiencing reduced vocal quality and increased phlegm as result of illness. Recommend speech therapy, specifically LOUD program, to increase vocal loudness for improved communication of wants and needs, especially in emergency situations. Subjective Identification Type Name Identification Reconciled With Medical Record Observations/Patient Presentation Amaya arrived late and ambulated to therapy room independently. She has been working at [employer] in [employer] for the past 5 days and did not complete HEP during this time. She reported her voice was clearer this morning. Chief Complaint(s) Voice Objective Short Term Goals 1. Pt will demonstrate increase in MPT to 15-25 seconds from current avg. of 6 .5 seconds. 2. Pt will demonstrate improved vocal quality as measured by clinician perception and pt report. 3. Pt will demonstrate decreased impact of voice on ADLs, as measured by VHI and pt report. 4. Pt will demonstrate improved loudness of 5-7dB with decreased effort reported by pt. Shelter Goals Pt will demonstrate vocal quality, loudness, and MPT WNL . Treatment Activities Completed LOUD exercises starting back at week 1 due to inconsistent HEP and attendance that impaired progress: sustained ah, high and low pitch, functional phrases, and sentences. Assessment Patient Response to Treatment Excellent Rehab Potential Good Progress Towards Goals Delayed Progress Assessment of Overall Progress Declining Assessment of Improvement Progress toward goals is limited given pt's inconsistent attendance and HEP compliance. Starting LOUD program back at week 1 exercises for improved attendance and HEP compliance to make progress toward goals. Pt completed MPT exercise with avg. loudness of 73.3dB ( range: 72-75dB) for an avg. of 5.25 seconds (range: 3.4-6.9 seconds). Average maximum pitch was 416.7Hz (range: 402- 429Hz) at an avg. volume of 71 .3dB (range: 70-73dB). Average minimum pitch was 193.3Hz ( range: 111-222Hz) at an average volume of 71.5dB ( range: 70-73dB). She read functional phrases with average loudness of 72.7dB range: 72-74dB) and read words /phrases with average loudness of 73.7dB (range: 72-75dB). Continued training vocal relaxation exercises as well as forward resonance exercises . Amaya benefitted from saying oh instead of ah for sustained vowel and low pitches, as this helped maintain relaxed position. Improvement noted in volume, vocal quality, and breathing noted during today's session. Reviewed with Patient Goals,Progress Being Made,Home Exercise Program Patient/Caregiver Understanding Good Plan Amount of Therapy Recommended 1 Month Frequency of Treatment Four Times a Week Length of Session 60 Minutes Therapeutic Contents Home Exercise Program,Voice Training Provided Patient/Caregiver Instruction Home Exercise Program,Plan of Care,Questions/Concerns Therapy Recommendations Continue with Current Program Suggested Referral ENT
--- NOTE | 2022-05-10 12:34 | ST.OPPOC ---
Physical, Occupational & Speech Therapy At [facility] Visit Care Team Role Provider Type Alfredo Shaver MD Family Provider Physician Primary Care Provider Address: [address] [place] [address], [id number] Austin Miller DO Attending Provider Non-Staff Referring Provider Address: [address] [place], [place] [address], [address] Speech Pathology Plan of Care ENGAGEMENT SPECIALIST Clinical Instructor Line Start: 04/15/22 13:44 Freq: Status: Active Protocol: Document 04/15/22 13:44 (Rec: 04/15/22 13:54 [id number]) Clinical Instructor Signature Clinical Instructor Clinical Instructor Yes Speech Pathology Plan of Care Plan of Care Dates 05/10/2022 - 07/04/2022 Referring Provider Austin Miller Patient History Amaya is a 66-year old female who received a diagnosis of Parkinson's Disease in May 2019 and was referred to speech therapy due to reduced volume secondary to Parkinson's. Pt noted most of her salient Parkinson's symptoms impact her lower body, resulting in impaired balance and halted movement in legs when trying to walk. Pt added she completed BIG program a long time ago. 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 Damage was confirmed by profile shaper operator in November 2021 and pt stated it is still healing, but was unclear what damage had occurred. Pt had pneumonia in early March 2022 and is still recovering from that, meaning her voice is more hoarse and she has more phlegm than usual. Pt stated her voice fades throughout the day and reduced volume has made communicating with her and on the phone challenging. 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 Other hobbies include piano, gardening, sewing, and biking. The pt presents with reduced loudness and hoarse vocal quality secondary to Parkinson's Disease. Additionally, pt had pneumonia in early March and reported she is still recovering and experiencing reduced vocal quality and increased phlegm as result of illness. Recommend speech therapy, specifically LOUD program, to increase vocal loudness for improved communication of wants and needs, especially in emergency situations. Progress Towards Goals Delayed Progress Voice/Resonance Findings Mild-Moderate Impairment Voice/Resonance Yes Recommendations Voice/Resonance Treatment LOUD program: 60 minute sessions 4x per week for Frequency 4 weeks. Therapy Recommendations Modified Barium Swallow study with ST Dysphagia therapy MBS Comments Pt presented with a normal swallow. Review of the findings was provided for the pt. It was suggested that the pt be more aware of and deliberate in her swallowing. Education was provided for the pt regarding the rat exterminator potential for dysphagia as her Parkinson's progresses. Explained the, while her swallowing is WFL at this point, she should begin to think of the deliberate swallow movements needed to remain safe. Removal of distractions, slowing rate of intake ant thorough mastication were also discussed with the pt. Finally, it was recommended that the pt enroll in LSVT LOUD through the Speech Therapy Department at [facility]. Pt reported that she was enrolled in LSVT BIG and said that the information she recieved was very helpful. LSVT LOUD exercises have been demonstrated to improve swallowing as well as improve and increase intelligibility. Solid Recommendations Regular Recommended Referrals Primary Care Physician Short Term Goals 1. Pt will demonstrate increase in MPT to 15-25 seconds from current avg. of 6.5 seconds. 2. Pt will demonstrate improved vocal quality as measured by clinician perception and pt report. 3. Pt will demonstrate decreased impact of voice on ADLs, as measured by VHI and pt report. 4. Pt will demonstrate improved loudness of 5- 7dB with decreased effort reported by pt. Short Term Goals 1. Pt will demonstrate increase in MPT to 15-25 seconds from current avg. of 6.5 seconds. 2. Pt will demonstrate improved vocal quality as measured by clinician perception and pt report. 3. Pt will demonstrate decreased impact of voice on ADLs, as measured by VHI and pt report. 4. Pt will demonstrate improved loudness of 5- 7dB with decreased effort reported by pt. Jail Goals Pt will demonstrate vocal quality, loudness, and MPT WNL. Comment: Electronically Signed by: CHAYO Rivera 05/10/22 8938 If you are in agreement with this Plan of Care, please return a signed and dated copy. I have reviewed this Plan of Care and certify that the skilled therapy services above are required to meet the patient?s needs. Physician Signature Date Printed Name and Credentials Clinical Instructor Signature Printed Name and Credentials
--- NOTE | 2022-05-11 12:27 | ST.OPTN ---
Visit Care Team Role Provider Type Alfredo Shaver MD Family Provider Physician Primary Care Provider Address: [address] [place] [address], [id number] Austin Miller DO Attending Provider Non-Staff Referring Provider Address: [address] [place], [address] LEG MAN Treatment Note LEG MAN Clinical Instructor Line Start: 04/15/22 13:44 Freq: Status: Active Protocol: Document 04/15/22 13:44 (Rec: 04/15/22 13:54 [id number]) Clinical Instructor Signature Clinical Instructor Clinical Instructor Yes LEG MAN Treatment Note Start: 04/13/22 12:57 Freq: Status: Active Protocol: Document 05/11/22 12:21 ZS (Rec: 05/11/22 12:27 ZS [id number]) Speech Pathology Treatment Note Session Time Visit Start Time 11:40 Visit Stop Time 12:21 Total Visit Minutes 41 Visit Information Visit Number 10 Plan of Care Dates 05/10/2022 - 07/04/2022 Insurance Information Medicare Setting Treatment Setting Outpatient Care Visit Type Note Type Treatment Note Next Note Type Next Note Type Treatment Note General Information Patient History Amaya is a 66-year old female who received a diagnosis of Parkinson's Disease in May 2019 and was referred to speech therapy due to reduced volume secondary to Parkinson' s. Pt noted most of her salient Parkinson's symptoms impact her lower body, resulting in impaired balance and halted movement in legs when trying to walk. Pt added she completed BIG program a long time ago. 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 Damage was confirmed by commission clerk in November 2021 and pt stated it is still healing, but was unclear what damage had occurred. Pt had pneumonia in early March 2022 and is still recovering from that, meaning her voice is more hoarse and she has more phlegm than usual. Pt stated her voice fades throughout the day and reduced volume has made communicating with her and on the phone challenging. 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 Other hobbies include piano, gardening, sewing, and biking. The pt presents with reduced loudness and hoarse vocal quality secondary to Parkinson 's Disease. Additionally, pt had pneumonia in early March and reported she is still recovering and experiencing reduced vocal quality and increased phlegm as result of illness. Recommend speech therapy, specifically LOUD program, to increase vocal loudness for improved communication of wants and needs, especially in emergency situations. Subjective Identification Type Name Identification Reconciled With Medical Record Observations/Patient Presentation Amaya arrived late and ambulated to therapy room independently. She reported completing her HEP and stated her voice is more hoarse today . Chief Complaint(s) Voice Objective Short Term Goals 1. Pt will demonstrate increase in MPT to 15-25 seconds from current avg. of 6 .5 seconds. 2. Pt will demonstrate improved vocal quality as measured by clinician perception and pt report. 3. Pt will demonstrate decreased impact of voice on ADLs, as measured by VHI and pt report. 4. Pt will demonstrate improved loudness of 5-7dB with decreased effort reported by pt. Retirement Goals Pt will demonstrate vocal quality, loudness, and MPT WNL . Treatment Activities Completed LOUD exercises: sustained ah, high and low pitch, functional phrases, and words/phrases. Assessment Patient Response to Treatment Excellent Rehab Potential Good Progress Towards Goals Delayed Progress Assessment of Overall Progress Declining Assessment of Improvement Pt completed MPT exercise with avg. loudness of 72.4dB ( range: 69-75dB) for an avg. of 3.68 seconds (range: 3.2-4.7 seconds). Average maximum pitch was 354.7Hz (range: 344- 367Hz) at an avg. volume of 70 .4dB (range: 68-72dB). Average minimum pitch was 200.8Hz ( range: 170-232Hz) at an average volume of 72.8dB ( range: 70-75dB). She read functional phrases with average loudness of 72.5dB range: 72-73dB) and read words /phrases with average loudness of 71.6dB (range: 71-73dB). Continued training vocal relaxation exercises as well as forward resonance exercises . Amaya benefitted from saying oh instead of ah for sustained vowel and low pitches, as this helped maintain relaxed position. Focused efforts on forward resonance and improving vocal quality today, with limited trials on functional phrases and words/phrases due to poor vocal quality. Improvement noted in vocal quality and breathing on sustained ah task noted during today's session. Performance numbers dropped across all tasks today , possibly related to focusing attention on vocal quality rather than pitch or loudness. Reviewed with Patient Goals,Progress Being Made,Home Exercise Program Patient/Caregiver Understanding Good Plan Amount of Therapy Recommended 1 Month Frequency of Treatment Four Times a Week Length of Session 60 Minutes Therapeutic Contents Home Exercise Program,Voice Training Provided Patient/Caregiver Instruction Home Exercise Program,Plan of Care,Questions/Concerns Therapy Recommendations Continue with Current Program Suggested Referral ENT
--- NOTE | 2022-05-12 12:22 | ST.OPTN ---
Visit Care Team Role Provider Type Alfredo Shaver MD Family Provider Physician Primary Care Provider Address: [address] [place] [address], [address] Austin Miller DO Attending Provider Non-Staff Referring Provider Address: [address] [place], [address] TIRE AND TUBE REPAIRER Treatment Note TIRE AND TUBE REPAIRER Clinical Instructor Line Start: 04/15/22 13:44 Freq: Status: Active Protocol: Document 04/15/22 13:44 (Rec: 04/15/22 13:54 [id number]) Clinical Instructor Signature Clinical Instructor Clinical Instructor Yes TIRE AND TUBE REPAIRER Treatment Note Start: 04/13/22 12:57 Freq: Status: Active Protocol: Document 05/12/22 11:48 ZS (Rec: 05/12/22 12:22 ZS [id number]) Speech Pathology Treatment Note Session Time Visit Start Time 11:35 Visit Stop Time 12:15 Total Visit Minutes 40 Visit Information Visit Number 11 Plan of Care Dates 05/10/2022 - 07/04/2022 Insurance Information Medicare Setting Treatment Setting Outpatient Care Visit Type Note Type Treatment Note Next Note Type Next Note Type Treatment Note General Information Patient History Amaya is a 66-year old female who received a diagnosis of Parkinson's Disease in May 2019 and was referred to speech therapy due to reduced volume secondary to Parkinson' s. Pt noted most of her salient Parkinson's symptoms impact her lower body, resulting in impaired balance and halted movement in legs when trying to walk. Pt added she completed BIG program a long time ago. 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 Damage was confirmed by waiter/waitress tavern in November 2021 and pt stated it is still healing, but was unclear what damage had occurred. Pt had pneumonia in early March 2022 and is still recovering from that, meaning her voice is more hoarse and she has more phlegm than usual. Pt stated her voice fades throughout the day and reduced volume has made communicating with her and on the phone challenging. 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 Other hobbies include piano, gardening, sewing, and biking. The pt presents with reduced loudness and hoarse vocal quality secondary to Parkinson 's Disease. Additionally, pt had pneumonia in early March and reported she is still recovering and experiencing reduced vocal quality and increased phlegm as result of illness. Recommend speech therapy, specifically LOUD program, to increase vocal loudness for improved communication of wants and needs, especially in emergency situations. Subjective Identification Type Name Identification Reconciled With Medical Record Observations/Patient Presentation Amaya arrived late and ambulated to therapy room independently. She reported completing her HEP and stated her voice is better today. She added her voice tends to be better in the morning and worsen over the day. Chief Complaint(s) Voice Objective Short Term Goals 1. Pt will demonstrate increase in MPT to 15-25 seconds from current avg. of 6 .5 seconds. 2. Pt will demonstrate improved vocal quality as measured by clinician perception and pt report. 3. Pt will demonstrate decreased impact of voice on ADLs, as measured by VHI and pt report. 4. Pt will demonstrate improved loudness of 5-7dB with decreased effort reported by pt. Soaking Pits Supervisor Goals Pt will demonstrate vocal quality, loudness, and MPT WNL . Treatment Activities Completed vocal relaxation and forward resonance activities today. Completed LOUD exercises: sustained ah, high and low pitch. Did not complete functional phrases or words/phrases today due to strain on voice with back resonance. Assessment Patient Response to Treatment Excellent Rehab Potential Good Progress Towards Goals Delayed Progress Assessment of Overall Progress Declining Assessment of Improvement Pt completed MPT exercise with avg. loudness of 75.3dB ( range: 74-77dB) for an avg. of 3.3 seconds (range: 1.5-5.6 seconds). Average maximum pitch was 388.6Hz (range: 377- 419Hz) at an avg. volume of 73 .6dB (range: 71-76dB). Average minimum pitch was 191.6Hz ( range: 106-226Hz) at an average volume of 72.7dB ( range: 71-74dB). Continued training vocal relaxation exercises as well as forward resonance exercises. Amaya benefitted from saying oh instead of ah for sustained vowel and low pitches, as this helped maintain relaxed position. Focused efforts on forward resonance and improving vocal quality today, with no trials on functional phrases and words/phrases due to poor vocal quality. Improvement noted in vocal quality and breathing on sustained ah task noted during today's session. She maintained forward resonance for 4 ah trials before re- training was required with straw phonation (bubbles in cup). Increased loudness noted on sustained ah task with shift in resonance. Reviewed with Patient Goals,Progress Being Made,Home Exercise Program Patient/Caregiver Understanding Good Plan Amount of Therapy Recommended 1 Month Frequency of Treatment Four Times a Week Length of Session 60 Minutes Therapeutic Contents Home Exercise Program,Voice Training Provided Patient/Caregiver Instruction Home Exercise Program,Plan of Care,Questions/Concerns Therapy Recommendations Continue with Current Program Suggested Referral ENT
--- NOTE | 2022-05-13 16:05 | ST.OPTN ---
Visit Care Team Role Provider Type Alfredo Shaver MD Family Provider Physician Primary Care Provider Address: [address] [place] [address], [id number] Austin Miller DO Attending Provider Non-Staff Referring Provider Address: [address] [place], [address] SALAD CHEF Treatment Note SALAD CHEF Clinical Instructor Line Start: 04/15/22 13:44 Freq: Status: Active Protocol: Document 04/15/22 13:44 (Rec: 04/15/22 13:54 [id number]) Clinical Instructor Signature Clinical Instructor Clinical Instructor Yes SALAD CHEF Treatment Note Start: 04/13/22 12:57 Freq: Status: Active Protocol: Document 05/13/22 15:58 ZS (Rec: 05/13/22 16:05 ZS [id number]) Speech Pathology Treatment Note Session Time Visit Start Time 11:31 Visit Stop Time 12:21 Total Visit Minutes 50 Visit Information Visit Number 12 Plan of Care Dates 05/10/2022 - 07/04/2022 Insurance Information Medicare Setting Treatment Setting Outpatient Care Visit Type Note Type Treatment Note Next Note Type Next Note Type Treatment Note General Information Patient History Amaya is a 66-year old female who received a diagnosis of Parkinson's Disease in May 2019 and was referred to speech therapy due to reduced volume secondary to Parkinson' s. Pt noted most of her salient Parkinson's symptoms impact her lower body, resulting in impaired balance and halted movement in legs when trying to walk. Pt added she completed BIG program a long time ago. 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 Damage was confirmed by raw scales operator in November 2021 and pt stated it is still healing, but was unclear what damage had occurred. Pt had pneumonia in early March 2022 and is still recovering from that, meaning her voice is more hoarse and she has more phlegm than usual. Pt stated her voice fades throughout the day and reduced volume has made communicating with her and on the phone challenging. 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 Other hobbies include piano, gardening, sewing, and biking. The pt presents with reduced loudness and hoarse vocal quality secondary to Parkinson 's Disease. Additionally, pt had pneumonia in early March and reported she is still recovering and experiencing reduced vocal quality and increased phlegm as result of illness. Recommend speech therapy, specifically LOUD program, to increase vocal loudness for improved communication of wants and needs, especially in emergency situations. Subjective Identification Type Name Identification Reconciled With Medical Record Observations/Patient Presentation Amaya arrived on time and ambulated to therapy room independently. She reported completing her HEP. Chief Complaint(s) Voice Objective Short Term Goals 1. Pt will demonstrate increase in MPT to 15-25 seconds from current avg. of 6 .5 seconds. 2. Pt will demonstrate improved vocal quality as measured by clinician perception and pt report. 3. Pt will demonstrate decreased impact of voice on ADLs, as measured by VHI and pt report. 4. Pt will demonstrate improved loudness of 5-7dB with decreased effort reported by pt. Airline Reservationist Goals Pt will demonstrate vocal quality, loudness, and MPT WNL . Treatment Activities Completed vocal relaxation and forward resonance activities today. Completed LOUD exercises: sustained ah, high and low pitch, functional phrases, and words/phrases. Assessment Patient Response to Treatment Excellent Rehab Potential Good Progress Towards Goals Delayed Progress Assessment of Overall Progress Declining Assessment of Improvement Pt completed MPT exercise with avg. loudness of 73.8dB ( range: 67-77dB) for an avg. of 3.94 seconds (range: 2.4-5.5 seconds). Average maximum pitch was 343.3Hz (range: 330- 357Hz) at an avg. volume of 74 .3dB (range: 71-77dB). Average minimum pitch was 186.8Hz ( range: 171-205Hz) at an average volume of 70.6dB ( range: 67-74dB). She maintained an avg. loudness of 72.6dB (range: 70-73dB) for functional phrases and an avg. of 73.6dB (range: 73-75dB) when reading words/phrases. Continued training vocal relaxation exercises as well as forward resonance exercises . Amaya benefitted from saying oh instead of ah for sustained vowel and low pitches, as this helped maintain relaxed position. Focused efforts on forward resonance and improving vocal quality today, with straw phonation (blowing bubbles) spaced between 2-3 word/ phrases/sentences during functional phrases and reading tasks. Increased loudness noted on all tasks with shift in resonance. Reviewed with Patient Goals,Progress Being Made,Home Exercise Program Patient/Caregiver Understanding Good Plan Amount of Therapy Recommended 1 Month Frequency of Treatment Four Times a Week Length of Session 60 Minutes Therapeutic Contents Home Exercise Program,Voice Training Provided Patient/Caregiver Instruction Home Exercise Program,Plan of Care,Questions/Concerns Therapy Recommendations Continue with Current Program Suggested Referral ENT
--- NOTE | 2022-05-17 14:17 | ST.OPTN ---
Visit Care Team Role Provider Type Alfredo Shaver MD Family Provider Physician Primary Care Provider Address: [address] [place] [address], [id number] Austin Miller DO Attending Provider Non-Staff Referring Provider Address: [address] [place], [address] AMUSEMENT OR RECREATION CARD CHECKER Treatment Note AMUSEMENT OR RECREATION CARD CHECKER Clinical Instructor Line Start: 04/15/22 13:44 Freq: Status: Active Protocol: Document 04/15/22 13:44 (Rec: 04/15/22 13:54 [id number]) Clinical Instructor Signature Clinical Instructor Clinical Instructor Yes AMUSEMENT OR RECREATION CARD CHECKER Treatment Note Start: 04/13/22 12:57 Freq: Status: Active Protocol: Document 05/17/22 14:12 ZS (Rec: 05/17/22 14:17 ZS [id number]) Speech Pathology Treatment Note Session Time Visit Start Time 11:40 Visit Stop Time 12:25 Total Visit Minutes 45 Visit Information Visit Number 13 Plan of Care Dates 05/10/2022 - 07/04/2022 Insurance Information Medicare Setting Treatment Setting Outpatient Care Visit Type Note Type Treatment Note Next Note Type Next Note Type Treatment Note General Information Patient History Amaya is a 66-year old female who received a diagnosis of Parkinson's Disease in May 2019 and was referred to speech therapy due to reduced volume secondary to Parkinson' s. Pt noted most of her salient Parkinson's symptoms impact her lower body, resulting in impaired balance and halted movement in legs when trying to walk. Pt added she completed BIG program a long time ago. 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 Damage was confirmed by well point pumping supervisor in November 2021 and pt stated it is still healing, but was unclear what damage had occurred. Pt had pneumonia in early March 2022 and is still recovering from that, meaning her voice is more hoarse and she has more phlegm than usual. Pt stated her voice fades throughout the day and reduced volume has made communicating with her and on the phone challenging. 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 Other hobbies include piano, gardening, sewing, and biking. The pt presents with reduced loudness and hoarse vocal quality secondary to Parkinson 's Disease. Additionally, pt had pneumonia in early March and reported she is still recovering and experiencing reduced vocal quality and increased phlegm as result of illness. Recommend speech therapy, specifically LOUD program, to increase vocal loudness for improved communication of wants and needs, especially in emergency situations. Subjective Identification Type Name Identification Reconciled With Medical Record Observations/Patient Presentation Amaya arrived late and ambulated to therapy room independently. She reported completing her HEP. Amaya stated she may be a few minutes late to her appointment tomorrow as she has PT beforehand. Chief Complaint(s) Voice Objective Short Term Goals 1. Pt will demonstrate increase in MPT to 15-25 seconds from current avg. of 6 .5 seconds. 2. Pt will demonstrate improved vocal quality as measured by clinician perception and pt report. 3. Pt will demonstrate decreased impact of voice on ADLs, as measured by VHI and pt report. 4. Pt will demonstrate improved loudness of 5-7dB with decreased effort reported by pt. Shelter Goals Pt will demonstrate vocal quality, loudness, and MPT WNL . Treatment Activities Completed vocal relaxation and forward resonance activities today. Completed LOUD exercises: sustained ah, high and low pitch, functional phrases, and sentences. Assessment Patient Response to Treatment Excellent Rehab Potential Good Progress Towards Goals Delayed Progress Assessment of Overall Progress Declining Assessment of Improvement Pt completed MPT exercise with avg. loudness of 74.3dB ( range: 73-76dB) for an avg. of 4.07 seconds (range: 2.3-6.6 seconds). Average maximum pitch was 376.7Hz (range: 362- 384Hz) at an avg. volume of 73 .4dB (range: 72-74dB). Average minimum pitch was 180.3Hz ( range: 113-203Hz) at an average volume of 69.8dB ( range: 68-73dB). She maintained an avg. loudness of 73.0dB (range: 72-74dB) for functional phrases and an avg. of 71.7dB (range: 71-73dB) when reading sentences. Continued training vocal relaxation exercises as well as forward resonance exercises . Amaya benefitted from saying oh instead of ah for sustained vowel and low pitches, as this helped maintain relaxed position. Focused efforts on forward resonance and improving vocal quality today, with straw phonation (blowing bubbles) spaced between 5 functional phrases or 2-3 sentences during functional phrases and reading tasks. Increased loudness noted on all tasks with shift in resonance. Reviewed with Patient Goals,Progress Being Made,Home Exercise Program Patient/Caregiver Understanding Good Plan Amount of Therapy Recommended 1 Month Frequency of Treatment Four Times a Week Length of Session 60 Minutes Therapeutic Contents Home Exercise Program,Voice Training Provided Patient/Caregiver Instruction Home Exercise Program,Plan of Care,Questions/Concerns Therapy Recommendations Continue with Current Program Suggested Referral ENT
--- NOTE | 2022-05-18 12:28 | ST.OPTN ---
Visit Care Team Role Provider Type Alfredo Shaver MD Family Provider Physician Primary Care Provider Address: [address] [place] [address], [id number] Austin Miller DO Attending Provider Non-Staff Referring Provider Address: [address] [place], [address] DISPATCH COORDINATOR Treatment Note DISPATCH COORDINATOR Clinical Instructor Line Start: 04/15/22 13:44 Freq: Status: Active Protocol: Document 04/15/22 13:44 (Rec: 04/15/22 13:54 [id number]) Clinical Instructor Signature Clinical Instructor Clinical Instructor Yes DISPATCH COORDINATOR Treatment Note Start: 04/13/22 12:57 Freq: Status: Active Protocol: Document 05/18/22 12:25 ZS (Rec: 05/18/22 12:28 ZS [id number]) Speech Pathology Treatment Note Session Time Visit Start Time 11:43 Visit Stop Time 12:23 Total Visit Minutes 40 Visit Information Visit Number 14 Plan of Care Dates 05/10/2022 - 07/04/2022 Insurance Information Medicare Setting Treatment Setting Outpatient Care Visit Type Note Type Treatment Note Next Note Type Next Note Type Treatment Note General Information Patient History Amaya is a 66-year old female who received a diagnosis of Parkinson's Disease in May 2019 and was referred to speech therapy due to reduced volume secondary to Parkinson' s. Pt noted most of her salient Parkinson's symptoms impact her lower body, resulting in impaired balance and halted movement in legs when trying to walk. Pt added she completed BIG program a long time ago. 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 Damage was confirmed by straddle bug operator in November 2021 and pt stated it is still healing, but was unclear what damage had occurred. Pt had pneumonia in early March 2022 and is still recovering from that, meaning her voice is more hoarse and she has more phlegm than usual. Pt stated her voice fades throughout the day and reduced volume has made communicating with her and on the phone challenging. 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 Other hobbies include piano, gardening, sewing, and biking. The pt presents with reduced loudness and hoarse vocal quality secondary to Parkinson 's Disease. Additionally, pt had pneumonia in early March and reported she is still recovering and experiencing reduced vocal quality and increased phlegm as result of illness. Recommend speech therapy, specifically LOUD program, to increase vocal loudness for improved communication of wants and needs, especially in emergency situations. Subjective Identification Type Name Identification Reconciled With Medical Record Observations/Patient Presentation Amaya arrived late and ambulated to therapy room independently. She reported completing her HEP. Chief Complaint(s) Voice Objective Short Term Goals 1. Pt will demonstrate increase in MPT to 15-25 seconds from current avg. of 6 .5 seconds. 2. Pt will demonstrate improved vocal quality as measured by clinician perception and pt report. 3. Pt will demonstrate decreased impact of voice on ADLs, as measured by VHI and pt report. 4. Pt will demonstrate improved loudness of 5-7dB with decreased effort reported by pt. Director Of Community Education Goals Pt will demonstrate vocal quality, loudness, and MPT WNL . Treatment Activities Completed vocal relaxation and forward resonance activities today. Completed LOUD exercises: sustained ah, high and low pitch, functional phrases, and sentences. Assessment Patient Response to Treatment Excellent Rehab Potential Good Progress Towards Goals Delayed Progress Assessment of Overall Progress Declining Assessment of Improvement Pt completed MPT exercise with avg. loudness of 76.3dB ( range: 75-78dB) for an avg. of 3.33 seconds (range: 1.1-5.4 seconds). Average maximum pitch was 355.0Hz (range: 338- 373Hz) at an avg. volume of 74 .5dB (range: 73-76dB). Average minimum pitch was 139.8Hz ( range: 105-171Hz) at an average volume of 71.5dB ( range: 70-74dB). She maintained an avg. loudness of 73.1dB (range: 72-74dB) for functional phrases and an avg. of 72.4dB (range: 71-74dB) when reading sentences. Continued training vocal relaxation exercises as well as forward resonance exercises . Amaya benefitted from saying oh instead of ah for sustained vowel and low pitches, as this helped maintain relaxed position. Focused efforts on forward resonance and improving vocal quality today, with straw phonation (blowing bubbles) spaced between 5 functional phrases or 2-3 sentences during functional phrases and reading tasks. Increased loudness noted on all tasks with shift in resonance. Reviewed with Patient Goals,Progress Being Made,Home Exercise Program Patient/Caregiver Understanding Good Plan Amount of Therapy Recommended 1 Month Frequency of Treatment Four Times a Week Length of Session 60 Minutes Therapeutic Contents Home Exercise Program,Voice Training Provided Patient/Caregiver Instruction Home Exercise Program,Plan of Care,Questions/Concerns Therapy Recommendations Continue with Current Program Suggested Referral ENT
--- NOTE | 2022-05-19 14:04 | ST.OPTN ---
Visit Care Team Role Provider Type Alfredo Shaver MD Family Provider Physician Primary Care Provider Address: [address] [place] [address], [id number] Austin Miller DO Attending Provider Non-Staff Referring Provider Address: [address] [place], [address] INFORMATION TECHNOLOGY COORDINATOR Treatment Note INFORMATION TECHNOLOGY COORDINATOR Clinical Instructor Line Start: 04/15/22 13:44 Freq: Status: Active Protocol: Document 04/15/22 13:44 (Rec: 04/15/22 13:54 [id number]) Clinical Instructor Signature Clinical Instructor Clinical Instructor Yes INFORMATION TECHNOLOGY COORDINATOR Treatment Note Start: 04/13/22 12:57 Freq: Status: Active Protocol: Document 05/19/22 14:01 ZS (Rec: 05/19/22 14:04 ZS [id number]) Speech Pathology Treatment Note Session Time Visit Start Time 11:40 Visit Stop Time 12:20 Total Visit Minutes 40 Visit Information Visit Number 15 Plan of Care Dates 05/10/2022 - 07/04/2022 Insurance Information Medicare Setting Treatment Setting Outpatient Care Visit Type Note Type Treatment Note Next Note Type Next Note Type Treatment Note General Information Patient History Amaya is a 66-year old female who received a diagnosis of Parkinson's Disease in May 2019 and was referred to speech therapy due to reduced volume secondary to Parkinson' s. Pt noted most of her salient Parkinson's symptoms impact her lower body, resulting in impaired balance and halted movement in legs when trying to walk. Pt added she completed BIG program a long time ago. 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 Damage was confirmed by development educator in November 2021 and pt stated it is still healing, but was unclear what damage had occurred. Pt had pneumonia in early March 2022 and is still recovering from that, meaning her voice is more hoarse and she has more phlegm than usual. Pt stated her voice fades throughout the day and reduced volume has made communicating with her and on the phone challenging. 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 Other hobbies include piano, gardening, sewing, and biking. The pt presents with reduced loudness and hoarse vocal quality secondary to Parkinson 's Disease. Additionally, pt had pneumonia in early March and reported she is still recovering and experiencing reduced vocal quality and increased phlegm as result of illness. Recommend speech therapy, specifically LOUD program, to increase vocal loudness for improved communication of wants and needs, especially in emergency situations. Subjective Identification Type Name Identification Reconciled With Medical Record Observations/Patient Presentation Amaya arrived late and ambulated to therapy room independently. She reported completing her HEP. Chief Complaint(s) Voice Objective Short Term Goals 1. Pt will demonstrate increase in MPT to 15-25 seconds from current avg. of 6 .5 seconds. 2. Pt will demonstrate improved vocal quality as measured by clinician perception and pt report. 3. Pt will demonstrate decreased impact of voice on ADLs, as measured by VHI and pt report. 4. Pt will demonstrate improved loudness of 5-7dB with decreased effort reported by pt. Salsa Dance Instructor Goals Pt will demonstrate vocal quality, loudness, and MPT WNL . Treatment Activities Completed vocal relaxation and forward resonance activities today. Completed LOUD exercises: sustained ah, high and low pitch, functional phrases, and sentences. Assessment Patient Response to Treatment Excellent Rehab Potential Good Progress Towards Goals Delayed Progress Assessment of Overall Progress Declining Assessment of Improvement Pt completed MPT exercise with avg. loudness of 74.1dB ( range: 73-76dB) for an avg. of 3.0 seconds (range: 1.6-5.4 seconds). Average maximum pitch was 370.5Hz (range: 336- 392Hz) at an avg. volume of 72 .0dB (range: 68-74dB). Average minimum pitch was 165.3Hz ( range: 109-182Hz) at an average volume of 69.3dB ( range: 61-72dB). She maintained an avg. loudness of 71.6dB (range: 71-72dB) for functional phrases and an avg. of 72.0dB when reading sentences. Continued training vocal relaxation exercises as well as forward resonance exercises. Amaya benefitted from saying oh instead of ah for sustained vowel and low pitches, as this helped maintain relaxed position. Focused efforts on forward resonance and improving vocal quality today, with straw phonation (blowing bubbles) spaced between 2-3 sentences during functional phrases and reading tasks. Decreased performance (pitch and loudness) noted on all tasks today. Reviewed with Patient Goals,Progress Being Made,Home Exercise Program Patient/Caregiver Understanding Good Plan Amount of Therapy Recommended 1 Month Frequency of Treatment Four Times a Week Length of Session 60 Minutes Therapeutic Contents Home Exercise Program,Voice Training Provided Patient/Caregiver Instruction Home Exercise Program,Plan of Care,Questions/Concerns Therapy Recommendations Continue with Current Program Suggested Referral ENT
--- NOTE | 2022-05-24 12:30 | ST.OPTN ---
Visit Care Team Role Provider Type Alfredo Shaver MD Family Provider Physician Primary Care Provider Address: [address] [place] [address], [phone] Austin Miller DO Attending Provider Non-Staff Referring Provider Address: [address] [place], [address] IC ENGINEER Treatment Note IC ENGINEER Clinical Instructor Line Start: 04/15/22 13:44 Freq: Status: Active Protocol: Document 04/15/22 13:44 (Rec: 04/15/22 13:54 [id number]) Clinical Instructor Signature Clinical Instructor Clinical Instructor Yes IC ENGINEER Treatment Note Start: 04/13/22 12:57 Freq: Status: Active Protocol: Document 05/24/22 12:24 ZS (Rec: 05/24/22 12:30 ZS [id number]) Speech Pathology Treatment Note Session Time Visit Start Time 11:45 Visit Stop Time 12:25 Total Visit Minutes 40 Visit Information Visit Number 16 Plan of Care Dates 05/10/2022 - 07/04/2022 Insurance Information Medicare Setting Treatment Setting Outpatient Care Visit Type Note Type Treatment Note Next Note Type Next Note Type Treatment Note General Information Patient History Amaya is a 66-year old female who received a diagnosis of Parkinson's Disease in May 2019 and was referred to speech therapy due to reduced volume secondary to Parkinson' s. Pt noted most of her salient Parkinson's symptoms impact her lower body, resulting in impaired balance and halted movement in legs when trying to walk. Pt added she completed BIG program a long time ago. 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 Damage was confirmed by learning support aide in November 2021 and pt stated it is still healing, but was unclear what damage had occurred. Pt had pneumonia in early March 2022 and is still recovering from that, meaning her voice is more hoarse and she has more phlegm than usual. Pt stated her voice fades throughout the day and reduced volume has made communicating with her and on the phone challenging. 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 Other hobbies include piano, gardening, sewing, and biking. The pt presents with reduced loudness and hoarse vocal quality secondary to Parkinson 's Disease. Additionally, pt had pneumonia in early March and reported she is still recovering and experiencing reduced vocal quality and increased phlegm as result of illness. Recommend speech therapy, specifically LOUD program, to increase vocal loudness for improved communication of wants and needs, especially in emergency situations. Subjective Identification Type Name Identification Reconciled With Medical Record Observations/Patient Presentation Amaya arrived late and ambulated to therapy room independently. She reported completing her HEP. Chief Complaint(s) Voice Objective Short Term Goals 1. Pt will demonstrate increase in MPT to 15-25 seconds from current avg. of 6 .5 seconds. 2. Pt will demonstrate improved vocal quality as measured by clinician perception and pt report. 3. Pt will demonstrate decreased impact of voice on ADLs, as measured by VHI and pt report. 4. Pt will demonstrate improved loudness of 5-7dB with decreased effort reported by pt. Hide Grader Goals Pt will demonstrate vocal quality, loudness, and MPT WNL . Treatment Activities Completed vocal relaxation and forward resonance activities today. Completed LOUD exercises: sustained ah, high and low pitch, and functional phrases. Did not complete sentences today. Assessment Patient Response to Treatment Excellent Rehab Potential Good Progress Towards Goals Delayed Progress Assessment of Overall Progress Declining Assessment of Improvement Pt completed MPT exercise with avg. loudness of 74.9dB ( range: 72-77dB) for an avg. of 4.5 seconds (range: 3.2-6.6 seconds). Average maximum pitch was 366.0Hz (range: 344- 374Hz) at an avg. volume of 73 .4dB (range: 70-75dB). Average minimum pitch was 183.0Hz ( range: 171-209Hz) at an average volume of 70.6dB ( range: 68-73dB). She maintained an avg. loudness of 72.3dB (range: 72-73dB) for functional phrases. Ran out of time for sentences due to pt' s tardiness. Continued training vocal relaxation exercises as well as forward resonance exercises. Amaya benefitted from saying oh instead of ah for sustained vowel and low pitches, as this helped maintain relaxed position. Focused efforts on forward resonance and improving vocal quality today, with straw phonation (blowing bubbles) spaced between 2-3 sentences during functional phrases and reading tasks. Decreased performance (pitch and loudness) noted on all tasks today. Discussed poor attendance and consistent tardiness with pt today and impact this will have on therapy outcomes. Reminded pt this is an intensive therapy program and asked if this is a good time to complete the program as pt indicated she will miss one day this week and one day next week. Alerted pt to fact that these appointments will not be made up due to limited availability for LOUD appointments and that she will not complete her program. Amaya indicated she would like to continue coming. Reviewed with Patient Goals,Progress Being Made,Home Exercise Program Patient/Caregiver Understanding Good Plan Amount of Therapy Recommended 1 Month Frequency of Treatment Four Times a Week Length of Session 60 Minutes Therapeutic Contents Home Exercise Program,Voice Training Provided Patient/Caregiver Instruction Home Exercise Program,Plan of Care,Questions/Concerns Therapy Recommendations Continue with Current Program Suggested Referral ENT
--- NOTE | 2022-05-26 14:25 | ST.OPTN ---
Visit Care Team Role Provider Type Alfredo Shaver MD Family Provider Physician Primary Care Provider Address: [address] [place] [address], [id number] Austin Miller DO Attending Provider Non-Staff Referring Provider Address: [address] [place], [address] CIRCLE BEVELER Treatment Note CIRCLE BEVELER Clinical Instructor Line Start: 04/15/22 13:44 Freq: Status: Active Protocol: Document 04/15/22 13:44 (Rec: 04/15/22 13:54 [id number]) Clinical Instructor Signature Clinical Instructor Clinical Instructor Yes CIRCLE BEVELER Treatment Note Start: 04/13/22 12:57 Freq: Status: Active Protocol: Document 05/26/22 14:20 ZS (Rec: 05/26/22 14:25 ZS [id number]) Speech Pathology Treatment Note Session Time Visit Start Time 11:30 Visit Stop Time 12:30 Total Visit Minutes 60 Visit Information Visit Number 17 Plan of Care Dates 05/10/2022 - 07/04/2022 Insurance Information Medicare Setting Treatment Setting Outpatient Care Visit Type Note Type Treatment Note Next Note Type Next Note Type Treatment Note General Information Patient History Amaya is a 66-year old female who received a diagnosis of Parkinson's Disease in May 2019 and was referred to speech therapy due to reduced volume secondary to Parkinson' s. Pt noted most of her salient Parkinson's symptoms impact her lower body, resulting in impaired balance and halted movement in legs when trying to walk. Pt added she completed BIG program a long time ago. 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 Damage was confirmed by account support analyst in November 2021 and pt stated it is still healing, but was unclear what damage had occurred. Pt had pneumonia in early March 2022 and is still recovering from that, meaning her voice is more hoarse and she has more phlegm than usual. Pt stated her voice fades throughout the day and reduced volume has made communicating with her and on the phone challenging. 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 Other hobbies include piano, gardening, sewing, and biking. The pt presents with reduced loudness and hoarse vocal quality secondary to Parkinson 's Disease. Additionally, pt had pneumonia in early March and reported she is still recovering and experiencing reduced vocal quality and increased phlegm as result of illness. Recommend speech therapy, specifically LOUD program, to increase vocal loudness for improved communication of wants and needs, especially in emergency situations. Subjective Identification Type Name Identification Reconciled With Medical Record Observations/Patient Presentation Amaya arrived on time and ambulated to therapy room independently. She reported completing her HEP. Chief Complaint(s) Voice Objective Short Term Goals 1. Pt will demonstrate increase in MPT to 15-25 seconds from current avg. of 6 .5 seconds. 2. Pt will demonstrate improved vocal quality as measured by clinician perception and pt report. 3. Pt will demonstrate decreased impact of voice on ADLs, as measured by VHI and pt report. 4. Pt will demonstrate improved loudness of 5-7dB with decreased effort reported by pt. Silk Printer Goals Pt will demonstrate vocal quality, loudness, and MPT WNL . Treatment Activities Completed vocal relaxation and forward resonance activities today. Completed LOUD exercises: sustained ah, high and low pitch, and functional phrases, and paragraphs today. Assessment Patient Response to Treatment Excellent Rehab Potential Good Progress Towards Goals Delayed Progress Assessment of Overall Progress Declining Assessment of Improvement Pt completed MPT exercise with avg. loudness of 74.5dB ( range: 72-77dB) for an avg. of 3.3 seconds (range: 1.7-5.1 seconds). Average maximum pitch was 378.2Hz (range: 359- 444Hz) at an avg. volume of 71 .9dB (range: 68-74dB). Average minimum pitch was 213.2Hz ( range: 127-276Hz) at an average volume of 69.6dB ( range: 67-71dB). She maintained an avg. loudness of 72.3dB (range: 71-74dB) for functional phrases and 72.2dB (range: 71-74dB) for paragraphs. Significant decrease in vocal quality noted today and pt observed to engage in chest breathing rather than diaphragmatic breathing despite coaching to reduce this behavior. Provided education and modeling for diaphragmatic breathing, which pt could sustain in isolation , but was not able to apply when voicing was added. Continued training vocal relaxation exercises as well as forward resonance exercises . Amaya benefitted from saying oh instead of ah for sustained vowel and low pitches, as this helped maintain relaxed position. Focused efforts on forward resonance and improving vocal quality today, with straw phonation (blowing bubbles) spaced between 2-3 sentences during functional phrases and reading tasks. Decreased performance (pitch and loudness) noted on all tasks today. Reviewed with Patient Goals,Progress Being Made,Home Exercise Program Patient/Caregiver Understanding Good Plan Amount of Therapy Recommended 1 Month Frequency of Treatment Four Times a Week Length of Session 60 Minutes Therapeutic Contents Home Exercise Program,Voice Training Provided Patient/Caregiver Instruction Home Exercise Program,Plan of Care,Questions/Concerns Therapy Recommendations Continue with Current Program Suggested Referral ENT
--- NOTE | 2022-05-27 12:29 | ST.OPTN ---
Visit Care Team Role Provider Type Alfredo Shaver MD Family Provider Physician Primary Care Provider Address: [address] [place] [address], [phone] Austin Miller DO Attending Provider Non-Staff Referring Provider Address: [address] [place], [address] PAPER BOX CUTTER Treatment Note PAPER BOX CUTTER Clinical Instructor Line Start: 04/15/22 13:44 Freq: Status: Active Protocol: Document 04/15/22 13:44 (Rec: 04/15/22 13:54 [id number]) Clinical Instructor Signature Clinical Instructor Clinical Instructor Yes PAPER BOX CUTTER Treatment Note Start: 04/13/22 12:57 Freq: Status: Active Protocol: Document 05/27/22 11:42 ZS (Rec: 05/27/22 11:45 ZS [id number]) Speech Pathology Treatment Note Session Time Visit Start Time 11:30 Visit Stop Time 12:30 Total Visit Minutes 60 Visit Information Visit Number 18 Plan of Care Dates 05/10/2022 - 07/04/2022 Insurance Information Medicare Setting Treatment Setting Outpatient Care Visit Type Note Type Treatment Note Next Note Type Next Note Type Treatment Note General Information Patient History Amaya is a 66-year old female who received a diagnosis of Parkinson's Disease in May 2019 and was referred to speech therapy due to reduced volume secondary to Parkinson' s. Pt noted most of her salient Parkinson's symptoms impact her lower body, resulting in impaired balance and halted movement in legs when trying to walk. Pt added she completed BIG program a long time ago. 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 Damage was confirmed by central supply manager in November 2021 and pt stated it is still healing, but was unclear what damage had occurred. Pt had pneumonia in early March 2022 and is still recovering from that, meaning her voice is more hoarse and she has more phlegm than usual. Pt stated her voice fades throughout the day and reduced volume has made communicating with her and on the phone challenging. 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 Other hobbies include piano, gardening, sewing, and biking. The pt presents with reduced loudness and hoarse vocal quality secondary to Parkinson 's Disease. Additionally, pt had pneumonia in early March and reported she is still recovering and experiencing reduced vocal quality and increased phlegm as result of illness. Recommend speech therapy, specifically LOUD program, to increase vocal loudness for improved communication of wants and needs, especially in emergency situations. Subjective Identification Type Name Identification Reconciled With Medical Record Observations/Patient Presentation Amaya arrived on time and ambulated to therapy room independently. She reported completing her HEP, but stated vocal quality was poor across all tasks. She indicated it is easier to do reading tasks than ah tasks. Chief Complaint(s) Voice Objective Short Term Goals 1. Pt will demonstrate increase in MPT to 15-25 seconds from current avg. of 6 .5 seconds. 2. Pt will demonstrate improved vocal quality as measured by clinician perception and pt report. 3. Pt will demonstrate decreased impact of voice on ADLs, as measured by VHI and pt report. 4. Pt will demonstrate improved loudness of 5-7dB with decreased effort reported by pt. Director Of Outreach Goals Pt will demonstrate vocal quality, loudness, and MPT WNL . Treatment Activities Completed vocal relaxation and forward resonance activities today. Completed LOUD exercises: sustained ah, high and low pitch, and functional phrases. Did not complete paragraphs due to worsened vocal quality. Focused efforts on increasing forward resonance and relaxing vocal folds for improved vocal quality. Assessment Patient Response to Treatment Excellent Rehab Potential Good Progress Towards Goals Delayed Progress Assessment of Overall Progress Declining Assessment of Improvement Pt completed MPT exercise with avg. loudness of 75.1dB ( range: 71-77dB) for an avg. of 3.8 seconds (range: 1.6-6.2 seconds). Average maximum pitch was 398.3Hz (range: 359- 448Hz) at an avg. volume of 73 .1dB (range: 69-76dB). Average minimum pitch was 201.8Hz ( range: 179-248Hz) at an average volume of 71.2dB ( range: 69-73dB). She maintained an avg. loudness of 72.7dB (range: 71-74dB) for functional phrases. Improvement noted in abdominal breathing today. Continued training vocal relaxation exercises as well as forward resonance exercises. Amaya benefitted from saying oh instead of ah for sustained vowel and low pitches, as this helped maintain relaxed position. Focused efforts on forward resonance and improving vocal quality today, with straw phonation (blowing bubbles) spaced between 2-3 sentences during functional phrases and reading tasks. Significant difficulty with alternating voicing on and off while exhaling today. Improvement noted in high and low pitch exercises with pitch and volume. Vocal quality was initially low, though improved over course of ahs. Segmented functional phrases into sections of 2-3 for improved vocal quality and removed reading material to focus on maintaining forward resonance and improved vocal quality. Reviewed with Patient Goals,Progress Being Made,Home Exercise Program Patient/Caregiver Understanding Good Plan Amount of Therapy Recommended 1 Month Frequency of Treatment Four Times a Week Length of Session 60 Minutes Therapeutic Contents Home Exercise Program,Voice Training Provided Patient/Caregiver Instruction Home Exercise Program,Plan of Care,Questions/Concerns Therapy Recommendations Continue with Current Program Suggested Referral ENT
--- NOTE | 2022-05-31 12:30 | ST.OPTN ---
Visit Care Team Role Provider Type Alfredo Shaver MD Family Provider Physician Primary Care Provider Address: [address] [place] [address], [phone] Austin Miller DO Attending Provider Non-Staff Referring Provider Address: [address] [place], [address] PAYROLL DIRECTOR Treatment Note PAYROLL DIRECTOR Clinical Instructor Line Start: 04/15/22 13:44 Freq: Status: Active Protocol: Document 04/15/22 13:44 (Rec: 04/15/22 13:54 [id number]) Clinical Instructor Signature Clinical Instructor Clinical Instructor Yes PAYROLL DIRECTOR Treatment Note Start: 04/13/22 12:57 Freq: Status: Active Protocol: Document 05/31/22 12:30 ZS (Rec: 06/01/22 11:18 ZS [id number]) Speech Pathology Treatment Note Session Time Visit Start Time 11:45 Visit Stop Time 12:30 Total Visit Minutes 45 Visit Information Visit Number 19 Plan of Care Dates 05/10/2022 - 07/04/2022 Insurance Information Medicare Setting Treatment Setting Outpatient Care Visit Type Note Type Treatment Note Next Note Type Next Note Type Progress Note General Information Patient History Amaya is a 66-year old female who received a diagnosis of Parkinson's Disease in May 2019 and was referred to speech therapy due to reduced volume secondary to Parkinson' s. Pt noted most of her salient Parkinson's symptoms impact her lower body, resulting in impaired balance and halted movement in legs when trying to walk. Pt added she completed BIG program a long time ago. 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 Damage was confirmed by manager web application in November 2021 and pt stated it is still healing, but was unclear what damage had occurred. Pt had pneumonia in early March 2022 and is still recovering from that, meaning her voice is more hoarse and she has more phlegm than usual. Pt stated her voice fades throughout the day and reduced volume has made communicating with her and on the phone challenging. 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 Other hobbies include piano, gardening, sewing, and biking. The pt presents with reduced loudness and hoarse vocal quality secondary to Parkinson 's Disease. Additionally, pt had pneumonia in early March and reported she is still recovering and experiencing reduced vocal quality and increased phlegm as result of illness. Recommend speech therapy, specifically LOUD program, to increase vocal loudness for improved communication of wants and needs, especially in emergency situations. Subjective Identification Type Name Identification Reconciled With Medical Record Observations/Patient Presentation Amaya arrived late and ambulated to therapy room independently. She reported completing her HEP, but stated vocal quality was significantly reduced this morning as compared to the rest of the weekend. Chief Complaint(s) Voice Objective Short Term Goals 1. Pt will demonstrate increase in MPT to 15-25 seconds from current avg. of 6 .5 seconds. 2. Pt will demonstrate improved vocal quality as measured by clinician perception and pt report. 3. Pt will demonstrate decreased impact of voice on ADLs, as measured by VHI and pt report. 4. Pt will demonstrate improved loudness of 5-7dB with decreased effort reported by pt. Hydroelectric Station Operator Goals Pt will demonstrate vocal quality, loudness, and MPT WNL . Treatment Activities Completed vocal relaxation and forward resonance activities today. Completed LOUD exercises: sustained ah, high and low pitch, Did not complete functional phrases or reading tasks due to worsened vocal quality. Focused efforts on increasing forward resonance and relaxing vocal folds for improved vocal quality. Assessment Patient Response to Treatment Excellent Rehab Potential Good Progress Towards Goals Delayed Progress Assessment of Overall Progress Declining Assessment of Improvement Pt completed MPT exercise with avg. loudness of 72.6dB ( range: 71-74dB) for an avg. of 3.2 seconds (range: 2.8-3.5 seconds). Average maximum pitch was 356.5Hz (range: 337- 376Hz) at an avg. volume of 71 .5dB (range: 71-72dB). Average minimum pitch was 220.5Hz ( range: 216-225Hz) at an average volume of 68.5dB ( range: 68-69dB). Continued training vocal relaxation exercises as well as forward resonance exercises. Amaya benefitted from saying oh instead of ah for sustained vowel and low pitches, as this helped maintain relaxed position. Focused efforts on forward resonance and improving vocal quality today, with straw phonation (blowing bubbles) spaced between 2-3 sentences during functional phrases and reading tasks. Significant difficulty with maintaining forward resonance today in addition to difficulty with diaphragmatic breathing. Pt inquired about progress and prognosis and education was provided given diagnosis of Parkinson's and what this means for voice, how progress relates to consistency in attendance and HEP, and voice systems ( particularly breath support and resonance) and impact on volume. Pt expressed understanding. Reviewed with Patient Goals,Progress Being Made,Home Exercise Program Patient/Caregiver Understanding Good Plan Amount of Therapy Recommended 1 Month Frequency of Treatment Four Times a Week Length of Session 60 Minutes Therapeutic Contents Home Exercise Program,Voice Training Provided Patient/Caregiver Instruction Home Exercise Program,Plan of Care,Questions/Concerns Therapy Recommendations Continue with Current Program Suggested Referral ENT
--- NOTE | 2022-06-01 12:30 | ST.OPTN ---
Visit Care Team Role Provider Type Alfredo Shaver MD Family Provider Physician Primary Care Provider Address: [address] [place] [address], [id number] Austin Miller DO Attending Provider Non-Staff Referring Provider Address: [address] [place], [address] RN TELEPHONE TRIAGE Treatment Note RN TELEPHONE TRIAGE Clinical Instructor Line Start: 04/15/22 13:44 Freq: Status: Active Protocol: Document 04/15/22 13:44 (Rec: 04/15/22 13:54 [id number]) Clinical Instructor Signature Clinical Instructor Clinical Instructor Yes RN TELEPHONE TRIAGE Treatment Note Start: 04/13/22 12:57 Freq: Status: Active Protocol: Document 06/01/22 12:30 ZS (Rec: 06/02/22 09:29 ZS [id number]) Speech Pathology Treatment Note Session Time Visit Start Time 11:40 Visit Stop Time 12:30 Total Visit Minutes 50 Visit Information Visit Number 20 Plan of Care Dates 05/10/2022 - 07/04/2022 Insurance Information Medicare Setting Treatment Setting Outpatient Care Visit Type Note Type Progress Note Next Note Type Next Note Type Treatment Note General Information Patient History Amaya is a 66-year old female who received a diagnosis of Parkinson's Disease in May 2019 and was referred to speech therapy due to reduced volume secondary to Parkinson' s. Pt noted most of her salient Parkinson's symptoms impact her lower body, resulting in impaired balance and halted movement in legs when trying to walk. Pt added she completed BIG program a long time ago. 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 Damage was confirmed by insole rounder in November 2021 and pt stated it is still healing, but was unclear what damage had occurred. Pt had pneumonia in early March 2022 and is still recovering from that, meaning her voice is more hoarse and she has more phlegm than usual. Pt stated her voice fades throughout the day and reduced volume has made communicating with her and on the phone challenging. 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 Other hobbies include piano, gardening, sewing, and biking. The pt presents with reduced loudness and hoarse vocal quality secondary to Parkinson 's Disease. Additionally, pt had pneumonia in early March and reported she is still recovering and experiencing reduced vocal quality and increased phlegm as result of illness. Recommend speech therapy, specifically LOUD program, to increase vocal loudness for improved communication of wants and needs, especially in emergency situations. Subjective Identification Type Name Identification Reconciled With Medical Record Observations/Patient Presentation Amaya arrived late and ambulated to therapy room independently. She reported completing her HEP. Chief Complaint(s) Voice Objective Short Term Goals 1. Pt will demonstrate increase in MPT to 15-25 seconds from current avg. of 6 .5 seconds. 2. Pt will demonstrate improved vocal quality as measured by clinician perception and pt report. 3. Pt will demonstrate decreased impact of voice on ADLs, as measured by VHI and pt report. 4. Pt will demonstrate improved loudness of 5-7dB with decreased effort reported by pt. Cvicu Rn Goals Pt will demonstrate vocal quality, loudness, and MPT WNL . Treatment Activities Completed vocal relaxation and forward resonance activities today. Completed LOUD exercises: sustained ah, high and low pitch, and functional phrases. Did not complete reading tasks due to recent worsened vocal quality. Focused efforts on increasing forward resonance and relaxing vocal folds for improved vocal quality. Assessment Patient Response to Treatment Excellent Rehab Potential Good Progress Towards Goals Delayed Progress Assessment of Overall Progress Improving Assessment of Improvement Pt completed MPT exercise with avg. loudness of 73.2dB ( range: 72-74dB) for an avg. of 4.92 seconds (range: 2.9-7.0 seconds). Average maximum pitch was 365.7Hz (range: 358- 374Hz) at an avg. volume of 73 .8dB (range: 69-76dB). Average minimum pitch was 175.8Hz ( range: 168-193Hz) at an average volume of 71.2dB ( range: 66-74dB). She maintained avg. loudness of 73 .2dB (range: 72-74dB) while reading functional phrases. Continued training vocal relaxation exercises as well as forward resonance exercises . Amaya benefitted from saying oh instead of ah for sustained vowel and low pitches, as this helped maintain relaxed position. Focused efforts on forward resonance and improving vocal quality today, with straw phonation (blowing bubbles) spaced between 2-3 sentences during functional phrases and reading tasks. Improvement noted with maintaining forward resonance and diaphragmatic breathing today. Continued chest breathing observed, though pt exhibited diphragmatic breath x1 today. Pt exhibited good progress today in terms of sustained phonation time and vocal quality. Progress has been slow and inconsistent due to consistent tardiness, inconsistent compliance with prescribed HEP, and inconsistent attendance. Focus of therapy is currently on improving vocal quality, which will aid in sustained vocal quality over the course of a day for improved loudness. Pt will not complete LOUD program by the end of her scheduled appointments, and no additional appointments are being added due to low compliance with program thus far. Pt was informed of this and expressed understanding. She will continue home program on her own and RN TELEPHONE TRIAGE will provide resources for [facility] group in the area. Will check vocal quality for possible advancement to paragraph reading in next session. Reviewed with Patient Goals,Progress Being Made,Home Exercise Program Patient/Caregiver Understanding Good Plan Amount of Therapy Recommended 1 Month Frequency of Treatment Four Times a Week Length of Session 60 Minutes Therapeutic Contents Home Exercise Program,Voice Training Provided Patient/Caregiver Instruction Home Exercise Program,Plan of Care,Questions/Concerns Therapy Recommendations Continue with Current Program Suggested Referral ENT
--- NOTE | 2022-06-02 12:29 | ST.OPTN ---
Visit Care Team Role Provider Type Alfredo Shaver MD Family Provider Physician Primary Care Provider Address: [address] [place] [address], [id number] Austin Miller DO Attending Provider Non-Staff Referring Provider Address: [address] [place], [address] METAL WINDOW SCREEN ASSEMBLER Treatment Note MET[employer] WINDOW SCREEN ASSEMBLER Clinical Instructor Line Start: 04/15/22 13:44 Freq: Status: Active Protocol: Document 04/15/22 13:44 (Rec: 04/15/22 13:54 [id number]) Clinical Instructor Signature Clinical Instructor Clinical Instructor Yes METAL WINDOW SCREEN ASSEMBLER Treatment Note Start: 04/13/22 12:57 Freq: Status: Active Protocol: Document 06/02/22 12:00 ZS (Rec: 06/02/22 12:07 ZS [id number]) Speech Pathology Treatment Note Session Time Visit Start Time 11:35 Visit Stop Time 12:30 Total Visit Minutes 55 Visit Information Visit Number 21 Plan of Care Dates 05/10/2022 - 07/04/2022 Insurance Information Medicare Setting Treatment Setting Outpatient Care Visit Type Note Type Treatment Note Next Note Type Next Note Type Treatment Note General Information Patient History Amaya is a 66-year old female who received a diagnosis of Parkinson's Disease in May 2019 and was referred to speech therapy due to reduced volume secondary to Parkinson' s. Pt noted most of her salient Parkinson's symptoms impact her lower body, resulting in impaired balance and halted movement in legs when trying to walk. Pt added she completed BIG program a long time ago. 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 Damage was confirmed by reversal print inspector in November 2021 and pt stated it is still healing, but was unclear what damage had occurred. Pt had pneumonia in early March 2022 and is still recovering from that, meaning her voice is more hoarse and she has more phlegm than usual. Pt stated her voice fades throughout the day and reduced volume has made communicating with her and on the phone challenging. 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 Other hobbies include piano, gardening, sewing, and biking. The pt presents with reduced loudness and hoarse vocal quality secondary to Parkinson 's Disease. Additionally, pt had pneumonia in early March and reported she is still recovering and experiencing reduced vocal quality and increased phlegm as result of illness. Recommend speech therapy, specifically LOUD program, to increase vocal loudness for improved communication of wants and needs, especially in emergency situations. Subjective Identification Type Name Identification Reconciled With Medical Record Observations/Patient Presentation Amaya arrived late and ambulated to therapy room independently. She reported completing her HEP and vocal quality was improved. Chief Complaint(s) Voice Objective Short Term Goals 1. Pt will demonstrate increase in MPT to 15-25 seconds from current avg. of 6 .5 seconds. 2. Pt will demonstrate improved vocal quality as measured by clinician perception and pt report. 3. Pt will demonstrate decreased impact of voice on ADLs, as measured by VHI and pt report. 4. Pt will demonstrate improved loudness of 5-7dB with decreased effort reported by pt. Snf Goals Pt will demonstrate vocal quality, loudness, and MPT WNL . Treatment Activities Completed vocal relaxation and forward resonance activities today. Completed LOUD exercises: sustained ah, high and low pitch, functional phrases, and paraph reading task. Focused efforts on increasing forward resonance and relaxing vocal folds for improved vocal quality. Assessment Patient Response to Treatment Excellent Rehab Potential Good Progress Towards Goals Delayed Progress Assessment of Overall Progress Improving Assessment of Improvement Pt completed MPT exercise with avg. loudness of 73.2dB ( range: 70-76dB) for an avg. of 3.42 seconds (range: 2.6-4.7 seconds). Average maximum pitch was 387.5Hz (range: 333- 468Hz) at an avg. volume of 72 .5dB (range: 69-74dB). Average minimum pitch was 196.2Hz ( range: 128-235Hz) at an average volume of 69.9dB ( range: 66-72dB). She maintained avg. loudness of 73 .6dB (range: 73-74dB) while reading functional phrases and avg. 73.3dB while reading paragraphs. Continued training vocal relaxation exercises as well as forward resonance exercises. Amaya benefitted from saying oh instead of ah for sustained vowel and low pitches, as this helped maintain relaxed position. Focused efforts on forward resonance and improving vocal quality today, with straw phonation (blowing bubbles) spaced between 2-3 sentences during functional phrases and reading tasks. Improvement noted with maintaining forward resonance. Reviewed with Patient Goals,Progress Being Made,Home Exercise Program Patient/Caregiver Understanding Good Plan Amount of Therapy Recommended 1 Month Frequency of Treatment Four Times a Week Length of Session 60 Minutes Therapeutic Contents Home Exercise Program,Voice Training Provided Patient/Caregiver Instruction Home Exercise Program,Plan of Care,Questions/Concerns Therapy Recommendations Continue with Current Program Suggested Referral ENT
--- NOTE | 2022-06-03 14:25 | ST.OPDS ---
Visit Care Team Role Provider Type Alfredo Shaver MD Family Provider Physician Primary Care Provider Address: [address] [place] [address], [id number] Austin Miller DO Attending Provider Non-Staff Referring Provider Address: [address] [place], [address] [employer] Treatment Note [employer] Clinical Instructor Line Start: 04/15/22 13:44 Freq: Status: Active Protocol: Document 04/15/22 13:44 (Rec: 04/15/22 13:54 [id number]) Clinical Instructor Signature Clinical Instructor Clinical Instructor Yes [employer] Treatment Note Start: 04/13/22 12:57 Freq: Status: Active Protocol: Document 06/03/22 13:59 ZS (Rec: 06/03/22 14:00 ZS [id number]) Speech Pathology Treatment Note Session Time Visit Start Time 11:31 Visit Stop Time 12:30 Total Visit Minutes 59 Visit Information Visit Number 22 Plan of Care Dates 05/10/2022 - 07/04/2022 Insurance Information Medicare Setting Treatment Setting Outpatient Care Visit Type Note Type Discharge Summary General Information Patient History Amaya is a 66-year old female who received a diagnosis of Parkinson's Disease in May 2019 and was referred to speech therapy due to reduced volume secondary to Parkinson' s. Pt noted most of her salient Parkinson's symptoms impact her lower body, resulting in impaired balance and halted movement in legs when trying to walk. Pt added she completed BIG program a long time ago. 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 Damage was confirmed by kettle worker in November 2021 and pt stated it is still healing, but was unclear what damage had occurred. Pt had pneumonia in early March 2022 and is still recovering from that, meaning her voice is more hoarse and she has more phlegm than usual. Pt stated her voice fades throughout the day and reduced volume has made communicating with her and on the phone challenging. 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 Other hobbies include piano, gardening, sewing, and biking. The pt presents with reduced loudness and hoarse vocal quality secondary to Parkinson 's Disease. Additionally, pt had pneumonia in early March and reported she is still recovering and experiencing reduced vocal quality and increased phlegm as result of illness. Recommend speech therapy, specifically LOUD program, to increase vocal loudness for improved communication of wants and needs, especially in emergency situations. Subjective Identification Type Name Identification Reconciled With Medical Record Observations/Patient Presentation Amaya arrived late and ambulated to therapy room independently. She reported completing her HEP and stated she experienced pain/ discomfort in her tonsil last night in addition to worsened vocal quality last night and this morning. Chief Complaint(s) Voice Objective Short Term Goals 1. Pt will demonstrate increase in MPT to 15-25 seconds from current avg. of 6 .5 seconds. - Goal not met. Pt exhibited regression in MPT from initial evaluation (avg. 6.5 seconds) to final assessment (avg. 1.7 seconds) with steady decline in MPT across treatment. 2. Pt will demonstrate improved vocal quality as measured by clinician perception and pt report. - Goal not met. Progress in vocal quality was inconsistent across treatment sessions as well as from initial to final evaluation with minimal progress made. 3. Pt will demonstrate decreased impact of voice on ADLs, as measured by VHI and pt report. - Goal not met, progress made. Overall VHI score dropped from 55 to 47 with decreases seen in functional score (initial: 20 / final: 11) and emotional score (initial: 12 / final: 9) . Physical score increased from 23 at initial evaluation to 27 at final assessment. 4. Pt will demonstrate improved loudness of 5-7dB with decreased effort reported by pt. - Goal not met. MPT loudness increased from 73dB to 74.2dB from initial to final assessment. Otherwise, volume across other tasks remained the same. Snf Goals Pt will demonstrate vocal quality, loudness, and MPT WNL . Treatment Activities Completed post-treatment assessment of voice with VHI as well as repeat of voice evaluation measures completed in initial evaluation. Provided education regarding [facility] program as well as continued tension reduction exercises. Recommended referral for ENT to follow-up on damaged vocal folds and provide information regarding tonsil irritation. Assessment Patient Response to Treatment Excellent Rehab Potential Good Progress Towards Goals Delayed Progress Assessment of Overall Progress Improving Assessment of Improvement Minimal improvements noted since initial evaluation. Voice Handicap Index (VHI) scores indicated a decrease in impact of voice on functional and emotional scales and an increase in physical impact. Physical impact increasing may be due to increased vocal use with intensive LOUD program as well as increased awareness of these issues across program. Pt exhibited reduced MPT, from avg. 6.5 seconds at initial evaluation to avg. 1.7 seconds at final assessment, which is likely due to reduced breath support. Amaya continues to struggle with diaphragmatic breathing and integrating a variety of elements into one exercise (e.g., doing diphragmatic breathing and forward resonance at the same time). MPT volume increased minimally, from 73dB at initial evaluation to 74.2dB at final. High and low pitch decreased in terms of vocal range with high pitch dropping from 389.5Hz to 386Hz and low pitch rising from 131.5Hz to 207.5Hz. Her volume remained consistent across high and low pitch tasks as well as reading tasks from initial to final assessment. Lack of improvement in these areas may have contributed to increased Physical score on VHI as Amaya would have increased her awareness of breath support and vocal quality issues without significant progress in these areas. s to z ratio was closer to 1 at final evaluation (0.97), though this was a result of both /z/ and /s/ phonation time dropping from initial assessment. Limited progress is likely due to inconsistent attendance and inconsistency with prescribed HEP. Education regarding importance of attendance and HEP was expressed to Amaya at several points during program and dates of LOUD program were extended to accommodate scheduling challenges. Despite extension of program, attendance and HEP problems continued. Amaya did not meet any of her goals and progress toward goals has been limited if any was made. Discharging from speech therapy at this time as current schedule does not allow for completion of full LOUD program and Amaya is not benefitting from reduced structure or less frequent visits. Recommend follow-up appointment with ENT to determine structural components that may be contributing to vocal quality (e.g., damaged vocal fold, tonsil irritation, etc.). Pt may choose to revisit LOUD program at later date when she can commit to completing full program. Reviewed with Patient Goals,Progress Being Made,Home Exercise Program Patient/Caregiver Understanding Good Plan Amount of Therapy Recommended No Further Therapy Frequency of Treatment No Further Therapy Therapeutic Contents Home Exercise Program,Voice Training Provided Patient/Caregiver Instruction Home Exercise Program,Plan of Care,Questions/Concerns Therapy Recommendations Discharge to Home Exercise Program,Discharge from Speech Therapy Reason for Discharge Completed LOUD sessions. Suggested Referral ENT
== END 2022-06-03 16:04 | disposition home or self-care (01) ==
LOC: SP 11:30
PROVIDERS: Family Provider Family Medicine; PCP Family Medicine; Referring Provider Internal Medicine; Visit Provider Internal Medicine
DX: G20 Parkinson's disease (principal)
CPT/HCPCS: 92507; 92524

== ENCOUNTER → 2022-08-26 09:18 | Outpatient (CLI) | payer MEDICARE, OTHER, SELFPAY ==
[2022-05-03 09:36] VITALS: BMI 27.1
[2022-08-26 10:20] LABS: Add Manual Diff / Slide Review NO; Basophils Absolute Auto 0 /uL (0-100); Basophils Percent Auto 0.3 % (0-2); Eosinophils Absolute Auto 200 /uL (0-450); Eosinophils Percent Auto 2.8 % (2-4); Hematocrit 41.2 % (36-46); Hemoglobin 13.9 g/dL (12.0-16.0); Lymphocytes Absolute Auto 2200 /uL (1100-4500); Lymphocytes Percent Auto 34.8 % (25-40); Mean Corpuscular HGB Conc 33.8 % (30-36); Mean Corpuscular Hemoglobin 31.1 PG (26-34); Mean Corpuscular Volume 91.8 fL (80-100); Monocytes Absolute Auto 500 /uL (0-900); Monocytes Percent Auto 7.5 % (3-14); Neutrophils Absolute Auto 3500 /uL (1500-7000); Neutrophils Percent Auto 54.6 % (50-75); Platelet Count 290 X10^3/uL (150-400); Red Blood Cell Count 4.49 X10^6/uL (4.0-5.2); Red Cell Distribution Width 13.2 % (11.6-14.8); White Blood Cell Count 6.3 X10^3/uL (4.5-11.0)
[2022-08-26 10:45] LABS: Alanine Aminotransferase 8 IU/L (<35); Albumin Globulin Ratio 1.3 (1.0-2.8); Alkaline Phosphatase 87 U/L (38-126); Aspartate Aminotransferase 22 IU/L (14-36); BUN Creatinine Ratio 21.7 (6-22); Bilirubin Total 0.4 mg/dL (0.2-1.3); Blood Urea Nitrogen 18 mg/dL (7-17); Calcium 9.4 mg/dL (8.4-10.2); Carbon Dioxide 38 mmol/L (22-32); Chloride 99 mmol/L (98-107); Cholesterol 177 mg/dL (140-199); Estimated Glomerular Filt Rate > 60 mL/min (>60); Globulin 3.2 g/dL (1.7-4.1); Glucose 121 mg/dL (80-110); HDL Cholesterol 54 mg/dL (40-60); HEMOLYSIS < 15 (0-50); LDL Cholesterol Calculated 103 mg/dL (<100); Potassium 4.6 mmol/L (3.4-5.1); Sodium 140 mmol/L (137-145); Total Protein 7.2 g/dL (6.3-8.2); Triglycerides 101 mg/dL (35-150)
[2022-08-26 11:15] LABS: TSH w/ Reflex to FT4 1.21 uIU/mL (0.47-4.68)
[2022-08-26 16:13] LABS: Creatinine Urine Random 113.7 mg/dL
[2022-08-26 16:27] LABS: Microalbumin Urine Random < 0.6 mg/dL (0-1.6)
== END ==
PROVIDERS: Family Provider Family Medicine; PCP Family Medicine; Referring Provider Family Medicine; Visit Provider Family Medicine
DX: G20 Parkinson's disease (principal); I10 Essential (primary) hypertension; J18.9 Pneumonia, unspecified organism; J40 Bronchitis, not specified as acute or chronic; R73.9 Hyperglycemia, unspecified
CPT/HCPCS: 36415; 80053; 80061; 82043; 82570; 84443; 85025

== ENCOUNTER → 2022-09-20 15:26 | Outpatient (CLI) | payer MEDICARE, OTHER, SELFPAY ==
[2022-05-03 09:36] VITALS: BMI 27.1
--- NOTE | 2022-09-20 15:27 | DI.US.S_ITS ---
PROCEDURE: US PELVIC COMPLETE INDICATIONS: RIGHT PELVIC PAIN POSTCOITAL TECHNIQUE: Real-time scanning was performed of the pelvic organs, with image documentation. Additional endovaginal scanning was necessary due to incomplete visualization of the adnexal and endometrial structures by transabdominal scanning. COMPARISON: [facility], , US PELVIC COMPLETE, 07/24/2019, 10:49. FINDINGS: Uterus: Uterus is anteverted and normal in size at 6.3 x 2.8 x 2.3 cm. The myometrium is heterogeneous. The endometrium measures 3 mm combined thickness. A few nonspecific echogenic foci identified within the endometrium. Ovaries: The bilateral ovaries and adnexa were not well visualized on this study. Other: No pathologic free abdominal or pelvic fluid. IMPRESSION: Pelvic ultrasound without acute sonographic abnormalities. The bilateral ovary/adnexa were not visualized on this study. We strive to produce accurate, complete, and clear reports of imaging services. To assist us in improving patient care, this report was composed using standard report templates and voice recognition software. Therefore, it may contain abnormal punctuation, insertions and/or omissions. Occasional wrong-word or sound-alike substitutions may occur. Though we review the report and make efforts to correct it, we do recommend that the report be read carefully in proper context to recognize any text inaccuracies. Dictated by: Jay Martínez M.D. on 09/20/2022 at 15:35 Approved by: Jay Martínez M.D. on 09/20/2022 at 15:37
--- NOTE | 2022-09-20 15:27 | DI.MRI.S_ITS ---
PROCEDURE: MR SHOULDER RT WO CON INDICATIONS: right shoulder pain not improved TECHNIQUE: Noncontrast oblique coronal STIR, oblique sagittal T1 spin echo and STIR, axial T1 spin echo and T2 fast spin echo with fat saturation through the shoulder. COMPARISON: [facility], , SHOULDER WITHOUT CONTRAST, 03/02/2012, 13:45. FINDINGS: Image quality: Metal artifact reduction sequences were used due to a metallic anchor within the humeral head. Images are mildly degraded by patient motion on multiple pulse sequences. Diagnostic information is obtained. Rotator cuff: Postsurgical changes are seen from prior rotator cuff tendon repair. The supraspinatus tendon is continuous with the distal fixation device. A few thin foci of fluid signal intensity are seen within the distal infraspinatus tendon that may be related to separation of tendon fibers during the prior surgery versus recurrent focal full-thickness partial width tearing. The bulk of the tendon fibers are continuous with the distal fixation device. The teres minor tendon is intact. The subscapularis tendon demonstrates moderate grade partial intrasubstance tearing at the superior insertion. There is mild atrophy and grade 2 fatty infiltration of the supraspinatus and infraspinatus muscles. Bones and bursae: Surgical anchors are seen in the humeral head. The humeral head is mildly high riding relative to the glenoid. At least partial-thickness cartilage irregularity is seen in the glenohumeral joint. Dmon-fv-[id number] degenerative changes are seen at the acromioclavicular joint. There is a small amount of fluid in the subacromial/subdeltoid bursa and a small glenohumeral effusion. Capsule and soft tissues: Mild diffuse labral degeneration. The biceps long head tendon is subluxed medially relative to the intertubercular groove into the substance of the distal subscapularis tendon. There is moderate biceps long head tendinosis. Partial effacement of the normal fat signal in the rotator interval. The glenohumeral ligaments are intact. IMPRESSION: 1. Postsurgical changes from rotator cuff tendon repair. A few small thin foci of fluid signal intensity are seen at the distal infraspinatus tendon that may be related to separation of tendon fibers during the prior surgery versus small thin foci of recurrent full-thickness tearing. The bulk of the tendon fibers are continuous with the distal fixation devices. 2. Moderate grade partial intrasubstance tearing of the subscapularis tendon at the superior insertion. 3. Moderate biceps long head tendinosis and medial subluxation into the substance of the distal subscapularis tendon. 4. Mild diffuse labral degeneration. Grade 2 chondromalacia in the glenohumeral joint. 5. Mild to moderate acromioclavicular joint osteoarthrosis. 6. Small amount of fluid in the subacromial/subdeltoid bursa is expected in the postsurgical setting. Approved by: Richar Valentine M.D. on 09/21/2022 at 9:20
== END ==
PROVIDERS: Family Provider Family Medicine; PCP Family Medicine; Referring Provider Family Medicine; Visit Provider Family Medicine
DX: N94.89 Other specified conditions associated with female genital organs and menstrual cycle (principal); M75.111 Incomplete rotator cuff tear or rupture of right shoulder, not specified as traumatic; M19.011 Primary osteoarthritis, right shoulder; M25.511 Pain in right shoulder; M94.211 Chondromalacia, right shoulder
CPT/HCPCS: 73221; 76830; 76856

== ENCOUNTER → 2022-11-01 15:08 | Outpatient (CLI) | payer MEDICARE, OTHER, SELFPAY ==
[2022-05-03 09:36] VITALS: BMI 27.1
--- NOTE | 2022-11-01 15:12 | DI.RAD.S_ITS ---
PROCEDURE: XR KNEE RT 3V INDICATIONS: Right knee pain TECHNIQUE: 3 views of the knee were acquired. COMPARISON: [facility], CR, XR KNEE LT 3V, 06/10/2018, 12:24. FINDINGS: Bones: No fractures or dislocations. No suspicious bony lesions. [id number] tricompartmental arthritic change most severe medially. No erosions. Overall appearance is stable versus very minimally progressive compared to 2019. Soft tissues: Mild joint effusion. No suspicious soft tissue calcifications. IMPRESSION: Tricompartmental arthritic change as above. Dictated by: Debra Martinez M.D. on 11/01/2022 at 17:02 Approved by: Debra Martinez M.D. on 11/01/2022 at 17:03
--- NOTE | 2022-11-01 15:12 | DI.RAD.S_ITS ---
PROCEDURE: XR ELBOW RT MIN 3V INDICATIONS: Right elbow contusion TECHNIQUE: 3 views of the elbow were acquired. COMPARISON: None. FINDINGS: Bones: No fractures or dislocations. No suspicious bony lesions. Soft tissues: Mild elbow joint effusion. No suspicious soft tissue calcifications. IMPRESSION: No visualized acute fracture or dislocation. However, if clinical concern and/or pain persist, short interval imaging followup in 7-10 days is recommended, as occult injury cannot be definitively excluded. Dictated by: Debra Martinez M.D. on 11/01/2022 at 17:02 Approved by: Debra Martinez M.D. on 11/01/2022 at 17:02
--- NOTE | 2022-11-01 15:12 | DI.RAD.S_ITS ---
PROCEDURE: XR CERVICAL SPINE 2V OR 3V INDICATIONS: chronic neck pain below occiput TECHNIQUE: 3 view(s) of the cervical spine were acquired. COMPARISON: None. FINDINGS: Bones: No fractures or dislocations to the C7-T1 level. The lateral masses of C1 appear intact on the odontoid view. No suspicious bony lesions. There is reversal of cervical curvature. There is trace retrolisthesis of C3 on C4, C4 on C5, C5 on C6 and C6 on C7. Multilevel severe disc space narrowing is present from C3-4 through C6-7 with anterior osteophytes and multilevel uncovertebral arthropathy. Soft tissues: No prevertebral soft tissue swelling. IMPRESSION: Prominent degenerative changes from C3-4 through C6-7. Dictated by: Debra Martinez M.D. on 11/01/2022 at 17:03 Approved by: Debra Martinez M.D. on 11/01/2022 at 17:04
== END ==
PROVIDERS: Family Provider Family Medicine; PCP Family Medicine; Referring Provider Physician Assistant; Visit Provider Physician Assistant
DX: S50.01XA Contusion of right elbow, initial encounter (principal); M54.2 Cervicalgia; M25.561 Pain in right knee; M47.812 Spondylosis without myelopathy or radiculopathy, cervical region; G89.29 Other chronic pain
CPT/HCPCS: 72040; 73080; 73562

== ENCOUNTER 2022-11-11 17:20 | Emergency (ER) | payer MEDICARE, OTHER, SELFPAY ==
[2022-05-03 09:36] VITALS: BMI 27.1
[2022-11-11 17:44] VITALS: BP 173/93; PULSE 77; RESP 16; TEMP 36.9; O2SAT 99; BMI 27.3
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
[2022-11-11] MEDS: BACITRACIN OINT 0.9 GM PCKT 1 APPLIC TOP (22:15)
[2022-11-11] MEDS: TET,DIPH,PERTUSS(ACELL),VAC/PF 0.5 ML SYRINGE IM (22:15)
[2022-11-11 22:25] VITALS: BP 202/88; PULSE 70; RESP 16; TEMP 37.1; O2SAT 99
[2022-11-11 22:31] VITALS: BP 154/78; PULSE 75; RESP 18; O2SAT 99
== END 2022-11-11 22:32 | disposition home or self-care (01) ==
PROVIDERS: Emergency Provider Emergency Medicine; Family Provider Family Medicine; PCP Family Medicine
DX: S01.81XA Laceration without foreign body of other part of head, initial encounter (principal); S80.212A Abrasion, left knee, initial encounter; S80.211A Abrasion, right knee, initial encounter; V19.9XXA Pedal cyclist (driver) (passenger) injured in unspecified traffic accident, initial encounter; Z23 Encounter for immunization
CPT/HCPCS: 12013; 90471; 99283; 90715

== ENCOUNTER → 2022-11-15 11:52 | Outpatient (CLI) | payer MEDICARE, OTHER, SELFPAY ==
[2022-05-03 09:36] VITALS: BMI 27.1
== END ==
PROVIDERS: Family Provider Family Medicine; PCP Family Medicine; Visit Provider Physician Assistant
DX: R30.0 Dysuria (principal)
CPT/HCPCS: 87077; 87086; 87186

== ENCOUNTER → 2022-11-16 16:15 | Outpatient (CLI) | payer MEDICARE, OTHER, SELFPAY ==
[2022-05-03 09:36] VITALS: BMI 27.1
--- NOTE | 2022-11-16 16:20 | DI.MG.S_ITS ---
BILATERAL DIGITAL SCREENING MAMMOGRAM 3D/2D WITH CAD: 11/16/2022 CLINICAL: Routine screening. Comparison is made to exams dated: 08/10/2021 mammogram, 02/02/2020 mammogram, and 07/20/2017 mammogram - [facility]. There are scattered areas of fibroglandular density in both breasts (category b / 25%-50% glandular tissue). Current study was also evaluated with a Computer Aided Detection (CAD) system. No significant masses, calcifications, or other findings are seen in either breast. There has been no significant interval change. IMPRESSION: NEGATIVE There is no mammographic evidence of malignancy. A 1 year screening mammogram is recommended. Based on the Tyrer Cuzick model (a risk assessment model) the patient's lifetime risk is 6.2% and her 10 year risk is 3.3%. According to the ACR, ACS, and NCCN guidelines, an annual breast MRI exam along with mammogram is recommended if the patient's lifetime risk is 20% or greater. This exam was interpreted at Station ID: [id number]. NOTE: For mammograms, a report in lay terms will be sent to the patient. Approximately 15% of breast malignancies will not be visualized mammographically. In the management of a palpable breast mass, a negative mammogram must not discourage biopsy of a clinically suspicious lesion. Electronically Signed By: Jay yusuf/junior:11/17/2022 17:03:36 copy to: OTTO VALENZUELA letter sent: Normal Exam ACR BI-RADS Category 1: Negative [id number]
== END ==
PROVIDERS: Family Provider Family Medicine; PCP Family Medicine; Referring Provider Family Medicine; Visit Provider Family Medicine
DX: Z12.31 Encounter for screening mammogram for malignant neoplasm of breast (principal)
CPT/HCPCS: 77063; 77067

== ENCOUNTER 2023-02-25 22:04 | Emergency (ER) | payer MEDICARE, OTHER, SELFPAY ==
[2022-05-03 09:36] VITALS: BMI 27.1
[2023-02-25] VITALS (7 sets, daily range): BP systolic 164–218; BP diastolic 77–90; PULSE 86–105; RESP 16–44; TEMP 36.3; O2SAT 89–97; BMI 25.4
--- NOTE | 2023-02-25 22:29 | DI.RAD.S_ITS ---
PROCEDURE: XR SHOULDER LT MIN 2V INDICATIONS: fall, injury, pain TECHNIQUE: 3 views of the shoulder were acquired. COMPARISON: [facility], , SHOULDER 1 VIEW LEFT, 12/15/2007, 21:25. FINDINGS: Bones: The humeral head is located medial and inferior to the glenohumeral joint space. No visualized fracture. Soft tissues: No suspicious soft tissue calcifications. IMPRESSION: Anterior dislocation without visualized fracture. Dictated by: Debra Martinez M.D. on 02/25/2023 at 23:20 Approved by: Debra Martinez M.D. on 02/25/2023 at 23:20
[2023-02-25] MEDS: ONDANSETRON 4 MG/2 ML INJ IV (22:30)
[2023-02-25] MEDS: HYDROMORPHONE 1 MG INJ IV (22:31)
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
[2023-02-25] MEDS: SODIUM CHLORIDE 0.9% 1,000 ML 150 ML IV (23:45)
--- NOTE | 2023-02-25 23:56 | DI.RAD.S_ITS ---
PROCEDURE: XR SHOULDER LT 1V INDICATIONS: post reduction TECHNIQUE: 1 views of the shoulder were acquired. COMPARISON: [facility], CR, XR SHOULDER LT MIN 2V, 02/25/2023, 22:51. FINDINGS: Bones: There has been interval reduction of the previous left shoulder anterior dislocation. Positioning is suboptimal. There appears to be persistent mild inferior subluxation/dislocation at the glenohumeral joint space although improved compared to prior exam. No discrete fracture. Soft tissues: No suspicious soft tissue calcifications. IMPRESSION: Persistent appearance subluxation/dislocation although improved. No discrete fracture. Recommend standard 2 views for follow-up imaging after additional reduction attempts. Dictated by: Debra Martinez M.D. on 02/26/2023 at 0:49 Approved by: Debra Martinez M.D. on 02/26/2023 at 0:51
[2023-02-26] VITALS (16 sets, daily range): BP systolic 147–189; BP diastolic 69–83; PULSE 95–110; RESP 18–49; O2SAT 96–99
[2023-02-26] MEDS: propofoL 200 MG/20 ML VIAL 125 MG IV (00:12)
[2023-02-26] MEDS: propofoL 200 MG/20 ML VIAL 100 MG IV (01:08)
--- NOTE | 2023-02-26 01:12 | DI.RAD.S_ITS ---
PROCEDURE: XR SHOULDER LT 1V INDICATIONS: post reduction TECHNIQUE: 1 views of the shoulder were acquired. COMPARISON: [facility], CR, XR SHOULDER LT MIN 2V, 02/25/2023, 22:51. [facility], CR, XR SHOULDER LT 1V, 02/25/2023, 23:56. FINDINGS: Bones: Single view demonstrates anatomic alignment of previous dislocation. No visualized fracture. Soft tissues: No suspicious soft tissue calcifications. IMPRESSION: Single view demonstrates anatomic alignment of previous dislocation without visualized fracture. Dictated by: Debra Martinez M.D. on 02/26/2023 at 1:25 Approved by: Debra Martinez M.D. on 02/26/2023 at 1:26
[2023-02-26] MEDS: HYDROCODONE/ACET 5/325 PREPACK 1 BOTTLE MISC (02:04)
--- NOTE | 2023-02-26 02:15 | PC.NURSE ---
2348 1st procedural sedation started,see procedural sedation notes,@0005 procedure was stopped, unable to reduce dislocation, Dr Polk to call Ortho. @ 0108 Sha DICE SPOTTER with anesthesia here for procedure, medication given per anesthesia, pt ventilations assisted per bvm per anesthesia, shoulder reduced at 0112, procedure complete, pt arousable with minimal stimuli
== END 2023-02-26 02:20 | disposition home or self-care (01) ==
PROVIDERS: Emergency Provider Emergency Medicine; Family Provider Family Medicine; PCP Family Medicine
DX: S43.014A Anterior dislocation of right humerus, initial encounter (principal); S01.511A Laceration without foreign body of lip, initial encounter; W18.30XA Fall on same level, unspecified, initial encounter
CPT/HCPCS: 23650; 36415; 73020; 73030; 96374; 96375; 99152; 99284; 99285; J1170; J2405; J2704

== ENCOUNTER → 2023-03-09 17:18 | Outpatient (CLI) | payer MEDICARE, OTHER, SELFPAY ==
[2022-05-03 09:36] VITALS: BMI 27.1
--- NOTE | 2023-03-09 | DI.MRI.S_ITS ---
PROCEDURE: MR SHOULDER LT WO CON INDICATIONS: LEFT SHOULDER TEAR? TECHNIQUE: Noncontrast oblique coronal T2 fast spin echo with fat saturation, oblique sagittal T1 spin echo and T2 fast spin echo with fat saturation, axial T1 spin echo and T2 fast spin echo with fat saturation through the shoulder. COMPARISON: [facility] [place], CR, XR SHOULDER 2+ VIEWS LEFT, 03/03/2023, 15:47. [facility], CR, XR SHOULDER LT 1V, 02/26/2023, 1:05. [facility], CR, XR SHOULDER LT 1V, 02/25/2023, 23:56. [facility], CR, XR SHOULDER LT MIN 2V, 02/25/2023, 22:51. FINDINGS: Image quality: Excellent. Rotator cuff: There is full-thickness tear of the inferior fibers subscapularis tendon with tendon retraction to the musculotendinous junction. There is mild subscapularis muscle atrophy. There is full-thickness tear of the distal supraspinatus tendon involving the footprint. No tendon retraction. Mild supraspinatus muscle atrophy is present. There is high-grade partial-thickness tear of the infraspinatus tendon and moderate tendinosis. Mild infraspinatus muscle atrophy is present. There is mild tendinosis of the teres minor without high-grade tendon tear or muscle atrophy. Bones and bursae: No bone marrow contusions or fractures. Moderate glenohumeral joint degeneration and mild acromioclavicular joint degeneration. The acromion demonstrates conventional anatomy, without an os acromiale. There is moderate glenohumeral joint effusion. Capsule and soft tissues: There is degenerative labral tearing in the anterior inferior labrum from 6 to 9 o'clock. The long head of the biceps tendon demonstrates normal location and morphology. The rotator interval appears normal, without fibrosis. The coracohumeral ligament is normal in thickness. There are borderline sized axillary lymph node measuring up to 1 cm. IMPRESSION: 1. Full-thickness tear of the subscapularis tendon with tendon retraction and mild muscle atrophy. 2. Full-thickness tear of the supraspinatus tendon involving the footprint. No tendon retraction. There is mild supraspinatus muscle atrophy. 3. High-grade partial-thickness tear of the infraspinatus tendon. Mild infraspinatus muscle atrophy is present. 4. Mild tendinosis of the teres minor without tendon tear or muscle atrophy. \ 5. Moderate glenohumeral joint degeneration and mild acromioclavicular joint degeneration. 6. Degenerative labral tearing. 7. Moderate glenohumeral joint effusion. 8. Borderline sized axillary lymph nodes are noted, nonspecific. Recommend clinical follow-up. Dictated by: Jeannine Flaherty M.D. on 03/10/2023 at 11:27 Approved by: Jeannine Flaherty M.D. on 03/10/2023 at 11:54
== END ==
PROVIDERS: Family Provider Family Medicine; PCP Family Medicine; Referring Provider Podiatrist; Visit Provider Podiatrist
DX: S43.005A Unspecified dislocation of left shoulder joint, initial encounter (principal); S46.012A Strain of muscle(s) and tendon(s) of the rotator cuff of left shoulder, initial encounter; M19.012 Primary osteoarthritis, left shoulder; M25.412 Effusion, left shoulder; S43.492A Other sprain of left shoulder joint, initial encounter; X58.XXXA Exposure to other specified factors, initial encounter
CPT/HCPCS: 73221

== ENCOUNTER → 2023-04-17 12:33 | Outpatient (CLI) | payer MEDICARE, OTHER, SELFPAY ==
[2022-05-03 09:36] VITALS: BMI 27.1
[2023-04-17 13:37] LABS: Influenza A - CEPHEID Flu A NEGATIVE (NEGATIVE); Influenza B - CEPHEID Flu B NEGATIVE (NEGATIVE); Respiratory Syncytial Virus Negative (Negative)
[2023-04-17 13:44] LABS: COVID-19 CEPHEID 4-PLEX PCR Negative (Negative)
== END ==
PROVIDERS: Family Provider Family Medicine; PCP Family Medicine; Visit Provider Physician Assistant Surgical
DX: Z20.828 Contact with and (suspected) exposure to other viral communicable diseases (principal)
CPT/HCPCS: 0241U

== ENCOUNTER → 2023-05-24 12:24 | Outpatient (CLI) | payer MEDICARE, OTHER, SELFPAY ==
[2022-05-03 09:36] VITALS: BMI 27.1
[2023-05-24 12:53] LABS: Add Manual Diff / Slide Review NO; Basophils Absolute Auto 0 /uL (0-100); Basophils Percent Auto 0.7 % (0-2); Eosinophils Absolute Auto 100 /uL (0-450); Eosinophils Percent Auto 2.4 % (2-4); Hematocrit 42.4 % (36-46); Hemoglobin 14.4 g/dL (12.0-16.0); Lymphocytes Absolute Auto 1900 /uL (1100-4500); Lymphocytes Percent Auto 35.3 % (25-40); Mean Corpuscular HGB Conc 34.1 % (30-36); Mean Corpuscular Hemoglobin 31.7 PG (26-34); Mean Corpuscular Volume 93.1 fL (80-100); Monocytes Absolute Auto 400 /uL (0-900); Monocytes Percent Auto 6.7 % (3-14); Neutrophils Absolute Auto 2900 /uL (1500-7000); Neutrophils Percent Auto 54.9 % (50-75); Platelet Count 275 X10^3/uL (150-400); Red Blood Cell Count 4.55 X10^6/uL (4.0-5.2); Red Cell Distribution Width 13.3 % (11.6-14.8); White Blood Cell Count 5.3 X10^3/uL (4.5-11.0)
[2023-05-24 13:44] LABS: Alanine Aminotransferase 5 IU/L (<35); Albumin 4.4 g/dL (3.5-5.0); Albumin Globulin Ratio 1.3 (1.0-2.8); Alkaline Phosphatase 71 U/L (38-126); Aspartate Aminotransferase 26 IU/L (14-36); BUN Creatinine Ratio 31.4 (6-22); Bilirubin Total 0.8 mg/dL (0.2-1.3); Blood Urea Nitrogen 22 mg/dL (7-17); Calcium 9.5 mg/dL (8.4-10.2); Carbon Dioxide 34 mmol/L (22-32); Chloride 102 mmol/L (98-107); Cholesterol 190 mg/dL (140-199); Estimated Glomerular Filt Rate > 60 mL/min (>60); Globulin 3.4 g/dL (1.7-4.1); Glucose 112 mg/dL (80-110); HDL Cholesterol 55 mg/dL (40-60); HEMOLYSIS 17 (0-50); LDL Cholesterol Calculated 115 mg/dL (<100); Potassium 3.9 mmol/L (3.4-5.1); Sodium 141 mmol/L (137-145); Total Protein 7.8 g/dL (6.3-8.2); Triglycerides 98 mg/dL (35-150)
[2023-05-24 14:28] LABS: Creatinine Urine Random 78.9 mg/dL
[2023-05-24 14:36] LABS: Microalbumin Urine Random < 0.6 mg/dL (0-1.6)
[2023-05-26 08:08] LABS: Apolipoprotein B 98 mg/dL (<90)
== END ==
LOC: LAB 12:26
PROVIDERS: Family Provider Family Medicine; PCP Family Medicine; Referring Provider Family Medicine; Visit Provider Family Medicine
DX: Z00.00 Encounter for general adult medical examination without abnormal findings (principal); I10 Essential (primary) hypertension; R73.9 Hyperglycemia, unspecified; R29.6 Repeated falls; M47.817 Spondylosis without myelopathy or radiculopathy, lumbosacral region; G20.A1 Parkinson's disease without dyskinesia, without mention of fluctuations
CPT/HCPCS: 36415; 80053; 80061; 82043; 82172; 82570; 84443; 85025

== ENCOUNTER → 2023-09-05 12:28 | Outpatient (CLI) | payer MEDICARE, OTHER, SELFPAY ==
[2022-05-03 09:36] VITALS: BMI 27.1
--- NOTE | 2023-09-05 12:30 | DI.RAD.S_ITS ---
PROCEDURE: XR RIBS LT MIN 3V W CXR1V INDICATIONS: left rib pain TECHNIQUE: 3 views of the ribs were acquired, along with a single view chest. COMPARISON: [facility] [place], CR, XR SHOULDER 2+ VIEWS LEFT, 03/03/2023, 15:47. FINDINGS: Surgical changes and devices: Left lumbar spine fixation hardware. Right shoulder anchors. Bones and chest wall: Possible nondisplaced fracture of the left 10th rib. No dislocations. No suspicious bony lesions. Overlying soft tissues appear unremarkable. Lungs and pleura: No pleural effusions or pneumothorax. Lungs appear clear. Mediastinum: Mediastinal contours appear normal. Heart size is normal. IMPRESSION: Possible nondisplaced fracture of the left 10th rib. Dictated by: Rancho Braxton M.D. on 09/05/2023 at 17:14 Approved by: Rancho Braxton M.D. on 09/05/2023 at 17:18
== END ==
PROVIDERS: Family Provider Family Medicine; PCP Family Medicine; Referring Provider Family Medicine; Visit Provider Family Medicine
DX: I10 Essential (primary) hypertension (principal); R07.81 Pleurodynia
CPT/HCPCS: 71101

== ENCOUNTER 2023-09-09 21:30 | Emergency (ER) | payer MEDICARE, OTHER, SELFPAY ==
[2022-05-03 09:36] VITALS: BMI 27.1
[2023-09-09] VITALS (8 sets, daily range): BP systolic 150–175; BP diastolic 69–79; PULSE 83–99; RESP 16–34; TEMP 36.4; O2SAT 93–97; BMI 25.0
--- NOTE | 2023-09-09 21:47 | DI.CT.S_ITS ---
PROCEDURE: CT CERVICAL SPINE WO CON INDICATIONS: fall/hit face/no thinners TECHNIQUE: Noncontrast 3 mm thick sections acquired from the skull base to the T4 level. Sagittal and coronal reformats were then constructed. For radiation dose reduction, the following was used: automated exposure control, adjustment of mA and/or kV according to patient size. COMPARISON: None. FINDINGS: Image quality: Excellent. Bones: The craniocervical junction is intact. Moderate degenerative space loss and spurring at the atlantodental interval. No cervical vertebral body fractures or pathologic subluxation. Trace anterolisthesis is C2-3 with prominent bilateral facet arthropathy. Severe disc height loss from C3 through C7 with moderate anterior and posterior endplate spurs. There is cervical kyphosis with the apex C5. Visualized superior ribs are intact. Soft tissues: Prevertebral soft tissues are normal in thickness. No paravertebral hematomas. No apical pneumothoraces. IMPRESSION: No acute cervical spine fracture or traumatic subluxation. There is chronic appearing cervical kyphosis with multilevel severe spondylosis. Dictated by: Kelley Bloom M.D. on 09/09/2023 at 23:38 Approved by: Kelley Bloom M.D. on 09/09/2023 at 23:41
--- NOTE | 2023-09-09 21:47 | DI.CT.S_ITS ---
PROCEDURE: CT FACIAL BONES WO CON INDICATIONS: fall/hit face/no thinners TECHNIQUE: Noncontrast 2.5 mm thick axial images acquired from the mandible through the frontal sinuses, with coronal and sagittal reformatting. For radiation dose reduction, the following was used: automated exposure control, adjustment of mA and/or kV according to patient size. COMPARISON: None. FINDINGS: Image quality: Excellent. Bones and teeth: Orbital perez are intact. Sinus perez show no fracture or deformity. Nasal bones and septum are intact. Visualized portions of the mandible demonstrate no fractures or subluxation. Zygomatic arches are intact. Pterygoid plates are intact. Visualized portions of the skull base and auditory canals are intact. Sinuses: There is mild osteitis in the right maxillary sinus with circumferential moderate mucosal thickening. There is a trace of fluid level in the right maxillary sinus. There is opacification of a single left ethmoid air cell. Paranasal sinuses are otherwise aerated, without fluid levels, mucosal thickening, or mucoceles. Mastoid air cells are aerated. Soft tissues: There is a hematoma over the left malar region. No visible foreign body. No edema, masses, or fluid collections. No enlarged lymph nodes. No soft tissue lacerations or debris. Vascular: Visualized vascular structures appear normal in the absence of contrast. Bony vascular foramina and canals are intact. IMPRESSION: Left facial soft tissue injury without underlying fracture. Chronic appearing sinusitis in the right maxillary sinus. Dictated by: Kelley Bloom M.D. on 09/09/2023 at 23:32 Approved by: Kelley Bloom M.D. on 09/09/2023 at 23:37
--- NOTE | 2023-09-09 21:47 | DI.RAD.S_ITS ---
PROCEDURE: XR CHEST 1V INDICATIONS: chest pain TECHNIQUE: One view of the chest was acquired. COMPARISON: [facility], CR, XR CHEST 2V, 05/10/2022, 12:37. FINDINGS: Surgical changes and devices: Right humeral head bone anchors. Lungs and pleura: Lungs are clear. No pleural effusions or pneumothorax. Mediastinum: Mediastinal contours appear normal. Heart size is normal. Bones and chest wall: No suspicious bony lesions. Overlying soft tissues appear unremarkable. IMPRESSION: 1. No radiographic evidence of acute chest trauma. Dictated by: Kelley Bloom M.D. on 09/09/2023 at 23:41 Approved by: Kelley Bloom M.D. on 09/09/2023 at 23:41
--- NOTE | 2023-09-09 21:47 | DI.CT.S_ITS ---
PROCEDURE: CT HEAD/BRAIN WO CON INDICATIONS: fall/hit face/no thinners TECHNIQUE: Noncontrast 4.5 mm thick angled axial sections acquired from the foramen magnum to the vertex, with coronal and sagittal reformats. For radiation dose reduction, the following was used: automated exposure control, adjustment of mA and/or kV according to patient size. COMPARISON: [facility], CT, CT HEAD/BRAIN WO CON, 06/09/2021, 22:32. FINDINGS: Image quality: Diagnostic. CSF spaces: Basal cisterns are patent. No extra-axial fluid collections. Ventricles are normal in size and shape. Brain: No midline shift. No intracranial masses or hemorrhage. Jay-white matter interface is normal. Skull and face: Calvarium and visualized facial bones are intact, without suspicious lesions. Hyperostosis frontalis interna. Sinuses: Trace, partially imaged fluid in the right maxillary sinus. Visualized sinuses and mastoids are otherwise clear. IMPRESSION: 1. No CT evidence of acute intracranial trauma. 2. No significant soft tissue injury or underlying fracture. Dictated by: Kelley Bloom M.D. on 09/09/2023 at 23:01 Approved by: Kelley Bloom M.D. on 09/09/2023 at 23:03
[2023-09-09 21:59] LABS: Add Manual Diff / Slide Review NO; Basophils Absolute Auto 100 /uL (0-100); Basophils Percent Auto 0.7 % (0-2); Eosinophils Absolute Auto 100 /uL (0-450); Eosinophils Percent Auto 1.1 % (2-4); Hemoglobin 14.6 g/dL (12.0-16.0); Lymphocytes Absolute Auto 2400 /uL (1100-4500); Lymphocytes Percent Auto 22.5 % (25-40); Mean Corpuscular HGB Conc 34.7 % (30-36); Mean Corpuscular Volume 92.2 fL (80-100); Monocytes Absolute Auto 800 /uL (0-900); Monocytes Percent Auto 7.1 % (3-14); Neutrophils Absolute Auto 7400 /uL (1500-7000); Neutrophils Percent Auto 68.6 % (50-75); Platelet Count 308 X10^3/uL (150-400); Red Blood Cell Count 4.56 X10^6/uL (4.0-5.2); Red Cell Distribution Width 12.4 % (11.6-14.8); White Blood Cell Count 10.7 X10^3/uL (4.5-11.0)
[2023-09-09 22:09] LABS: Prothrombin Time 10.9 SECONDS (9.4-12.5)
[2023-09-09 22:12] LABS: PTT Partial Thromboplastin Tim 34 SECONDS (25.1-36.5)
[2023-09-09 22:13] LABS: Alanine Aminotransferase 7 IU/L (<35); Albumin 4.7 g/dL (3.5-5.0); Albumin Globulin Ratio 1.3 (1.0-2.8); Alkaline Phosphatase 94 U/L (38-126); Aspartate Aminotransferase 23 IU/L (14-36); BUN Creatinine Ratio 35.6 (6-22); Bilirubin Total 0.5 mg/dL (0.2-1.3); Blood Urea Nitrogen 26 mg/dL (7-17); Calcium 9.6 mg/dL (8.4-10.2); Carbon Dioxide 36 mmol/L (22-32); Chloride 98 mmol/L (98-107); Creatine Kinase 97 U/L (30-135); Estimated Glomerular Filt Rate > 60 mL/min (>60); Globulin 3.5 g/dL (1.7-4.1); Glucose 110 mg/dL (80-110); HEMOLYSIS < 15 (0-50); Lipase 73 U/L (23-300); Potassium 3.8 mmol/L (3.4-5.1); Sodium 138 mmol/L (137-145); Total Protein 8.2 g/dL (6.3-8.2)
[2023-09-09 22:25] LABS: NT-proBNP (BNP-Adult 18+) 74 pg/mL (<125); Troponin I < 0.012 ng/mL (0.01-0.034)
[2023-09-09] MEDS: KETOROLAC 30 MG/ML VIAL 15 MG IV (23:36)
[2023-09-10] VITALS: BP 161/71; PULSE 84; RESP 20; O2SAT 97
[2023-09-10 00:30] VITALS: BP 147/66; PULSE 88; RESP 19; O2SAT 94
[2023-09-10 00:38] LABS: Troponin I < 0.012 ng/mL (0.01-0.034)
[2023-09-10 01:00] VITALS: BP 144/64; PULSE 88; RESP 16; O2SAT 94
[2023-09-10 01:30] VITALS: BP 141/65; PULSE 84; RESP 20; O2SAT 94
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
[2023-09-10 02:00] VITALS: BP 148/70; PULSE 85; RESP 23; O2SAT 95
[2023-09-10] MEDS: PROPARACAINE 0.5% OPHTH SOL 4 DROPS EYE-LEFT (02:23)
[2023-09-10] MEDS: FLUORESCEIN 1 MG STRIP EYE-LEFT (02:26)
[2023-09-10 02:30] VITALS: BP 181/72; PULSE 79; RESP 22; O2SAT 95
[2023-09-10] MEDS: ERYTHROMYCIN OPHTH 1 GM OINT 1 APPLIC EYE-LEFT (02:43)
== END 2023-09-10 02:49 | disposition home or self-care (01) ==
PROVIDERS: Emergency Provider Emergency Medicine; Family Provider Family Medicine; PCP Family Medicine
DX: S00.83XA Contusion of other part of head, initial encounter (principal); S00.212A Abrasion of left eyelid and periocular area, initial encounter; R07.9 Chest pain, unspecified; W18.30XA Fall on same level, unspecified, initial encounter
CPT/HCPCS: 36415; 70450; 70486; 71045; 72125; 80053; 82550; 83690; 83735; 83880; 84484; 85025; 85610; 85730; 96374; 99284; J1885

== ENCOUNTER → 2023-10-17 | Outpatient (CLI) | payer MEDICARE, OTHER, SELFPAY ==
[2023-09-21 11:40] VITALS: BMI 27.1
--- NOTE | 2023-10-18 18:16 | DI.NM.S_ITS ---
DATE OF SERVICE: 10/18/2023 PROCEDURE: Pharmacological perfusion study. INDICATIONS: Chest discomfort with underlying hypertension and hyperlipidemia. RADIOPHARMACEUTICAL: 25.1 mCi technetium-99m Myoview IV was injected at stress and 26.8 mCi technetium-99m Myoview IV was injected at rest. CARDIAC STRESS: The patient underwent pharmacological perfusion study under the supervision of an attending staff using standard IV Lexiscan as per protocol. She remained hemodynamically stable. Resting blood pressure 124/70. Baseline rhythm sinus. During stress, no convincing ischemic changes seen. No significant arrhythmias. No chest discomfort. Minimal dyspnea. RAW DATA: There is increased subdiaphragmatic activity. Gut shadow near the apex of the heart. There are no prone images. It was scanned with left hand down. GATED STUDY: Resting LV ejection fraction 94.6% and stress LV ejection fraction 96%. Resting end-diastolic volume 47 mL. TID ratio 1.10, which is within normal limits. Lung/heart ratio 0.36, which is within normal limits. MYOCARDIAL PERFUSION SCAN: Please note that there are no stress prone images. Stress supine and resting supine images were compared to each other. There is a very small size, minimally decreased perfusion of distal inferolateral wall which is predominantly fixed. No convincing reversible ischemia. CONCLUSION: I will call this study likely a normal myocardial perfusion study. There is no reversible ischemia. Minimally decreased perfusion of distal inferolateral wall, likely due to tissue attenuation artifact as on raw data. there is increased subdiaphragmatic activity with heart shadow involving the apex and inferior border of the heart. On gated study, preserved left ventricular function without any obvious wall motion abnormalities. Hence, most likely, we are dealing with tissue attenuation artifact. Overall, low-risk myocardial perfusion scan. Amaya Chambers - ACCESS TECH/fn/NC doc#: [id number]/job#: [id number] dd: 10/18/2023 16:19:00 dt: 10/18/2023 18:01:00 DICTATING MD/COPIES TO: Dejah Velasco MD COPIES MNE: ALISA;
== END ==
LOC: NUCM 10:04
PROVIDERS: Family Provider Family Medicine; PCP Family Medicine; Referring Provider Family Medicine; Visit Provider Family Medicine
DX: E78.5 Hyperlipidemia, unspecified (principal); I10 Essential (primary) hypertension; R07.89 Other chest pain
CPT/HCPCS: 78452; 93017; A9502; J2785

== ENCOUNTER → 2023-10-18 15:24 | Outpatient (CLI) | payer MEDICARE, OTHER, SELFPAY ==
[2023-09-21 11:40] VITALS: BMI 27.1
--- NOTE | 2023-10-18 | DI.MRI.S_ITS ---
PROCEDURE: MR SHOULDER LT WO CON INDICATIONS: STRAIN ON LEFT ROTATOR CUFF TECHNIQUE: Noncontrast oblique coronal T2 fast spin echo with fat saturation, oblique sagittal T1 spin echo and T2 fast spin echo with fat saturation, axial T1 spin echo and T2 fast spin echo with fat saturation through the shoulder. COMPARISON: [facility], MR, MR SHOULDER LT WO CON, 03/09/2023, 17:36. FINDINGS: Image quality: Excellent. Rotator cuff: Full-thickness rupture involving posterior fibers of distal supraspinatus at its insertion on the humeral head is seen with up to 4.1 cm medial retraction of torn tendon fibers to the level of glenoid. Full-thickness rupture of distal infraspinatus at its insertion on humeral head is also seen with up to 3.8 cm medial retraction of torn tendon fibers to the level of acromioclavicular joint. There is moderate grade partial-thickness tear involving distal subscapularis with areas of full-thickness perforation involving mid to inferior fibers of distal supraspinatus near its humeral insertion and up to 1.9 cm medial retraction of torn tendon fibers. Sagittal images demonstrate mild to moderate supraspinatus and infraspinatus muscle atrophy. Bones and bursae: Moderate acromioclavicular joint osteoarthritic changes are seen. Superior migration of humeral head in relation to glenoid. Mild to moderate glenohumeral joint osteoarthritic changes also noted. No acute fracture or dislocation. Mild edema involving humeral head and proximal humeral shaft without discrete fracture line. Moderate to large joint effusion and subacromial subdeltoid bursal fluid, no gross loose bodies. Capsule and soft tissues: There is extensive signal abnormality and fraying of superior labrum concerning for superior glenoid labral tear. The long head of the biceps tendon appears thickened with intrasubstance T2 hyperintense signal at the level of humeral head. The rotator interval appears normal, without fibrosis. The coracohumeral ligament is normal in thickness. IMPRESSION: 1. Full-thickness rupture involving posterior fibers of distal supraspinatus and distal infraspinatus at their insertions on humeral head with up to 4.1 cm medial retraction of torn tendon fibers to the level of glenoid. Low to moderate grade supraspinatus and infraspinatus muscle atrophy. 2. Moderate to high-grade partial-thickness tear involving distal subscapularis with areas of full-thickness perforations in its mid to inferior portion near its humeral insertion and up to 1.9 cm medial retraction of torn tendon fibers. 3. Moderate acromioclavicular joint osteoarthritis and [id number] glenohumeral joint osteoarthritis. Superior migration of humeral head in relation to glenoid. No acute fracture or dislocation. Moderate to large joint effusion and subacromial subdeltoid bursal fluid. No loose bodies. 4. Suggestion of extensive superior glenoid labral tear. 5. Tendinosis and intrasubstance partial-thickness tear involving proximal intra-articular portion of long head of biceps. Dictated by: Chris Bernstein M.D. on 10/19/2023 at 15:36 Approved by: Chris Bernstein M.D. on 10/19/2023 at 15:45
== END ==
PROVIDERS: Family Provider Family Medicine; PCP Family Medicine; Referring Provider Orthopaedic Surgery; Visit Provider Orthopaedic Surgery
DX: S46.012A Strain of muscle(s) and tendon(s) of the rotator cuff of left shoulder, initial encounter (principal); M19.012 Primary osteoarthritis, left shoulder; M25.412 Effusion, left shoulder; X58.XXXA Exposure to other specified factors, initial encounter
CPT/HCPCS: 73221

== ENCOUNTER 2023-11-23 12:47 | Emergency (ER) | payer MEDICARE, OTHER, SELFPAY ==
[2023-09-21 11:40] VITALS: BMI 27.1
[2023-11-23] VITALS (13 sets, daily range): BP systolic 99–146; BP diastolic 56–64; PULSE 65–81; RESP 16–28; TEMP 36.9; O2SAT 93–97; BMI 24.7
--- NOTE | 2023-11-23 13:00 | EKG_ITS ---
[address] [id number] Test Date: 2023-11-23 Pat Name: Amaya Chambers Department: [facility] Room: Gender: Female Collections Rep: LISSY : 1955 Requested By: Order Number: [id number] Reading MD: Sabino Rojas Measurements Intervals [place] Rate: 74 P: 48 MD: 146 QRS: 15 QRSD: 82 T: 44 QT: 392 QTc: 435 Interpretive Statements Normal sinus rhythm Electronically Signed On 11-24-2023 19:51:32 PDT by Sabino Rojas
--- NOTE | 2023-11-23 13:00 | DI.RAD.S_ITS ---
PROCEDURE: XR CHEST 1V INDICATIONS: chest pain TECHNIQUE: One view of the chest was acquired. COMPARISON: [facility], CR, XR CHEST 1V, 09/09/2023, 22:07. [facility], CR, XR CHEST 2V, 05/10/2022, 12:37. FINDINGS: Surgical changes and devices: Right humeral surgical anchors. Lungs and pleura: Lungs are clear. No pleural effusions or pneumothorax. Mediastinum: Mediastinal contours appear normal. Heart size is normal. Bones and chest wall: No suspicious bony lesions. Overlying soft tissues appear unremarkable. IMPRESSION: No acute cardiopulmonary abnormality is seen. Dictated by: Ramesh Rae M.D. on 11/23/2023 at 14:01 Approved by: Ramesh Rae M.D. on 11/23/2023 at 14:01
--- NOTE | 2023-11-23 13:00 | DI.RAD.S_ITS ---
PROCEDURE: XR FOREARM RT 2V INDICATIONS: syncope/fall Rt FA pain TECHNIQUE: 2 views of the forearm were acquired. COMPARISON: [facility], CR, XR FOREARM RT 2V, 11/19/2021, 8:52. FINDINGS: Bones: No fractures or dislocations. No suspicious bony lesions. Negative ulnar variance. No evidence of osteonecrosis of the lunate. Soft tissues: No suspicious soft tissue calcifications or masses. IMPRESSION: No acute bony abnormality. Dictated by: Ramesh Rae M.D. on 11/23/2023 at 14:00 Approved by: Ramesh Rae M.D. on 11/23/2023 at 14:01
--- NOTE | 2023-11-23 13:04 | DI.CT.S_ITS ---
PROCEDURE: CT FACIAL BONES WO CON INDICATIONS: fall/syncope TECHNIQUE: Noncontrast 2.5 mm thick axial images acquired from the mandible through the frontal sinuses, with coronal and sagittal reformatting. For radiation dose reduction, the following was used: automated exposure control, adjustment of mA and/or kV according to patient size. COMPARISON: [facility], CT, CT FACIAL BONES WO CON, 09/09/2023, 22:01. FINDINGS: Image quality: Excellent. Bones and teeth: Orbital perez are intact. Sinus perez show no fracture or deformity. Nasal bones and septum are intact. Visualized portions of the mandible demonstrate no fractures or subluxation. Zygomatic arches are intact. Pterygoid plates are intact. Visualized portions of the skull base and auditory canals are intact. Sinuses: Again noted is right maxillary sinus mucosal thickening is as well as an air-fluid level. Mastoid air cells are aerated. Soft tissues: Right periorbital/right forehead superficial hematoma. Right globe intact.. No enlarged lymph nodes. No soft tissue lacerations or debris. Vascular: Visualized vascular structures appear normal in the absence of contrast. Bony vascular foramina and canals are intact. IMPRESSION: 1. No acute displaced fracture of the facial bones or mandibular bone. 2. Right periorbital/forehead superficial hematoma. 3. Acute on chronic right maxillary sinusitis. Dictated by: Ant Bruris M.D. on 11/23/2023 at 13:59 Approved by: Ant Burris M.D. on 11/23/2023 at 14:01
--- NOTE | 2023-11-23 13:04 | DI.CT.S_ITS ---
PROCEDURE: CT CERVICAL SPINE WO CON INDICATIONS: fall/syncope TECHNIQUE: Noncontrast 3 mm thick sections acquired from the skull base to the T4 level. Sagittal and coronal reformats were then constructed. For radiation dose reduction, the following was used: automated exposure control, adjustment of mA and/or kV according to patient size. COMPARISON: [facility], CT, CT CERVICAL SPINE WO CON, 09/09/2023, 22:01. FINDINGS: Image quality: Excellent. Bones: No fractures or dislocations. Visualized superior ribs are intact. Moderate to severe cervical spondylosis. Multilevel disc height loss and posterior disc osteophyte complex and uncovertebral joint osteophytes with multilevel bony foraminal narrowing. There is a degree of canal stenosis, most notably at C4-C5 and C5-C6 and C6-C7. Chronic reversal of normal lordotic curve. Multilevel facet arthropathy. Soft tissues: Prevertebral soft tissues are normal in thickness. No paravertebral hematomas. No apical pneumothoraces. IMPRESSION: 1. No acute cervical fracture or dislocation. 2. Cervical spondylosis. Dictated by: Ant Burris M.D. on 11/23/2023 at 13:57 Approved by: Ant Burris M.D. on 11/23/2023 at 13:59
--- NOTE | 2023-11-23 13:04 | DI.CT.S_ITS ---
PROCEDURE: CT HEAD/BRAIN WO CON INDICATIONS: fall/syncope TECHNIQUE: Noncontrast 4.5 mm thick angled axial sections acquired from the foramen magnum to the vertex, with coronal and sagittal reformats. For radiation dose reduction, the following was used: automated exposure control, adjustment of mA and/or kV according to patient size. COMPARISON: [facility], CT, CT HEAD/BRAIN WO CON, 09/09/2023, 22:01. FINDINGS: Image quality: Diagnostic. CSF spaces: Basal cisterns are patent. No extra-axial fluid collections. The ventricles are symmetric in size and shape. Brain: No intracranial bleeds or masses. There is cerebral volume loss for age, with resultant ventricular and sulcal prominence. There are periventricular and deep white matter chronic small vessel ischemic changes. There is intracranial internal carotid artery atherosclerosis. Skull and face: Calvarium and visualized facial bones appear intact, without suspicious lesions. Sinuses: Continued air-fluid level, right maxillary sinus. Other visualized. Nasal sinuses and mastoids are clear. IMPRESSION: 1. No acute intracranial process. 2. Acute right maxillary sinusitis. Dictated by: Ant Burris M.D. on 11/23/2023 at 13:55 Approved by: Ant Burris M.D. on 11/23/2023 at 13:56
[2023-11-23 14:36] LABS: Add Manual Diff / Slide Review NO; Basophils Absolute Auto 0 /uL (0-100); Basophils Percent Auto 0.5 % (0-2); Eosinophils Absolute Auto 0 /uL (0-450); Eosinophils Percent Auto 0.5 % (2-4); Hematocrit 41.4 % (36-46); Hemoglobin 14.2 g/dL (12.0-16.0); Lymphocytes Absolute Auto 1600 /uL (1100-4500); Lymphocytes Percent Auto 22.6 % (25-40); Mean Corpuscular HGB Conc 34.3 % (30-36); Mean Corpuscular Hemoglobin 32.2 PG (26-34); Mean Corpuscular Volume 93.8 fL (80-100); Monocytes Absolute Auto 500 /uL (0-900); Monocytes Percent Auto 6.6 % (3-14); Neutrophils Absolute Auto 4900 /uL (1500-7000); Neutrophils Percent Auto 69.8 % (50-75); Platelet Count 310 X10^3/uL (150-400); Red Blood Cell Count 4.41 X10^6/uL (4.0-5.2); Red Cell Distribution Width 12.5 % (11.6-14.8)
[2023-11-23 14:40] LABS: INR 0.9 (0.9-1.3); Prothrombin Time 10.4 SECONDS (9.4-12.5)
[2023-11-23 14:43] LABS: PTT Partial Thromboplastin Tim 38 SECONDS (25.1-36.5)
[2023-11-23 14:46] LABS: Alanine Aminotransferase 5 IU/L (<35); Albumin 4.4 g/dL (3.5-5.0); Albumin Globulin Ratio 1.4 (1.0-2.8); Alkaline Phosphatase 91 U/L (38-126); Aspartate Aminotransferase 23 IU/L (14-36); BUN Creatinine Ratio 29.2 (6-22); Bilirubin Total 0.5 mg/dL (0.2-1.3); Blood Urea Nitrogen 21 mg/dL (7-17); Calcium 9.5 mg/dL (8.4-10.2); Carbon Dioxide 32 mmol/L (22-32); Chloride 101 mmol/L (98-107); Creatine Kinase 81 U/L (30-135); Estimated Glomerular Filt Rate > 60 mL/min (>60); Globulin 3.1 g/dL (1.7-4.1); Glucose 114 mg/dL (80-110); HEMOLYSIS < 15 (0-50); Lipase 112 U/L (23-300); Sodium 139 mmol/L (137-145); Total Protein 7.5 g/dL (6.3-8.2)
--- NOTE | 2023-11-23 14:48 | PC.NURSE ---
Patient fell last night and has right black eye, reporting 2/10 pain and not requesting pain meds at this time. patient uses FWW to ambulate normally, patient reports not having her walker last night when she fell. History of similar falls.
[2023-11-23 14:57] LABS: NT-proBNP (BNP-Adult 18+) 182 pg/mL (<125); Troponin I < 0.012 ng/mL (0.01-0.034)
[2023-11-23] MEDS: CARBIDOPA-LEVODOPA 25/100 TABLET 1 EACH PO (15:15)
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
== END 2023-11-23 16:58 | disposition home or self-care (01) ==
PROVIDERS: Emergency Provider Emergency Medicine; Family Provider Family Medicine; PCP Family Medicine
DX: S00.11XA Contusion of right eyelid and periocular area, initial encounter (principal); S01.511A Laceration without foreign body of lip, initial encounter; R07.9 Chest pain, unspecified; G20.A1 Parkinson's disease without dyskinesia, without mention of fluctuations; R51.9 Headache, unspecified; I10 Essential (primary) hypertension; W18.30XA Fall on same level, unspecified, initial encounter
CPT/HCPCS: 36415; 70450; 70486; 71045; 72125; 73090; 80053; 82550; 83690; 83735; 83880; 84484; 85025; 85610; 85730; 93005; 99284

== ENCOUNTER → 2023-12-07 13:49 | Outpatient (CLI) | payer MEDICARE, OTHER, SELFPAY ==
[2023-09-21 11:40] VITALS: BMI 27.1
== END ==
LOC: CAR 13:50
PROVIDERS: Family Provider Family Medicine; PCP Family Medicine; Referring Provider Family Medicine; Visit Provider Family Medicine
DX: R55 Syncope and collapse (principal)
CPT/HCPCS: 93246

== ENCOUNTER → 2024-03-06 13:01 | Outpatient (CLI) | payer MEDICARE, OTHER, SELFPAY ==
[2023-09-21 11:40] VITALS: BMI 27.1
[2024-03-06 13:19] LABS: Add Manual Diff / Slide Review NO; Basophils Absolute Auto 0 /uL (0-100); Basophils Percent Auto 0.4 % (0-2); Eosinophils Absolute Auto 0 /uL (0-450); Eosinophils Percent Auto 0.6 % (2-4); Hemoglobin 14.6 g/dL (12.0-16.0); Lymphocytes Absolute Auto 1500 /uL (1100-4500); Lymphocytes Percent Auto 21.1 % (25-40); Mean Corpuscular Volume 94.4 fL (80-100); Monocytes Absolute Auto 500 /uL (0-900); Monocytes Percent Auto 6.8 % (3-14); Neutrophils Absolute Auto 5200 /uL (1500-7000); Neutrophils Percent Auto 71.1 % (50-75); Platelet Count 311 X10^3/uL (150-400); Red Blood Cell Count 4.56 X10^6/uL (4.0-5.2); Red Cell Distribution Width 12.5 % (11.6-14.8); White Blood Cell Count 7.3 X10^3/uL (4.5-11.0)
[2024-03-06 13:34] LABS: Albumin 4.5 g/dL (3.5-5.0); Albumin Globulin Ratio 1.6 (1.0-2.8); BUN Creatinine Ratio 26.7 (6-22); Blood Urea Nitrogen 20 mg/dL (7-17); Calcium 9.6 mg/dL (8.4-10.2); Carbon Dioxide 33 mmol/L (22-32); Chloride 103 mmol/L (98-107); Estimated Glomerular Filt Rate > 60 mL/min (>60); Globulin 2.8 g/dL (1.7-4.1); Glucose 114 mg/dL (80-110); HEMOLYSIS 19 (0-50); Total Protein 7.3 g/dL (6.3-8.2)
[2024-03-06 13:36] LABS: Alanine Aminotransferase 13 IU/L (<35); Alkaline Phosphatase 79 U/L (38-126); Aspartate Aminotransferase 29 IU/L (14-36); Bilirubin Total 0.6 mg/dL (0.2-1.3); Sodium 140 mmol/L (137-145)
[2024-03-06 14:03] LABS: Appearance Urine UA CLEAR; Bilirubin Urine UA NEGATIVE (NEGATIVE); Color Urine UA YELLOW; Glucose Urine UA NEGATIVE (Negative); Ketones Urine UA TRACE (NEGATIVE); Leukocyte Esterase Urine UA NEGATIVE (NEGATIVE); Nitrite Urine UA NEGATIVE (Negative); Occult Blood Urine UA NEGATIVE (Negative); Protein Urine UA NEGATIVE (Negative); Urobilinogen Urine UA 0.2 E.U./dL (0.2)
[2024-03-06 14:10] LABS: Bacteria Urine None Seen; Culture Indicated Urine Cult Not Indicated; RBC Urine None Seen (0-5/HPF); Squamous Epithelial Cell Urine 1-5 /HPF (0-5/HPF); Urine Volume 10mL (spun); WBC Urine None Seen (0-5/HPF); pH Urine UA 5.5 (4.5-8.0)
== END ==
PROVIDERS: Family Provider Family Medicine; PCP Family Medicine; Referring Provider Family Medicine; Visit Provider Family Medicine
DX: R63.4 Abnormal weight loss (principal); R82.998 Other abnormal findings in urine; I10 Essential (primary) hypertension; R29.6 Repeated falls
CPT/HCPCS: 36415; 80053; 81001; 85025

== ENCOUNTER → 2024-03-08 12:59 | Outpatient (CLI) | payer MEDICARE, OTHER, SELFPAY ==
[2023-09-21 11:40] VITALS: BMI 27.1
[2024-03-10 16:11] LABS: C difficie Toxins A and B, EIA Negative (Negative)
[2024-03-12 11:08] LABS: Fecal Immunochemical Test Negative (Negative)
== END ==
PROVIDERS: Family Provider Family Medicine; PCP Family Medicine; Referring Provider Physician Assistant; Visit Provider Physician Assistant
DX: A09 Infectious gastroenteritis and colitis, unspecified (principal)
CPT/HCPCS: 82274; 87045; 87177; 87324

== ENCOUNTER → 2024-04-13 10:07 | Outpatient (CLI) | payer MEDICARE, OTHER, SELFPAY ==
[2023-09-21 11:40] VITALS: BMI 27.1
--- NOTE | 2024-04-13 10:10 | DI.CT.S_ITS ---
PROCEDURE: CT ABDOMEN PELVIS W CON INDICATIONS: chronic pain right pelvic area / right flank x 1 year TECHNIQUE: After the administration of intravenous contrast, axial sections acquired from the lung bases to the pubic symphysis. Coronal and sagittal reformats were performed. For radiation dose reduction, the following was used: automated exposure control, adjustment of mA and/or kV according to patient size. COMPARISON: [facility], CT, CT ABDOMEN PELVIS W CON, 11/01/2020, 13:48. FINDINGS: Image quality: Diagnostic Lower chest: Unremarkable lung bases Mildly patulous distal esophagus. Normal heart size. Liver: There are multiple subcentimeter liver lesions, which are too small to characterize, but usually represent cysts Gallbladder and biliary system: Unremarkable, nondilated Pancreas: No ductal dilation Spleen: Nonenlarged Adrenals: No discrete nodules Kidneys: No hydronephrosis. Vessels and lymph nodes: The main portal vein is patent. No abdominal aortic aneurysm. No pathologic lymphadenopathy by size criteria Bowel and peritoneum: No evidence of small bowel obstruction. No pathologic ascites. There is increased fecal loading. No drainable abscess Body wall: Small fat containing umbilical hernia. Pelvis: Bladder is unremarkable. Reproductive organs are unremarkable on limited CT evaluation. Bones: No acute or suspicious osseous finding. Lumbosacral fusion hardware is present. IMPRESSION: No acute abdominal pelvic abnormality. There is increased fecal loading particularly in the ascending colon. No bowel obstruction. No hydronephrosis or obstructing renal stone Other findings above. Dictated by: Fletcher Thompson M.D. on 04/13/2024 at 14:19 Approved by: Fletcher Thompson M.D. on 04/13/2024 at 14:23
[2024-04-13 10:38] LABS: Estimated Glomerular Filt Rate > 60 mL/min (>60)
== END ==
PROVIDERS: Family Provider Family Medicine; PCP Family Medicine; Referring Provider Physician Assistant; Visit Provider Physician Assistant
DX: N94.10 Unspecified dyspareunia (principal); R10.2 Pelvic and perineal pain; I10 Essential (primary) hypertension; K52.9 Noninfective gastroenteritis and colitis, unspecified; K76.9 Liver disease, unspecified; K42.9 Umbilical hernia without obstruction or gangrene; Z98.1 Arthrodesis status
CPT/HCPCS: 36415; 74177; 82565; Q9967

== ENCOUNTER 2024-04-25 13:35 | Emergency (ER) | payer MEDICARE, OTHER, SELFPAY ==
[2023-09-21 11:40] VITALS: BMI 27.1
[2024-04-25 13:38] VITALS: BP 140/70; PULSE 101; RESP 18; TEMP 36.4; O2SAT 95; BMI 23.8
--- NOTE | 2024-04-25 13:47 | EKG_ITS ---
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
--- NOTE | 2024-04-25 15:29 | DI.RAD.S_ITS ---
PROCEDURE: XR CHEST 2V INDICATIONS: fall, chest/left rib pain TECHNIQUE: 2 views of the chest were acquired. COMPARISON: [facility], CR, XR CHEST 1V, 11/23/2023, 13:11. [facility], CR, XR CHEST 1V, 09/09/2023, 22:07. FINDINGS: Surgical changes and devices: None. Lungs and pleura: Lungs are clear. No pleural effusions or pneumothorax. Mediastinum: Mediastinal contours are normal. Heart size is normal. Bones and chest wall: No suspicious bony abnormalities. Soft tissues appear unremarkable. IMPRESSION: No acute cardiopulmonary abnormality is seen. Dictated by: Abelardo Kim M.D. on 04/25/2024 at 16:25 Approved by: Abelardo Kim M.D. on 04/25/2024 at 16:25
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
--- NOTE | 2024-04-25 16:46 | DI.CT.S_ITS ---
PROCEDURE: CT CHEST W CON INDICATIONS: fall Tuesday, left chest wall and left upper back pain TECHNIQUE: After the administration of intravenous contrast, 5 mm thick sections acquired from the pulmonary apices to the posterior costophrenic angles. 1 mm axial lung, 5 mm thick coronal and sagittal reformats and 7 mm axial MIP were acquired. For radiation dose reduction, the following was used: automated exposure control, adjustment of mA and/or kV according to patient size. COMPARISON: [facility], CT, CT CHEST W CON, 04/30/2019, 11:49. FINDINGS: Image quality: Diagnostic. Lower Neck: No enlarged lymph nodes. Thyroid: Normal CT appearance. Axillae: No enlarged lymph nodes. Chest Wall: No soft tissue contusions. Bones: No visible rib fractures. Lungs and Pleura: No pneumothorax or hemothorax. No focal consolidations to suggest pulmonary contusion. No significant pulmonary nodules or masses. Mild nonspecific left lower lung base reticulation. Heart: Heart size is normal. No pericardial effusion. Thoracic Vessels: No mediastinal hematoma. Normal caliber thoracic Vessels. Mediastinum and Franny: No enlarged lymph nodes. Esophagus: No wall thickening. No hiatal hernia. Upper Abdomen: Visible portions of the upper abdominal solid organs are intact. Numerous subcentimeter hypodensities throughout the liver, probably cysts. IMPRESSION: No CT evidence of acute chest trauma. Dictated by: Kelley Bloom M.D. on 04/25/2024 at 19:14 Approved by: Kelley Bloom M.D. on 04/25/2024 at 19:17
[2024-04-25] MEDS: ACETAMINOPHEN 325 MG TABLET 975 MG PO (17:01)
[2024-04-25 17:42] LABS: Add Manual Diff / Slide Review NO; Basophils Absolute Auto 100 /uL (0-100); Basophils Percent Auto 0.8 % (0-2); Eosinophils Absolute Auto 200 /uL (0-450); Eosinophils Percent Auto 2.2 % (2-4); Hematocrit 40.8 % (36-46); Lymphocytes Absolute Auto 1700 /uL (1100-4500); Lymphocytes Percent Auto 21.3 % (25-40); Mean Corpuscular HGB Conc 34.3 % (30-36); Mean Corpuscular Hemoglobin 32.2 PG (26-34); Mean Corpuscular Volume 93.9 fL (80-100); Monocytes Absolute Auto 600 /uL (0-900); Monocytes Percent Auto 7.7 % (3-14); Neutrophils Absolute Auto 5400 /uL (1500-7000); Platelet Count 317 X10^3/uL (150-400); Red Blood Cell Count 4.34 X10^6/uL (4.0-5.2); White Blood Cell Count 7.9 X10^3/uL (4.5-11.0)
[2024-04-25 17:50] LABS: INR 0.9 (0.9-1.3); Prothrombin Time 10.6 SECONDS (9.4-12.5)
[2024-04-25 17:52] LABS: PTT Partial Thromboplastin Tim 35 SECONDS (25.1-36.5)
[2024-04-25 17:55] LABS: Alanine Aminotransferase 7 IU/L (<35); Albumin 4.5 g/dL (3.5-5.0); Albumin Globulin Ratio 1.4 (1.0-2.8); Alkaline Phosphatase 97 U/L (38-126); Aspartate Aminotransferase 25 IU/L (14-36); BUN Creatinine Ratio 31.9 (6-22); Bilirubin Total 0.6 mg/dL (0.2-1.3); Blood Urea Nitrogen 23 mg/dL (7-17); Calcium 9.3 mg/dL (8.4-10.2); Carbon Dioxide 32 mmol/L (22-32); Chloride 101 mmol/L (98-107); Creatine Kinase 72 U/L (30-135); Estimated Glomerular Filt Rate > 60 mL/min (>60); Globulin 3.3 g/dL (1.7-4.1); Glucose 103 mg/dL (80-110); HEMOLYSIS < 15 (0-50); Lipase 65 U/L (23-300); Sodium 138 mmol/L (137-145); Total Protein 7.8 g/dL (6.3-8.2)
[2024-04-25 18:06] LABS: Troponin I < 0.012 ng/mL (0.01-0.034)
--- NOTE | 2024-04-25 18:13 | PC.NURSE ---
This Patient informed this RN that she needed to take her carbidopa-levodopa at 6pm. This RN informed her they would ask provider. Provider confirmed patient was able to have this medication. RN confirmed dose and asked pharmacy for this medication. Upon recieving this medication from pharmacy and returning to patient they said they took their own. This RN educated patient about medication policy. This RN returned medication to pharmacy and informed provider.
[2024-04-25 19:44] VITALS: BP 194/87; PULSE 87; RESP 16; O2SAT 95
== END 2024-04-25 19:47 | disposition home or self-care (01) ==
PROVIDERS: Emergency Provider Physician Assistant; Family Provider Family Medicine; PCP Family Medicine
DX: S20.212A Contusion of left front wall of thorax, initial encounter (principal); S40.021A Contusion of right upper arm, initial encounter; R07.81 Pleurodynia; W18.00XA Striking against unspecified object with subsequent fall, initial encounter; G20.A1 Parkinson's disease without dyskinesia, without mention of fluctuations; I10 Essential (primary) hypertension; E78.5 Hyperlipidemia, unspecified; R29.6 Repeated falls
CPT/HCPCS: 36415; 71046; 71260; 80053; 82550; 83690; 84484; 85025; 85610; 85730; 93005; 99283; 99284; Q9967

== ENCOUNTER → 2024-07-24 12:00 | Outpatient (CLI) | payer MEDICARE, OTHER, SELFPAY ==
[2023-09-21 11:40] VITALS: BMI 27.1
--- NOTE | 2024-07-24 12:01 | DI.US.S_ITS ---
PROCEDURE: US CAROTID DOPPLER BI INDICATIONS: SYNCOPE TECHNIQUE: Color and pulse Doppler interrogation was performed of both carotid systems, with image documentation and velocity measurements. COMPARISON: [facility], , US CAROTID DOPPLER BI, 06/22/2018, 8:12. [facility], US CAROTID DOPPLER BI, 07/24/2019, 10:25. [facility], , US CAROTID DOPPLER BI, 08/10/2021, 13:59. FINDINGS: Stenosis calculations are based on SRU (Society of Radiologists in Ultrasound) criteria. The flow velocities and the arterial waveforms are normal within both carotid arterial systems. The estimated degree of internal carotid artery stenosis is less than 50%. Antegrade flow is confirmed within both vertebral arteries. IMPRESSION: Normal. Dictated by: Sebas Galan M.D. on 07/24/2024 at 12:19 Approved by: Sebas Galan M.D. on 07/24/2024 at 12:21
== END ==
PROVIDERS: Family Provider Family Medicine; PCP Family Medicine; Referring Provider Family Medicine; Visit Provider Family Medicine
DX: R55 Syncope and collapse (principal)
CPT/HCPCS: 93880

== ENCOUNTER → 2024-07-25 13:51 | Outpatient (CLI) | payer MEDICARE, OTHER, SELFPAY ==
[2023-09-21 11:40] VITALS: BMI 27.1
== END ==
LOC: CAR 13:52
PROVIDERS: Family Provider Family Medicine; PCP Family Medicine; Referring Provider Family Medicine; Visit Provider Family Medicine
DX: R55 Syncope and collapse (principal)
CPT/HCPCS: 93246

== ENCOUNTER → 2024-07-27 08:01 | Outpatient (CLI) | payer MEDICARE, OTHER, SELFPAY ==
[2023-09-21 11:40] VITALS: BMI 27.1
--- NOTE | 2024-07-27 08:03 | DI.ECHO.S_ITS ---
[facility] : : [id number] : : [place] : : [id number] : : Phone: [phone] Echocardiogram Report + + :Name: LAURA MIRAMONTES Study Date: 07/27/2024 Height: 62 in : :[facility] ReadingLocation: Weight: 130 lb : : Gender: Female BSA: 1.6 m2 : :: 1955 Age: 68 yrs BP: 146/72 mmHg: :Reason For Study: SYNCOPE : :Ordering Physician: LEXI, : :EMPERATRIZ Performed By: Valentin Reed : :Referring: EMPERATRIZ ELLIOTT : + + Interpretation Summary 1) Normal left ventricular thickness, size, wall motion, and systolic function (EF 55-60%). 2) Normal right ventricular size and function. 3) Mildly calcific aortic valve but no significant valvular stenosis or regurgitation present. 4) Compared to the Echo done 06/22/2018, no significant change. Procedure: A two-dimensional transthoracic echocardiogram with color flow and Doppler was performed. The study quality was technically good. Comparison is made with the echocardiogram of 06/22/2018. The patient was in normal sinus rhythm during the exam. Left Ventricle: The left ventricle is normal in size. There is normal left ventricular wall thickness. There is no ventricular septal defect visualized. The ejection fraction is estimated to be 55-60%. There are no focal wall motion abnormalities. Diastolic parameters suggest probable normal left ventricular diastolic function and normal filling pressures. Right Ventricle: The right ventricle is normal in size and function. Atria: The left atrial size is normal. Right atrial size is normal. There is no Doppler evidence for an interatrial shunt. Mitral Valve: The mitral valve leaflets appear normal. There is no evidence of stenosis, fluttering, or prolapse. There is trace mitral regurgitation. Aortic Valve: The aortic valve is trileaflet. The aortic valve opens well. The aortic valve is mildly calcified. There is no aortic valve stenosis. No aortic regurgitation is present. Tricuspid Valve: The tricuspid valve leaflets are thin and pliable. There is trace tricuspid regurgitation. The right ventricular systolic pressure is estimated to be at least 30 mmHg based on an estimated right atrial pressure of 3 mm Hg. Pulmonic Valve: The pulmonic valve is not well visualized. There is no pulmonic valvular regurgitation. Great Vessels: The aortic root is normal size. The dimensions of the ascending aorta are normal. The pulmonary is not well visualized. The IVC is of normal diameter and collapses greater than 50% with a sniff. This suggests a low right atrial pressure of 3 mm Hg. Pericardium/ Pleura There is no pericardial effusion. There is no pleural effusion. MMode/2D Measurements & Calculations LVIDd: 3.7 cm LVOT diam: 2.0 cm LVIDs: 2.5 cm Ao root diam: 2.7 cm FS: 33.8 % asc Aorta Diam: 2.9 cm EPSS: 0.45 cm IVSd: 0.82 cm LVPWd: 0.75 cm LV celeste. diameter/BSA (cm/m^2): 2.4 LV sys. diameter/BSA (cm/m^2): 1.6 LA A2 area: 16.9 cm2 RA long axis: 4.5 cm LA A4 area: 13.9 cm2 RA area: 13.3 cm2 LA length (vol): 4.4 cm RA vol: 33.2 ml LA vol: 45.1 ml RA : 20.9 ml/m2 LA vol index: 28.3 ml/m2 IVC diam: 1.7 cm RVD1 (basal): 2.7 cm RVD2 (mid): 2.4 cm TAPSE: 2.2 cm Doppler Measurements & Calculations Ao V2 max: 123.1 cm/sec LVOT Max Dipesh: 86.3 cm/sec Ao V2 mean: 87.2 cm/sec LV V1 max P.0 mmHg Ao max P.1 mmHg LV V1 VTI: 21.3 cm Ao mean P.3 mmHg LIZETH(I,D): 2.1 cm2 Ao V2 VTI: 30.5 cm LIZETH(V,D): 2.2 cm2 sev ratio: 0.70 LIZETH indexed to BSA (cm^2/m^2): 1.4 MV E max dipesh: 103.7 cm/sec TR max dipesh: 260.8 cm/sec MV A max dipesh: 47.0 cm/sec TR max P.2 mmHg MV E/A: 2.2 PA V2 max: 94.6 cm/sec Med Peak E' Dipesh: 8.2 cm/sec PA V2 mean: 69.1 cm/sec E/E' med: 12.7 PA mean P.1 mmHg Lat Peak E' Dipesh: 8.6 cm/sec PA pr(Accel): 41.3 mmHg E/E' lat: 12.1 E/e' average: 12.4 MV dec time: 0.14 sec SV(LVOT): 65.6 ml Reading Physician:01:16 PM
== END ==
PROVIDERS: Family Provider Family Medicine; PCP Family Medicine; Referring Provider Family Medicine; Visit Provider Family Medicine
DX: R55 Syncope and collapse (principal); I70.0 Atherosclerosis of aorta
CPT/HCPCS: 93306

== ENCOUNTER → 2025-01-30 10:14 | Outpatient (CLI) | payer MEDICARE, OTHER, SELFPAY ==
[2024-11-20 10:17] VITALS: BMI 27.1
--- NOTE | 2025-01-30 10:16 | DI.US.S_ITS ---
PROCEDURE: US EXTREMITY NONVASC LOWER RT INDICATIONS: soft tissue mass to right posteriorlateral leg TECHNIQUE: Real-time scanning was performed of the right hip, with image documentation. COMPARISON: [facility], , US EXTREMITY NONVASC LOWER LT, 05/18/2022, 13:59. FINDINGS: Focused ultrasound examination of lateral posterior lateral right hip/upper thigh shows 6 x 2.6 x 8 cm heterogeneously hypoechoic and solid appearing structure in soft tissue without internal vascularity. IMPRESSION: Finding may represent 6 x 2.6 x 8 cm lipoma in right posterior lateral upper thigh soft tissue. No definite internal vascularity is seen. Clinical correlation and follow-up is recommended. Dictated by: Chris Bernstein M.D. on 01/30/2025 at 12:31 Approved by: Chris Bernstein M.D. on 01/30/2025 at 12:33
== END ==
LOC: US 10:15
PROVIDERS: Family Provider Family Medicine; PCP Family Medicine; Referring Provider Family Medicine; Visit Provider Physician Assistant
DX: R10.30 Lower abdominal pain, unspecified (principal); R22.41 Localized swelling, mass and lump, right lower limb
CPT/HCPCS: 76705; 76882

== ENCOUNTER → 2025-02-08 10:11 | Outpatient (CLI) | payer MEDICARE, OTHER, SELFPAY ==
[2024-11-20 10:17] VITALS: BMI 27.1
--- NOTE | 2025-02-08 10:13 | DI.CT.S_ITS ---
PROCEDURE: CT ABDOMEN PELVIS W CON INDICATIONS: possbile mass per Ultrasound TECHNIQUE: After the administration of intravenous contrast, axial sections acquired from the lung bases to the pubic symphysis. Coronal and sagittal reformats were performed. For radiation dose reduction, the following was used: automated exposure control, adjustment of mA and/or kV according to patient size. COMPARISON: [facility], US, US ABDOMEN LIMITED, 01/30/2025, 10:43. [facility], CT, CT ABDOMEN PELVIS W CON, 04/13/2024, 11:39. FINDINGS: Image quality: Diagnostic. Lower Chest: No significant findings. ABDOMEN: Liver: No solid mass. Numerous well-circumscribed hypodense areas are seen scattered in liver parenchyma unchanged from prior study and likely represent hepatic cysts. Gallbladder: No radiopaque gallstones or wall thickening. Biliary ducts: No biliary dilation. Pancreas: No ductal dilation. Spleen: Size is within normal limits. Adrenal Glands: No adrenal nodules. Kidneys and Ureters: No hydronephrosis. No solid mass. No complex renal cystic lesion which requires follow up. Stomach and Bowel: There is no bowel obstruction. [id number] fecal stasis in the colon is seen. Sigmoid diverticulosis without CT evidence of acute diverticulitis. No abscess collection. Peritoneum: No abnormal intraperitoneal fluid. No free air. Ventral Wall: small umbilical hernia containing fat only. No abdominal wall mass or fluid collection. Abdominal Nodes: No retroperitoneal or mesenteric adenopathy by size criteria. Vessels: Aorta and inferior vena cava are normal in size. Main portal vein is patent. PELVIS: Pelvic Organs: Unremarkable. Bladder: No bladder wall thickening, accounting for underdistention. Pelvic Nodes: No enlarged lymph nodes. Miscellaneous: No inguinal hernias are seen. Bones: No aggressive osseous abnormality. Postsurgical changes are noted in lower lumbar spine with surgical hardware in place. No acute vertebral body compression fractures. IMPRESSION: 1. No soft tissue mass or drainable fluid collection is seen in abdomen or pelvis. Previous ultrasound finding of hypoechoic area in midline and right lower quadrant abdomen likely represent stool filled bowel loops. 2. [id number] constipation. No bowel obstruction or abnormal bowel wall thickening. No free fluid or free air. 3. Other chronic findings are not significantly changed from previous CT study. Dictated by: Chris Bernstein M.D. on 02/08/2025 at 12:37 Approved by: Chris Bernstein M.D. on 02/08/2025 at 12:41
[2025-02-08 10:43] LABS: Estimated Glomerular Filt Rate > 60 mL/min (>60)
== END ==
LOC: CT 10:13
PROVIDERS: Family Provider Family Medicine; PCP Family Medicine; Referring Provider Physician Assistant; Visit Provider Physician Assistant
DX: R19.00 Intra-abdominal and pelvic swelling, mass and lump, unspecified site (principal); K57.30 Diverticulosis of large intestine without perforation or abscess without bleeding; K42.9 Umbilical hernia without obstruction or gangrene; K59.00 Constipation, unspecified
CPT/HCPCS: 36415; 74177; 82565; Q9967